=== PATIENT | female | born 1960 | race Caucasian/White ===

== ENCOUNTER 2016-05-13 16:37 | Inpatient (IN) | payer MEDICAID, MEDICARE, OTHER ==
[~2016-05-13] VITALS: Ht 165.1 cm; Wt 64.0 kg
[~2016-05-13 16:37] MED LIST: BUPR150T6 PO; BUPR300T PO; DIVA500T PO; NAPR-243 PO; QTP25T PO; TRM50T PO; [UNRECOGNIZED DRUG - REMARK]
[2016-05-13] MEDS ORDERED: LACTATED RINGERS 1,000 ML IV ONE (17:51)
[2016-05-13] MEDS ORDERED: FAMOTIDINE 20MG/2ML IV (PEPCID) IV STA (17:51)
[2016-05-13] MEDS ORDERED: HYOSCYAMINE 0.125 MG (LEVSIN) TAB PO ONE (18:00)
[2016-05-13] MEDS ORDERED: diphenhydrAMINE 50 MG/ML INJ (BENADRYL) IVP ONE (18:00)
[2016-05-13] MEDS ORDERED: ONDANSETRON 4 MG/2 ML (SDV) Z0FRAN IVP ONE (18:00)
[2016-05-13] MEDS ORDERED: METOCLOPRAMIDE INJ 10 MG/2 ML (REGLAN) IVP ONE (18:00)
[2016-05-13] MEDS ORDERED: PANTOPRAZOLE 40 MG/10 ML (PROTONIX) VIAL IV ONE (18:00)
--- NOTE | 2016-05-13 18:20 | ED GI ---
General Chief Complaint: Abdominal/GI Problems Stated Complaint: N/V/D Nursing Triage Note: TO ED PER EMS WITH ONSET OF VOMITING AND DIARRHEA ONSET THIS AM. 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 FLORSE, AND WAS DX WITH ULCERS AND TAKES PRILOSEC 40 MG TWICE A DAY, BUT NOT TAKEN ANY TODAY HAS HAD SUBJECTIVE FEVER AND SWEATS LAST VOID UNKNOWN WAS WALKING AT HOME AND PASSED OUT, UNKNOWN LENGTH OF TIME--WAS NOT WITNESSED. STATES SHE HIT HER NOSE, BUT DOES NOT C/O NOSE PAIN OR NOSE BLEED. NO OTHER INJURIES PCP: [facility], HAS ALSO SEEN DR. MORRIS Allergies and Home Medications Allergies Coded Allergies: Sulfa (Sulfonamide Antibiotics) (Verified Allergy, Unknown, 05/13/16) meperidine (Unverified Adverse Reaction, Unknown, DECREASES BP, 05/13/16) Home Medications Bupropion Hcl 150 Mg Tab.sr.24h, 1 TAB PO DAILY, (Reported) Divalproex Sodium 500 Mg Tablet.dr, 500 MG PO, (Reported) Review of Systems Constitutional: see HPI, diaphoresis, dizziness, fever EENTM: No Symptoms Reported Respiratory: No Symptoms Reported Cardiovascular: Denies Chest Pain, Denies Edema, Lightheadedness, Syncope Gastrointestinal: See HPI, Abdominal Pain, Diarrhea, Nausea, Poor Appetite, Poor Fluid Intake, Vomiting Genitourinary: See HPI (UNKNOWN WHEN SHE LAST URINATED) Musculoskeletal: no symptoms reported Skin: no symptoms reported Psychiatric/Neurological: See HPI, Anxiety Endocrine: No Symptoms Reported Hematologic/Lymphatic: No Symptoms Reported Past Ipuvnum-Vegaps-Lcwzaz Hx Patient Social History Alcohol Use: Denies Use Recreational Drug Use: No Smoking Status: Current Everyday Smoker (1 PPD) Recent Foreign Travel: No Contact w/Someone Who Travel: No Recent Infectious Disease Expo: No Recent Hopitalizations: No Surgeries HX Surgeries: Yes (CERVICAL AND LUMBAR FUSIONS; X 1 ; HYST/BSO; EGD) Surgeries: Appendectomy, Section, Gallbladder, Hysterectomy, Orthopedic Respiratory Hx Respiratory Disorders: No Cardiovascular Hx Cardiac Disorders: No Neurological Hx Neurological Disorders: No 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 System Hx 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 Disorders: No 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, 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 Genitourinary Hx Genitourinary Disorders: No Gastrointestinal Hx Gastrointestinal Disorders: Yes Gastrointestinal Disorders: Ulcer Musculoskeletal Hx Musculoskeletal Disorders: Yes (CHRONIC NECK AND BACK APIN ) Musculoskeletal Disorders: Chronic Back Pain Endocrine Hx Endocrine Disorders: No HEENT HX ENT Disorders: No Cancer Hx Cancer: No Psychosocial Hx Psychiatric Problems: Yes (PSYCH ISSUES) Behavioral Health Disorders: Bipolar Integumentary HX Skin/Integumentary Disorder: No Blood Transfusions Hx Blood Disorders: No Physical Exam Vital Signs VS - Last 72 Hours, by Label 05/13/16 16:59 Temp 97.4 Pulse 71 Resp 18 B/P (MAP) 97/70 Pulse Ox 100 O2 Delivery Room Air Capillary Refill : Less Than 3 Seconds General Appearance: other (VERY DRAMATIC, HYPERVENTILATING-NEARLY HYSTERICAL, THRASHING ALL OVER BED) HEENT: PERRL/EOMI Neck: normal inspection Respiratory: normal breath sounds, no respiratory distress, no accessory muscle use Cardiovascular: normal peripheral pulses, regular rate, rhythm, no murmur Gastrointestinal: abnormal bowel sounds (DECREASED), No distended, guarding, No rebound, tenderness (DIFFUSE) Extremities: normal inspection, normal capillary refill Back: no CVA tenderness Neurologic/Psychiatric: learning technologist II-XII nml as tested, no motor/sensory deficits, alert, oriented x 3 Skin: normal color, warm/dry, tattoos/piercings (TATTOOS) Progress/Results/Core Measures Results/Orders Lab Results Laboratory Tests Test 05/13/16 18:20 05/13/16 19:25 Range/Units White Blood Count 15.6 H 4.3-11.0 10^3/uL Red Blood Count 4.69 4.35-5.85 10^6/uL Hemoglobin 15.0 11.5-16.0 G/DL Hematocrit 44 35-52 % Mean Corpuscular Volume 93 80-99 FL Mean Corpuscular Hemoglobin 32 25-34 PG Mean Corpuscular Hemoglobin Concent 34 32-36 G/DL Red Cell Distribution Width 13.9 10.0-14.5 % Platelet Count 282 130-400 10^3/uL Mean Platelet Volume 10.4 7.4-10.4 FL Neutrophils (%) (Auto) 88 H 42-75 % Lymphocytes (%) (Auto) 7 L 12-44 % Monocytes (%) (Auto) 4 0-12 % Eosinophils (%) (Auto) 1 0-10 % Basophils (%) (Auto) 0 0-10 % Neutrophils # (Auto) 13.8 H 1.8-7.8 X 10^3 Lymphocytes # (Auto) 1.1 1.0-4.0 X 10^3 Monocytes # (Auto) 0.7 0.0-1.0 X 10^3 Eosinophils # (Auto) 0.1 0.0-0.3 10^3/uL Basophils # (Auto) 0.0 0.0-0.1 10^3/uL Neutrophils % (Manual) 85 % Lymphocytes % (Manual) 3 % Monocytes % (Manual) 2 % Eosinophils % (Manual) 0 % Basophils % (Manual) 0 % Band Neutrophils 10 % Blood Morphology Comment NORMAL Sodium Level 139 135-145 MMOL/L Potassium Level 4.1 3.6-5.0 MMOL/L Chloride Level 110 H 98-107 MMOL/L Carbon Dioxide Level 22 21-32 MMOL/L Anion Gap 7 5-14 MMOL/L Blood Urea Nitrogen 19 H 7-18 MG/DL Creatinine 0.77 0.60-1.30 MG/DL Estimat Glomerular Filtration Rate > 60 BUN/Creatinine Ratio 25 Glucose Level 106 H 70-105 MG/DL Calcium Level 7.8 L 8.5-10.1 MG/DL Magnesium Level 2.2 1.8-2.4 MG/DL Total Bilirubin 0.6 0.1-1.0 MG/DL Aspartate Amino Transf (AST/SGOT) 119 H 5-34 U/L Alanine Aminotransferase (ALT/SGPT) 83 H 0-55 U/L Alkaline Phosphatase 100 40-136 U/L Total Protein 6.0 L 6.4-8.2 G/DL Albumin 3.7 3.2-4.5 G/DL Amylase Level 254 H 25-125 U/L Lipase 410 H 8-78 U/L Serum Alcohol < 10 <10 MG/DL Urine Color YELLOW Urine Clarity CLEAR Urine pH 6 5-9 Urine Specific [place] 1.015 L 1.016-1.022 Urine Protein 2+ H NEGATIVE Urine Glucose (UA) NEGATIVE NEGATIVE Urine Ketones NEGATIVE NEGATIVE Urine Nitrite NEGATIVE NEGATIVE Urine Bilirubin NEGATIVE NEGATIVE Urine Urobilinogen NORMAL NORMAL MG/DL Urine Leukocyte Esterase 2+ H NEGATIVE Urine RBC (Auto) 2+ H NEGATIVE Urine RBC 2-5 H /HPF Urine WBC 5-10 H /HPF Urine Squamous Epithelial Cells 0-2 /HPF Urine Crystals NONE /LPF Urine Bacteria MODERATE H /HPF Urine Casts NONE /LPF Urine Mucus NEGATIVE /LPF Urine Culture Indicated YES Urine Opiates Screen NEGATIVE NEGATIVE Urine Oxycodone Screen NEGATIVE NEGATIVE Urine Methadone Screen NEGATIVE NEGATIVE Urine Propoxyphene Screen NEGATIVE NEGATIVE Urine Barbiturates Screen NEGATIVE NEGATIVE Ur Tricyclic Antidepressants Screen NEGATIVE NEGATIVE Urine Phencyclidine Screen NEGATIVE NEGATIVE Urine Amphetamines Screen NEGATIVE NEGATIVE Urine Methamphetamines Screen NEGATIVE NEGATIVE Urine Benzodiazepines Screen NEGATIVE NEGATIVE Urine Cocaine Screen NEGATIVE NEGATIVE Urine Cannabinoids Screen NEGATIVE NEGATIVE My Orders Orders - MINE TONY DO Saline Lock/Iv-Start (05/13/16 17:51) Monitor-Rhythm Ecg Trace Only (05/13/16 17:51) Amylase (05/13/16 17:51) Cbc With Automated Diff (05/13/16 17:51) Comprehensive Metabolic Panel (05/13/16 17:51) Lipase (05/13/16 17:51) Ua Culture If Indicated (05/13/16 17:51) Saline Lock/Iv-Start (05/13/16 17:51) Lactated Ringers (Lr 1000 Ml Iv Solution (05/13/16 17:51) Ondansetron Injection (Zofran Injectio (05/13/16 18:00) Famotidine Injection (Pepcid Injection) (05/13/16 17:51) Alcohol (05/13/16 17:55) Drug Screen Stat (Urine) (05/13/16 17:55) Magnesium (05/13/16 17:55) Hyoscyamine Sl Tablet (Levsin Sl Tablet) (05/13/16 18:00) Pantoprazole Injection (Protonix Injecti (05/13/16 18:00) Diphenhydramine Injection (Benadryl Inje (05/13/16 18:00) Metoclopramide Injection (Reglan Injecti (05/13/16 18:00) Manual Differential (05/13/16 18:20) Ct Abdomen/Pelvis W (05/13/16 19:13) Acute Abd Series (05/13/16 19:14) Calcium Chloride 10% Injection (Calcium (05/13/16 19:15) Hepatitis Panel Acute (05/13/16 19:14) Iohexol Injection (Omnipaque 350 Mg/Ml 1 (05/13/16 19:45) Ns (Ivpb) (Sodium Chloride 0.9% Ivpb Bag (05/13/16 19:45) Stool Culture (05/13/16 19:44) C Difficile Ag + Toxin A/B. (05/13/16 19:44) Fecal Wbc (05/13/16 19:44) Urine Culture (05/13/16 19:25) Medications Given in ED Current Medications Medications Dose Ordered Sig/Dimitry Route Start Time Stop Time Status Last Admin Dose Admin Calcium Chloride 1 gm ONCE ONCE INJ 05/13/16 19:15 05/13/16 19:21 DC 05/13/16 19:39 1 GM Diphenhydramine HCl 50 mg ONCE ONCE IVP 05/13/16 18:00 05/13/16 18:01 DC 05/13/16 18:08 50 MG Hyoscyamine Sulfate 0.25 mg ONCE ONCE PO 05/13/16 18:00 05/13/16 18:01 DC 05/13/16 18:10 0.25 MG Iohexol 100 ml ONCE ONCE IV 05/13/16 19:45 05/13/16 19:46 DC 05/13/16 20:34 100 ML Lactated Ringer's 1,000 ml @ 0 mls/hr Q0M ONCE IV 05/13/16 17:51 05/13/16 17:53 DC 05/13/16 18:00 1,000 MLS/HR Metoclopramide HCl 10 mg ONCE ONCE IVP 05/13/16 18:00 05/13/16 18:01 DC 05/13/16 18:09 10 MG Ondansetron HCl 4 mg ONCE ONCE IVP 05/13/16 18:00 05/13/16 18:01 DC 05/13/16 18:01 4 MG Pantoprazole 40 mg ONCE ONCE IV 05/13/16 18:00 05/13/16 18:01 DC 05/13/16 18:13 40 MG Sodium Chloride 100 ml ONCE ONCE IV 05/13/16 19:45 05/13/16 19:46 DC 05/13/16 20:34 80 ML Vital Signs/I&O Vital Sign - Last 12Hours 05/13/16 16:59 Temp 97.4 Pulse 71 Resp 18 B/P (MAP) 97/70 Pulse Ox 100 O2 Delivery Room Air Blood Pressure Mean: 79 Progress Note : Progress Note SYMPTOMS MUCH IMPROVED WITH MEDICATIONS--FEELS MUCH BETTER NO FURTHER VOMITING, BUT HAD SEVERAL EPISODES OF DIARRHEA DURING ER STAY--SENT TO LAB FOR TESTING PT RESTED QUIETLY FOR REMAINDER OF ER STAY AFTER MEDICATIONS WERE GIVEN Diagnostic Imaging Comments ACUTE ABDOMEN XRAYS--ENTERITIS -TYPE PATTERN CT ABDOMEN/PELVIS--ENTERITIS-TYPE PATTERN, DILATED BILIARY TREE--POST- CHOLECYSTECTOMY VS PATHOLOGIC PER RADIOLOGIST REPORTS AT 2132 Reviewed: Reviewed by Me Departure Communication Progress Notes 2016--SPOKE WITH DR. MCDOWELL, CT PENDING , BUT ACCEPTS PT FOR ADMIT. Impression Impression: Primary Impression: Pancreatitis Additional Impressions: Elevated liver enzymes Gastroenteritis DEHYDRATION WIH SYNCOPE Hypocalcemia History of peptic ulcer Disposition: ADMITTED INPATIENT Condition: Improved Decision to Admit Reason: Admit from ER (General) Decision to Admit/Date: May 13, 2016 Time/Decision to Admit Time: 21:30 Departure-Patient Inst. Referrals: [facility] (PCP[facility]Family) Primary Care Physician MINE TONY DO May 13, 2016 18:20
[2016-05-13 18:38] LABS: BASOPHILS % (AUTO) 0 % (0-10); EOSINOPHILS # (AUTO) 0.1 10^3/uL (0.0-0.3); EOSINOPHILS % (AUTO) 1 % (0-10); LYMPHOCYTES # (AUTO) 1.1 X 10^3 (1.0-4.0); LYMPHOCYTES % (AUTO) 7 % (12-44); MEAN CORPUSCULAR HEMOGLOBIN 32 PG (25-34); MEAN CORPUSCULAR HGB CONC 34 G/DL (32-36); MEAN CORPUSCULAR VOLUME 93 FL (80-99); MEAN PLATELET VOLUME 10.4 FL (7.4-10.4); MONOCYTES # (AUTO) 0.7 X 10^3 (0.0-1.0); MONOCYTES % (AUTO) 4 % (0-12); NEUTROPHILS # (AUTO) 13.8 X 10^3 (1.8-7.8); NEUTROPHILS % (AUTO) 88 % (42-75); PLATELET COUNT 282 10^3/uL (130-400); RED BLOOD COUNT 4.69 10^6/uL (4.35-5.85); RED CELL DISTRIBUTION WIDTH 13.9 % (10.0-14.5); WHITE BLOOD COUNT 15.6 10^3/uL (4.3-11.0)
[2016-05-13 18:57] LABS: BAND NEUTROPHILS 10 %; BASOPHILS % (MANUAL) 0 %; EOSINOPHILS % (MANUAL) 0 %; LYMPHOCYTES % (MANUAL) 3 %; NEUTROPHILS % (MANUAL) 85 %
[2016-05-13 19:02] LABS: ALANINE AMINOTRANSFERASE 83 U/L (0-55); ALBUMIN 3.7 G/DL (3.2-4.5); ALCOHOL < 10 MG/DL (<10); AMYLASE 254 U/L (25-125); ANION GAP 7 MMOL/L (5-14); ASPARTATE AMINO TRANSFERASE 119 U/L (5-34); BILIRUBIN,TOTAL 0.6 MG/DL (0.1-1.0); BLOOD UREA NITROGEN 19 MG/DL (7-18); BUN/CREATININE RATIO 25; CALCIUM 7.8 MG/DL (8.5-10.1); CARBON DIOXIDE 22 MMOL/L (21-32); CHLORIDE 110 MMOL/L (98-107); CREATININE SERUM 0.77 MG/DL (0.60-1.30); GFR ESTIMATED > 60; GLUCOSE 106 MG/DL (70-105); LIPASE 410 U/L (8-78); MAGNESIUM 2.2 MG/DL (1.8-2.4); POTASSIUM 4.1 MMOL/L (3.6-5.0); SODIUM 139 MMOL/L (135-145)
[2016-05-13] MEDS ORDERED: CALCIUM CHLORIDE 1 GM/10 ML (IMS) SYR INJ ONE (19:15)
[2016-05-13 19:31] LABS: BILIRUBIN,URINE NEGATIVE (NEGATIVE); KETONES,URINE NEGATIVE (NEGATIVE); LEUKOCYTE ESTERASE ,URINE 2+ (NEGATIVE); NITRITE,URINE NEGATIVE (NEGATIVE); PH,URINE 6 (5-9); PROTEIN,URINE 2+ (NEGATIVE); UROBILINOGEN,URINE NORMAL (NORMAL)
[2016-05-13 19:45] LABS: SQUAMOUS EPITHELIAL CELL,UR 0-2 /HPF
[2016-05-13] MEDS ORDERED: NS 100 ML (IVPB) BAG IV ONE (19:45)
[2016-05-13] MEDS ORDERED: IOHEXOL 350 MG/ML 100 ML (OMNIPAQUE 350) VIAL IV ONE (19:45)
[2016-05-13] MEDS ORDERED: ENOXAPARIN 80 MG/0.8 ML (LOVENOX) SYR SC ONE (21:15)
[2016-05-13] MEDS ORDERED: meTOprolol 5 MG/5 ML (LOPRESSOR) VIAL IV ONE (21:15)
--- NOTE | 2016-05-13 21:17 | Diagnostic Imaging Report ---
PROCEDURE: CT abdomen and pelvis with contrast. TECHNIQUE: Multiple contiguous axial images were obtained through the abdomen and pelvis after administration of intravenous contrast. INDICATION: Elevated liver and pancreas enzymes. COMPARISON: None available. FINDINGS: Lower chest: The lung bases are clear. No pericardial or pleural effusion. Peritoneum: No free intraperitoneal air or fluid. Liver and biliary system: The liver is normal. Status post cholecystectomy. There is mild diffuse intrahepatic and extrahepatic bile duct dilatation. Common bile duct demonstrates smooth distal tapering. No discrete intraluminal lesion by CT. Spleen and Pancreas: Spleen is normal. The pancreas enhances normally without mass lesion or peripancreatic inflammatory changes. Adrenals: Normal. tract: The kidneys enhance normally without suspicious mass or obstruction. Urinary bladder is distended without wall thickening. Hysterectomy. No suspicious adnexal lesion. GI tract: Stomach is decompressed. No bowel obstruction. The majority of the small bowel loops are fluid filled without wall thickening. The ascending colon is also fluid filled. Distal colon is decompressed. No pericolonic inflammatory changes. Appendectomy. Vasculature and Lymph nodes: Normal caliber aorta. No abdominal or pelvic lymphadenopathy. Musculoskeletal: No concerning osseous lesion. Prior discectomy and laminectomies at L4 and L5 with posterior instrumented fusion. IMPRESSION: 1. No evidence of acute pancreatitis. 2. Diffuse fluid-filled small bowel loops and proximal colon suggest enteritis. No bowel obstruction. 3. Status post cholecystectomy. There is mild diffuse intrahepatic and extrahepatic biliary duct dilatation. This can be physiologic in a postcholecystectomy state. However, given reported elevated liver enzymes, this could be pathologic. MRCP could be performed for further evaluation, as clinically indicated. Dictated by: Dictated on workstation # [id number]
--- NOTE | 2016-05-13 21:27 | Diagnostic Imaging Report ---
INDICATION: Nausea and vomiting. COMPARISON: CT abdomen and pelvis performed subsequently. FINDINGS: Visible lungs are clear. No pleural effusion or pneumothorax. Normal cardiomediastinal silhouette. Nonobstructive bowel gas pattern. Multiple small bowel and colonic air-fluid levels on upright imaging favor enteritis. No free intraperitoneal air. Postoperative changes in the lower lumbar spine. IMPRESSION: 1. Nonobstructive bowel gas pattern. 2. Findings suggestive of enteritis. Please see CT abdomen and pelvis report for details. 3. No acute cardiopulmonary process. Dictated by: Dictated on workstation # [id number]
[2016-05-13] MEDS ORDERED: ACETAMINOPHEN 500 MG TAB (TYLENOL) ONE (22:19)
[2016-05-13] MEDS ORDERED: ACETAMINOPHEN 500 MG TAB (TYLENOL) PO ONE (22:30)
[2016-05-13 22:35] VITALS: BP 112/57
[2016-05-13] MEDS ORDERED: D5 1/2 NS 1000 ML IV SOLUTION 1,000 ML IV ONE ×2 (22:42→22:48)
[2016-05-14] VITALS (7 sets, daily range): BP systolic 88–127; BP diastolic 46–66
[2016-05-14] MEDS ORDERED: D5 1/2 NS W/KCL 20 MEQ/L 1,000 ML IV ONE (00:32)
[2016-05-14] MEDS ORDERED: ACETAMINOPHEN 500 MG TAB (TYLENOL) PO PRN (01:00)
[2016-05-14] MEDS: D5 1/2 NS W/KCL 20 MEQ/L 1,000 ML IV SCH ×5 (01:11→23:54)
[2016-05-14 05:59] LABS: BASOPHILS % (AUTO) 0 % (0-10); EOSINOPHILS # (AUTO) 0.1 10^3/uL (0.0-0.3); EOSINOPHILS % (AUTO) 2 % (0-10); LYMPHOCYTES # (AUTO) 1.2 X 10^3 (1.0-4.0); LYMPHOCYTES % (AUTO) 21 % (12-44); MEAN CORPUSCULAR HEMOGLOBIN 32 PG (25-34); MEAN CORPUSCULAR HGB CONC 34 G/DL (32-36); MEAN CORPUSCULAR VOLUME 94 FL (80-99); MEAN PLATELET VOLUME 10.8 FL (7.4-10.4); MONOCYTES # (AUTO) 0.6 X 10^3 (0.0-1.0); MONOCYTES % (AUTO) 12 % (0-12); NEUTROPHILS # (AUTO) 3.5 X 10^3 (1.8-7.8); NEUTROPHILS % (AUTO) 65 % (42-75); PLATELET COUNT 225 10^3/uL (130-400); RED BLOOD COUNT 4.31 10^6/uL (4.35-5.85); RED CELL DISTRIBUTION WIDTH 13.9 % (10.0-14.5); WHITE BLOOD COUNT 5.4 10^3/uL (4.3-11.0)
[2016-05-14 06:21] LABS: ALANINE AMINOTRANSFERASE 915 U/L (0-55); ALBUMIN 3.2 G/DL (3.2-4.5); AMYLASE 103 U/L (25-125); ANION GAP 5 MMOL/L (5-14); ASPARTATE AMINO TRANSFERASE 1000 U/L (5-34); BILIRUBIN,TOTAL 0.7 MG/DL (0.1-1.0); BLOOD UREA NITROGEN 11 MG/DL (7-18); BUN/CREATININE RATIO 15; CALCIUM 8.1 MG/DL (8.5-10.1); CARBON DIOXIDE 23 MMOL/L (21-32); CHLORIDE 112 MMOL/L (98-107); CREATININE SERUM 0.71 MG/DL (0.60-1.30); GFR ESTIMATED > 60; GLUCOSE 88 MG/DL (70-105); LIPASE 82 U/L (8-78); POTASSIUM 4.2 MMOL/L (3.6-5.0); SODIUM 140 MMOL/L (135-145); TOTAL PROTEIN 5.3 G/DL (6.4-8.2)
[2016-05-14] MEDS: PANTOPRAZOLE 40 MG/10 ML (PROTONIX) VIAL IV SCH ×2 (08:04→20:23)
[2016-05-14] MEDS ORDERED: DIVA500T15 PO (09:39)
[2016-05-14] MEDS ORDERED: METH20TA34 PO (09:39)
[2016-05-14] MEDS ORDERED: BUPR150T7 PO (09:39)
[2016-05-14] MEDS ORDERED: BUPR-42 PO (09:45)
[2016-05-14] MEDS ORDERED: OMEP40CA36 PO (09:46)
--- NOTE | 2016-05-14 10:43 | History & Physical-Hospitalist ---
HPI History of Present Illness: HPI/Chief Complaint CC: Abdominal pain HPI: This is a 56yoWF pt of Dr. Menchaca and [facility] that presented to the ER with abrupt onset of vomiting and diarrhea and felt like she was going to pass out. She was assessed to have elevated liver enzymes with pancreatitis and CT scan showed dilated biliary system so MRCP has been ordered and Dr. Cifuentes has been consulted. microarray specialist: Pt can have surgery at 1700 today. Pt will be NPO. SW Review: CT scan showed dilated biliary system so MRCP has been ordered and Dr. Cifuentes has been consulted. Pt is a current smoker. Patient Interview: Pt states she was at home when she came to the ER. 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 Pt states she had diarrhea and vomited. Pt states she passed out twice and one of the times she passed out she hit her face on the toilet. Physical exam was stable. Pt denies pain currently. Pt states she had Choly in 1977. Pt was told about potentially having a biliary stone or narrowing of her biliary system and that is why she is getting MRCP test done. Pt will meet with Dr. Cifuentes. Pt states she is in the process of quitting smoking. Pt denies drinking ETOH or taking Tylenol. Scribed by Sancho Wilson under the direct supervision of Dr. Menezes. 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) Alcohol Use: Denies Use Recreational Drug Use: No Smoking Status: Current Everyday Smoker Type Used: Cigarettes Physical Abuse Screen: No Sexual Abuse: No Recent Foreign Travel: No Contact w/other who traveled: No Recent Hopitalizations: No Recent Infectious Disease Expo: No Immunizations Up To Date Date of Influenza Vaccine: Nov 16, 2015 Seasonal Allergies Seasonal Allergies: No Surgeries HX Surgeries: Yes (CERVICAL AND LUMBAR FUSIONS; X 1 ; HYST/BSO; EGD) Surgeries: Appendectomy, Section, Gallbladder (), Hysterectomy, Orthopedic Respiratory Hx Respiratory Disorders: No Cardiovascular Hx Cardiovascular Disorders: No Neurological Hx Neurological Disorders: No 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 System Hx 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 Disorders: No Sexually Transmitted Disease: No HIV/AIDS: No Female 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 Disorders: Denies Genitourinary Hx Genitourinary Disorders: No Gastrointestinal Hx Gastrointestinal Disorders: Yes Gastrointestinal Disorders: Ulcer, Gall Bladder Disease Musculoskeletal Hx Musculoskeletal Disorders: Yes (CHRONIC NECK AND BACK APIN ) Musculoskeletal Disorders: Chronic Back Pain Endocrine Hx Endocrine Disorders: No HEENT HX ENT Disorders: No Cancer Hx Cancer: No Psychosocial Hx Psychiatric Problems: Yes (PSYCH ISSUES) Behavioral Health Disorders: Bipolar, Depression Integumentary HX Skin/Integumentary Disorder: No Blood Transfusions Hx Blood Disorders: No Adverse Reaction to a Blood Tr: No Family Medical History Family Hx: FH: non-Hodgkin's lymphoma SON Hypertension 19 MOTHER Review of Systems Constitutional: see HPI, malaise, weakness EENTM: no symptoms reported Respiratory: no symptoms reported Cardiovascular: no symptoms reported Gastrointestinal: diarrhea, loss of appetite, nausea, vomiting Genitourinary: no symptoms reported Musculoskeletal: back pain Skin: no symptoms reported Psychiatric/Neurological: Anxiety, Depressed All Other Systems Reviewed Negative Unless Noted: Yes Physical Exam Physical Exam Vital Signs Vital Sign - Last 12Hours 05/13/16 16:59 Temp 97.4 Pulse 71 Resp 18 B/P (MAP) 97/70 Pulse Ox 100 O2 Delivery Room Air Capillary Refill : Less Than 3 Seconds General Appearance: WD/WN, Chronically ill, Mild Distress Eyes: Bilateral Eye Normal Inspection, Bilateral Eye PERRL HEENT: PERRL/EOMI, Normal ENT Inspection, Pharynx Normal Neck: Full Range of Motion, Normal Inspection, Non Tender, Supple, Carotid Bruit Respiratory: Chest Non Tender, Lungs Clear, Normal Breath Sounds, No Accessory Muscle Use, No Respiratory Distress Cardiovascular: Regular Rate, Rhythm, No Edema, No Gallop, No JVD, No Murmur, Normal Peripheral Pulses Gastrointestinal: No Organomegaly, No Pulsatile Mass, Soft, Abnormal Bowel Sounds, Distended, Tenderness Back: Normal Inspection, No CVA Tenderness, No Vertebral Tenderness Extremity: Normal Capillary Refill, Normal Inspection, Normal Range of Motion, Non Tender, No Calf Tenderness, No Pedal Edema Neurologic/Psychiatric: Alert, Oriented x3, No Motor/Sensory Deficits, Normal Mood/Affect Skin: Normal Color, Warm/Dry Lymphatic: No Adenopathy Results Results/Procedures Lab Laboratory Tests 05/13/16 18:20 05/14/16 05:20 Assessment/Plan Admission Diagnosis Assessment: Acute pancreatitis with elevated liver enzymes and biliary tree dilatation in process of obtaining MRCP then may need ERCP consulting Dr. Cifuentes general surgery maintaining on PPI Open cholecystectomy in 1970s Current smoker Dehydration Assessment and Plan Plan: Wet warm compress to left hand from IV infiltration MRCP Consult Dr Cifuentes since may need scope or transfer for ERCP IVF Pain meds Clinical Quality Measures DVT/VTE Risk/Contraindication: Risk Factor Score Per Nursin RFS Level Per Nursing on Admit: 4+=Very High ELI MENEZES DO May 14, 2016 10:43
--- NOTE | 2016-05-14 12:53 | Consultation ---
History of Present Illness History of Present Illness Patient Consulted On(tree/time) 05/14/16 12:47 Date of Admission History of Present Illness Surgery asked to consult re: pancreatitis. HPI: pt is a 56 yo female who works in [employer] She states yesterday about 4 am, while working she started feeling "bad". Went home a little early and at home then had 4-5 episodes of vomting and then diarrhea. Stated she felt dehydrated and weak, passed out twice and the second time she couldn't even get up, so she called 911 and came to hospital. Pt has only minimal abdominal pain, complains more of "bloating" and cramps. Pain is 3-4 out of 10, on a 1-10 scale. Pt denies any travel; however, she states [place] went [place] 2 [place] 9 [place] who had a "bad virus" and were having projectile vomiting and diarrhea. She denies hematochezia. She has never had anything like this before. States she just tried toast and it made her nauseous again, but the cranberry juice actually helped. Still feels weak. Allergies and Home Medications Allergies Coded Allergies: Sulfa (Sulfonamide Antibiotics) (Verified Allergy, Unknown, 05/13/16) meperidine (Unverified Adverse Reaction, Unknown, DECREASES BP, 05/13/16) Home Medications Bupropion HCl 150 Mg Tab.er.24h, 150 MG PO DAILY, (Reported) Bupropion HCl 150 Mg Tab.er.24h, 300 MG PO HS, (Reported) TAKES 2 (150MG) TABLETS Divalproex Sodium 500 Mg Tab.er.24h, 1,000 MG PO HS, (Reported) TAKES 2 (500MG) TABLETS Methylphenidate HCl 20 Mg Tablet, 20 MG PO 2200,0300, (Reported) Omeprazole 40 Mg Capsule.dr, 40 MG PO BID, (Reported) LAST FILLED #30 12-10-15 Past Dwholrc-Aaitme-Celfsu Hx Patient Social History Alcohol Use: Denies Use Recreational Drug Use: No Smoking Status: Current Everyday Smoker Type Used: Cigarettes Recent Foreign Travel: No Contact w/Someone Who Travel: No Recent Infectious Disease Expo: No Recent Hopitalizations: No Physical Abuse Screen: No Sexual Abuse: No Immunizations Up To Date PED Vaccines UTD: Yes Date of Influenza Vaccine: Nov 16, 2015 Seasonal Allergies Seasonal Allergies: No Surgeries HX Surgeries: Yes (CERVICAL AND LUMBAR FUSIONS; X 1 ; HYST/BSO; EGD) Surgeries: Appendectomy, Section, Gallbladder (), Hysterectomy, Orthopedic Respiratory Hx Respiratory Disorders: No Cardiovascular Hx Cardiac Disorders: No Neurological Hx Neurological Disorders: No 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 System Hx 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 Disorders: No Sexually Transmitted Disease: No HIV/AIDS: No Female 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 Disorders: 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, 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 Genitourinary Hx Genitourinary Disorders: No Gastrointestinal Hx Gastrointestinal Disorders: Yes Gastrointestinal Disorders: Ulcer, Gall Bladder Disease Musculoskeletal Hx Musculoskeletal Disorders: Yes (CHRONIC NECK AND BACK APIN ) Musculoskeletal Disorders: Chronic Back Pain Endocrine Hx Endocrine Disorders: No HEENT HX ENT Disorders: No Cancer Hx Cancer: No Psychosocial Hx Psychiatric Problems: Yes (PSYCH ISSUES) Behavioral Health Disorders: Bipolar, Depression Integumentary HX Skin/Integumentary Disorder: No Blood Transfusions Hx Blood Disorders: No Adverse Reaction to a Blood Tr: No Family Medical History Significant Family History: CAD Over 55 Years Old (father of [place]), Hypertension (mother) Family Medial History: FH: non-Hodgkin's lymphoma SON Hypertension 19 MOTHER Review of Systems-General Constitutional: chills, malaise, weakness EENTM: No blurred vision, No hearing loss, No throat swelling, No vision loss Respiratory: No cough, No dyspnea on exertion, No hemoptysis Cardiovascular: No chest pain, No palpitations, syncope Gastrointestinal: abdominal pain, diarrhea, No hematemesis, No melena, nausea, vomiting Genitourinary: dysuria, frequency, No hematuria : No Musculoskeletal: back pain, joint pain, muscle pain, muscle stiffness Skin: No change in color, No change in hair/nails Psychiatric/Neurological: Depressed, Emotional Problems (bipolar), Denies Seizure, Denies Tremors Other denies any swollen lymph nodes and no heat or cold intolerance Physical Exam-General Problems Physical Exam Vital Signs Vital Sign - Last 12Hours 05/13/16 16:59 Temp 97.4 Pulse 71 Resp 18 B/P (MAP) 97/70 Pulse Ox 100 O2 Delivery Room Air Capillary Refill : Less Than 3 Seconds General Appearance: WD/WN, mild distress Eyes: Bilateral Eye EOMI, Bilateral Eye PERRL HEENT: pharynx normal, No scleral icterus (R), No scleral icterus (L) Neck: non-tender, supple, normal inspection, No thyromegaly Respiratory: lungs clear, normal breath sounds, no respiratory distress, no accessory muscle use Cardiovascular: regular rate, rhythm, no edema, no murmur Gastrointestinal: normal bowel sounds, non tender, soft, no organomegaly, no pulsatile mass Rectal: deferred Back: no CVA tenderness, no vertebral tenderness Extremities: non-tender, normal inspection, no pedal edema, no calf tenderness , normal capillary refill Neurologic/Psychiatric: dot etcher II-XII nml as tested, no motor/sensory deficits, alert, normal mood/affect, oriented x 3 Skin: normal color, warm/dry Lymphatic: no adenopathy (neck axilla or groin) Data Review Labs Laboratory Tests 05/13/16 18:20: White Blood Count 15.6H, Red Blood Count 4.69, Hemoglobin 15.0, Hematocrit 44, Mean Corpuscular Volume 93, Mean Corpuscular Hemoglobin 32, Mean Corpuscular Hemoglobin Concent 34, Red Cell Distribution Width 13.9, Platelet Count 282, Mean Platelet Volume 10.4, Neutrophils (%) (Auto) 88H, Lymphocytes (%) (Auto) 7L , Monocytes (%) (Auto) 4, Eosinophils (%) (Auto) 1, Basophils (%) (Auto) 0, Neutrophils # (Auto) 13.8H, Lymphocytes # (Auto) 1.1, Monocytes # (Auto) 0.7, Eosinophils # (Auto) 0.1, Basophils # (Auto) 0.0, Neutrophils % (Manual) 85, Lymphocytes % (Manual) 3, Monocytes % (Manual) 2, Eosinophils % (Manual) 0, Basophils % (Manual) 0, Band Neutrophils 10, Blood Morphology Comment NORMAL, Sodium Level 139, Potassium Level 4.1, Chloride Level 110H, Carbon Dioxide Level 22, Anion Gap 7, Blood Urea Nitrogen 19H, Creatinine 0.77, Estimat Glomerular Filtration Rate > 60, BUN/Creatinine Ratio 25, Glucose Level 106H, Calcium Level 7.8L, Magnesium Level 2.2, Total Bilirubin 0.6, Aspartate Amino Transf (AST/SGOT) 119H, Alanine Aminotransferase (ALT/SGPT) 83H, Alkaline Phosphatase 100, Total Protein 6.0L, Albumin 3.7, Amylase Level 254H, Lipase 410H, Serum Alcohol < 10 05/13/16 19:25: Urine Color YELLOW, Urine Clarity CLEAR, Urine pH 6, Urine Specific Sterling 1.015L, Urine Protein 2+H, Urine Glucose (UA) NEGATIVE, Urine Ketones NEGATIVE, Urine Nitrite NEGATIVE, Urine Bilirubin NEGATIVE, Urine Urobilinogen NORMAL, Urine Leukocyte Esterase 2+H, Urine RBC (Auto) 2+H, Urine RBC 2-5H, Urine WBC 5- 10H, Urine Squamous Epithelial Cells 0-2, Urine Crystals NONE, Urine Bacteria MODERATEH, Urine Casts NONE, Urine Mucus NEGATIVE, Urine Culture Indicated YES, Urine Opiates Screen NEGATIVE, Urine Oxycodone Screen NEGATIVE, Urine Methadone Screen NEGATIVE, Urine Propoxyphene Screen NEGATIVE, Urine Barbiturates Screen NEGATIVE, Ur Tricyclic Antidepressants Screen NEGATIVE, Urine Phencyclidine Screen NEGATIVE, Urine Amphetamines Screen NEGATIVE, Urine Methamphetamines Screen NEGATIVE, Urine Benzodiazepines Screen NEGATIVE, Urine Cocaine Screen NEGATIVE, Urine Cannabinoids Screen NEGATIVE 05/14/16 05:20: White Blood Count 5.4, Red Blood Count 4.31L, Hemoglobin 13.7, Hematocrit 40, Mean Corpuscular Volume 94, Mean Corpuscular Hemoglobin 32, Mean Corpuscular Hemoglobin Concent 34, Red Cell Distribution Width 13.9, Platelet Count 225, Mean Platelet Volume 10.8H, Neutrophils (%) (Auto) 65, Lymphocytes (%) (Auto) 21 , Monocytes (%) (Auto) 12, Eosinophils (%) (Auto) 2, Basophils (%) (Auto) 0, Neutrophils # (Auto) 3.5, Lymphocytes # (Auto) 1.2, Monocytes # (Auto) 0.6, Eosinophils # (Auto) 0.1, Basophils # (Auto) 0.0, Sodium Level 140, Potassium Level 4.2, Chloride Level 112H, Carbon Dioxide Level 23, Anion Gap 5, Blood Urea Nitrogen 11, Creatinine 0.71, Estimat Glomerular Filtration Rate > 60, BUN/ Creatinine Ratio 15, Glucose Level 88, Calcium Level 8.1L, Total Bilirubin 0.7, Aspartate Amino Transf (AST/SGOT) 1000H, Alanine Aminotransferase (ALT/SGPT) 915H, Alkaline Phosphatase 234H, Total Protein 5.3L, Albumin 3.2, Amylase Level 103, Lipase 82H Microbiology 05/13/16 Urine Culture - Preliminary, Resulted Assessment/Plan Assessment/Plan Assessment/Plan Pancreatitis - labs resolving Elevated LFT's N/V/D- most likely a viral entertitis. CT shows some areas of thickened SB. Possible UTI\\ Hx of Bipolar disorder - controlled with meds Plan order Hepatitis panel, monitor LFT's, IV fluids. Continue current care. No surgical intervention at this time. Clinical Quality Measures DVT/VTE Risk/Contraindication: Risk Factor Score Per Nursin RFS Level Per Nursing on Admit: 4+=Very High KALEE MAY DO May 14, 2016 12:53
--- NOTE | 2016-05-14 18:48 | Diagnostic Imaging Report ---
PROCEDURE: MR imaging cholangiography-pancreatography. INDICATION: Episodes of nausea, vomiting diarrhea with abdominal pain. Possible Clostridium difficile. TECHNIQUE: Multiplanar imaging of the abdomen was performed on a 1.5 Evelyne magnet without contrast. 3D reconstructions were made for the MRCP CORRELATION STUDY: CT 05/13/2016. FINDINGS: The gallbladder is surgically absent. There is a prominent appearance about the extrahepatic and to a lesser degree, the central intrahepatic biliary tree. Some areas proximally, the common bile duct up to 11 mm, very slightly above upper limits of normal. There is no definitive filling defect to suggest stone. The main pancreatic duct is unremarkable. The pancreas is unremarkable. Relatively uniform signal intensity throughout the liver. The spleen is normal in size and appearance. No suggestion for adrenal gland mass. The kidneys are normal in appearance. Abdominal aorta is normal in contour. No significant upper abdominal ascites. IMPRESSION: 1. Postcholecystectomy changes. 2. The biliary tree both extrahepatic and intrahepatic is very mildly prominent with the size of the common bile duct just above the upper limits of normal for a postcholecystectomy physiologic dilatation. However, a filling defect is not present. If confirmation of the patency of the biliary tree is desired, HIDA scan would be recommended. Dictated by: Dictated on workstation # [id number]
[2016-05-15] VITALS: BP 115/63
[2016-05-15] MEDS: IBUPROFEN 800 MG (MOTRIN) TAB PO PRN ×2 (01:22→08:30)
[2016-05-15] MEDS: diphenhydrAMINE 50 MG/ML INJ (BENADRYL) IV PRN ×2 (01:22→20:54)
[2016-05-15 07:09] LABS: BASOPHILS % (AUTO) 0 % (0-10); EOSINOPHILS # (AUTO) 0.3 10^3/uL (0.0-0.3); EOSINOPHILS % (AUTO) 6 % (0-10); LYMPHOCYTES # (AUTO) 2.1 X 10^3 (1.0-4.0); LYMPHOCYTES % (AUTO) 38 % (12-44); MEAN CORPUSCULAR HEMOGLOBIN 31 PG (25-34); MEAN CORPUSCULAR HGB CONC 33 G/DL (32-36); MEAN CORPUSCULAR VOLUME 94 FL (80-99); MEAN PLATELET VOLUME 10.8 FL (7.4-10.4); MONOCYTES # (AUTO) 0.8 X 10^3 (0.0-1.0); MONOCYTES % (AUTO) 14 % (0-12); NEUTROPHILS # (AUTO) 2.2 X 10^3 (1.8-7.8); NEUTROPHILS % (AUTO) 41 % (42-75); PLATELET COUNT 207 10^3/uL (130-400); RED BLOOD COUNT 3.99 10^6/uL (4.35-5.85); RED CELL DISTRIBUTION WIDTH 13.8 % (10.0-14.5); WHITE BLOOD COUNT 5.4 10^3/uL (4.3-11.0)
[2016-05-15 07:19] LABS: ALANINE AMINOTRANSFERASE 532 U/L (0-55); ALBUMIN 3.1 G/DL (3.2-4.5); AMYLASE 58 U/L (25-125); ANION GAP 5 MMOL/L (5-14); ASPARTATE AMINO TRANSFERASE 240 U/L (5-34); BILIRUBIN,TOTAL 0.3 MG/DL (0.1-1.0); BLOOD UREA NITROGEN 5 MG/DL (7-18); BUN/CREATININE RATIO 8; CALCIUM 7.8 MG/DL (8.5-10.1); CARBON DIOXIDE 24 MMOL/L (21-32); CHLORIDE 112 MMOL/L (98-107); CREATININE SERUM 0.64 MG/DL (0.60-1.30); GFR ESTIMATED > 60; GLUCOSE 96 MG/DL (70-105); LIPASE 29 U/L (8-78); POTASSIUM 3.9 MMOL/L (3.6-5.0); SODIUM 141 MMOL/L (135-145); TOTAL PROTEIN 5.1 G/DL (6.4-8.2)
[2016-05-15 08:00] VITALS: BP 95/46
[2016-05-15] MEDS: METOCLOPRAMIDE INJ 10 MG/2 ML (REGLAN) IV PRN ×2 (08:29→17:34)
[2016-05-15] MEDS: PANTOPRAZOLE 40 MG/10 ML (PROTONIX) VIAL IV SCH (08:29)
[2016-05-15] MEDS: ONDANSETRON 4 MG/2 ML (SDV) Z0FRAN IV PRN ×2 (08:29→17:34)
[2016-05-15] MEDS: HYOSCYAMINE 0.125 MG (LEVSIN) TAB SL PRN ×2 (08:30→17:34)
[2016-05-15] MEDS: D5 1/2 NS W/KCL 20 MEQ/L 1,000 ML IV SCH ×2 (08:32→17:00)
--- NOTE | 2016-05-15 10:54 | Progress Note ---
Subjective Subjective/Events-last exam Pt seen and examined. States she feels "terrible" today; when questioned further she is mostly just run down and tired. Denies any abdominal pain. No vomiting last night, still with loose bowels. Review of Systems General: No Chills, No Night Sweats, Fatigue, Malaise HEENT: No Head Aches, No Dysphasia Pulmonary: No Dyspnea, No Cough Cardiovascular: No: Chest Pain, Palpitations Gastrointestinal: Diarrhea, Nausea, No: Abdominal Pain Genitourinary: Dysuria, Frequency Objective Exam Vital Signs Date Time Temp Pulse Resp B/P (MAP) Pulse Ox O2 Delivery O2 Flow Rate FiO2 05/15/16 08:00 97.3 54 16 95/46 96 Room Air 05/15/16 00:00 97.2 64 18 115/63 92 Room Air 05/14/16 16:00 98.2 62 20 127/62 96 Room Air 05/14/16 12:00 99.6 69 20 93/55 97 Room Air I & O 05/15/16 07:00 Intake Total 3210 ml Output Total 2650 ml Balance 560 ml Capillary Refill : Less Than 3 Seconds General Appearance: WD/WN, Chronically ill, Mild Distress HEENT: PERRL/EOMI, Normal ENT Inspection, Pharynx Normal Neck: Full Range of Motion, Normal Inspection, Non Tender, Supple, Carotid Bruit Respiratory: Chest Non Tender, Lungs Clear, Normal Breath Sounds, No Accessory Muscle Use, No Respiratory Distress Cardiovascular: Regular Rate, Rhythm, No Edema, No Gallop, No JVD, No Murmur, Normal Peripheral Pulses Gastrointestinal: normal bowel sounds, non tender, soft, no organomegaly, no pulsatile mass Extremity: Normal Capillary Refill, Normal Inspection, Normal Range of Motion, Non Tender, No Calf Tenderness, No Pedal Edema Neurologic/Psychiatric: Alert, Oriented x3, No Motor/Sensory Deficits, Normal Mood/Affect Skin: Normal Color, Warm/Dry Lymphatic: No Adenopathy Results Lab Laboratory Tests 05/15/16 06:06: White Blood Count 5.4, Red Blood Count 3.99L, Hemoglobin 12.5, Hematocrit 38, Mean Corpuscular Volume 94, Mean Corpuscular Hemoglobin 31, Mean Corpuscular Hemoglobin Concent 33, Red Cell Distribution Width 13.8, Platelet Count 207, Mean Platelet Volume 10.8H, Neutrophils (%) (Auto) 41L, Lymphocytes (%) (Auto) 38, Monocytes (%) (Auto) 14H, Eosinophils (%) (Auto) 6, Basophils (%) (Auto) 0, Neutrophils # (Auto) 2.2, Lymphocytes # (Auto) 2.1, Monocytes # (Auto) 0.8, Eosinophils # (Auto) 0.3, Basophils # (Auto) 0.0, Sodium Level 141, Potassium Level 3.9, Chloride Level 112H, Carbon Dioxide Level 24, Anion Gap 5, Blood Urea Nitrogen 5L, Creatinine 0.64, Estimat Glomerular Filtration Rate > 60, BUN/ Creatinine Ratio 8, Glucose Level 96, Calcium Level 7.8L, Total Bilirubin 0.3, Aspartate Amino Transf (AST/SGOT) 240H, Alanine Aminotransferase (ALT/SGPT) 532H , Alkaline Phosphatase 189H, Total Protein 5.1L, Albumin 3.1L, Amylase Level 58 , Lipase 29 Microbiology 05/13/16 Fecal Leukocyte Stain - Final, Resulted 05/13/16 C. difficile DNA Amplification - Final, Resulted 05/13/16 C. difficile GDH Antigen & Toxins - Final, Resulted 05/13/16 Stool Culture - Preliminary, Resulted 05/13/16 Urine Culture - Final, Complete Assessment/Plan Assessment/Plan Assessment/Plan Pancreatitis - labs resolving Elevated LFT's - dpwn from yesterday. N/V/D- most likely a viral entertitis. CT shows some areas of thickened SB. Possible UTI - will check for culture results. Hx of Bipolar disorder - controlled with meds Hepatitis panel was order and is negative, repeat LFT's on 05/16, IV fluids. No surgical intervention at this time. Will be sent home per tomorrow. Clinical Quality Measures DVT/VTE Risk/Contraindication: Risk Factor Score Per Nursin RFS Level Per Nursing on Admit: 4+=Very High KALEE MAY DO May 15, 2016 10:54
[2016-05-15 11:12] LABS: PROTHROMBIN TIME PATIENT 13.3 SEC (12.2-14.7)
--- NOTE | 2016-05-15 11:31 | Progress Note-Hospitalist ---
Progress Note HPI/CC on Admission CC: Abdominal pain HPI: This is a 56yoWF pt of Dr. Menchaca and [facility] that presented to the ER with abrupt onset of vomiting and diarrhea and felt like she was going to pass out. She was assessed to have elevated liver enzymes with pancreatitis and CT scan showed dilated biliary system so MRCP has been ordered and Dr. Cifuentes has been consulted. 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 Pt will be NPO. SW Review: CT scan showed dilated biliary system so MRCP has been ordered and Dr. Cifuentes has been consulted. Pt is a current smoker. Patient Interview: Pt states she was at home when she came to the ER. 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 Pt states she had diarrhea and vomited. Pt states she passed out twice and one of the times she passed out she hit her face on the toilet. Physical exam was stable. Pt denies pain currently. Pt states she had Choly in 1977. Pt was told about potentially having a biliary stone or narrowing of her biliary system and that is why she is getting MRCP test done. Pt will meet with Dr. Cifuentes. Pt states she is in the process of quitting smoking. Pt denies drinking ETOH or taking Tylenol. Scribed by Sancho Wilson under the direct supervision of Dr. Menezes. Progress Notes/Assess & Plan Date Seen 05/15/16 Admission Dx/Process Assessment: Acute pancreatitis with elevated liver enzymes and biliary tree dilatation in process of obtaining MRCP then may need ERCP consulting Dr. Cifuentes general surgery maintaining on PPI Open cholecystectomy in Current smoker Dehydration Diagonsis/Assessment & Plan Chart Review: Max fever 99.6, BP 115/63, WBC 5.4, AST/ALT 240/532, AP 189, Amylase and Lipase normal, Viral Hepatitis panel negative, MRCP done yesterday showed mild prominence and Dr. 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 Pt liver enzymes have improved. Pt ordered breakfast but became nauseated when looking at it. Pt was given Zofran. Pt will be DC tomorrow Patient Interview: Pt states she does not feel any better than yesterday. Pt was told about her labs being normal and her MRCP showed no obstruction. Pt agrees to be DC tomorrow. Physical exam was stable. Pt was told that Dr. Cifuentes reviewed the results. Pt was encouraged to ambulate more today. 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 Scribed by Sancho Wilson under the direct supervision of Dr. Menezes. Plan: Wet warm compress to left hand from IV infiltration MRCP Consult Dr Cifuentes since may need scope or transfer for ERCP IVF Pain meds BLAYNE MENEZES DO May 15, 2016 11:31
[2016-05-15 12:00] VITALS: BP 109/53
[2016-05-15] MEDS ORDERED: ONDA8TAB9 PO (13:21)
--- NOTE | 2016-05-15 14:21 | Progress Note-Hospitalist ---
Progress Note HPI/CC on Admission CC: Abdominal pain HPI: This is a 56yoWF pt of [address] eMnchaca and [facility] that presented to the ER with abrupt onset of vomiting and diarrhea and felt like she was going to pass out. She was assessed to have elevated liver enzymes with pancreatitis and CT scan showed dilated biliary system so MRCP has been ordered and Dr. Cifuentes has been consulted. 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 Pt will be NPO. SW Review: CT scan showed dilated biliary system so MRCP has been ordered and Dr. Cifuentes has been consulted. Pt is a current smoker. Patient Interview: Pt states she was at home when she came to the ER. 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 Pt states she had diarrhea and vomited. Pt states she passed out twice and one of the times she passed out she hit her face on the toilet. Physical exam was stable. Pt denies pain currently. Pt states she had Choly in 1977. Pt was told about potentially having a biliary stone or narrowing of her biliary system and that is why she is getting MRCP test done. Pt will meet with Dr. Cifuentes. Pt states she is in the process of quitting smoking. Pt denies drinking ETOH or taking Tylenol. Scribed by Sancho Wilson under the direct supervision of Dr. Menezes. Progress Notes/Assess & Plan Date Seen 05/15/16 Admission Dx/Process Assessment: Acute pancreatitis with elevated liver enzymes and biliary tree dilatation in process of obtaining MRCP then may need ERCP consulting Dr. Cifuentes general surgery maintaining on PPI Open cholecystectomy in Current smoker Dehydration Diagonsis/Assessment & Plan Chart Review: Max fever 99.6, BP 115/63, WBC 5.4, AST/ALT 240/532, AP 189, Amylase and Lipase normal, Viral Hepatitis panel negative, MRCP done yesterday showed mild prominence and Dr. 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 Pt liver enzymes have improved. Pt ordered breakfast but became nauseated when looking at it. Pt was given Zofran. Pt will be DC tomorrow Patient Interview: Pt states she does not feel any better than yesterday. Pt was told about her labs being normal and her MRCP showed no obstruction. Pt agrees to be DC tomorrow. Physical exam was stable. Pt was told that Dr. Cifuentes reviewed the results. Pt was encouraged to ambulate more today. Pt states she uses [facility]. Scribed by Sancho Wilson under the direct supervision of Dr. Menezes. AFVSS, pleasant, O x 3 RRR, CTAB no rales noted No edema non-tender abdomen Assessment: Acute pancreatitis with elevated liver enzymes and biliary tree dilatation with essentially nl MRCP and consulting Dr. Cifuentes general surgery maintaining on PPI h/o LFT elevation in the past Open cholecystectomy in 1970s Current smoker Dehydration Plan: Cont IVF DC tomorrow BLAYNE MENEZES DO May 15, 2016 14:21
[2016-05-15 16:50] VITALS: BP 129/66
[2016-05-15] MEDS: PANTOPRAZOLE 40 MG (PROTONIX) TAB PO SCH (20:53)
[2016-05-15] MEDS ORDERED: DIVALPROEX EXT RELEASE 500 MG (DEPAKOTE ER) TAB PO SCH (21:00)
[2016-05-15] MEDS ORDERED: buPROPion SR 150 MG (WELLBUTRIN SR) TAB PO SCH (21:00)
[2016-05-15] MEDS: METHYLPHENIDATE 5 MG (RITALIN) TAB PO SCH (21:23)
[2016-05-16] VITALS: BP 96/48
[2016-05-16] MEDS: D5 1/2 NS W/KCL 20 MEQ/L 1,000 ML IV SCH ×3 (01:50→13:05)
[2016-05-16] MEDS: METHYLPHENIDATE 5 MG (RITALIN) TAB PO SCH (01:50)
[2016-05-16 05:09] LABS: BASOPHILS % (AUTO) 0 % (0-10); EOSINOPHILS # (AUTO) 0.4 10^3/uL (0.0-0.3); EOSINOPHILS % (AUTO) 6 % (0-10); LYMPHOCYTES # (AUTO) 2.6 X 10^3 (1.0-4.0); LYMPHOCYTES % (AUTO) 40 % (12-44); MEAN CORPUSCULAR HEMOGLOBIN 31 PG (25-34); MEAN CORPUSCULAR HGB CONC 33 G/DL (32-36); MEAN CORPUSCULAR VOLUME 94 FL (80-99); MONOCYTES # (AUTO) 0.9 X 10^3 (0.0-1.0); MONOCYTES % (AUTO) 14 % (0-12); NEUTROPHILS # (AUTO) 2.6 X 10^3 (1.8-7.8); NEUTROPHILS % (AUTO) 40 % (42-75); PLATELET COUNT 219 10^3/uL (130-400); RED BLOOD COUNT 3.99 10^6/uL (4.35-5.85); RED CELL DISTRIBUTION WIDTH 13.7 % (10.0-14.5); WHITE BLOOD COUNT 6.6 10^3/uL (4.3-11.0)
[2016-05-16 05:20] LABS: ALANINE AMINOTRANSFERASE 341 U/L (0-55); ALBUMIN 2.9 G/DL (3.2-4.5); ANION GAP 7 MMOL/L (5-14); ASPARTATE AMINO TRANSFERASE 93 U/L (5-34); BILIRUBIN,TOTAL 0.2 MG/DL (0.1-1.0); BLOOD UREA NITROGEN 5 MG/DL (7-18); BUN/CREATININE RATIO 8; CALCIUM 7.6 MG/DL (8.5-10.1); CARBON DIOXIDE 22 MMOL/L (21-32); CHLORIDE 113 MMOL/L (98-107); CREATININE SERUM 0.65 MG/DL (0.60-1.30); GFR ESTIMATED > 60; GLUCOSE 86 MG/DL (70-105); POTASSIUM 4.2 MMOL/L (3.6-5.0); SODIUM 142 MMOL/L (135-145); TOTAL PROTEIN 4.7 G/DL (6.4-8.2)
[2016-05-16 08:00] VITALS: BP 104/62
[2016-05-16] MEDS ORDERED: buPROPion SR 150 MG (WELLBUTRIN SR) TAB PO SCH (09:00)
[2016-05-16] MEDS: PANTOPRAZOLE 40 MG (PROTONIX) TAB PO SCH (10:25)
[2016-05-16] MEDS: METOCLOPRAMIDE INJ 10 MG/2 ML (REGLAN) IV PRN (10:32)
--- NOTE | 2016-05-16 11:13 | Discharge Summary-Hospitalist ---
Diagnosis/Chief Complaint Date of Admission May 13, 2016 at 21:30 Date of Discharge Discharge Date: May 16, 2016 Admission Diagnosis Assessment: Acute pancreatitis with elevated liver enzymes and biliary tree dilatation in process of obtaining MRCP then may need ERCP consulting Dr. Cifuentes general surgery maintaining on PPI Open cholecystectomy in Current smoker Dehydration Discharge Diagnosis Acute pancreatitis Reason Hospital Visit/Course CC: Abdominal pain HPI: This is a 56yoWF pt of Dr. Menchaca and [facility] that presented to the ER with abrupt onset of vomiting and diarrhea and felt like she was going to pass out. She was assessed to have elevated liver enzymes with pancreatitis and CT scan showed dilated biliary system so MRCP has been ordered and Dr. Cifuentes has been consulted. 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 Pt will be NPO. SW Review: CT scan showed dilated biliary system so MRCP has been ordered and Dr. Cifuentes has been consulted. Pt is a current smoker. Patient Interview: Pt states she was at home when she came to the ER. 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 Pt states she had diarrhea and vomited. Pt states she passed out twice and one of the times she passed out she hit her face on the toilet. Physical exam was stable. Pt denies pain currently. Pt states she had Choly in 1977. Pt was told about potentially having a biliary stone or narrowing of her biliary system and that is why she is getting MRCP test done. Pt will meet with Dr. Cifuentes. Pt states she is in the process of quitting smoking. Pt denies drinking ETOH or taking Tylenol. Scribed by Sancho Wilson under the direct supervision of Dr. Ramos. Hospital course: The patient initially presented with midepigastric pain and the findings were found to be consistent with acute pancreatitis. Her lipase peaked at 410 and is presently 29. Her AST peaked at 1000 and is now 93, ALT peaked at 915 and is presently 341 which is still somewhat elevated, the alkaline phosphatase peaked at 234 and is now 143 which is modestly elevated. She reports that eating has caused her some discomfort. She otherwise feels much better. She was briefed on a small feeding low-fat diet plus oral hydration. The remainder of the medications and instructions are to be found in the discharge sequence. Discharge Summary Discharge Physical Examination Allergies: Coded Allergies: Sulfa (Sulfonamide Antibiotics) (Verified Allergy, Unknown, 05/13/16) meperidine (Unverified Adverse Reaction, Unknown, DECREASES BP, 05/13/16) Vitals & I&Os Vital Signs Date Time Temp Pulse Resp B/P (MAP) Pulse Ox O2 Delivery O2 Flow Rate FiO2 05/16/16 08:00 97.6 52 20 104/62 94 Room Air Hospital Course Labs (last 24 hrs) Laboratory Tests 05/15/16 11:18: 05/16/16 03:45: White Blood Count 6.6, Red Blood Count 3.99L, Hemoglobin 12.5, Hematocrit 38, Mean Corpuscular Volume 94, Mean Corpuscular Hemoglobin 31, Mean Corpuscular Hemoglobin Concent 33, Red Cell Distribution Width 13.7, Platelet Count 219, Mean Platelet Volume 11.0H, Neutrophils (%) (Auto) 40L, Lymphocytes (%) (Auto) 40, Monocytes (%) (Auto) 14H, Eosinophils (%) (Auto) 6, Basophils (%) (Auto) 0, Neutrophils # (Auto) 2.6, Lymphocytes # (Auto) 2.6, Monocytes # (Auto) 0.9, Eosinophils # (Auto) 0.4H, Basophils # (Auto) 0.0, Sodium Level 142, Potassium Level 4.2, Chloride Level 113H, Carbon Dioxide Level 22, Anion Gap 7, Blood Urea Nitrogen 5L, Creatinine 0.65, Estimat Glomerular Filtration Rate > 60, BUN/ Creatinine Ratio 8, Glucose Level 86, Calcium Level 7.6L, Total Bilirubin 0.2, Aspartate Amino Transf (AST/SGOT) 93H, Alanine Aminotransferase (ALT/SGPT) 341H , Alkaline Phosphatase 143H, Total Protein 4.7L, Albumin 2.9L Microbiology 05/13/16 Fecal Leukocyte Stain - Final, Resulted 05/13/16 C. difficile DNA Amplification - Final, Resulted 05/13/16 C. difficile GDH Antigen & Toxins - Final, Resulted 05/13/16 Stool Culture - Preliminary, Resulted 05/13/16 Urine Culture - Final, Complete Pending Labs Laboratory Tests 05/16/16 03:45: White Blood Count 6.6, Red Blood Count 3.99, Hemoglobin 12.5, Hematocrit 38, Mean Corpuscular Volume 94, Mean Corpuscular Hemoglobin 31, Mean Corpuscular Hemoglobin Concent 33, Red Cell Distribution Width 13.7, Platelet Count 219, Mean Platelet Volume 11.0, Neutrophils (%) (Auto) 40, Lymphocytes (%) (Auto) 40 , Monocytes (%) (Auto) 14, Eosinophils (%) (Auto) 6, Basophils (%) (Auto) 0, Neutrophils # (Auto) 2.6, Lymphocytes # (Auto) 2.6, Monocytes # (Auto) 0.9, Eosinophils # (Auto) 0.4, Basophils # (Auto) 0.0, Sodium Level 142, Potassium Level 4.2, Chloride Level 113, Carbon Dioxide Level 22, Anion Gap 7, Blood Urea Nitrogen 5, Creatinine 0.65, Estimat Glomerular Filtration Rate > 60, BUN/ Creatinine Ratio 8, Glucose Level 86, Calcium Level 7.6, Total Bilirubin 0.2, Aspartate Amino Transf (AST/SGOT) 93, Alanine Aminotransferase (ALT/SGPT) 341, Alkaline Phosphatase 143, Total Protein 4.7, Albumin 2.9 Discharge Home Medications: Active Scripts Active Zofran Odt (Ondansetron) 8 Mg Tab.rapdis 8 Mg PO Q6H Reported Omeprazole 40 Mg Capsule.dr 40 Mg PO BID LAST FILLED #30 10-25-16 Wellbutrin Xl (Bupropion HCl) 150 Mg Tab.er.24h 300 Mg PO HS TAKES 2 (150MG) TABLETS Methylphenidate HCl 20 Mg Tablet 20 Mg PO 2200,0300 Bupropion Xl (Bupropion HCl) 150 Mg Tab.er.24h 150 Mg PO DAILY Divalproex Sodium ER (Divalproex Sodium) 500 Mg Tab.er.24h 1,000 Mg PO HS TAKES 2 (500MG) TABLETS Instructions to patient/family Please see electonic discharge instructions given to patient. Clinical Quality Measures DVT/VTE Risk/Contraindication: Risk Factor Score Per Nursin RFS Level Per Nursing on Admit: 4+=Very High Copy Copies To 1: LUCIA MORRIS MD, RODNEY K MD May 16, 2016 11:13
--- NOTE | 2016-05-16 11:18 | Discharge Inst-Simple/Standard ---
Discharge Inst-Standard Patient Instructions/Follow Up Plan of Care/Instructions/FU: Take small feeding low-fat diet. I would expect each day to be a bit better. Call Dr. Vizcarra office on Wednesday for appointment next week. Activity as Tolerated: Yes Goal: Return to pain-free state and full activity Discharge Diet: Eat Small Frequent Meals, Low Fat/Low Cholesterol Return to The Hospital For: Declining condition MANJIT OLMSTEAD MD May 16, 2016 11:18
--- OUTSIDE RECORDS SUMMARY | 2016-06-07 05:06 | XMS REPORT ---
Author AMY Wong Organization [employer] Address Unknown Phone Unavailable Care Team Providers Care Commercial Property Administrator Name Role Phone AMY SY CP Unavailable Allergies No Known Allergies Problems Problem Type Condition Code Onset Dates Condition Status Problem ADD (attention deficit disorder) F90.0 Active Problem Bipolar 1 disorder F31.9 Active Medications Medication Code System Code Instructions Start Date End Date Status Dosage Methylphenidate [facility] [address]-45 20mg orally 2 times a day May 11, 2014 1 Tablet for ADHD Results No Known Results Summary Purpose [employer] Submission
--- OUTSIDE RECORDS SUMMARY | 2016-06-07 05:06 | XMS REPORT ---
Author AMY Wong Organization [employer] Address Unknown Phone Unavailable Care Team Providers Care Database Modeler Name Role Phone AMY SY CP Unavailable Allergies, Adverse Reactions, Alerts Substance Reaction Event Type Demerol hypotension Drug Allergy Problems Problem Type Condition Code Onset Dates Condition Status Problem ADD (attention deficit disorder) F90.0 Active Assessment Bipolar disorder, in partial remission, most recent episode mixed F31.77 Active Problem Bipolar 1 disorder F31.9 Active Assessment ADD (attention deficit disorder) F90.0 Active Medications Medication Code System Code Instructions Start Date End Date Status Dosage Depakote ER [facility] [address]-28 500 MG Orally 1 tab(s) orally once a day Mar 02, 2014 3 tablet by Oral route 1 time per day for mood Methylphenidate [facility] [address]-46 20mg orally 2 times a day May 11, 2014 Dec 31, 2015 1 Tablet for ADHD Melatonin [facility] [address]-60 3 MG Orally Once a day 1 tablet at bedtime as needed with food BuPROPion HCl (XL) [facility] [id number] 150 MG Orally Once a day 3 tablets Procedures Procedure Coding System Code Date Office Visit, Est Pt., Level 3 CPT-4 91734 Dec 03, 2015 Vital Signs Date/Time: Dec 03, 2015 Cardiac Monitoring Heart Rate 72 bpm Weight 145.7 lbs Height 65.5 in BMI 23.87 Index Blood Pressure Diastolic 65 mmHg Blood Pressure Systolic 108 mmHg Results No Known Results Summary Purpose [employer] Submission
--- OUTSIDE RECORDS SUMMARY | 2016-06-07 05:07 | XMS REPORT ---
Author Author AMY SY [facility] Address [address] [place] [address] Care Team Providers Care Ore Charger Name Role Phone AMY SY Unavailable PROBLEMS Type Condition ICD9-CM Code [id number] Code Onset Dates Condition Status SNOMED Code Problem Bipolar 1 disorder F31.9 Active 340812826 Problem ADD (attention deficit disorder) F90.0 Active [id number] ALLERGIES Unknown Allergies SOCIAL HISTORY No smoking Hx information available PLAN OF CARE VITAL SIGNS MEDICATIONS Medication Instructions Dosage Frequency Start Date End Date Duration Status BuPROPion HCl (XL) 150 MG Orally Once a day 3 tablets 24h 30 days Active RESULTS No Results PROCEDURES No Known procedures IMMUNIZATIONS No Known Immunizations
--- OUTSIDE RECORDS SUMMARY | 2016-06-07 05:07 | XMS REPORT | Continuity of Care Document ---
Author Author [facility] Address Unknown Phone Unavailable Allergies Active Description Code Type Severity Reaction Onset Reported/Identified Relationship to Patient Clinical Status Yes sensitivity to Demerol OA 07/24/2009 Yes sensitivity to Demerol OA N/A N/A 07/24/2009 Medications Problems Date Dx Coded Attending Type Code Diagnosis Diagnosed By 07/24/2009 LUCIA GOTTLIEB DO 845.10 SPRAIN/STRAIN FOOT 07/24/2009 LUCIA GOTTLIEB DO 845.10 SPRAIN/STRAIN FOOT 07/24/2009 DEBRA HUGHES APRN 845.10 SPRAIN/STRAIN FOOT 07/24/2009 845.10 SPRAIN/STRAIN FOOT 07/24/2009 DEBRA HUGHES APRN 845.10 SPRAIN/STRAIN FOOT 07/24/2009 845.10 SPRAIN/STRAIN FOOT 07/24/2009 845.10 SPRAIN/STRAIN FOOT 07/24/2009 845.10 SPRAIN/STRAIN FOOT 07/24/2009 845.10 SPRAIN/STRAIN FOOT 07/24/2009 DEBRA HUGHES APRN 845.10 SPRAIN/STRAIN FOOT 07/24/2009 DEBRA HUGHES APRN 845.10 SPRAIN/STRAIN FOOT 07/24/2009 DEBRA HUGHES APRN 845.10 SPRAIN/STRAIN FOOT 07/24/2009 DEBRA HUGHES APRN 845.10 SPRAIN/STRAIN FOOT 07/24/2009 845.10 SPRAIN/STRAIN FOOT 07/24/2009 DEBRA HUGHES APRN 845.10 SPRAIN/STRAIN FOOT 07/24/2009 ALLY VARELA APRN 845.10 SPRAIN/STRAIN FOOT 07/24/2009 ALLY VARELA APRN 845.10 SPRAIN/STRAIN FOOT 07/24/2009 AVERY MATERIAL ASSEMBLER, ALLY 845.10 SPRAIN/STRAIN FOOT 07/24/2009 AVERY MATERIAL ASSEMBLER, ALLY 845.10 SPRAIN/STRAIN FOOT 07/24/2009 MANJIT PAL, DAINEL E 845.10 SPRAIN/STRAIN FOOT 07/24/2009 MANJIT PAL, DANIEL E 845.10 SPRAIN/STRAIN FOOT 07/24/2009 MANJIT PAL, DANIEL E 845.10 SPRAIN/STRAIN FOOT 07/24/2009 AVERY MATERIAL ASSEMBLER, ALLY 845.10 SPRAIN/STRAIN FOOT 07/24/2009 AVERY MATERIAL ASSEMBLER, ALLY 845.10 SPRAIN/STRAIN FOOT 07/24/2009 AVERY MATERIAL ASSEMBLER, ALLY 845.10 SPRAIN/STRAIN FOOT 07/24/2009 AVERY MATERIAL ASSEMBLER, ALLY 845.10 SPRAIN/STRAIN FOOT 01/06/2011 LUCIA GOTTLIEB DO F 296.89 MO BIPOLAR II 01/06/2011 LUCIA GOTTLIEB DO V58.69 MEDICATION HIGH RISK 01/06/2011 LUCIA GOTTLIEB DO F 296.89 MO BIPOLAR II 01/06/2011 LUCIA GOTTLIEB DO V58.69 MEDICATION HIGH RISK 01/06/2011 DEBRA HUGHES APRN 296.89 MO BIPOLAR II 01/06/2011 DEBRA HUGHES APRN V58.69 MEDICATION HIGH RISK 01/06/2011 296.89 MO BIPOLAR II 01/06/2011 V58.69 MEDICATION HIGH RISK 01/06/2011 DEBRA HUGHES APRN 296.89 MO BIPOLAR II 01/06/2011 DEBRA HUGHES APRN V58.69 MEDICATION HIGH RISK 01/06/2011 296.89 MO BIPOLAR II 01/06/2011 V58.69 MEDICATION HIGH RISK 01/06/2011 296.89 MO BIPOLAR II 01/06/2011 V58.69 MEDICATION HIGH RISK 01/06/2011 296.89 MO BIPOLAR II 01/06/2011 V58.69 MEDICATION HIGH RISK 01/06/2011 296.89 MO BIPOLAR II 01/06/2011 V58.69 MEDICATION HIGH RISK 01/06/2011 DEBRA HUGHES APRN 296.89 MO BIPOLAR II 01/06/2011 DEBRA HUGHES APRN V58.69 MEDICATION HIGH RISK 01/06/2011 DEBRA HUGHES APRN 296.89 MO BIPOLAR II 01/06/2011 DEBRA HUGHES APRN V58.69 MEDICATION HIGH RISK 01/06/2011 DEBRA HUGHES APRN D 296.89 MO BIPOLAR II 01/06/2011 DEBRA HUGHES APRN D V58.69 MEDICATION HIGH RISK 01/06/2011 DEBRA HUGHES APRN D 296.89 MO BIPOLAR II 01/06/2011 DEBRA HUGHES APRN V58.69 MEDICATION HIGH RISK 01/06/2011 296.89 MO BIPOLAR II 01/06/2011 V58.69 MEDICATION HIGH RISK 01/06/2011 DEBRA HUGHES APRN D 296.89 MO BIPOLAR II 01/06/2011 DEBRA HUGHES APRN V58.69 MEDICATION HIGH RISK 01/06/2011 AVERY MATTHEW ALLY 296.89 MO BIPOLAR II 01/06/2011 AVERY MATTHEW ALLY V58.69 MEDICATION HIGH RISK 01/06/2011 AVERY MATTHEW ALLY 296.89 MO BIPOLAR II 01/06/2011 AVERY MATERIAL ASSEMBLER, ALLY V58.69 MEDICATION HIGH RISK 01/06/2011 AVERY MATERIAL ASSEMBLER, ALLY 296.89 MO BIPOLAR II 01/06/2011 AVERY MATERIAL ASSEMBLER, ALLY V58.69 MEDICATION HIGH RISK 01/06/2011 AVERY MATTHEW, ALLY 296.89 MO BIPOLAR II 01/06/2011 AVERY MATERIAL ASSEMBLER, ALLY V58.69 MEDICATION HIGH RISK 01/06/2011 MANJIT PAL, DANIEL E 296.89 MO BIPOLAR II 01/06/2011 MANJIT PAL, DANIEL E V58.69 MEDICATION HIGH RISK 01/06/2011 MANJIT PAL, DANIEL E 296.89 MO BIPOLAR II 01/06/2011 MANJIT PAL, DANIEL E V58.69 MEDICATION HIGH RISK 01/06/2011 MANJIT PAL, DANIEL E 296.89 MO BIPOLAR II 01/06/2011 MANJIT PAL, DANIEL E V58.69 MEDICATION HIGH RISK 01/06/2011 AVERY MATERIAL ASSEMBLER, ALLY 296.89 MO BIPOLAR II 01/06/2011 AVERY MATERIAL ASSEMBLER, ALLY V58.69 MEDICATION HIGH RISK 01/06/2011 AVERYPAUL MATTHEW, ALLY 296.89 MO BIPOLAR II 01/06/2011 AVERY MATERIAL ASSEMBLER, ALLY V58.69 MEDICATION HIGH RISK 01/06/2011 AVERY MATERIAL ASSEMBLER, ALLY 296.89 MO BIPOLAR II 01/06/2011 AVERY MATERIAL ASSEMBLER, ALLY V58.69 MEDICATION HIGH RISK 01/06/2011 AVERY MATERIAL ASSEMBLER, ALLY 296.89 MO BIPOLAR II 01/06/2011 AVERY MATERIAL ASSEMBLER, ALLY V58.69 MEDICATION HIGH RISK 02/04/2011 LUCIA GOTTLIEB DO F 296.62 MO BIPOLAR I MIXED MODERATE 02/04/2011 LUCIA GOTTLIEB DO F 296.62 MO BIPOLAR I MIXED MODERATE 02/04/2011 DEBRA HUGHES APRN 296.62 MO BIPOLAR I MIXED MODERATE 02/04/2011 296.62 MO BIPOLAR I MIXED MODERATE 02/04/2011 DEBRA HUGHES APRN 296.62 MO BIPOLAR I MIXED MODERATE 02/04/2011 296.62 MO BIPOLAR I MIXED MODERATE 02/04/2011 296.62 MO BIPOLAR I MIXED MODERATE 02/04/2011 296.62 MO BIPOLAR I MIXED MODERATE 02/04/2011 296.62 MO BIPOLAR I MIXED MODERATE 02/04/2011 DEBRA HUGHES APRN 296.62 MO BIPOLAR I MIXED MODERATE 02/04/2011 DEBRA HUGHES APRN 296.62 MO BIPOLAR I MIXED MODERATE 02/04/2011 DEBRA HUGHES APRN 296.62 MO BIPOLAR I MIXED MODERATE 02/04/2011 DEBRA HUGHES APRN 296.62 MO BIPOLAR I MIXED MODERATE 02/04/2011 296.62 MO BIPOLAR I MIXED MODERATE 02/04/2011 DEBRA HUGHES APRN 296.62 MO BIPOLAR I MIXED MODERATE 02/04/2011 AVERY MATERIAL ASSEMBLER, ALLY 296.62 MO BIPOLAR I MIXED MODERATE 02/04/2011 AVERY MATERIAL ASSEMBLER, ALLY 296.62 MO BIPOLAR I MIXED MODERATE 02/04/2011 AVERY MATERIAL ASSEMBLER, ALLY 296.62 MO BIPOLAR I MIXED MODERATE 02/04/2011 AVERY MATERIAL ASSEMBLER, ALLY 296.62 MO BIPOLAR I MIXED MODERATE 02/04/2011 MANJIT PAL, DANIEL E 296.62 MO BIPOLAR I MIXED MODERATE 02/04/2011 MANJIT PAL, DANIEL E 296.62 MO BIPOLAR I MIXED MODERATE 02/04/2011 QING SARAVIA RNISTA E 296.62 MO BIPOLAR I MIXED MODERATE 02/04/2011 ALLY VARELA APRN 296.62 MO BIPOLAR I MIXED MODERATE 02/04/2011 BARBIE VARELA APRNETTE 296.62 MO BIPOLAR I MIXED MODERATE 02/04/2011 AVERYBARBIE MILLER APRNETTE 296.62 MO BIPOLAR I MIXED MODERATE 02/04/2011 AVERYPAUL MATTHEW, ALLY 296.62 MO BIPOLAR I MIXED MODERATE 03/25/2011 LUCIA GOTTLIEB DO F 611.71 BREAST PAIN 03/25/2011 LUCIA GOTTLIEB DO F 783.1 WEIGHT GAIN ABNORMAL 03/25/2011 LUCIA GOTTLIEB DO V18.0 FAM HX DIABETES MELLITUS 03/25/2011 LUCIA GOTTLIEB DO F 611.71 BREAST PAIN 03/25/2011 LUCIA GOTTLIEB DO F 783.1 WEIGHT GAIN ABNORMAL 03/25/2011 LUCIA GOTTLIEB DO V18.0 FAM HX DIABETES MELLITUS 03/25/2011 DEBRA HUGHES APRN 611.71 BREAST PAIN 03/25/2011 DEBRA HUGHES APRN 783.1 WEIGHT GAIN ABNORMAL 03/25/2011 DEBRA HUGHES APRN V18.0 FAM HX DIABETES MELLITUS 03/25/2011 611.71 BREAST PAIN 03/25/2011 783.1 WEIGHT GAIN ABNORMAL 03/25/2011 V18.0 FAM HX DIABETES MELLITUS 03/25/2011 DEBRA HUGHES APRN 611.71 BREAST PAIN 03/25/2011 DEBRA HUGHES APRN 783.1 WEIGHT GAIN ABNORMAL 03/25/2011 DEBRA HUGHES APRN V18.0 FAM HX DIABETES MELLITUS 03/25/2011 611.71 BREAST PAIN 03/25/2011 783.1 WEIGHT GAIN ABNORMAL 03/25/2011 V18.0 FAM HX DIABETES MELLITUS 03/25/2011 611.71 BREAST PAIN 03/25/2011 783.1 WEIGHT GAIN ABNORMAL 03/25/2011 V18.0 FAM HX DIABETES MELLITUS 03/25/2011 611.71 BREAST PAIN 03/25/2011 783.1 WEIGHT GAIN ABNORMAL 03/25/2011 V18.0 FAM HX DIABETES MELLITUS 03/25/2011 611.71 BREAST PAIN 03/25/2011 783.1 WEIGHT GAIN ABNORMAL 03/25/2011 V18.0 FAM HX DIABETES MELLITUS 03/25/2011 TONYVAMSI DEBRA MATTHEW 611.71 BREAST PAIN 03/25/2011 TONYVAMSI DEBRA MATTHEW 783.1 WEIGHT GAIN ABNORMAL 03/25/2011 SAUL DEBRA MATTHEW V18.0 FAM HX DIABETES MELLITUS 03/25/2011 SAUL DEBRA MATTHEW 611.71 BREAST PAIN 03/25/2011 SAUL DEBRA MATTHEW 783.1 WEIGHT GAIN ABNORMAL 03/25/2011 SAUL DEBRA MATTHEW V18.0 FAM HX DIABETES MELLITUS 03/25/2011 SAUL DEBRA MATTHEW 611.71 BREAST PAIN 03/25/2011 TONYVAMSI DEBRA MATTHEW 783.1 WEIGHT GAIN ABNORMAL 03/25/2011 SAUL DEBRA MATTHEW V18.0 FAM HX DIABETES MELLITUS 03/25/2011 SAUL DEBRA MATTHEW 611.71 BREAST PAIN 03/25/2011 TONYVAMSI DEBRA MATTHEW 783.1 WEIGHT GAIN ABNORMAL 03/25/2011 SAUL DEBRA MATTHEW V18.0 FAM HX DIABETES MELLITUS 03/25/2011 611.71 BREAST PAIN 03/25/2011 783.1 WEIGHT GAIN ABNORMAL 03/25/2011 V18.0 FAM HX DIABETES MELLITUS 03/25/2011 SAUL DEBRA MATTHEW 611.71 BREAST PAIN 03/25/2011 TONYVAMSI DEBRA MATTHEW 783.1 WEIGHT GAIN ABNORMAL 03/25/2011 SAUL DEBRA MATTHEW V18.0 FAM HX DIABETES MELLITUS 03/25/2011 ALLY VARELA APRN 611.71 BREAST PAIN 03/25/2011 AVERY MATTHEW ALLY 783.1 WEIGHT GAIN ABNORMAL 03/25/2011 ALLY VARELA APRN V18.0 FAM HX DIABETES MELLITUS 03/25/2011 AVERY MATTHEW ALLY 611.71 BREAST PAIN 03/25/2011 AVERY MATTHEW ALLY 783.1 WEIGHT GAIN ABNORMAL 03/25/2011 ALLY VARELA APRN V18.0 FAM HX DIABETES MELLITUS 03/25/2011 AVERY MATERIAL ASSEMBLER, ALLY 611.71 BREAST PAIN 03/25/2011 AVERY MATERIAL ASSEMBLER, ALLY 783.1 WEIGHT GAIN ABNORMAL 03/25/2011 AVERY MATERIAL ASSEMBLER, LALY V18.0 FAM HX DIABETES MELLITUS 03/25/2011 AVERY MATERIAL ASSEMBLER, ALLY 611.71 BREAST PAIN 03/25/2011 AVERY MATERIAL ASSEMBLER, ALLY 783.1 WEIGHT GAIN ABNORMAL 03/25/2011 AVERY MATERIAL ASSEMBLER, ALLY V18.0 FAM HX DIABETES MELLITUS 03/25/2011 MANJIT PAL, DANIEL E 611.71 BREAST PAIN 03/25/2011 MANJIT PAL, DANIEL E 783.1 WEIGHT GAIN ABNORMAL 03/25/2011 MANJIT PAL, DANIEL E V18.0 FAM HX DIABETES MELLITUS 03/25/2011 QING SARAVIA RNISTA E 611.71 BREAST PAIN 03/25/2011 MANJIT PAL, DANIEL E 783.1 WEIGHT GAIN ABNORMAL 03/25/2011 MANJIT PAL, DANIEL E V18.0 FAM HX DIABETES MELLITUS 03/25/2011 MANJIT PAL, DANIEL E 611.71 BREAST PAIN 03/25/2011 MANJIT PAL, DANIEL E 783.1 WEIGHT GAIN ABNORMAL 03/25/2011 MANJIT PAL, DANIEL E V18.0 FAM HX DIABETES MELLITUS 03/25/2011 AVERY MATERIAL ASSEMBLER, ALLY 611.71 BREAST PAIN 03/25/2011 AVERY MATERIAL ASSEMBLER, ALLY 783.1 WEIGHT GAIN ABNORMAL 03/25/2011 AVERY MATERIAL ASSEMBLER, ALLY V18.0 FAM HX DIABETES MELLITUS 03/25/2011 AVERY MATERIAL ASSEMBLER, ALLY 611.71 BREAST PAIN 03/25/2011 AVERY MATERIAL ASSEMBLER, ALLY 783.1 WEIGHT GAIN ABNORMAL 03/25/2011 AVERY MATERIAL ASSEMBLER, ALLY V18.0 FAM HX DIABETES MELLITUS 03/25/2011 AVERY MATERIAL ASSEMBLER, ALLY 611.71 BREAST PAIN 03/25/2011 AVERY MATERIAL ASSEMBLER, ALLY 783.1 WEIGHT GAIN ABNORMAL 03/25/2011 AVERY MATERIAL ASSEMBLER, ALYL V18.0 FAM HX DIABETES MELLITUS 03/25/2011 AVERY MATERIAL ASSEMBLER, ALLY 611.71 BREAST PAIN 03/25/2011 AVERY MATERIAL ASSEMBLER, ALLY 783.1 WEIGHT GAIN ABNORMAL 03/25/2011 AVERY MATERIAL ASSEMBLER, ALLY V18.0 FAM HX DIABETES MELLITUS 06/23/2011 LUCIA GOTTLIEB DO 314.01 ADHD COMBINED 06/23/2011 LUCIA GOTTLIEB DO 314.01 ADHD COMBINED 06/23/2011 DEBRA HUGHES APRN 314.01 ADHD COMBINED 06/23/2011 314.01 ADHD COMBINED 06/23/2011 DEBRA HUGHES APRN 314.01 ADHD COMBINED 06/23/2011 314.01 ADHD COMBINED 06/23/2011 314.01 ADHD COMBINED 06/23/2011 314.01 ADHD COMBINED 06/23/2011 314.01 ADHD COMBINED 06/23/2011 DEBRA HUGHES APRN 314.01 ADHD COMBINED 06/23/2011 DEBRA HUGHES APRN 314.01 ADHD COMBINED 06/23/2011 DEBRA HUGHES APRN 314.01 ADHD COMBINED 06/23/2011 DEBRA HUGHES APRN 314.01 ADHD COMBINED 06/23/2011 314.01 ADHD COMBINED 06/23/2011 DEBRA HUGHES APRN 314.01 ADHD COMBINED 06/23/2011 AVERY MATERIAL ASSEMBLER, ALLY 314.01 ADHD COMBINED 06/23/2011 AVERY MATERIAL ASSEMBLER, ALLY 314.01 ADHD COMBINED 06/23/2011 AVERY MATERIAL ASSEMBLER, ALLY 314.01 ADHD COMBINED 06/23/2011 AVERY MATERIAL ASSEMBLER, ALLY 314.01 ADHD COMBINED 06/23/2011 MANJIT PAL, DANIEL E 314.01 ADHD COMBINED 06/23/2011 MANJIT PAL, DANIEL E 314.01 ADHD COMBINED 06/23/2011 MANJIT PAL, DANIEL E 314.01 ADHD COMBINED 06/23/2011 AVERY MATERIAL ASSEMBLER, ALLY 314.01 ADHD COMBINED 06/23/2011 AVERY MATERIAL ASSEMBLER, ALLY 314.01 ADHD COMBINED 06/23/2011 AVERY MATERIAL ASSEMBLER, ALLY 314.01 ADHD COMBINED 06/23/2011 AVERY MATERIAL ASSEMBLER, ALLY 314.01 ADHD COMBINED 08/20/2011 LUCIA GOTTLIEB DO 296.65 MO BIPOLAR I MIXED PART OR UNSPECIFIED REMISSION 08/20/2011 LUCIA GOTTLIEB DO 296.65 MO BIPOLAR I MIXED PART OR UNSPECIFIED REMISSION 08/20/2011 DEBRA HUGHES APRN 296.65 MO BIPOLAR I MIXED PART OR UNSPECIFIED REMISSION 08/20/2011 296.65 MO BIPOLAR I MIXED PART OR UNSPECIFIED REMISSION 08/20/2011 DEBRA HUGHES APRN 296.65 MO BIPOLAR I MIXED PART OR UNSPECIFIED REMISSION 08/20/2011 296.65 MO BIPOLAR I MIXED PART OR UNSPECIFIED REMISSION 08/20/2011 296.65 MO BIPOLAR I MIXED PART OR UNSPECIFIED REMISSION 08/20/2011 296.65 MO BIPOLAR I MIXED PART OR UNSPECIFIED REMISSION 08/20/2011 296.65 MO BIPOLAR I MIXED PART OR UNSPECIFIED REMISSION 08/20/2011 DEBRA HUGHES APRN 296.65 MO BIPOLAR I MIXED PART OR UNSPECIFIED REMISSION 08/20/2011 DEBRA HUGHES APRN 296.65 MO BIPOLAR I MIXED PART OR UNSPECIFIED REMISSION 08/20/2011 DEBRA HUGHES APRN 296.65 MO BIPOLAR I MIXED PART OR UNSPECIFIED REMISSION 08/20/2011 DEBRA HUGHES APRN 296.65 MO BIPOLAR I MIXED PART OR UNSPECIFIED REMISSION 08/20/2011 296.65 MO BIPOLAR I MIXED PART OR UNSPECIFIED REMISSION 08/20/2011 DEBRA HUGHES APRN 296.65 MO BIPOLAR I MIXED PART OR UNSPECIFIED REMISSION 08/20/2011 ALLY VARELA APRN 296.65 MO BIPOLAR I MIXED PART OR UNSPECIFIED REMISSION 08/20/2011 ALLY VARELA APRN 296.65 MO BIPOLAR I MIXED PART OR UNSPECIFIED REMISSION 08/20/2011 ALLY VARELA APRN 296.65 MO BIPOLAR I MIXED PART OR UNSPECIFIED REMISSION 08/20/2011 ALLY VARELA APRN 296.65 MO BIPOLAR I MIXED PART OR UNSPECIFIED REMISSION 08/20/2011 DANIEL SARAVIA RN 296.65 MO BIPOLAR I MIXED PART OR UNSPECIFIED REMISSION 08/20/2011 DANIEL SARAVIA RN E 296.65 MO BIPOLAR I MIXED PART OR UNSPECIFIED REMISSION 08/20/2011 DANIEL SARAVIA RN E 296.65 MO BIPOLAR I MIXED PART OR UNSPECIFIED REMISSION 08/20/2011 ALLY VARELA APRN 296.65 MO BIPOLAR I MIXED PART OR UNSPECIFIED REMISSION 08/20/2011 ALLY VARELA APRN 296.65 MO BIPOLAR I MIXED PART OR UNSPECIFIED REMISSION 08/20/2011 ALLY VARELA APRN 296.65 MO BIPOLAR I MIXED PART OR UNSPECIFIED REMISSION 08/20/2011 ALLY VARELA APRN 296.65 MO BIPOLAR I MIXED PART OR UNSPECIFIED REMISSION 04/21/2012 LUCIA GOTTLIEB DO 296.60 MO BIPOLAR I MIXED UNSPECIFIED 04/21/2012 DEBRA HUGHES APRN 296.60 MO BIPOLAR I MIXED UNSPECIFIED 04/21/2012 296.60 MO BIPOLAR I MIXED UNSPECIFIED 04/21/2012 DEBRA HUGHES APRN 296.60 MO BIPOLAR I MIXED UNSPECIFIED 04/21/2012 296.60 MO BIPOLAR I MIXED UNSPECIFIED 04/21/2012 296.60 MO BIPOLAR I MIXED UNSPECIFIED 04/21/2012 296.60 MO BIPOLAR I MIXED UNSPECIFIED 04/21/2012 296.60 MO BIPOLAR I MIXED UNSPECIFIED 04/21/2012 DEBRA HUGHES APRN 296.60 MO BIPOLAR I MIXED UNSPECIFIED 04/21/2012 DEBRA HUGHES APRN 296.60 MO BIPOLAR I MIXED UNSPECIFIED 04/21/2012 DEBRA HUGHES APRN 296.60 MO BIPOLAR I MIXED UNSPECIFIED 04/21/2012 DEBRA HUGHES APRN 296.60 MO BIPOLAR I MIXED UNSPECIFIED 04/21/2012 DEBRA HUGHES APRN 296.60 MO BIPOLAR I MIXED UNSPECIFIED 04/21/2012 ALLY VARELA APRN 296.60 MO BIPOLAR I MIXED UNSPECIFIED 04/21/2012 ALLY VARELA APRN 296.60 MO BIPOLAR I MIXED UNSPECIFIED 04/21/2012 ALLY VARELA APRN 296.60 MO BIPOLAR I MIXED UNSPECIFIED 04/21/2012 ALLY VARELA APRN 296.60 MO BIPOLAR I MIXED UNSPECIFIED 04/21/2012 MANJIT PAL, DANIEL E 296.60 MO BIPOLAR I MIXED UNSPECIFIED 04/21/2012 MANJIT PAL, DANIEL E 296.60 MO BIPOLAR I MIXED UNSPECIFIED 04/21/2012 MANJIT PAL, DANIEL E 296.60 MO BIPOLAR I MIXED UNSPECIFIED 04/21/2012 ALLY VARELA APRN 296.60 MO BIPOLAR I MIXED UNSPECIFIED 04/21/2012 ALLY VARELA APRN 296.60 MO BIPOLAR I MIXED UNSPECIFIED 04/21/2012 ALLY VARELA APRN 296.60 MO BIPOLAR I MIXED UNSPECIFIED 04/21/2012 ALLY VARELA APRN 296.60 MO BIPOLAR I MIXED UNSPECIFIED 03/02/2014 ALLY VARELA APRN 314.00 ADHD INATTENTIVE 03/02/2014 ALLY VARELA APRN 314.00 ADHD INATTENTIVE Procedures Code Description [place] [address] ROUTINE VENIPUNCTURE 04/22/2012 19761 URINE DRUG SCREEN (IN-HOUSE) 04/22/2012 53915 CBC 04/22/2012 56535 CMP 04/22/2012 7440487 GFR CALC (RESULT ONLY) 04/22/2012 64281 VALPROIC ACID / DEPAKOTE 04/22/2012 56568 TSH 04/22/2012 22097 ROUTINE VENIPUNCTURE 05/05/2012 07239 URINE DRUG SCREEN (IN-HOUSE) 05/05/2012 66965 VALPROIC ACID / DEPAKOTE 05/05/2012 48458 URINE METHYLPHENIDATE GC/MS 08/02/2012 S0280 HEALTH PROMOTION 11/13/2013 S0281 CARE COORDINATION 11/13/2013 S0280 HEALTH PROMOTION 12/13/2013 Results Encounters ACCT No. Visit Date/Time Discharge Status Pt. Type Provider Facility Loc./Unit Complaint [id number] 03/02/2014 09:51:00 03/02/2014 23: 59:59 CLS Outpatient ALLY VARELA APRN [id number] 03/02/2014 09:51:00 03/02/2014 23: 59:59 PACO Outpatient ALLY VARELA APRN [id number] 12/01/2013 15:52:00 12/01/2013 23: 59:59 CLS Outpatient ALLY VARELA APRN [id number] 12/01/2013 15:52:00 12/01/2013 23: 59:59 PACO Outpatient ALLY VARELA APRN [id number] 11/29/2013 13:30:00 11/29/2013 23: 59:59 CLS Outpatient DANIEL SARAVIA RN [id number] 11/08/2013 00:00:00 11/08/2013 23: 59:59 CLS Outpatient DANIEL SARAVIA RN [id number] 11/02/2013 00:00:00 11/02/2013 23: 59:59 CLS Outpatient DANIEL SARAVIA RN [id number] 10/31/2013 14:58:00 10/31/2013 23: 59:59 CLS Outpatient ALLY VARELA APRN [id number] 10/31/2013 14:58:00 10/31/2013 23: 59:59 CLS Outpatient ALLY VARELA APRN [id number] 08/01/2013 12:54:00 08/01/2013 23: 59:59 CLS Outpatient ALLY VARELA APRN [id number] 08/01/2013 12:54:00 08/01/2013 23: 59:59 CLS Outpatient ALLY VARELA APRN [id number] 04/28/2013 15:36:00 04/28/2013 23: 59:59 CLS Outpatient SAUL MATTHEW DEBRA D [id number] 04/28/2013 15:36:00 04/28/2013 23: 59:59 CLS Outpatient SAUL MATTHEW DEBRA D [id number] 01/10/2013 07:56:00 01/10/2013 23: 59:59 CLS Outpatient SAUL MATTHEW DEBRA D [id number] 01/10/2013 07:56:00 01/10/2013 23: 59:59 CLS Outpatient SAUL MATTHEW DEBRA D [id number] 10/13/2012 08:20:00 10/13/2012 23: 59:59 CLS Outpatient SAUL MATTHEW DEBRA D [id number] 05/05/2012 15:16:00 05/05/2012 23: 59:59 CLS Outpatient [id number] 04/22/2012 15:38:00 04/22/2012 23: 59:59 CLS Outpatient SAUL MATTHEW DEBRA D [id number] 04/21/2012 12:01:00 04/21/2012 23: 59:59 CLS Outpatient SAUL MATTHEW DEBRA D [id number] 04/21/2012 12:01:00 04/21/2012 23: 59:59 CLS Outpatient LUCIA GOTTLIEB DO [id number] 11/20/2011 08:23:00 11/20/2011 23: 59:59 [place] [id number] 11/20/2011 08:23:00 11/20/2011 23: 59:59 CLS Outpatient [id number] 10/13/2012 08:20:00 Document Registration [id number] 07/21/2012 09:06:00 Document Registration [id number] 07/21/2012 09:06:00 Document Registration [id number] 05/05/2012 15:16:00 Document Registration
--- OUTSIDE RECORDS SUMMARY | 2016-06-07 05:07 | XMS REPORT ---
Author AMY Wong Organization [employer] Address Unknown Phone Unavailable Care Team Providers Care Wire Web Worker Name Role Phone AMY SY CP Unavailable Allergies No Known Allergies Problems Problem Type Condition Code Onset Dates Condition Status Problem ADD (attention deficit disorder) F90.0 Active Problem Bipolar 1 disorder F31.9 Active Medications Medication Code System Code Instructions Start Date End Date Status Dosage Methylphenidate [facility] [address]-24 20mg orally 2 times a day May 11, 2014 1 Tablet for ADHD Results No Known Results Summary Purpose [employer] Submission
--- OUTSIDE RECORDS SUMMARY | 2016-06-07 05:07 | XMS REPORT ---
Author TRAM Peña [facility] [employer] Address Unknown Phone Unavailable Care Team Providers Care Enterprise Architect Name Role Phone TRAM PEGUERO CP Unavailable Allergies No Known Allergies Problems Problem Type Condition Code Onset Dates Condition Status Problem Bipolar I disorder, most recent episode (or current) mixed, unspecified 296.60 Active Problem Family history of diabetes mellitus V18.0 Active Problem Bipolar I disorder, most recent episode (or current) mixed, in partial or unspecified remission 296.65 Active Problem Attention deficit disorder of childhood with hyperactivity 314.01 Active Problem Attention deficit disorder of childhood without mention of hyperactivity 314.00 Active Problem Mastodynia 611.71 Active Problem Abnormal weight gain 783.1 Active Medications Medication Code System Code Instructions Start Date End Date Status Dosage Methylphenidate [facility] [address]-06 20mg orally 2 times a day for ADHD. May 11, 2014 1 Tablet Results No Known Results Summary Purpose [employer] Submission
--- OUTSIDE RECORDS SUMMARY | 2016-06-07 05:07 | XMS REPORT ---
Author Author ALLY VARELA Organization [employer] Address Unknown Phone Unavailable Care Team Providers Care Environmental Services Manager Name Role Phone ALLY VARELA Unavailable Allergies No Known Allergies Problems Problem [...] Start Date End Date Status Dosage Methylphenidate [facility] [address]-02 20mg orally 2 times a day for ADHD. Dr Christianson to sign for Damari May 11, 2014 1 Tablet Results No Known Results Summary Purpose [employer] Submission
--- OUTSIDE RECORDS SUMMARY | 2016-06-07 05:07 | XMS REPORT ---
Author TRAM Peña [facility] [employer] Address Unknown Phone Unavailable Care Team Providers Care Waste Duster Name Role Phone TRAM PEGUERO CP Unavailable [...] Start Date End Date Status Dosage Methylphenidate [facility] [address]-06 20mg orally 2 times a day for ADHD. May 11, 2014 1 Tablet Results No Known Results Summary Purpose [employer] Submission
--- OUTSIDE RECORDS SUMMARY | 2016-06-07 05:07 | XMS REPORT ---
Author Author ALLY VARELA Organization [employer] Address Unknown Phone Unavailable Care Team Providers Care Coach Mechanic Name Role Phone ALLY VARELA CP Unavailable Allergies, Adverse Reactions, Alerts Substance Reaction Event Type Demerol hypotension Drug Allergy Problems Problem Type Condition ICD-9 Code Onset Dates Condition Status Assessment Bipolar I disorder, most recent episode (or current) mixed, in partial or unspecified remission 296.65 Active Assessment Attention deficit disorder of childhood without mention of hyperactivity 314.00 Active Problem Bipolar I disorder, most recent [...] Start Date End Date Status Dosage Methylphenidate [facility] [address]-27 20mg orally 2 times a day for ADHD May 11, 2014 1 Tablet BuPROPion HCl [facility] [address]-22 150 mg Orally once daily Mar 09, 2014 3 Tablet by Oral route 1 time per day for depression Depakote ER [facility] [address]-72 500 MG Orally 1 tab(s) orally once a day Mar 02, 2014 3 tablet by Oral route 1 time per day for mood Procedures Procedure Coding System Code Date Office Visit, Est Pt., Level 3 CPT-4 18330 Oct 26, 2014 [facility] VISIT ESTABLISHED PATIENT CPT-4 G0467 Oct 26, 2014 Vital Signs Date/Time: Oct 26, 2014 Temperature 98.0 F Weight 129.1 lbs Height 65.5 in BMI 21.15 Index Blood Pressure Diastolic 90 mmHg Blood Pressure Systolic 120 mmHg Cardiac Monitoring Heart Rate 84 bpm Results No Known Results Summary Purpose [employer] Submission
--- OUTSIDE RECORDS SUMMARY | 2016-06-07 05:07 | XMS REPORT ---
Author AMY Wong Organization [employer] Address Unknown Phone Unavailable Care Team Providers Care [place] Miner Name Role Phone AMY SY CP Unavailable Allergies No Known Allergies Problems Problem Type Condition Code Onset Dates Condition Status Problem ADD (attention deficit disorder) F90.0 Active Problem Bipolar 1 disorder F31.9 Active Medications Medication Code System Code Instructions Start Date End Date Status Dosage Methylphenidate [facility] [address]-37 20mg orally 2 times a day for ADHD. May 11, 2014 1 Tablet Results No Known Results Summary Purpose [employer] Submission
--- OUTSIDE RECORDS SUMMARY | 2016-06-07 05:07 | XMS REPORT ---
Author AMY Wong Organization [employer] Address Unknown Phone Unavailable Care Team Providers Care Blood Tester Name Role Phone AMY SY CP Unavailable Allergies No Known Allergies Problems Problem Type Condition Code Onset Dates Condition Status Problem ADD (attention deficit disorder) F90.0 Active Problem Bipolar 1 disorder F31.9 Active Medications Medication Code System Code Instructions Start Date End Date Status Dosage Methylphenidate [facility] [address]-83 20mg orally 2 times a day for ADHD. May 11, 2014 1 Tablet Results No Known Results Summary Purpose [employer] Submission
--- OUTSIDE RECORDS SUMMARY | 2016-06-07 05:08 | XMS REPORT ---
Author Author ALLY VARELA Organization [employer] Address Unknown Phone Unavailable Care Team Providers Care Ornamental Ironworker Helper Name Role Phone ALLY VARELA Unavailable Allergies [...] Start Date End Date Status Dosage Methylphenidate [facility] [address]-53 20mg orally 2 times a day for ADHD. Kenisha to sign for Damari May 11, 2014 1 Tablet Results No Known Results Summary Purpose [employer] Submission
--- OUTSIDE RECORDS SUMMARY | 2016-06-07 05:08 | XMS REPORT ---
Author TRAM Peña Organization [employer] Address Unknown Phone Unavailable Care Team Providers Care Chronic Manager Name Role Phone TRAM PEGUERO CP Unavailable Allergies, Adverse Reactions, Alerts Substance Reaction Event Type Demerol hypotension Drug Allergy Problems Problem Type Condition Code Onset Dates Condition Status Assessment Bipolar disorder, in partial remission, most recent episode mixed F31.77 Active Assessment Attention-deficit hyperactivity disorder, unspecified type F90.9 Active Problem Bipolar I disorder, most recent [...] Instructions Start Date End Date Status Dosage BuPROPion HCl [facility] [address]-89 150 mg Orally once daily Mar 09, 2014 3 Tablet by Oral route 1 time per day for depression Methylphenidate [facility] [address]-58 20mg orally 2 times a day for ADHD. Dr Christianson to sign for Damari May 11, 2014 1 Tablet Depakote ER [facility] [address]-67 500 MG Orally 1 tab(s) orally once a day Mar 02, 2014 3 tablet by Oral route 1 time per day for mood Melatonin [facility] [address]-71 3 MG Orally Once a day 1 tablet at bedtime as needed with food Procedures Procedure Coding System Code Date Medication Management CPT-4 95099 Jan 25, 2015 Vital Signs Date/Time: Jan 25, 2015 Cardiac Monitoring Heart Rate 84 bpm Weight 129.6 lbs Height 65.5 in BMI 21.24 Index Blood Pressure Diastolic 70 mmHg Blood Pressure Systolic 120 mmHg Results No Known Results Summary Purpose [employer] Submission
--- OUTSIDE RECORDS SUMMARY | 2016-06-07 05:32 | XMS REPORT | Continuity of Care Document ---
Author Author [facility] Address Unknown Phone Unavailable Allergies Active Description [...] VARELA APRN 845.10 SPRAIN/STRAIN FOOT 07/24/2009 AVERY PARKING GARAGE MANAGER, ALLY 845.10 SPRAIN/STRAIN FOOT 07/24/2009 AVERY PARKING GARAGE MANAGER, ALLY 845.10 SPRAIN/STRAIN FOOT 07/24/2009 MANJIT PAL, DANIEL E 845.10 SPRAIN/STRAIN FOOT 07/24/2009 MANJIT PAL, DANIEL E 845.10 SPRAIN/STRAIN FOOT 07/24/2009 MANJIT PAL, DANIEL E 845.10 SPRAIN/STRAIN FOOT 07/24/2009 AVERY PARKING GARAGE MANAGER, ALLY 845.10 SPRAIN/STRAIN FOOT 07/24/2009 AVERY PARKING GARAGE MANAGER, ALLY 845.10 SPRAIN/STRAIN FOOT 07/24/2009 AVERY PARKING GARAGE MANAGER, ALLY 845.10 SPRAIN/STRAIN FOOT 07/24/2009 AVERY PARKING GARAGE MANAGER, ALLY 845.10 SPRAIN/STRAIN FOOT 01/06/2011 LUCIA GOTTLIEB [...] ALLY 296.89 MO BIPOLAR II 01/06/2011 AVERY PARKING GARAGE MANAGER, ALLY V58.69 MEDICATION HIGH RISK 01/06/2011 AVERY PARKING GARAGE MANAGER, ALLY 296.89 MO BIPOLAR II 01/06/2011 AVERY PARKING GARAGE MANAGER, ALLY V58.69 MEDICATION HIGH RISK 01/06/2011 AVERY MATTHEW, ALLY 296.89 MO BIPOLAR II 01/06/2011 AVERY PARKING GARAGE MANAGER, ALLY V58.69 MEDICATION HIGH RISK 01/06/2011 MANJIT PAL, DANIEL E 296.89 MO BIPOLAR II 01/06/2011 MANJIT PAL, DANIEL E V58.69 MEDICATION HIGH RISK 01/06/2011 MANJIT PAL, DANIEL E 296.89 MO BIPOLAR II 01/06/2011 MANJIT PAL, DANIEL E V58.69 MEDICATION HIGH RISK 01/06/2011 MANJIT PAL, DANIEL E 296.89 MO BIPOLAR II 01/06/2011 MANJIT PAL, DANIEL E V58.69 MEDICATION HIGH RISK 01/06/2011 AVERY PARKING GARAGE MANAGER, ALLY 296.89 MO BIPOLAR II 01/06/2011 AVERY PARKING GARAGE MANAGER, ALLY V58.69 MEDICATION HIGH RISK 01/06/2011 AVERYPAUL MATTHEW, ALLY 296.89 MO BIPOLAR II 01/06/2011 AVERY PARKING GARAGE MANAGER, ALLY V58.69 MEDICATION HIGH RISK 01/06/2011 AVERY PARKING GARAGE MANAGER, ALLY 296.89 MO BIPOLAR II 01/06/2011 AVERY PARKING GARAGE MANAGER, ALLY V58.69 MEDICATION HIGH RISK 01/06/2011 AVERY PARKING GARAGE MANAGER, ALLY 296.89 MO BIPOLAR II 01/06/2011 AVERY PARKING GARAGE MANAGER, ALLY V58.69 MEDICATION HIGH RISK 02/04/2011 LUCIA [...] MO BIPOLAR I MIXED MODERATE 02/04/2011 AVERY PARKING GARAGE MANAGER, ALLY 296.62 MO BIPOLAR I MIXED MODERATE 02/04/2011 AVERY PARKING GARAGE MANAGER, ALLY 296.62 MO BIPOLAR I MIXED MODERATE 02/04/2011 AVERY PARKING GARAGE MANAGER, ALLY 296.62 MO BIPOLAR I MIXED MODERATE 02/04/2011 AVERY PARKING GARAGE MANAGER, ALLY 296.62 MO BIPOLAR I MIXED MODERATE [...] SAUL DEBRA MATTHEW 611.71 BREAST PAIN 03/25/2011 TONYVAMIS DEBRA MATTHEW 783.1 WEIGHT GAIN ABNORMAL 03/25/2011 [...] V18.0 FAM HX DIABETES MELLITUS 03/25/2011 AVERY PARKING GARAGE MANAGER, ALLY 611.71 BREAST PAIN 03/25/2011 AVERY PARKING GARAGE MANAGER, ALLY 783.1 WEIGHT GAIN ABNORMAL 03/25/2011 AVERY PARKING GARAGE MANAGER, ALLY V18.0 FAM HX DIABETES MELLITUS 03/25/2011 AVERY PARKING GARAGE MANAGER, ALLY 611.71 BREAST PAIN 03/25/2011 AVERY PARKING GARAGE MANAGER, ALLY 783.1 WEIGHT GAIN ABNORMAL 03/25/2011 AVERY PARKING GARAGE MANAGER, ALLY V18.0 FAM HX DIABETES MELLITUS 03/25/2011 [...] V18.0 FAM HX DIABETES MELLITUS 03/25/2011 AVERY PARKING GARAGE MANAGER, ALLY 611.71 BREAST PAIN 03/25/2011 AVERY PARKING GARAGE MANAGER, ALLY 783.1 WEIGHT GAIN ABNORMAL 03/25/2011 AVERY PARKING GARAGE MANAGER, ALLY V18.0 FAM HX DIABETES MELLITUS 03/25/2011 AVERY PARKING GARAGE MANAGER, ALLY 611.71 BREAST PAIN 03/25/2011 AVERY PARKING GARAGE MANAGER, ALLY 783.1 WEIGHT GAIN ABNORMAL 03/25/2011 AVERY PARKING GARAGE MANAGER, ALLY V18.0 FAM HX DIABETES MELLITUS 03/25/2011 AVERY PARKING GARAGE MANAGER, ALLY 611.71 BREAST PAIN 03/25/2011 AVERY PARKING GARAGE MANAGER, ALLY 783.1 WEIGHT GAIN ABNORMAL 03/25/2011 AVERY PARKING GARAGE MANAGER, ALLY V18.0 FAM HX DIABETES MELLITUS 03/25/2011 AVERY PARKING GARAGE MANAGER, ALLY 611.71 BREAST PAIN 03/25/2011 AVERY PARKING GARAGE MANAGER, ALLY 783.1 WEIGHT GAIN ABNORMAL 03/25/2011 AVERY PARKING GARAGE MANAGER, ALLY V18.0 FAM HX DIABETES MELLITUS 06/23/2011 [...] HUGHES APRN 314.01 ADHD COMBINED 06/23/2011 AVERY PARKING GARAGE MANAGER, ALLY 314.01 ADHD COMBINED 06/23/2011 AVERY PARKING GARAGE MANAGER, ALLY 314.01 ADHD COMBINED 06/23/2011 AVERY PARKING GARAGE MANAGER, ALLY 314.01 ADHD COMBINED 06/23/2011 AVERY PARKING GARAGE MANAGER, ALLY 314.01 ADHD COMBINED 06/23/2011 MANJIT PAL, DANIEL E 314.01 ADHD COMBINED 06/23/2011 MANJIT PAL, DANIEL E 314.01 ADHD COMBINED 06/23/2011 MANJIT PAL, DANIEL E 314.01 ADHD COMBINED 06/23/2011 AVERY PARKING GARAGE MANAGER, ALLY 314.01 ADHD COMBINED 06/23/2011 AVERY PARKING GARAGE MANAGER, ALLY 314.01 ADHD COMBINED 06/23/2011 AVERY PARKING GARAGE MANAGER, ALLY 314.01 ADHD COMBINED 06/23/2011 AVERY PARKING GARAGE MANAGER, ALLY 314.01 ADHD COMBINED 08/20/2011 LUCIA GOTTLIEB [...] Procedures Code Description [place] [address] ROUTINE VENIPUNCTURE 04/22/2012 58186 URINE DRUG SCREEN (IN-HOUSE) 04/22/2012 31041 CBC 04/22/2012 88142 CMP 04/22/2012 [id number] GFR CALC (RESULT ONLY) 04/22/2012 69727 VALPROIC ACID / DEPAKOTE 04/22/2012 23234 TSH 04/22/2012 68882 ROUTINE VENIPUNCTURE 05/05/2012 27549 URINE DRUG SCREEN (IN-HOUSE) 05/05/2012 64198 VALPROIC ACID / DEPAKOTE 05/05/2012 27857 URINE METHYLPHENIDATE GC/MS 08/02/2012 S0280 HEALTH PROMOTION 11/13/2013 S0281 CARE COORDINATION 11/13/2013 S0280 HEALTH PROMOTION 12/13/2013 Results Encounters ACCT No. Visit Date/Time Discharge Status Pt. Type Provider Facility Loc./Unit Complaint [id number] 03/02/2014 09:51:00 03/02/2014 23: 59:59 CLS Outpatient ALYL VARELA APRN [id number] 03/02/2014 09:51:00 03/02/2014 23: 59:59 PACO Outpatient ALLY VARELA APRN [id number] 12/01/2013 15:52:00 12/01/2013 23: 59:59 CLS Outpatient ALLY VARELA APRN [id number] 12/01/2013 15:52:00 12/01/2013 23: 59:59 PACO Outpatient ALLY VARELA APRN [id number] 11/29/2013 13:30:00 11/29/2013 23: 59:59 CLS Outpatient DANIEL SARAVIA RN [id number] 11/08/2013 00:00:00 11/08/2013 23: 59:59 CLS Outpatient DANIEL SARAVIA RN [id number] 11/02/2013 00:00:00 11/02/2013 23: 59:59 CLS Outpatient DANIEL SARAVIA RN [id number] 10/31/2013 14:58:00 10/31/2013 23: 59:59 CLS Outpatient ALLY VARELA APRN [id number] 10/31/2013 14:58:00 10/31/2013 23: 59:59 CLS Outpatient ALLY VARELA APRN [id number] 08/01/2013 12:54:00 08/01/2013 23: 59:59 CLS Outpatient ALLY VARELA APRN [id number] 08/01/2013 12:54:00 08/01/2013 23: 59:59 CLS Outpatient ALLY VARELA APRN [id number] 04/28/2013 15:36:00 04/28/2013 23: 59:59 CLS Outpatient SAUL MATTHEW DEBRA D [id number] 04/28/2013 15:36:00 04/28/2013 23: 59:59 CLS Outpatient SAUL MATTHEW DEBRA D [id number] 01/10/2013 07:56:00 01/10/2013 23: 59:59 CLS Outpatient SAUL MATTHEW DEBRA D [id number] 01/10/2013 07:56:00 01/10/2013 23: 59:59 CLS Outpatient SAUL MATTHEW DEBRA D [id number] 10/13/2012 08:20:00 10/13/2012 23: 59:59 CLS Outpatient SAUL MATTHEW DEBRA D [id number] 05/05/2012 15:16:00 05/05/2012 23: 59:59 CLS Outpatient [id number] 04/22/2012 15:38:00 04/22/2012 23: 59:59 CLS Outpatient SAUL MATTHEW DEBRA D [id number] 04/21/2012 12:01:00 04/21/2012 23: 59:59 CLS Outpatient SAUL MATTHEW DEBRA D [id number] 04/21/2012 12:01:00 04/21/2012 23: 59:59 CLS Outpatient ULCIA GOTTLIEB DO [id number] 11/20/2011 08:23:00 11/20/2011 23: 59:59 [place] [id number] 11/20/2011 08:23:00 11/20/2011 23: 59:59 CLS Outpatient [id number] 10/13/2012 08:20:00 Document Registration [id number] 07/21/2012 09:06:00 Document Registration [id number] 07/21/2012 09:06:00 Document Registration [id number] 05/05/2012 15:16:00 Document Registration
== END 2016-05-16 15:45 | disposition home or self-care (01) | DRG 440 ==
LOC: DELPENDDIS → EDUNIT# 16:37 → ER 16:39 → 4TH 21:30
PROVIDERS: ADMIT Family Medicine; ATTEND Internal Medicine
DX: K85.90 Acute pancreatitis without necrosis or infection, unspecified (principal); K52.9 Noninfective gastroenteritis and colitis, unspecified; E86.0 Dehydration; E83.51 Hypocalcemia; F17.210 Nicotine dependence, cigarettes, uncomplicated
CPT/HCPCS: 36415; 74022; 74177; 74181; 80053; 80074; 80306; 80320; 81000; 82150; 82525; 82728; 83540; 83690; 83735; 85007; 85025; 85027; 85610; 87045; 87046; 87088; 87324; 87449; 87493; 89055; 96361; 96365; 96375

== ENCOUNTER 2016-08-29 16:02 | Emergency (ER) | payer OTHER ==
[~2016-08-29] VITALS: Ht 165.1 cm; Wt 68.0 kg
[~2016-08-29 16:02] MED LIST changes: +BUPR-42 PO; +BUPR150T7 PO; +DIVA500T15 PO; +METH20TA34 PO; +OMEP40CA36 PO; +ONDA8TAB9 PO
[2016-08-29] MEDS ORDERED: PERM60CR4 TP (16:47)
--- NOTE | 2016-08-29 16:47 | ED Integumentary General ---
General Chief Complaint: Skin/Wound Problems Stated Complaint: BUG BITES Nursing Triage Note: AMB TO ROOM REPORTS SHE THINKS SHE HAS BUGS UNDER HER SKIN AND WHEN SHE SCRATCHED THEM THEY CRAWL OUT. PLACES ON HER CHEST AND ARM NOTED History of Present Illness Time seen by provider: 16:30 Initial Comments Patient reports multiple areas of pruritus, when she scratches them "bugs come out of my skin." She has multiple pictures she requested to show on her phone of these bugs, they appear to be scabs she has picked off. 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 She has one dog in her home and he is treated for fleas, preventatively. She denies seeing bedbugs when cleaning her sheets. Timing/Duration: week, getting worse Location: torso, hands, extremities Possible Cause: insect bite Modifying Factors: improves with antihistamine Associated Symptoms: denies symptoms Allergies and Home Medications Allergies Coded Allergies: Sulfa (Sulfonamide Antibiotics) (Verified Allergy, Unknown, 05/13/16) meperidine (Unverified Adverse Reaction, Unknown, DECREASES BP, 05/13/16) Home Medications Bupropion HCl 150 Mg Tab.er.24h, 150 MG PO DAILY, (Reported) Bupropion HCl 150 Mg Tab.er.24h, 300 MG PO HS, (Reported) TAKES 2 (150MG) TABLETS Divalproex Sodium 500 Mg Tab.er.24h, 1,000 MG PO HS, (Reported) TAKES 2 (500MG) TABLETS Methylphenidate HCl 20 Mg Tablet, 20 MG PO 2200,0300, (Reported) Omeprazole 40 Mg Capsule.dr, 40 MG PO BID, (Reported) LAST FILLED #30 16 Ondansetron 8 Mg Tab.rapdis, 8 MG PO Q6H, #15 Prescribed by: BLAYNE MENEZES on 05/15/16 1321 Permethrin 60 Gm Cream..g., 60 GM TP ONCE, #1 Ref 0 Apply from neck to toes before bed, shower in the morning. Prescribed by: TAMMIE LANGLEY on 08/29/16 1647 Constitutional: no symptoms reported, see HPI Skin: see HPI, lesions, pruritus, rash All Other Systems Reviewed Negative Unless Noted: Yes Past Twayoog-Omiafy-Lxunyk Hx Patient Social History Alcohol Use: Denies Use Recreational Drug Use: No Smoking Status: Current Everyday Smoker Type Used: Cigarettes Recent Foreign Travel: No Contact w/Someone Who Travel: No Recent Infectious Disease Expo: No Recent Hopitalizations: No Immunizations Up To Date PED Vaccines UTD: Yes Date of Influenza Vaccine: Nov 16, 2015 Seasonal Allergies Seasonal Allergies: No Surgeries HX Surgeries: Yes (CERVICAL AND LUMBAR FUSIONS; X 1 ; HYST/BSO; EGD) Surgeries: Appendectomy, Section, Gallbladder, Hysterectomy, Orthopedic Respiratory Hx Respiratory Disorders: No Cardiovascular Hx Cardiac Disorders: No Neurological Hx Neurological Disorders: No 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 System Hx 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 Disorders: No Sexually Transmitted Disease: No HIV/AIDS: No Female 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 Disorders: Denies ASSISTANT CASE MANAGER History: Hysterectomy, Menopausal Genitourinary Hx Genitourinary Disorders: No Gastrointestinal Hx Gastrointestinal Disorders: Yes Gastrointestinal Disorders: Ulcer, Gall Bladder Disease Musculoskeletal Hx Musculoskeletal Disorders: Yes (CHRONIC NECK AND BACK APIN ) Musculoskeletal Disorders: Chronic Back Pain Endocrine Hx Endocrine Disorders: No HEENT HX ENT Disorders: No Cancer Hx Cancer: No Psychosocial Hx Psychiatric Problems: Yes (PSYCH ISSUES) Behavioral Health Disorders: Bipolar, Depression Integumentary HX Skin/Integumentary Disorder: No Blood Transfusions Hx Blood Disorders: No Adverse Reaction to a Blood Tr: No Reviewed Nursing Assessment Reviewed/Agree w Nursing PMH: Yes Family Medical History Significant Family History: CAD Over 55 Years Old, Hypertension Family Medial History: FH: non-Hodgkin's lymphoma SON Hypertension 19 MOTHER Physical Exam Vital Signs Vital Sign - Last 12Hours 08/29/16 16:21 Temp 97.4 Pulse 71 Resp 18 B/P (MAP) 135/81 Pulse Ox 98 O2 Delivery Room Air Capillary Refill : Less Than 3 Seconds General Appearance: WD/WN, no apparent distress HEENT: PERRL/EOMI, normal ENT inspection, TMs normal, pharynx normal Neck: non-tender, full range of motion, supple, normal inspection Cardiovascular: normal peripheral pulses, regular rate, rhythm, no murmur Respiratory: chest non-tender, lungs clear, normal breath sounds Skin: normal color, warm/dry Skin Problem Character: linear (rash noted in the web spaces of hands, on the arms chest abdomen and back.), rash Lymphatic: no adenopathy Progress/Results/Core Measures Results/Orders Vital Signs/I&O Vital Sign - Last 12Hours 08/29/16 08/29/16 16:21 16:51 Temp 97.4 97.4 Pulse 71 71 Resp 18 18 B/P (MAP) 135/81 Pulse Ox 98 98 O2 Delivery Room Air Blood Pressure Mean: 99 Departure Impression Impression: Primary Impression: Scabies Disposition: 01 HOME, SELF-CARE Condition: Stable Departure-Patient Inst. Decision time for Depature: 16:45 Referrals: [facility] (PCP/Family) Primary Care Physician Patient Instructions: Scabies (DC) Add. Discharge Instructions: Use treatment as prescribed tonight before bed. Wash all linens and vacuum house and furniture tomorrow. Repeat treatment in 3-4 days if needed. Follow-up with primary care provider if no improvement. Return to emergency department if symptoms worsen, fever greater than 100, skin infections or new problems. All discharge instructions reviewed with patient and/or family. Voiced understanding. Scripts Permethrin (Permethrin) 60 Gm Cream..g. 60 GM TP ONCE, #1 TUBE 0 Refills Apply from neck to toes before bed, shower in the morning. Prov: TAMMIE LANGLEY 08/29/16 TAMMIE LANGLEY Aug 29, 2016 16:47
[2016-08-29 16:51] VITALS: BP 135/81
== END 2016-08-29 16:52 | disposition home or self-care (01) ==
LOC: EDUNIT# 16:02 → ER 16:03
DX: B86 Scabies (principal); F31.9 Bipolar disorder, unspecified; F32.9 Major depressive disorder, single episode, unspecified; F17.210 Nicotine dependence, cigarettes, uncomplicated; Z90.710 Acquired absence of both cervix and uterus; Z90.49 Acquired absence of other specified parts of digestive tract
CPT/HCPCS: 99282

== ENCOUNTER 2017-05-22 23:12 | Emergency (ER) | payer OTHER ==
[~2017-05-22] VITALS: Ht 165.1 cm; Wt 65.8 kg
[~2017-05-22 23:12] MED LIST changes: +PERM60CR4 TP
--- OUTSIDE RECORDS SUMMARY | 2017-05-22 23:17 | XMS REPORT ---
Author Author CORIN MICHELLE [facility] Address [address] [place] [address] Care Team Providers Care Peace Officer Name Role Phone CORIN MICHELLE Unavailable PROBLEMS Type Condition ICD9-CM Code [id number] Code Onset Dates Condition Status SNOMED Code Problem Bipolar disorder, in partial remission, most recent episode mixed F31.77 Active 98445004 Problem ADD (attention deficit disorder) F90.0 Active 196007717 Problem Bipolar 1 disorder F31.9 Active 355492494 ALLERGIES Unknown Allergies SOCIAL HISTORY No smoking Hx information available PLAN OF CARE VITAL SIGNS MEDICATIONS Medication Instructions Dosage Frequency Start Date End Date Duration Status Methylphenidate HCl 20 mg Orally Twice a day 1 tablet on an empty stomach 12h 10 Feb, 2016 Active RESULTS No Results PROCEDURES No Known procedures IMMUNIZATIONS No Known Immunizations
--- OUTSIDE RECORDS SUMMARY | 2017-05-22 23:17 | XMS REPORT ---
Author Author AMY Horne [facility] Address [address] [place] [address] Care Team Providers Care Straight Truck Driver Name Role Phone AMY Horne Unavailable PROBLEMS Type Condition ICD9-CM Code [id number] Code Onset Dates Condition Status SNOMED Code Problem Delusions of parasitosis F22 Active 862393690 Problem Vaginal bleeding N93.9 Active 015119658 Problem Bipolar 1 disorder F31.9 Active 666801796 Problem Bipolar disorder, in partial remission, most recent episode mixed F31.77 Active 40396376 Problem ADD (attention deficit disorder) F90.0 Active 385382771 ALLERGIES No Information SOCIAL HISTORY Never Assessed PLAN OF CARE VITAL SIGNS MEDICATIONS Unknown Medications RESULTS No Results PROCEDURES No Known procedures IMMUNIZATIONS No Known Immunizations MEDICAL (GENERAL) HISTORY Type Description Date Medical History May-pancreatitis possibly Medical History history of H. pylori Medical History carotid bruit Surgical History T & A Surgical History C section x 2 Surgical History Partial hysterectomy Surgical History gall bladder removal Surgical History Right knee cartilage shaved Surgical History C 6 and C7 L4 and L5 fusion Surgical History EGD and colonoscopy 06/2015 Hospitalization History Surgery/child Hospitalization History Spinal meningitis (Bacterial) Hospitalization History Acute Nephritis Hospitalization History Brown Recluse bite Hospitalization History Pancreatitis
--- OUTSIDE RECORDS SUMMARY | 2017-05-22 23:18 | XMS REPORT ---
Author Author AMY Horne [facility] Address [address] [place] [address] Care Team Providers Care Human Resources Operations Director Name Role Phone AMY Horne Unavailable PROBLEMS Type Condition ICD9-CM Code [id number] Code Onset Dates Condition Status SNOMED Code Problem Vaginal bleeding N93.9 Active 496451939 Problem Bipolar disorder, in partial remission, most recent episode mixed F31.77 Active 41333171 Problem ADD (attention deficit disorder) F90.0 Active 874881584 Problem Bipolar 1 disorder F31.9 Active 849185791 ALLERGIES No Information SOCIAL HISTORY Never Assessed PLAN OF CARE VITAL SIGNS MEDICATIONS Medication Instructions Dosage Frequency Start Date End Date Duration Status Methylphenidate HCl 20 mg Orally Twice a day 1 tablet on an empty stomach 12h 16 Apr, 2016 28 days Active RESULTS No Results PROCEDURES No [...]
--- OUTSIDE RECORDS SUMMARY | 2017-05-22 23:18 | XMS REPORT ---
Author Author Coleen AMY Organization [facility] Address [address] [place] [address] Care Team Providers Care Gallery Intern Name Role Phone AMY Horne Unavailable PROBLEMS Type Condition ICD9-CM Code [id number] Code Onset Dates Condition Status SNOMED Code Problem Bipolar disorder, in partial remission, most recent episode mixed F31.77 Active 56174526 Problem ADD (attention deficit disorder) F90.0 Active 955406609 Problem Bipolar 1 disorder F31.9 Active 238221297 ALLERGIES Substance Reaction Event Type Date Status Demerol hypotension Drug Allergy Feb, Active SOCIAL HISTORY No smoking Hx information available PLAN OF CARE Activity Details Follow Up 3 Months Reason: VITAL SIGNS Height 65.5 in 2016-03-03 Weight 148.0 lbs 2016-03-03 Heart Rate 76 bpm 2016-03-03 Respiratory Rate 20 2016-03-03 BMI 24.25 kg/m2 2016-03-03 Blood pressure systolic 111 mmHg 2016-03-03 Blood pressure diastolic 71 mmHg 2016-03-03 MEDICATIONS Medication Instructions Dosage Frequency Start Date End Date Duration Status Depakote ER 500 MG TAKE THREE TABLETS BY MOUTH ONCE DAILY FOR MOOD Active Melatonin 3 MG Orally Once a day 1 tablet at bedtime as needed with food 24h Active BuPROPion HCl (XL) 150 MG Orally Once a day 3 tablets 24h Active RESULTS Name Result Date Reference Range URINE DRUG SCREEN (IN HOUSE) 2016-03-03 Lot # [id number] Exp date Control + COCAINE Negative AMPH Negative MTD Negative THC Negative OPIATE Negative BENZO Negative PCP Negative BAR Negative OXY Negative MAMP Negative TCA Negative BUP Negative MDMA Negative PROCEDURES Procedure Date Ordered Related Diagnosis Body Site MH Office Visit, Est Pt., Level 3 Mar 03, 2016 DRUG TEST PRSMV DIR OPT OBS Mar 03, 2016 IMMUNIZATIONS No Known Immunizations
--- OUTSIDE RECORDS SUMMARY | 2017-05-22 23:18 | XMS REPORT ---
Author Author RomAMY NARAYANAN [facility] Address [address] [place] [address] Care Team Providers Care Racing Car Driver Name Role Phone AMY Horne Unavailable PROBLEMS Type Condition ICD9-CM Code [id number] Code Onset Dates Condition Status SNOMED Code Problem Delusions of parasitosis F22 Active 191796926 Problem Vaginal bleeding N93.9 Active 305027997 Problem Bipolar 1 disorder F31.9 Active 222830229 Problem Bipolar disorder, in partial remission, most recent episode mixed F31.77 Active 17481270 Problem ADD (attention deficit disorder) F90.0 Active [id number] ALLERGIES No Information ENCOUNTERS Encounter Location Date Diagnosis [place] [id number] [place] [address] 06139- 3472 May, [facility] [id number] [place] [address] 53449- 2389 Mar, Bipolar disorder, in partial remission, most recent episode mixed F31.77 [facility] [id number] [place] [address] 19067- 1849 Feb, Bipolar disorder, in partial remission, most recent episode mixed F31.77 and ADD (attention deficit disorder) F90.0 [facility] [id number] [place] [address] 37834- 5595 Jan, ADD (attention deficit disorder) F90.0 [facility] [address] [address]- [address] Nov, Delusions of parasitosis F22 [facility] [id number] [place] [address] 83796- 2168 Oct, [facility] [address] [address]- [address] Oct, Bipolar disorder, in partial remission, most recent episode mixed F31.77 and ADD (attention deficit disorder) F90.0 [facility] [address], [place] [address] Oct, [facility] [id number] [address] 6006 Oct, ADD (attention deficit disorder) F90.0 [facility] [id number] [place] [address] 40301- 7986 Oct, [facility] [id number] [place] [address] 86420- 4016 Oct, [facility] [id number] [place] [address] 87385- 6206 Oct, Skin lesions L98.9 and Hematochezia K92.1 [facility] [id number] [place] [address] 75481- 6856 Oct, Bipolar disorder, in partial remission, most recent episode mixed F31.77 [facility] [id number] [place] [address] 12877- 9404 Oct, Bipolar disorder, in partial remission, most recent episode mixed F31.77 and ADD (attention deficit disorder) F90.0 [facility] [id number] [address] 4343 Sep, Bipolar disorder, in partial remission, most recent episode mixed F31.77 [facility] [id number] [address]- 0892 Sep, Bipolar disorder, in partial remission, most recent episode mixed F31.77 and ADD (attention deficit disorder) F90.0 [facility] [id number] [address] 7121 Aug, [facility] [id number] [address]- 2717 Aug, Bipolar disorder, in partial remission, most recent episode mixed F31.77 and ADD (attention deficit disorder) F90.0 [facility] [id number] [address]- 4586 Aug, ADD (attention deficit disorder) F90.0 [facility] [id number] [place] [address]- 9636 Aug, ADD (attention deficit disorder) F90.0 [facility] [id number] [address]- 9626 Jul, ADD (attention deficit disorder) F90.0 [facility] [id number] [address]- 8616 June, ADD (attention deficit disorder) F90.0 [facility] [id number] [address]- 6186 May, ADD (attention deficit disorder) F90.0 and Bipolar disorder , in partial remission, most recent episode mixed F31.77 [facility] [id number] [address]- 5105 May, Bipolar disorder, in partial remission, most recent episode mixed F31.77 [facility] [id number] [address]- 8776 Apr, Bipolar disorder, in partial remission, most recent episode mixed F31.77 [facility] [id number] [address]- 5356 Mar, Bipolar disorder, in partial remission, most recent episode mixed F31.77 [facility] [id number] [address]- 3726 Feb, ADD (attention deficit disorder) F90.0 [facility] [id number] [place] [address]- 0516 Feb, [facility] [id number] [address]- 8786 Feb, [facility] [id number] [place] [address]- 9586 Feb, Bipolar disorder, in partial remission, most recent episode mixed F31.77 ; ADD (attention deficit disorder) F90.0 and Other group home ( current) drug therapy Z79.899 [facility] [id number] [place] [address] 2546 Feb, [facility] [id number] [place] [address] 2546 Jan, [facility] [id number] [place] [address] 2546 Dec, [facility] [id number] [place] [address]- 1236 Nov, Bipolar disorder, in partial remission, most recent episode mixed F31.77 and ADD (attention deficit disorder) F90.0 [facility] [id number] [place] [address]- 7756 Nov, [facility] [id number] [place] [address] 2546 Oct, [facility] [id number] [place] [address] 2546 Sep, [facility] [id number] [place] [address] 2546 Sep, [facility] [id number] [place] [address] 2546 Aug, [facility] [address] [facility] [id number] [place] [address] 2546 Jul, Bipolar I disorder, most recent episode mixed, in remission F31.70 and ADD (attention deficit disorder) F90.0 [facility] [address] [facility] [id number] [place] [address] 2546 Jul, [facility] [id number] 4892 June, [facility] [address], [place] [address]- 6874 May, Bipolar 1 disorder F31.9 and ADD (attention deficit disorder ) F90.0 [facility] [address], [place] [address]- 5941 May, [facility] [address], [place] [address]- 9094 Apr, [facility] [address], [place] [address]- 9370 Mar, [facility] [id number] [place] [address] 570853- 2881 Mar, [facility] [id number], [place] [address]- 7590 Mar, [facility] [id number] [place] [address] 28796- 9765 Feb, [facility] [address], [place] [address]- 4235 Jan, [facility] [id number] [address]- 8178 Jan, Bipolar disorder, in partial remission, most recent episode mixed F31.77 and Attention-deficit hyperactivity disorder, unspecified type F90.9 [facility] [address], [place] [address]- 6361 Dec, [facility] [address], [place] [address]- 0991 Nov, [facility] [address], [place] [address]- 6929 Oct, Bipolar I disorder, most recent episode (or current) mixed, in partial or unspecified remission 296.65 and Attention deficit disorder of childhood without mention of hyperactivity 314.00 [facility] [address], [place] [address]- 2452 Jul, [facility] [address], [place] [address]- 4029 Jul, [facility] [address] 1762 Jul, [facility] [address] 9892 June, Bipolar I disorder, most recent episode (or current) mixed, in partial or unspecified remission 296.65 and Attention deficit disorder of childhood without mention of hyperactivity 314.00 [facility] [address], [place] [address]- 4741 June, [facility] [id number] [place] [address] 85349- 2300 May, [facility] [address], [place] [address]- 0094 May, [facility] [address], [place] [address]- 0649 Apr, [facility] [address], [place] [address]- 0482 Apr, [facility] [address], [place] [address]- 3061 Mar, [facility] [address], [place] [address]- 5767 Mar, [facility] [address], [place] [address]- 7987 Feb, [facility] [address], [place] [address]- 8452 Feb, [facility] [address], [place] [address]- 4496 Feb, [facility] [id number] [address]- 4568 Feb, [facility] [id number] [place] [address]- 2233 Feb, [facility] [address] [id number] [place] [address]- 2647 Feb, [facility] [place] [facility] [address] [id number] [place] [address]- 9363 Feb, [facility] [address] [id number] [place] [address]- 2503 Feb, [facility] [place] [facility] [address] [id number] [place] [address]- 1344 Feb, [facility] [address] [id number] [place] [address]- 3222 Feb, [facility] [place] [facility] [address] [id number] [place] [address]- 7995 Jan, [facility] [address] [id number] [place] [address]- 6600 Jan, [facility] [address] [id number] [place] [address]- 8008 Dec, [facility] [place] [facility] [address] [id number] [place] [address]- 5546 Dec, [facility] [address] [id number] [place] [address]- 5684 Dec, [facility] [place] [facility] [address] [id number] [place] [address]- 2809 Dec, [facility] [place] [facility] [address] [id number] [place] [address]- 9679 Dec, [facility] [place] [facility] [address] [id number] [place] 8794 Dec, [facility] [place] [facility] [address] [id number] [place] [address]- 4458 Nov, [facility] [place] [facility] [address] [id number] [place] [address]- 9432 Nov, [facility] [place] [facility] [address] [id number] [place] [address]- 8767 16 Nov, 2013 [facility] [place] [facility] [address] [id number] [place] [address]- 1039 16 Nov, 2013 [facility] [place] [facility] [address] [id number] [place] [address]- 5502 15 Nov, 2013 [facility] [place] [facility] [address] [id number] [place] [address]- 1937 15 Nov, 2013 [facility] [place] [facility] [address] [id number] [place] [address]- 0540 24 Sep, 2013 [facility] [place] [facility] [address] [id number] [place] [address]- 0866 24 Oct, 2013 [facility] [place] [facility] [address] [id number] [place] [address]- 7405 24 Oct, 2013 [facility] [place] [facility] [address] [id number] [place] [address]- 9544 24 Oct, 2013 [facility] [place] [facility] [address] [id number] [place] [address]- 5605 19 Oct, 2013 [facility] [place] [facility] [address] [id number] [place] [address]- 3920 19 Oct, 2013 [facility] [place] [facility] [address] [id number] [place] [address]- 9489 19 Oct, 2013 [facility] [place] [facility] [address] [id number], [place] [address]- 0841 19 Sep, 2013 [facility] [place] [facility] [address] [id number] [place] [address]- 4006 18 Sep, 2013 [facility] [place] [facility] [address] [id number] [place] [address]- 2542 18 Sep, 2013 [facility] [place] [facility] [address] [id number], [place] [address]- 6323 17 Sep, 2013 [facility] [place] [facility] [address] [id number], [place] [address]- 8493 Oct, [facility] [place] [facility] [address] [id number] [place] [address]- 8002 Oct, [facility] [place] [facility] [address] [id number] [place] [address]- 1211 Oct, [facility] [place] [facility] [address] [id number] [place] [address]- 5676 Sep, [facility] [place] [facility] [address] [id number] [place] [address]- 8099 Sep, [facility] [place] [facility] [address] [id number] [place] [address]- 8709 Sep, [facility] [place] [facility] [address] [id number] [place] [address]- 4364 Sep, [facility] [place] [facility] [address] [id number] [place] [address]- 3223 Sep, [facility] [place] [facility] [address] [id number] [place] [address]- 4911 Sep, [facility] [place] [facility] [address] [id number] [place] [address]- 6879 Aug, [facility] [place] [facility] [address] [id number] [place] [address]- 2727 Aug, [facility] [place] [facility] [address] [id number] [place] [address]- 2927 Jul, [facility] [place] [facility] [address] [id number] [place] [address]- 2636 Jul, [facility] [place] [facility] [address] [id number] [place] [address]- 2541 Jul, [facility] [place] [facility] [address] [id number] [place] [address]- 4444 Jul, [facility] [place] [facility] [address] [id number] [place] [address]- 9385 June, [facility] [place] [facility] [address] [id number] [place] [address]- 6054 June, [facility] [place] [facility] [address] [id number] [place] [address]- 4906 May, [facility] [place] [facility] [address] [id number] [place] [address]- 5335 May, [facility] [place] [facility] [address] [id number] [place] [address]- 3184 Apr, [facility] [place] [facility] [address] [id number] [place] [address]- 8959 Apr, [facility] [place] [facility] [address] [id number] [place] [address]- 5967 Apr, [facility] [place] [facility] [address] [id number] [place] [address]- 1362 Apr, [facility] [place] [facility] [address] [id number] [place] [address]- 1031 Mar, [facility] [place] [facility] [address] [id number] [place] [address]- 6396 Mar, [facility] [place] [facility] [address] [id number] [place] [address]- 8363 Feb, [facility] [place] [facility] [address] [id number] [place] [address]- 4584 Feb, [facility] [place] [facility] [address] [id number] [place] [address]- 7473 Jan, [facility] [place] [facility] [address] [id number] [place] [address]- 0466 Jan, [facility] [place] [facility] [address] [id number] [place] [address]- 0644 Dec, [facility] [place] [facility] [address] [id number] [place] [address]- 3236 Dec, [facility] [place] [facility] [address] [id number] [place] [address]- 7168 Dec, [facility] [address] [id number] [place] [address]- 9112 15 Dec, 2012 [facility] [place] [facility] [address] [id number] [place] [address]- 5156 Dec, [facility] [place] [facility] [address] [id number] [place] [address] 2548 Nov, [facility] [place] [facility] [address] [id number] [place] [address]- 9717 Nov, [facility] [place] [facility] [address] [id number] [place] [address]- 6877 Oct, [facility] [place] [facility] [address] [id number] [place] [address]- 6594 Sep, [facility] [place] [facility] [address] [id number] [place] [address]- 3671 Sep, [facility] [place] [facility] [address] [id number] [place] [address]- 1047 Sep, [facility] [place] [facility] [address] [id number] [place] [address]- 2068 Aug, [facility] [place] [facility] [address] [id number], [place] [address]- 4070 Jul, [facility] [place] [facility] [address] [id number], [place] [address]- 2976 June, [facility] [place] [facility] [address] [id number], [place] [address]- 2543 June, [facility] [place] [facility] [address] [id number] [place] [address]- 6598 May, [facility] [place] [facility] [address] [id number], [place] [address]- 1257 May, [facility] [place] [facility] [address] [id number] [place] [address]- 2540 Apr, [facility] [place] [facility] [address] [id number] [place] [address]- 3843 13 Apr, 2012 [facility] [address] [id number] [place] [address]- 3806 13 Apr, 2012 [facility] [place] [facility] [address] [id number] [place] [address]- 5136 08 Apr, 2012 [facility] [address] [id number] [place] [address]- 2616 08 Apr, 2012 [facility] [place] [facility] [address] [id number] [place] [address]- 9968 07 Apr, 2012 [facility] [address] [id number] [place] [address]- 6264 06 Apr, 2012 [facility] [place] [facility] [address] [id number] [place] [address]- 8606 28 Mar, 2012 [facility] [address] [id number] [place] [address]- 9369 05 Mar, 2012 [facility] [address] [id number] [place] [address]- 0273 Mar, [facility] [address] [id number] [place] [address]- 7510 Feb, [facility] [address] [facility] [id number] [place] [address]- 5844 Feb, [facility] [address] [id number] [place] [address]- 5999 Jan, [facility] [place] [facility] [address] [id number] [place] [address]- 8008 Jan, [facility] [place] [facility] [address] [id number] [place] [address]- 0246 Jan, [facility] [place] [facility] [address] [id number] [place] [address]- 2546 Dec, [facility] [place] [facility] [address] [facility] [id number] [place] [address]- 3204 Dec, [facility] [place] [facility] [address] [id number] [place] [address]- 6099 Nov, [facility] [place] [facility] [address] [id number] [place] [address]- 6678 Oct, [facility] [place] [facility] [address] [id number] [place] [address]- 3038 Aug, [facility] [place] [facility] [address] [id number] [place] [address]- 3033 Jul, [facility] [place] [facility] [address] [id number] [place] [address]- 2761 Jul, [facility] [place] [facility] [address] [id number] [place] [address]- 7717 Jul, [facility] [place] [facility] [address] [facility] [id number] [place] [address]- 4826 Jul, [facility] [place] [facility] [address] [id number], [place] [address]- 8088 Jul, [facility] [place] [facility] [address] [id number] [place] [address]- 6531 Jul, [facility] [place] [facility] [address] [facility] [id number], [place] [address]- 9414 June, [facility] [place] [facility] [address] [id number], [place] [address]- 9575 June, [facility] [place] [facility] [address] [id number], [place] [address]- 5081 June, [facility] [place] [facility] [address] [id number] [place] [address]- 3736 May, [facility] [place] [facility] [address] [id number], [place] [address]- 6391 May, [facility] [place] [facility] [address] [facility] [id number], [place] [address]- 7588 May, [facility] [place] [facility] [address] [id number], [place] [address]- 2546 Apr, [facility] [address] [facility] [id number] [place] [address]- 2546 Mar, [facility] [address] [facility] [id number], [place] [address]- 2546 Mar, [facility] [address] [facility] [id number], [place] [address] Jan, [facility] [address] [facility] [id number], [place] [address] Dec, IMMUNIZATIONS No Known Immunizations SOCIAL HISTORY Never Assessed REASON FOR VISIT methylphenidate 07/23/2016 PLAN OF CARE VITAL SIGNS MEDICATIONS Medication Instructions Dosage Frequency Start Date End Date Duration Status Methylphenidate HCl 20 mg Orally Twice a day 1 tablet 12h Jul, 28 days Active RESULTS No Results PROCEDURES No Known procedures INSTRUCTIONS MEDICATIONS ADMINISTERED No Known Medications MEDICAL (GENERAL) HISTORY Type Description Date Medical [...]
--- OUTSIDE RECORDS SUMMARY | 2017-05-22 23:18 | XMS REPORT ---
Author Author AMY Horne [facility] Address [address] [place] [address] Care Team Providers Care Orthopedic Rn Name Role Phone AMY Horne Unavailable PROBLEMS Type Condition ICD9-CM Code [id number] Code Onset Dates Condition Status SNOMED Code Problem Bipolar disorder, in partial remission, most recent episode mixed F31.77 Active 37043897 Problem ADD (attention deficit disorder) F90.0 Active 951483542 Problem Bipolar 1 disorder F31.9 Active [id number] ALLERGIES Unknown Allergies SOCIAL HISTORY No smoking Hx information available PLAN OF CARE VITAL SIGNS MEDICATIONS Unknown Medications RESULTS No Results PROCEDURES No Known procedures IMMUNIZATIONS No Known Immunizations
--- OUTSIDE RECORDS SUMMARY | 2017-05-22 23:18 | XMS REPORT ---
Author Author AMY Horne [facility] Address [address] [place] [address] Care Team Providers Care Insurance Account Specialist Name Role Phone AMY Horne Unavailable PROBLEMS Type Condition ICD9-CM Code [id number] Code Onset Dates Condition Status SNOMED Code Problem Vaginal bleeding N93.9 Active 678426877 Problem Bipolar disorder, in partial remission, most recent episode mixed F31.77 Active 10872251 Problem ADD (attention deficit disorder) F90.0 Active 455515834 Problem Bipolar 1 disorder F31.9 Active [id number] ALLERGIES No Information SOCIAL HISTORY Never Assessed PLAN OF CARE VITAL SIGNS MEDICATIONS Medication Instructions Dosage Frequency Start Date End Date Duration Status Methylphenidate HCl 20 mg Orally Twice a day 1 tablet on an empty stomach 12h 10 Feb, 2016 28 days Active RESULTS No Results [...]
--- OUTSIDE RECORDS SUMMARY | 2017-05-22 23:19 | XMS REPORT ---
Author Author AMY Horne [facility] Address [address] [place] [address] Care Team Providers Care [employer] Judge Name Role Phone AMY Horne Unavailable PROBLEMS Type Condition ICD9-CM Code NZS51-XC Code Onset Dates Condition Status SNOMED Code Problem Bipolar disorder, in partial remission, most recent episode mixed F31.77 Active 45086927 Problem Bipolar 1 disorder F31.9 Active 849173669 Problem ADD (attention deficit disorder) F90.0 Active [id number] ALLERGIES Unknown Allergies SOCIAL HISTORY No smoking Hx information available PLAN OF CARE VITAL SIGNS MEDICATIONS Medication Instructions Dosage Frequency Start Date End Date Duration Status Methylphenidate 20mg orally 2 times a day 1 Tablet for ADHD 12h Apr, Active RESULTS No Results PROCEDURES No Known procedures IMMUNIZATIONS No Known Immunizations
--- OUTSIDE RECORDS SUMMARY | 2017-05-22 23:19 | XMS REPORT ---
Author Author AMY Horne [facility] Address [address] [place] [address] Care Team Providers Care Seal Delivery Vehicle Officer Name Role Phone AMY Horne Unavailable PROBLEMS Type Condition ICD9-CM Code [id number] Code Onset Dates Condition Status SNOMED Code Problem Bipolar disorder, in partial remission, most recent episode mixed F31.77 Active 74412916 Problem ADD (attention deficit disorder) F90.0 Active 302302069 Problem Bipolar 1 disorder F31.9 Active 275051703 ALLERGIES Unknown Allergies SOCIAL HISTORY No smoking Hx information available PLAN OF CARE VITAL SIGNS MEDICATIONS Unknown Medications RESULTS No Results PROCEDURES No Known procedures IMMUNIZATIONS No Known Immunizations
--- OUTSIDE RECORDS SUMMARY | 2017-05-22 23:19 | XMS REPORT ---
Author Author JOSSUE MANZO [facility] Address [address] [place] [address] Care Team Providers Care Rn Care Manager Name Role Phone JOSSUE MANZO Unavailable PROBLEMS Type Condition ICD9-CM Code [id number] Code Onset Dates Condition Status SNOMED Code Problem Delusions of parasitosis F22 Active 455556362 Problem Vaginal bleeding N93.9 Active 837259949 Problem Bipolar 1 disorder F31.9 Active 895455331 Problem Bipolar disorder, in partial remission, most recent episode mixed F31.77 Active 46392957 Problem ADD (attention deficit disorder) F90.0 Active 264093554 ALLERGIES No Information ENCOUNTERS Encounter Location Date Diagnosis [place] [id number] [place] [address]57- 0041 May, [place] [id number] [place] [address]97- 8842 Apr, Bipolar disorder, in partial remission, most recent episode mixed F31.77 [place] [id number] [place] [address] 29648- 0061 Mar, Bipolar disorder, in partial remission, most recent episode mixed F31.77 [place] [id number] [place] [address] 53119- 7199 Feb, Bipolar disorder, in partial remission, most recent episode mixed F31.77 and ADD (attention deficit disorder) F90.0 [place] [id number] [place] [address] 75934- 2773 Jan, ADD (attention deficit disorder) F90.0 [place] [id number] [place] [address] 74259- 7456 Nov, Delusions of parasitosis F22 [place] [address] [place] [address] 2546 Oct, [facility] [id number], [place] [address] 2546 Oct, Bipolar disorder, in partial remission, most recent episode mixed F31.77 and ADD (attention deficit disorder) F90.0 [facility] [id number], [place] [address] 2546 Oct, [facility] [id number] [place] [address]8857 2546 Oct, ADD (attention deficit disorder) F90.0 [facility] [id number], [place] [address] 4806 Oct, [facility] [id number], [place] [address] 2546 Oct, [facility] [id number], [place] [address] 2546 Oct, Skin lesions L98.9 and Hematochezia K92.1 [facility] [id number], [place] [address] 2546 Oct, Bipolar disorder, in partial remission, most recent episode mixed F31.77 [facility] [id number], [place] [address] 2546 Oct, Bipolar disorder, in partial remission, most recent episode mixed F31.77 and ADD (attention deficit disorder) F90.0 [facility] [id number], [place] [address] 2546 Sep, Bipolar disorder, in partial remission, most recent episode mixed F31.77 [facility] [id number], [place] [address] 2546 Sep, Bipolar disorder, in partial remission, most recent episode mixed F31.77 and ADD (attention deficit disorder) F90.0 [facility] [id number], [place] [address]- 2067 Aug, [facility] [id number], [place] [address] 6066 Aug, Bipolar disorder, in partial remission, most recent episode mixed F31.77 and ADD (attention deficit disorder) F90.0 [facility] [id number], [place] [address]- 2086 Aug, ADD (attention deficit disorder) F90.0 [facility] [id number], [place] [address]- 8916 Aug, ADD (attention deficit disorder) F90.0 [facility] [id number], [place] [address]- 3676 Jul, ADD (attention deficit disorder) F90.0 [facility] [id number], [place] [address]- 9276 June, ADD (attention deficit disorder) F90.0 [facility] [id number], [place] [address]- 7622 May, ADD (attention deficit disorder) F90.0 and Bipolar disorder , in partial remission, most recent episode mixed F31.77 [facility] [id number], [place] [address]- 7326 May, Bipolar disorder, in partial remission, most recent episode mixed F31.77 [facility] [id number], [place] [address]- 7206 Apr, Bipolar disorder, in partial remission, most recent episode mixed F31.77 [facility] [id number], [place] [address]- 2406 Mar, Bipolar disorder, in partial remission, most recent episode mixed F31.77 [facility] [id number], [place] [address]- 4526 Feb, ADD (attention deficit disorder) F90.0 [facility] [id number], [place] [address]- 5036 Feb, [facility] [id number], [place] [address]- 6835 Feb, [facility] [id number] [place] [address] 83737- 0820 Feb, Bipolar disorder, in partial remission, most recent episode mixed F31.77 ; ADD (attention deficit disorder) F90.0 and Other alf ( current) drug therapy Z79.899 [facility] [id number] [place] [address] 77745- 0207 Feb, [facility] [id number], [place] [address]- 9017 Jan, [facility] [id number] [place] [address] 60559- 5567 Dec, [facility] [id number] [place] [address] 68581- 6678 Nov, Bipolar disorder, in partial remission, most recent episode mixed F31.77 and ADD (attention deficit disorder) F90.0 [facility] [id number], [place] [address]- 0879 Nov, [facility] [id number], [place] [address]- 7037 Oct, [facility] [id number], [place] [address]- 5776 Sep, [facility] [id number], [place] [address]- 8063 Sep, [facility] [id number] [address]- 9351 Aug, [facility] [id number], [place] [address]- 2306 Jul, Bipolar I disorder, most recent episode mixed, in remission F31.70 and ADD (attention deficit disorder) F90.0 [facility] [id number] [place] [address] 75344- 8902 14 Jul, 2015 [facility] [id number], [place] [address]- 2636 June, [facility] [id number], [place] [address]- 5136 May, Bipolar 1 disorder F31.9 and ADD (attention deficit disorder ) F90.0 [facility] [id number] [place] [address] 55933- 7806 May, [facility] [id number], [place] [address]- 6499 Apr, [facility] [id number] [place] [address]- 5116 Mar, [facility] [id number], [place] [address]- 7006 Mar, [facility] [id number], [place] [address]- 2742 Mar, [facility] [id number], [place] [address]- 4122 Feb, [facility] [id number], [place] [address]- 5192 Jan, [facility] [id number], [place] [address]- 2351 Jan, Bipolar disorder, in partial remission, most recent episode mixed F31.77 and Attention-deficit hyperactivity disorder, unspecified type F90.9 [facility] [id number], [place] [address]- 3402 Dec, [facility] [id number], [place] [address]- 2746 Nov, [facility] [id number], [place] [address]- 6404 11 Oct, 2014 Bipolar I disorder, most recent episode (or current) mixed, in partial or unspecified remission 296.65 and Attention deficit disorder of childhood without mention of hyperactivity 314.00 [facility] [id number], [place] [address]- 8706 Jul, [facility] [id number] 3333 Jul, [facility] [id number] 3586 Jul, [facility] [id number] 6454 June, Bipolar I disorder, most recent episode (or current) mixed, in partial or unspecified remission 296.65 and Attention deficit disorder of childhood without mention of hyperactivity 314.00 [facility] [id number] 0919 June, [facility] [id number], [place] [address]- 5502 May, [facility] [id number], [place] [address]- 2200 May, [facility] [id number], [place] [address]- 1719 Apr, [facility] [id number], [place] [address]- 0368 Apr, [facility] [id number] 8372 Mar, [facility] [id number] 4648 Mar, [facility] [id number] 6713 Feb, [facility] [id number] 3411 Feb, [facility] [id number] 5223 Feb, [facility] [address] [id number] [place] [address]- 7358 Feb, [facility] [place] [facility] [address] [id number] [place] [address]- 3910 Feb, [facility] [place] [facility] [address] [id number] [place] [address]- 3048 Feb, [facility] [place] [facility] [address] [id number] [place] [address]- 9945 Feb, [facility] [place] [facility] [address] [id number] [place] [address]- 9636 Feb, [facility] [place] [facility] [address] [id number] [place] [address]- 6269 Feb, [facility] [place] [facility] [address] [id number] [place] [address]- 3790 Feb, [facility] [place] [facility] [address] [id number] [place] [address]- 5176 Jan, [facility] [place] [facility] [address] [id number] [place] [address]- 2292 Jan, [facility] [place] [facility] [address] [id number] [place] [address]- 1687 Dec, [facility] [place] [facility] [address] [id number] [place] [address]- 4973 Dec, [facility] [place] [facility] [address] [id number] [place] [address]- 7408 Dec, [facility] [place] [facility] [address] [id number] [place] [address]- 5782 Dec, [facility] [place] [facility] [address] [id number] [place] [address]- 1327 Dec, [facility] [place] [facility] [address] [id number] [place] [address]- 0406 Dec, [facility] [place] [facility] [address] [id number] [place] [address]- 7610 17 Nov, 2013 [facility] [place] [facility] [address] [id number] [place] [address]- 9825 17 Nov, 2013 [facility] [place] [facility] [address] [id number] [place] [address]- 3732 16 Nov, 2013 [facility] [place] [facility] [address] [id number] [place] [address]- 2013 16 Nov, 2013 [facility] [place] [facility] [address] [id number] [place] [address]- 9923 15 Nov, 2013 [facility] [place] [facility] [address] [id number] [place] [address]- 5337 15 Nov, 2013 [facility] [place] [facility] [address] [id number] [place] [address]- 8380 24 Sep, 2013 [facility] [place] [facility] [address] [id number] [place] [address]- 2023 24 Sep, 2013 [facility] [place] [facility] [address] [id number] [place] [address]- 5028 24 Sep, 2013 [facility] [place] [facility] [address] [id number] [place] [address]- 1089 24 Oct, 2013 [facility] [place] [facility] [address] [id number] [place] [address]- 6081 19 Oct, 2013 [facility] [place] [facility] [address] [id number], [place] [address]- 0896 19 Oct, 2013 [facility] [place] [facility] [address] [id number], [place] [address]- 1872 19 Sep, 2013 [facility] [place] [facility] [address] [id number] [place] [address]- 2549 19 Sep, 2013 [facility] [place] [facility] [address] [id number] [place] [address]- 1097 18 Sep, 2013 [facility] [place] [facility] [address] [id number] [place] [address]- 2549 18 Sep, 2013 [facility] [place] [facility] [address] [id number] [place] [address]- 1693 17 Oct, 2013 [facility] [place] [facility] [address] [id number] [place] [address]- 1233 17 Oct, 2013 [facility] [place] [facility] [address] [id number] [place] [address]- 1881 16 Oct, 2013 [facility] [place] [facility] [address] [id number] [place] [address]- 7737 16 Oct, 2013 [facility] [place] [facility] [address] [id number] [place] [address]- 3675 Sep, [facility] [place] [facility] [address] [id number] [place] [address]- 5447 Sep, [facility] [place] [facility] [address] [id number] [place] [address]- 8974 Sep, [facility] [place] [facility] [address] [id number] [place] [address]- 9007 Sep, [facility] [place] [facility] [address] [id number] [place] [address]- 0390 Sep, [facility] [place] [facility] [address] [id number] [place] [address]- 8354 Sep, [facility] [place] [facility] [address] [id number] [place] [address]- 6579 Aug, [facility] [place] [facility] [address] [id number] [place] [address]- 3807 Aug, [facility] [place] [facility] [address] [id number] [place] [address]- 8968 Jul, [facility] [place] [facility] [address] [id number] [place] [address]- 9959 Jul, [facility] [place] [facility] [address] [id number] [place] [address]- 7245 Jul, [facility] [place] [facility] [address] [id number] [place] [address]- 3603 Jul, [facility] [address] [id number] [place] [address]- 1583 June, [facility] [place] [facility] [address] [id number] [place] [address]- 9218 June, [facility] [place] [facility] [address] [id number] [place] [address]- 8058 May, [facility] [place] [facility] [address] [id number] [place] [address]- 2111 May, [facility] [place] [facility] [address] [id number] [place] [address]- 7240 Apr, [facility] [place] [facility] [address] [id number] [place] [address]- 4242 Apr, [facility] [place] [facility] [address] [id number] [place] [address]- 9336 Apr, [facility] [place] [facility] [address] [id number] [place] [address]- 9962 Apr, [facility] [place] [facility] [address] [id number] [place] [address]- 8992 Mar, [facility] [place] [facility] [address] [id number] [place] [address]- 7192 Mar, [facility] [place] [facility] [address] [id number] [place] [address]- 1743 Feb, [facility] [place] [facility] [address] [id number] [place] [address]- 5981 Feb, [facility] [place] [facility] [address] [id number] [place] [address]- 0901 Jan, [facility] [place] [facility] [address] [id number] [place] [address]- 8250 Jan, [facility] [place] [facility] [address] [id number] [place] [address]- 9592 Dec, [facility] [place] [facility] [address] [id number] [place] [address]- 5911 26 Dec, 2012 [facility] [address] [id number] [place] [address]- 3580 15 Dec, 2012 [facility] [place] [facility] [address] [id number] [place] [address]- 3798 15 Dec, 2012 [facility] [address] [id number] [place] [address]- 6402 14 Dec, 2012 [facility] [place] [facility] [address] [id number] [place] [address]- 1266 Nov, [facility] [place] [facility] [address] [id number] [place] [address]- 0457 Nov, [facility] [place] [facility] [address] [id number] [place] [address]- 0962 Oct, [facility] [address] [id number] [place] [address]- 6601 Sep, [facility] [place] [facility] [address] [id number] [place] [address]- 9773 Sep, [facility] [place] [facility] [address] [id number] [place] [address]- 5543 Sep, [facility] [place] [facility] [address] [facility] [id number] [place] [address]- 6811 Aug, [facility] [place] [facility] [address] [id number] [place] [address]- 9638 Jul, [facility] [place] [facility] [address] [id number] [place] [address] 2544 June, [facility] [place] [facility] [address] [id number] [place] [address]- 9720 June, [facility] [place] [facility] [address] [id number] [place] [address] 2548 May, [facility] [place] [facility] [address] [id number] [place] [address]- 9049 May, [facility] [place] [facility] [address] [id number] [place] [address]- 9988 Apr, [facility] [address] [id number] [place] [address]- 2689 Apr, [facility] [place] [facility] [address] [id number] [place] [address]- 4213 13 Apr, 2012 [facility] [place] [facility] [address] [id number] [place] [address]- 8194 08 Apr, 2012 [facility] [place] [facility] [address] [id number] [place] [address]- 5730 08 Apr, 2012 [facility] [place] [facility] [address] [id number] [place] [address]- 2808 07 Apr, 2012 [facility] [address] [id number] [place] [address]- 2456 06 Apr, 2012 [facility] [address] [id number] [place] [address]- 6382 Mar, [facility] [address] [id number] [place] [address]- 5035 Mar, [facility] [address] [id number] [place] [address]- 2929 Mar, [facility] [place] [facility] [address] [id number] [place] [address]- 7359 Feb, [facility] [place] [facility] [address] [id number] [place] [address]- 9953 Feb, [facility] [place] [facility] [address] [id number] [place] [address]- 2757 Jan, [facility] [place] [facility] [address] [id number] [place] [address]- 9112 Jan, [facility] [place] [facility] [address] [id number] [place] [address]- 5721 Jan, [facility] [place] [facility] [address] [id number], [place] [address]- 9611 Dec, [facility] [place] [facility] [address] [id number] [place] [address]- 9653 Dec, [facility] [place] [facility] [address] [id number] [place] [address]- 9926 Nov, [facility] [place] [facility] [address] [id number] [place] [address]- 1294 Oct, [facility] [place] [facility] [address] [id number] [place] [address]- 4725 Aug, [facility] [place] [facility] [address] [id number] [place] [address]- 1987 Jul, [facility] [place] [facility] [address] [id number] [place] [address]- 6504 Jul, [facility] [place] [facility] [address] [id number] [place] [address]- 2032 Jul, [facility] [place] [facility] [address] [id number] [place] [address]- 7852 Jul, [facility] [place] [facility] [address] [id number] [place] [address]- 2357 Jul, [facility] [place] [facility] [address] [id number] [place] [address] Jul, [facility] [place] [facility] [address] [id number], [place] [address] June, [facility] [place] [facility] [address] [id number] [place] [address] June, [facility] [place] [facility] [address] [id number] [place] [address] June, [facility] [place] [facility] [address] [id number] [place] [address] May, [facility] [place] [facility] [address] [id number] [place] [address] May, [facility] [place] [facility] [address] [facility] [id number] [place] [address] May, [facility] [address] [facility] [id number], [place] [address] Apr, [facility] [address] [id number], [place] [address] Mar, [facility] [address] [id number], [place] [address] Mar, [facility] [id number], [place] [address] Jan, [facility] [id number], [place] [address] Dec, IMMUNIZATIONS No Known Immunizations SOCIAL HISTORY Never Assessed REASON FOR VISIT refill PLAN OF CARE VITAL SIGNS MEDICATIONS Medication Instructions Dosage Frequency Start Date End Date Duration Status Methylphenidate HCl 20 mg Orally Twice a day 1 tablet 12h Aug, 15 days Active RESULTS No Results PROCEDURES No [...]
--- OUTSIDE RECORDS SUMMARY | 2017-05-22 23:20 | XMS REPORT | Continuity of Care Document ---
Author Author [facility] Address Unknown Phone Unavailable Allergies Active Description Code Type Severity Reaction Onset Reported/Identified Relationship to Patient Clinical Status Yes sensitivity to Demerol OA 07/24/2009 Yes sensitivity to Demerol OA N/ A N/A 07/24/2009 Yes meperidine [id number] Drug Allergy Unknown DECREASES BP 05/13/2016 Yes Sulfa (Sulfonamide Antibiotics) [id number] Drug Allergy Unknown N/A 2016 Medications There is no data. Problems Date Dx Coded Attending Type Code Diagnosis Diagnosed By 07/24/2009 LUCIA GOTTLIEB DO 845.10 SPRAIN/STRAIN FOOT 07/24/2009 LUCIA GOTTLIEB DO 845.10 SPRAIN/STRAIN FOOT 07/24/2009 DEBRA HUGHES APRN 845.10 SPRAIN/STRAIN FOOT 07/24/2009 845.10 SPRAIN/ STRAIN FOOT 07/24/2009 DEBRA HUGHES APRN 845.10 SPRAIN/STRAIN FOOT 07/24/2009 845.10 SPRAIN/ STRAIN FOOT 07/24/2009 845.10 SPRAIN/ STRAIN FOOT 07/24/2009 845.10 SPRAIN/ STRAIN FOOT 07/24/2009 845.10 SPRAIN/ STRAIN FOOT 07/24/2009 DEBRA HUGHES APRN 845.10 SPRAIN/STRAIN FOOT 07/24/2009 DEBRA HUGHES APRN 845.10 SPRAIN/STRAIN FOOT 07/24/2009 DEBRA HUGHES APRN 845.10 SPRAIN/STRAIN FOOT 07/24/2009 DEBRA HUGHES APRN 845.10 SPRAIN/STRAIN FOOT 07/24/2009 845.10 SPRAIN/ STRAIN FOOT 07/24/2009 DEBRA HUGHES APRN 845.10 SPRAIN/STRAIN FOOT 07/24/2009 AVERY RESPONDER, ALLY 845.10 SPRAIN/STRAIN FOOT 07/24/2009 AVERY RESPONDER, ALLY 845.10 SPRAIN/STRAIN FOOT 07/24/2009 AVERY RESPONDER, ALLY 845.10 SPRAIN/STRAIN FOOT 07/24/2009 AVERY RESPONDER, ALLY 845.10 SPRAIN/STRAIN FOOT 07/24/2009 MANJIT PAL, DANIEL E 845.10 SPRAIN/STRAIN FOOT 07/24/2009 MANJIT PAL, DANIEL E 845.10 SPRAIN/STRAIN FOOT 07/24/2009 MANJIT RN, DANIEL E 845.10 SPRAIN/STRAIN FOOT 07/24/2009 AVERY RESPONDER, ALLY 845.10 SPRAIN/STRAIN FOOT 07/24/2009 AVERY RESPONDER, ALLY 845.10 SPRAIN/STRAIN FOOT 07/24/2009 AVERY RESPONDER, ALLY 845.10 SPRAIN/STRAIN FOOT 07/24/2009 AVERY RESPONDER, ALLY 845.10 SPRAIN/STRAIN FOOT 01/06/2011 LUCIA GOTTLIEB DO 296.89 MO BIPOLAR II 01/06/2011 LUCIA GOTTLIEB [...] APRN V58.69 MEDICATION HIGH RISK 01/06/2011 AVERY RESPONDER, ALLY 296.89 MO BIPOLAR II 01/06/2011 AVERY RESPONDER, ALLY V58.69 MEDICATION HIGH RISK 01/06/2011 AVERY RESPONDER, ALLY 296.89 MO BIPOLAR II 01/06/2011 AVERY RESPONDER, ALLY V58.69 MEDICATION HIGH RISK 01/06/2011 AVERY RESPONDER, ALLY 296.89 MO BIPOLAR II 01/06/2011 AVERY RESPONDER, ALLY V58.69 MEDICATION HIGH RISK 01/06/2011 AVERY RESPONDER, ALLY 296.89 MO BIPOLAR II 01/06/2011 AVERY RESPONDER, ALLY V58.69 MEDICATION HIGH RISK 01/06/2011 MANJIT PAL, DANIEL E 296.89 MO BIPOLAR II 01/06/2011 MANJIT PAL, DANIEL E V58.69 MEDICATION HIGH RISK 01/06/2011 MANJIT PAL, DANIEL E 296.89 MO BIPOLAR II 01/06/2011 MANJIT PAL, DANIEL E V58.69 MEDICATION HIGH RISK 01/06/2011 MANJIT PAL, DANIEL E 296.89 MO BIPOLAR II 01/06/2011 MANJIT PAL, DANIEL E V58.69 MEDICATION HIGH RISK 01/06/2011 AVERY RESPONDER, ALLY 296.89 MO BIPOLAR II 01/06/2011 AVERY RESPONDER, ALLY V58.69 MEDICATION HIGH RISK 01/06/2011 AVERY RESPONDER, ALLY 296.89 MO BIPOLAR II 01/06/2011 AVERY RESPONDER, ALLY V58.69 MEDICATION HIGH RISK 01/06/2011 AVERY RESPONDER, ALLY 296.89 MO BIPOLAR II 01/06/2011 AVERY RESPONDER, ALLY V58.69 MEDICATION HIGH RISK 01/06/2011 AVERY RESPONDER, ALLY 296.89 MO BIPOLAR II 01/06/2011 AVERY RESPONDER, ALLY V58.69 MEDICATION HIGH RISK 02/04/2011 LUCIA [...] MO BIPOLAR I MIXED MODERATE 02/04/2011 AVERY RESPONDER, ALLY 296.62 MO BIPOLAR I MIXED MODERATE 02/04/2011 AVERY RESPONDER, ALLY 296.62 MO BIPOLAR I MIXED MODERATE 02/04/2011 AVERY RESPONDER, ALLY 296.62 MO BIPOLAR I MIXED MODERATE 02/04/2011 AVERY RESPONDER, ALLY 296.62 MO BIPOLAR I MIXED MODERATE 02/04/2011 MANJIT PAL, DANIEL E 296.62 MO BIPOLAR I MIXED MODERATE 02/04/2011 MANJIT PAL, DANIEL E 296.62 MO BIPOLAR I MIXED MODERATE 02/04/2011 MANJIT PAL, DANIEL E 296.62 MO BIPOLAR I MIXED MODERATE 02/04/2011 AVERY RESPONDER, ALLY 296.62 MO BIPOLAR I MIXED MODERATE 02/04/2011 AVERY RESPONDER, ALLY 296.62 MO BIPOLAR I MIXED MODERATE 02/04/2011 AVERY RESPONDER, ALLY 296.62 MO BIPOLAR I MIXED MODERATE 02/04/2011 AVERY RESPONDER, ALLY 296.62 MO BIPOLAR I MIXED MODERATE 03/25/2011 LUKEHUGGINS LUCIA F 611.71 BREAST PAIN 03/25/2011 CHERY HENDERSON LUCIA F 783.1 WEIGHT GAIN ABNORMAL 03/25/2011 CHERY HENDESRON LUCIA Quiñonez V18.0 FAM HX DIABETES MELLITUS 03/25/2011 CHERY HENDERSON LUCIA F 611.71 BREAST PAIN 03/25/2011 CHERY HENDERSON LUCIA F 783.1 WEIGHT GAIN ABNORMAL 03/25/2011 LUKEHUGGINS LUCIA F V18.0 FAM HX DIABETES MELLITUS 03/25/2011 DEBRA [...] APRN V18.0 FAM HX DIABETES MELLITUS 03/25/2011 DEBRA HUGHES APRN 611.71 BREAST PAIN 03/25/2011 DEBRA HUGHES APRN 783.1 WEIGHT GAIN ABNORMAL 03/25/2011 DEBRA HUGHES APRN V18.0 FAM HX DIABETES MELLITUS 03/25/2011 DEBRA HUGHES APRN 611.71 BREAST PAIN 03/25/2011 DEBRA HUGHES APRN 783.1 WEIGHT GAIN ABNORMAL 03/25/2011 DEBRA HUGHES APRN V18.0 FAM HX DIABETES MELLITUS 03/25/2011 DEBRA [...] APRN V18.0 FAM HX DIABETES MELLITUS 03/25/2011 ALLY VARELA APRN 611.71 BREAST PAIN 03/25/2011 ALLY VARELA APRN 783.1 WEIGHT GAIN ABNORMAL 03/25/2011 ALLY VARELA APRN V18.0 FAM HX DIABETES MELLITUS 03/25/2011 ALLY VARELA APRN 611.71 BREAST PAIN 03/25/2011 AVERY RESPONDER, ALLY 783.1 WEIGHT GAIN ABNORMAL 03/25/2011 AVERY RESPONDER, ALLY V18.0 FAM HX DIABETES MELLITUS 03/25/2011 AVERY RESPONDER, ALLY 611.71 BREAST PAIN 03/25/2011 AVERY RESPONDER, ALLY 783.1 WEIGHT GAIN ABNORMAL 03/25/2011 AVERY RESPONDER, ALLY V18.0 FAM HX DIABETES MELLITUS 03/25/2011 AVERY RESPONDER, ALLY 611.71 BREAST PAIN 03/25/2011 AVERY RESPONDER, ALLY 783.1 WEIGHT GAIN ABNORMAL 03/25/2011AVERY RESPONDER, ALLY V18.0 FAM HX DIABETES MELLITUS 03/25/2011 [...] V18.0 FAM HX DIABETES MELLITUS 03/25/2011 AVERY RESPONDER, ALLY 611.71 BREAST PAIN 03/25/2011 AVERY RESPONDER, ALLY 783.1 WEIGHT GAIN ABNORMAL 03/25/2011 AVERY RESPONDER, ALLY V18.0 FAM HX DIABETES MELLITUS 03/25/2011 AVERY RESPONDER, ALLY 611.71 BREAST PAIN 03/25/2011 AVERY RESPONDER, ALLY 783.1 WEIGHT GAIN ABNORMAL 03/25/2011 AVEYR RESPONDER, ALLY V18.0 FAM HX DIABETES MELLITUS 03/25/2011 AVERY RESPONDER, ALLY 611.71 BREAST PAIN 03/25/2011 AVERY RESPONDER, ALLY 783.1 WEIGHT GAIN ABNORMAL 03/25/2011 AVERY RESPONDER, ALLY V18.0 FAM HX DIABETES MELLITUS 03/25/2011 AVERY RESPONDER, ALLY 611.71 BREAST PAIN 03/25/2011 ALLY VARELA APRN 783.1 WEIGHT GAIN ABNORMAL 03/25/2011 ALLY VARELA APRN V18.0 FAM HX DIABETES MELLITUS 06/17/2011 Ot 845.10 SPRAIN OF FOOT NOS 06/17/2011 Ot 959.7 LOWER LEG INJURY NOS 06/17/2011 Ot E000.8 OTHER EXTERNAL CAUSE STATUS 06/17/2011 Ot E001.0 ACTIVITIES INVOLVING WALKING, MARCHING A 06/17/2011 Ot E849.0 ACCIDENT IN HOME 06/17/2011 Ot E880.9 FALL ON STAIR/STEP NEC 06/23/2011 LUCIA GOTTLIEB DO 314.01 ADHD COMBINED [...] DEBRA HUGHES APRN 314.01 ADHD COMBINED 06/23/2011 ALLY VARELA APRN 314.01 ADHD COMBINED 06/23/2011 ALLY VARELA APRN 314.01 ADHD COMBINED 06/23/2011 ALLY VARELA APRN 314.01 ADHD COMBINED 06/23/2011 ALLY VARELA APRN 314.01 ADHD COMBINED 06/23/2011 MANJIT PAL, DANIEL Sloan 314.01 ADHD COMBINED 06/23/2011 MANJIT PAL, DANIEL Sloan 314.01 ADHD COMBINED 06/23/2011 MANJIT PAL, DANIEL Sloan 314.01 ADHD COMBINED 06/23/2011 ALLY VARELA APRN 314.01 ADHD COMBINED 06/23/2011 ALLY VARELA APRN 314.01 ADHD COMBINED 06/23/2011 ALLY VARELA APRN 314.01 ADHD COMBINED 06/23/2011 ALLY VRAELA APRN 314.01 ADHD COMBINED 08/20/2011 LUCIA GOTTLIEB DO F 296.65 MO BIPOLAR I MIXED PART OR UNSPECIFIED REMISSION 08/20/2011 LUCIA GOTTLIEB DO F 296.65 MO BIPOLAR I MIXED PART OR [...] I MIXED PART OR UNSPECIFIED REMISSION 08/20/2011 MANJIT PAL, DANIEL Sloan 296.65 MO BIPOLAR I MIXED PART OR UNSPECIFIED REMISSION 08/20/2011 MANJIT PAL, DANIEL E 296.65 MO BIPOLAR I MIXED PART OR UNSPECIFIED REMISSION 08/20/2011 MANJIT PAL, DANIEL E 296.65 MO BIPOLAR I MIXED PART OR UNSPECIFIED REMISSION 08/20/2011 AVERY MATTHEW ALLY 296.65 MO BIPOLAR I MIXED PART OR UNSPECIFIED REMISSION 08/20/2011 AVERY MATTHEW ALLY 296.65 MO BIPOLAR I MIXED PART OR UNSPECIFIED REMISSION 08/20/2011 AVERY MATTHEW ALLY 296.65 MO BIPOLAR I MIXED PART OR UNSPECIFIED REMISSION 08/20/2011 ALLY VARELA APRN 296.65 MO BIPOLAR I MIXED PART OR UNSPECIFIED REMISSION 04/21/2012 LUCIA GOTTLIBE DO 296.60 MO BIPOLAR I MIXED UNSPECIFIED [...] 296.60 MO BIPOLAR I MIXED UNSPECIFIED 04/21/2012 DANIEL SARAVIA RN E 296.60 MO BIPOLAR I MIXED UNSPECIFIED 04/21/2012 MANJIT RN, DANIEL E 296.60 MO BIPOLAR I MIXED UNSPECIFIED 04/21/2012 MANJIT RN, DANIEL E 296.60 MO BIPOLAR I MIXED UNSPECIFIED 04/21/2012 AVERY RESPONDER, ALLY 296.60 MO BIPOLAR I MIXED UNSPECIFIED 04/21/2012 AVERY RESPONDER, ALLY 296.60 MO BIPOLAR I MIXED UNSPECIFIED 04/21/2012 AVERY RESPONDER, ALLY 296.60 MO BIPOLAR I MIXED UNSPECIFIED 04/21/2012 AVERY RESPONDER, ALLY 296.60 MO BIPOLAR I MIXED UNSPECIFIED 03/02/2014 AVERY RESPONDER, ALLY 314.00 ADHD INATTENTIVE 03/02/2014 AVERY RESPONDER, ALLY 314.00 ADHD INATTENTIVE 05/14/2016 CLIF HENDERSON BLAYNE Ot E83.51 HYPOCALCEMIA 05/14/2016 CLIF HENDERSON, BLAYNE Ot E86.0 DEHYDRATION 05/14/2016 CLIF HENDERSON BLAYNE Ot F17.210 NICOTINE DEPENDENCE, CIGARETTES, UNCOMPL 05/14/2016 CLIF HENDERSON BLAYNE Ot K52.9 NONINFECTIVE GASTROENTERITIS AND COLITIS 05/14/2016 CLIF DO, BLAYNE Ot K85.90 ACUTE PANCREATITIS WITHOUT NECROSIS OR I 05/16/2016 CLIF HENDERSON BLAYNE Ot E83.51 HYPOCALCEMIA 05/16/2016 CLIF DO BLAYNE Ot E86.0 DEHYDRATION 05/16/2016 LCIF DO BLAYNE Ot F17.210 NICOTINE DEPENDENCE, CIGARETTES, UNCOMPL 05/16/2016 CLIF HENDERSON BLAYNE Ot K52.9 NONINFECTIVE GASTROENTERITIS AND COLITIS 05/16/2016 CLIF HENDERSON BLAYNE Ot K85.90 ACUTE PANCREATITIS WITHOUT NECROSIS OR I 08/31/2016 TAMMIE LANGLEY Ot B86 SCABIES 08/31/2016 TAMMIE LANGLEYP Ot F17.210 NICOTINE DEPENDENCE, CIGARETTES, UNCOMPL 08/31/2016 TAMMIE LANGLEYP Ot F31.9 BIPOLAR DISORDER, UNSPECIFIED 08/31/2016 TAMMIE LANGLEYP Ot F32.9 MAJOR DEPRESSIVE DISORDER, SINGLE EPISOD 08/31/2016 TAMMIE LANGLEYP Ot L29.9 PRURITUS, UNSPECIFIED 08/31/2016 TAMMIE LANGLEYP Ot Z90.49 ACQUIRED ABSENCE OF OTHER SPECIFIED PART 08/31/2016 TAMMIE LANGLEY YESSY Ot Z90.710 ACQUIRED ABSENCE OF BOTH CERVIX AND UTER Procedures Code Description [place] [address] ROUTINE VENIPUNCTURE 04/22/2012 43212 URINE DRUG SCREEN (IN-HOUSE ) 04/22/2012 29422 CBC 04/22/2012 98782 CMP 04/22/2012 [id number] GFR CALC (RESULT ONLY) 04/22/2012 87135 VALPROIC ACID / DEPAKOTE 04/22/2012 70521 TSH 04/22/2012 31731 ROUTINE VENIPUNCTURE 05/05/2012 16036 URINE DRUG SCREEN (IN-HOUSE ) 05/05/2012 99168 VALPROIC ACID / DEPAKOTE 05/05/2012 96537 URINE METHYLPHENIDATE GC/ MS 08/02/2012 S0280 HEALTH PROMOTION 11/13/2013 S0281 CARE COORDINATION 11/13/2013 S0280 HEALTH PROMOTION 12/13/2013 Results Test Result Range Complete blood count (CBC) with automated white blood cell (WBC) differential - 05/13/16 18:20 Blood leukocytes automated count (number/volume) 15.6 10*3/uL 4.3-11.0 Blood erythrocytes automated count (number/volume) 4.69 10*6/uL 4.35-5.85 Venous blood hemoglobin measurement (mass/volume) 15.0 g/dL 11.5-16.0 Blood hematocrit (volume fraction) 44 % 35-52 Automated erythrocyte mean corpuscular volume 93 [foz_us] 80-99 Automated erythrocyte mean corpuscular hemoglobin (mass per erythrocyte) 32 pg 25-34 Automated erythrocyte mean corpuscular hemoglobin concentration measurement ( mass/volume) 34 g/dL 32-36 Automated erythrocyte distribution width ratio 13.9 % 10.0-14.5 Automated blood platelet count (count/volume) 282 10*3/uL 130-400 Automated blood platelet mean volume measurement 10.4 [foz_us] 7.4-10.4 Automated blood neutrophils/100 leukocytes 88 % 42-75 Automated blood lymphocytes/100 leukocytes 7 % 12-44 Blood monocytes/100 leukocytes 4 % 0-12 Automated blood eosinophils/100 leukocytes 1 % 0-10 Automated blood basophils/100 leukocytes 0 % 0-10 Blood neutrophils automated count (number/volume) 13.8 10*3 1.8-7.8 Blood lymphocytes automated count (number/volume) 1.1 10*3 1.0-4.0 Blood monocytes automated count (number/volume) 0.7 10*3 0.0-1.0 Automated eosinophil count 0.1 10*3/uL 0.0-0.3 Automated blood basophil count (count/volume) 0.0 10*3/uL 0.0-0.1 Blood manual differential performed detection - 05/13/16 18:20 Blood monocytes/100 leukocytes 2 % NRG Manual blood segmented neutrophils/100 leukocytes 85 % NRG Blood band neutrophils/100 leukocytes 10 % NRG Manual blood lymphocytes/100 leukocytes 3 % NRG Manual eosinophils/100 leukocytes in nose 0 % NRG Manual blood basophils/100 leukocytes 0 % NRG Blood erythrocyte morphology finding identification NORMAL NR Comprehensive metabolic panel - 05/13/16 18:20 Serum or plasma sodium measurement (moles/volume) 139 mmol/L 135-145 Serum or plasma potassium measurement (moles/volume) 4.1 mmol/L 3.6-5.0 Serum or plasma chloride measurement (moles/volume) 110 mmol/L 98-107 Carbon dioxide 22 mmol/L 21-32 Serum or plasma anion gap determination (moles/volume) 7 mmol/L 5-14 Serum or plasma urea nitrogen measurement (mass/volume) 19 mg/dL 7-18 Serum or plasma creatinine measurement (mass/volume) 0.77 mg/dL 0.60-1.30 Serum or plasma urea nitrogen/creatinine mass ratio 25 NRG Serum or plasma creatinine measurement with calculation of estimated glomerular filtration rate > NRG Serum or plasma glucose measurement (mass/volume) 106 mg/dL 70-105 Serum or plasma calcium measurement (mass/volume) 7.8 mg/dL 8.5-10.1 Serum or plasma total bilirubin measurement (mass/volume) 0.6 mg/dL 0.1-1.0 Serum or plasma alkaline phosphatase measurement (enzymatic activity/volume) 100 U/L 40-136 Serum or plasma aspartate aminotransferase measurement (enzymatic activity/ volume) 119 U/L 5-34 Serum or plasma alanine aminotransferase measurement (enzymatic activity/volume ) 83 U/L 0-55 Serum or plasma protein measurement (mass/volume) 6.0 g/dL 6.4-8.2 Serum or plasma albumin measurement (mass/volume) 3.7 g/dL 3.2-4.5 Magnesium - 05/13/16 18:20 Magnesium 2.2 mg/dL 1.8-2.4 Serum or plasma amylase measurement (enzymatic activity/volume) - 05/13/16 18: 20 Serum or plasma amylase measurement (enzymatic activity/volume) 254 U/L 25-125 Lipase - 05/13/16 18:20 Lipase 410 U/L 8-78 Serum or plasma ethanol measurement (mass/volume) - 05/13/16 18:20 Serum or plasma ethanol measurement (mass/volume) < mg/dL <10 Acute hepatitis panel - 05/13/16 18:20 Confirmatory quantitative serum or plasma hepatitis B virus surface antigen measurement Non-Reactive Non-Reactive Hepatitis A virus IgM antibody assay Non-Reactive Non- Reactive Hepatitis B virus core IgM antibody assay Non-Reactive Non-Reactive Serum hepatitis C virus antibody detection Non-Reactive Non-Reactive Complete urinalysis with reflex to culture - 05/13/16 19:25 Urine color determination YELLOW NRG Urine clarity determination CLEAR NRG Urine pH measurement by test strip 6 5-9 Specific gravity of urine by test strip 1.015 1.016- 1.022 Urine protein assay by test strip, semi-quantitative 2+ NEGATIVE Urine glucose detection by automated test strip NEGATIVE NEGATIVE Erythrocytes detection in urine sediment by light microscopy 2+ NEGATIVE Urine ketones detection by automated test strip NEGATIVE NEGATIVE Urine nitrite detection by test strip NEGATIVE NEGATIVE Urine total bilirubin detection by test strip NEGATIVE NEGATIVE Urine urobilinogen measurement by automated test strip (mass/volume) NORMAL NORMAL Urine leukocyte esterase detection by dipstick 2+ NEGATIVE Automated urine sediment erythrocyte count by microscopy (number/high power field) [HPF] NRG Automated urine sediment leukocyte count by microscopy (number/high power field ) [HPF] NRG Bacteria detection in urine sediment by light microscopy MODERATE NRG Squamous epithelial cells detection in urine sediment by light microscopy 0-2 NRG Crystals detection in urine sediment by light microscopy NONE NRG Casts detection in urine sediment by light microscopy NONE NRG Mucus detection in urine sediment by light microscopy NEGATIVE NRG Complete urinalysis with reflex to culture YES NRG Urine drug screening test - 05/13/16 19:25 Urine phencyclidine detection by screening method NEGATIVE NEGATIVE Urine benzodiazepines detection by screening method NEGATIVE NEGATIVE Urine cocaine detection NEGATIVE NEGATIVE Urine amphetamines detection by screening method NEGATIVE NEGATIVE Urine methamphetamine detection by screening method NEGATIVE NEGATIVE Urine cannabinoids detection by screening method NEGATIVE NEGATIVE Urine opiates detection by screening method NEGATIVE NEGATIVE Urine barbiturates detection NEGATIVE NEGATIVE Screening urine tricyclic antidepressants detection NEGATIVE NEGATIVE Urine methadone detection by screening method NEGATIVE NEGATIVE Urine oxycodone detection NEGATIVE NEGATIVE Urine propoxyphene detection NEGATIVE NEGATIVE Bacterial urine culture - 05/13/16 19:25 Bacterial urine culture FOOTNOTE NRG Stool leukocytes detection by light microscopy - 05/13/16 19:43 FECAL WBC RESULTS FEW NRG FECAL NOTE FECAL LEUKOCYTES MAY BE INTERMITTENTLY PRESENT OR NRG FECAL NOTE UNEVENLY DISTRIBUTED IN STOOL SPECIMENS, AND WBC NRG FECAL NOTE MORPHOLOGY DEGRADES DURING TRANSPORT NRG FECAL NOTE NOTE: NRG Clostridium difficile detection - 05/13/16 19:43 C DIFF MOLECULAR RESULT Negative for toxigenic C diff by DNA amplification NRG [id number] - 05/13/16 19:43 RESULTS INDETERMINANT; MOLECULAR TEST TO FOLLOW NRG Stool bacteria identification by culture - 05/13/16 19:43 Complete blood count (CBC) with automated white blood cell (WBC) differential - 05/14/16 05:20 Blood leukocytes automated count (number/volume) 5.4 10*3/uL 4.3-11.0 Blood erythrocytes automated count (number/volume) 4.31 10*6/uL 4.35-5.85 Venous blood hemoglobin measurement (mass/volume) 13.7 g/dL 11.5-16.0 Blood hematocrit (volume fraction) 40 % 35-52 Automated erythrocyte mean corpuscular volume 94 [foz_us] 80-99 Automated erythrocyte mean corpuscular hemoglobin (mass per erythrocyte) 32 pg 25-34 Automated erythrocyte mean corpuscular hemoglobin concentration measurement ( mass/volume) 34 g/dL 32-36 Automated erythrocyte distribution width ratio 13.9 % 10.0-14.5 Automated blood platelet count (count/volume) 225 10*3/uL 130-400 Automated blood platelet mean volume measurement 10.8 [foz_us] 7.4-10.4 Automated blood neutrophils/100 leukocytes 65 % 42-75 Automated blood lymphocytes/100 leukocytes 21 % 12-44 Blood monocytes/100 leukocytes 12 % 0-12 Automated blood eosinophils/100 leukocytes 2 % 0-10 Automated blood basophils/100 leukocytes 0 % 0-10 Blood neutrophils automated count (number/volume) 3.5 10*3 1.8-7.8 Blood lymphocytes automated count (number/volume) 1.2 10*3 1.0-4.0 Blood monocytes automated count (number/volume) 0.6 10*3 0.0-1.0 Automated eosinophil count 0.1 10*3/uL 0.0-0.3 Automated blood basophil count (count/volume) 0.0 10*3/uL 0.0-0.1 Comprehensive metabolic panel - 05/14/16 05:20 Serum or plasma sodium measurement (moles/volume) 140 mmol/L 135-145 Serum or plasma potassium measurement (moles/volume) 4.2 mmol/L 3.6-5.0 Serum or plasma chloride measurement (moles/volume) 112 mmol/L 98-107 Carbon dioxide 23 mmol/L 21-32 Serum or plasma anion gap determination (moles/volume) 5 mmol/L 5-14 Serum or plasma urea nitrogen measurement (mass/volume) 11 mg/dL 7-18 Serum or plasma creatinine measurement (mass/volume) 0.71 mg/dL 0.60-1.30 Serum or plasma urea nitrogen/creatinine mass ratio 15 NRG Serum or plasma creatinine measurement with calculation of estimated glomerular filtration rate > NRG Serum or plasma glucose measurement (mass/volume) 88 mg/dL 70-105 Serum or plasma calcium measurement (mass/volume) 8.1 mg/dL 8.5-10.1 Serum or plasma total bilirubin measurement (mass/volume) 0.7 mg/dL 0.1-1.0 Serum or plasma alkaline phosphatase measurement (enzymatic activity/volume) 234 U/L 40-136 Serum or plasma aspartate aminotransferase measurement (enzymatic activity/ volume) 1000 U/L 5-34 Serum or plasma alanine aminotransferase measurement (enzymatic activity/volume ) 915 U/L 0-55 Serum or plasma protein measurement (mass/volume) 5.3 g/dL 6.4-8.2 Serum or plasma albumin measurement (mass/volume) 3.2 g/dL 3.2-4.5 Serum or plasma amylase measurement (enzymatic activity/volume) - 05/14/16 05: 20 Serum or plasma amylase measurement (enzymatic activity/volume) 103 U/L 25-125 Lipase - 05/14/16 05:20 Lipase 82 U/L 8-78 Complete blood count (CBC) with automated white blood cell (WBC) differential - 05/15/16 06:06 Blood leukocytes automated count (number/volume) 5.4 10*3/uL 4.3-11.0 Blood erythrocytes automated count (number/volume) 3.99 10*6/uL 4.35-5.85 Venous blood hemoglobin measurement (mass/volume) 12.5 g/dL 11.5-16.0 Blood hematocrit (volume fraction) 38 % 35-52 Automated erythrocyte mean corpuscular volume 94 [foz_us] 80-99 Automated erythrocyte mean corpuscular hemoglobin (mass per erythrocyte) 31 pg 25-34 Automated erythrocyte mean corpuscular hemoglobin concentration measurement ( mass/volume) 33 g/dL 32-36 Automated erythrocyte distribution width ratio 13.8 % 10.0-14.5 Automated blood platelet count (count/volume) 207 10*3/uL 130-400 Automated blood platelet mean volume measurement 10.8 [foz_us] 7.4-10.4 Automated blood neutrophils/100 leukocytes 41 % 42-75 Automated blood lymphocytes/100 leukocytes 38 % 12-44 Blood monocytes/100 leukocytes 14 % 0-12 Automated blood eosinophils/100 leukocytes 6 % 0-10 Automated blood basophils/100 leukocytes 0 % 0-10 Blood neutrophils automated count (number/volume) 2.2 10*3 1.8-7.8 Blood lymphocytes automated count (number/volume) 2.1 10*3 1.0-4.0 Blood monocytes automated count (number/volume) 0.8 10*3 0.0-1.0 Automated eosinophil count 0.3 10*3/uL 0.0-0.3 Automated blood basophil count (count/volume) 0.0 10*3/uL 0.0-0.1 Comprehensive metabolic panel - 05/15/16 06:06 Serum or plasma sodium measurement (moles/volume) 141 mmol/L 135-145 Serum or plasma potassium measurement (moles/volume) 3.9 mmol/L 3.6-5.0 Serum or plasma chloride measurement (moles/volume) 112 mmol/L 98-107 Carbon dioxide 24 mmol/L 21-32 Serum or plasma anion gap determination (moles/volume) 5 mmol/L 5-14 Serum or plasma urea nitrogen measurement (mass/volume) 5 mg/dL 7-18 Serum or plasma creatinine measurement (mass/volume) 0.64 mg/dL 0.60-1.30 Serum or plasma urea nitrogen/creatinine mass ratio 8 NRG Serum or plasma creatinine measurement with calculation of estimated glomerular filtration rate > NRG Serum or plasma glucose measurement (mass/volume) 96 mg/dL 70-105 Serum or plasma calcium measurement (mass/volume) 7.8 mg/dL 8.5-10.1 Serum or plasma total bilirubin measurement (mass/volume) 0.3 mg/dL 0.1-1.0 Serum or plasma alkaline phosphatase measurement (enzymatic activity/volume) 189 U/L 40-136 Serum or plasma aspartate aminotransferase measurement (enzymatic activity/ volume) 240 U/L 5-34 Serum or plasma alanine aminotransferase measurement (enzymatic activity/volume ) 532 U/L 0-55 Serum or plasma protein measurement (mass/volume) 5.1 g/dL 6.4-8.2 Serum or plasma albumin measurement (mass/volume) 3.1 g/dL 3.2-4.5 Serum or plasma amylase measurement (enzymatic activity/volume) - 05/15/16 06: 06 Serum or plasma amylase measurement (enzymatic activity/volume) 58 U /L 25-125 Lipase - 05/15/16 06:06 Lipase 29 U/L 8-78 PT panel in platelet poor plasma by coagulation assay - 05/15/16 06:06 Prothrombin time (PT) in platelet poor plasma by coagulation assay 13.3 s 12.2-14.7 INR in platelet poor plasma or blood by coagulation assay 1.0 0.8-1.4 Serum iron and total iron binding capacity panel - 05/15/16 06:06 Serum or plasma iron measurement (mass/volume) 42 % 35- 180 Total iron binding capacity and transferrin saturation measurement 15 % 15-50 Iron binding capacity [mass/volume] in serum or plasma 274 % 280-380 UIBC (unsaturated iron binding capacity) 232 % 55-450 Serum or plasma ferritin measurement (mass/volume) 67.0 % 15.0-150.0 Copper measurement - 05/15/16 11:18 Copper measurement 111 % 80-155 Complete blood count (CBC) with automated white blood cell (WBC) differential - 05/16/16 03:45 Blood leukocytes automated count (number/volume) 6.6 10*3/uL 4.3-11.0 Blood erythrocytes automated count (number/volume) 3.99 10*6/uL 4.35-5.85 Venous blood hemoglobin measurement (mass/volume) 12.5 g/dL 11.5-16.0 Blood hematocrit (volume fraction) 38 % 35-52 Automated erythrocyte mean corpuscular volume 94 [foz_us] 80-99 Automated erythrocyte mean corpuscular hemoglobin (mass per erythrocyte) 31 pg 25-34 Automated erythrocyte mean corpuscular hemoglobin concentration measurement ( mass/volume) 33 g/dL 32-36 Automated erythrocyte distribution width ratio 13.7 % 10.0-14.5 Automated blood platelet count (count/volume) 219 10*3/uL 130-400 Automated blood platelet mean volume measurement 11.0 [foz_us] 7.4-10.4 Automated blood neutrophils/100 leukocytes 40 % 42-75 Automated blood lymphocytes/100 leukocytes 40 % 12-44 Blood monocytes/100 leukocytes 14 % 0-12 Automated blood eosinophils/100 leukocytes 6 % 0-10 Automated blood basophils/100 leukocytes 0 % 0-10 Blood neutrophils automated count (number/volume) 2.6 10*3 1.8-7.8 Blood lymphocytes automated count (number/volume) 2.6 10*3 1.0-4.0 Blood monocytes automated count (number/volume) 0.9 10*3 0.0-1.0 Automated eosinophil count 0.4 10*3/uL 0.0-0.3 Automated blood basophil count (count/volume) 0.0 10*3/uL 0.0-0.1 Comprehensive metabolic panel - 05/16/16 03:45 Serum or plasma sodium measurement (moles/volume) 142 mmol/L 135-145 Serum or plasma potassium measurement (moles/volume) 4.2 mmol/L 3.6-5.0 Serum or plasma chloride measurement (moles/volume) 113 mmol/L 98-107 Carbon dioxide 22 mmol/L 21-32 Serum or plasma anion gap determination (moles/volume) 7 mmol/L 5-14 Serum or plasma urea nitrogen measurement (mass/volume) 5 mg/dL 7-18 Serum or plasma creatinine measurement (mass/volume) 0.65 mg/dL 0.60-1.30 Serum or plasma urea nitrogen/creatinine mass ratio 8 NRG Serum or plasma creatinine measurement with calculation of estimated glomerular filtration rate > NRG Serum or plasma glucose measurement (mass/volume) 86 mg/dL 70-105 Serum or plasma calcium measurement (mass/volume) 7.6 mg/dL 8.5-10.1 Serum or plasma total bilirubin measurement (mass/volume) 0.2 mg/dL 0.1-1.0 Serum or plasma alkaline phosphatase measurement (enzymatic activity/volume) 143 U/L 40-136 Serum or plasma aspartate aminotransferase measurement (enzymatic activity/ volume) 93 U/L 5-34 Serum or plasma alanine aminotransferase measurement (enzymatic activity/volume ) 341 U/L 0-55 Serum or plasma protein measurement (mass/volume) 4.7 g/dL 6.4-8.2 Serum or plasma albumin measurement (mass/volume) 2.9 g/dL 3.2-4.5 Urine Culture - 05/22/16 09:30 PRELIM CULTURE RESULTS 20,000-50,000 Streptococcus agalactiae ( Group B Strep). FINAL CULTURE RESULTS 20,000-50,000 Streptococcus agalactiae (Group B Strep).[id number] Further Work -up. MEDIA PLATED Setup at 15:04 on 05/22/2016 CULTURE SOURCE urine CBC With Differential/Platelet - 10/05/16 08:12 WBC 8.0 x10E3/uL 3.4-10.8 RBC 4.39 x10E6/uL 3.77-5.28 Hemoglobin 13.6 g/dL 11.1-15.9 Hematocrit 40.9 % 34.0-46.6 MCV 93 fL 79-97 MCH 31.0 pg 26.6-33.0 MCHC 33.3 g/dL 31.5-35.7 RDW 14.5 % 12.3-15.4 Platelets 314 x10E3/uL 150-379 Neutrophils 53 % Lymphs 37 % Monocytes 9 % Eos 1 % Basos 0 % Neutrophils (Absolute) 4.3 x10E3/uL 1.4-7.0 Lymphs (Absolute) 3.0 x10E3/uL 0.7-3.1 Monocytes(Absolute) 0.7 x10E3/uL 0.1-0.9 Eos (Absolute) 0.1 x10E3/uL 0.0-0.4 Baso (Absolute) 0.0 x10E3/uL 0.0-0.2 Immature Granulocytes 0 % Immature Grans (Abs) 0.0 x10E3/uL 0.0-0.1 Comp. Metabolic Panel (14) - 10/05/16 08:12 Glucose, Serum 77 mg/dL 65-99 BUN 10 mg/dL 6-24 Creatinine, Serum 0.61 mg/dL 0.57-1.00 eGFR If NonAfricn Am 100 mL/min/1.73 >59 eGFR If Africn Am 116 mL/min/1.73 >59 BUN/Creatinine Ratio 16 9-23 Sodium, Serum 144 mmol/L 134-144 Potassium, Serum 4.1 mmol/L 3.5-5.2 Chloride, Serum 102 mmol/L 96-106 Carbon Dioxide, Total 24 mmol/L 18-29 Calcium, Serum 9.4 mg/dL 8.7-10.2 Protein, Total, Serum 6.7 g/dL 6.0-8.5 Albumin, Serum 4.7 g/dL 3.5-5.5 Globulin, Total 2.0 g/dL 1.5-4.5 A/G Ratio 2.4 1.2-2.2 Bilirubin, Total 0.3 mg/dL 0.0-1.2 Alkaline Phosphatase, S 86 IU/L 39-117 AST (SGOT) 19 IU/L 0-40 ALT (SGPT) 17 IU/L 0-32 Lipid Panel - 10/05/16 08:12 Cholesterol, Total 203 mg/dL 100-199 Triglycerides 66 mg/dL 0-149 HDL Cholesterol 61 mg/dL >39 VLDL Cholesterol Wilber 13 mg/dL 5-40 LDL Cholesterol Calc 129 mg/dL 0-99 TSH - 10/05/16 08:12 TSH 1.020 uIU/mL 0.450-4.500 Valproic Acid (Depakote)(R),S - 10/05/16 08:12 Valproic Acid (Depakote),S 29 ug/mL 50-100 PATHOLOGY REPORT - 10/28/16 14:45 . NRG . NRG . NRG . NRG . NRG . NRG . NRG . Comment: NRG PDF Report - 10/28/16 14:45 PDF Report1 LCLS NRG Encounters ACCT No. Visit Date/Time Discharge Status Pt. Type Provider Facility Loc./Unit Complaint [id number] 03/02/2014 09:51:00 03/02/2014 23:59:59 CLS Outpatient ALLY VARELA APRN [id number] 03/02/2014 09:51:00 03/02/2014 23:59:59 CLS Outpatient ALLY VARELA APRN [id number] 12/01/2013 15:52:00 12/01/2013 23:59:59 CLS Outpatient ALLY VARELA APRN [id number] 12/01/2013 15:52:00 12/01/2013 23:59:59 CLS Outpatient ALLY VARELA APRN [id number] 11/29/2013 13:30:00 11/29/2013 23:59:59 CLS Outpatient DANIEL SARAVIA RN [id number] 11/08/2013 00:00:00 11/08/2013 23:59:59 CLS Outpatient DANIEL SARAVIA RN [id number] 11/02/2013 00:00:00 11/02/2013 23:59:59 CLS Outpatient DANIEL SARAVIA RN [id number] 10/31/2013 14:58:00 10/31/2013 23:59:59 CLS Outpatient ALLY VARELA APRN [id number] 10/31/2013 14:58:00 10/31/2013 23:59:59 CLS Outpatient ALLY VARELA APRN [id number] 08/01/2013 12:54:00 08/01/2013 23:59:59 CLS Outpatient ALLY VARELA APRN [id number] 08/01/2013 12:54:00 08/01/2013 23:59:59 CLS Outpatient ALLY VARELA APRN [id number] 04/28/2013 15:36:00 04/28/2013 23:59:59 CLS Outpatient DEBRA HUGHES APRN [id number] 04/28/2013 15:36:00 04/28/2013 23:59:59 CLS Outpatient DEBRA HUGHES APRN [id number] 01/10/2013 07:56:00 01/10/2013 23:59:59 CLS Outpatient DEBRA HUGHES APRN [id number] 01/10/2013 07:56:00 01/10/2013 23:59:59 CLS Outpatient DEBRA HUGHES APRN [id number] 10/13/2012 08:20:00 10/13/2012 23:59:59 CLS Outpatient DEBRA HUGHES APRN [id number] 05/05/2012 15:16:00 05/05/2012 23:59:59 CLS Outpatient [id number] 04/22/2012 15:38:00 04/22/2012 23:59:59 CLS Outpatient DEBRA HUGHES APRN [id number] 04/21/2012 12:01:00 04/21/2012 23:59:59 CLS Outpatient TONYVAMSI ANGULODEBRA Hernandez [id number] 04/21/2012 12:01:00 04/21/2012 23:59:59 CLS Outpatient LUCIA GOTTLIEB DO [id number] 11/20/2011 08:23:00 11/20/2011 23:59:59 [place] [id number] 11/20/2011 08:23:00 11/20/2011 23:59:59 CLS Outpatient [id number] 10/13/2012 08:20:00 Document Registration [id number] 07/21/2012 09:06:00 Document Registration [id number] 07/21/2012 09:06:00 Document Registration [id number] 05/05/2012 15:16:00 Document Registration [id number] 10/06/2016 09:09:00 Document Registration [id number] 08/29/2016 16:03:00 08/29/2016 16:52:00 DIS Outpatient TAMMIE LANGLEY [facility] ER BUG BITES [id number] 05/13/2016 21:30:00 05/16/2016 15:45:00 DIS Inpatient MENEZES ELIU HENDERSONI [facility] 4TH PANCREATITIS,ELEVATED LIVER ENZYMES,DEHYDRATION W/ [id number] 10/04/2015 14:22:00 10/04/2015 23:59:59 CLS Outpatient COLTHEDIE FUENTES DO A [facility] QUICK [id number] 05/22/2017 23:14:00 ACT Emergency CECILY MINE K [facility] ER BACK PAIN [id number] 06/17/2011 01:44:00 Document Registration [id number] 05/22/2016 13:57:00 05/22/2016 23:59:00 DIS Outpatient LUCIA MORRIS [id number] 04/24/2016 10:01:00 04/24/2016 10:01:00 CAN Outpatient ALEX CLARKE [id number] 02/17/2017 09:20:00 02/17/2017 23:59:59 CLS Outpatient [facility] [id number] 10/28/2016 13:40:00 Document Registration
[2017-05-22] MEDS ORDERED: METH27TA11 (23:27)
[2017-05-23] MEDS ORDERED: METH4TAB PO (00:13)
[2017-05-23] MEDS ORDERED: METH500T PO (00:13)
--- NOTE | 2017-05-23 00:14 | ED Back Pain ---
General Chief Complaint: Back Problems Stated Complaint: BACK PAIN Nursing Triage Note: WORSENING CHRONIC LOWER BACK PAIN, NO INJURY Nursing Sepsis Screen: No Definite Risk Allergies and Home Medications Allergies Coded Allergies: Sulfa (Sulfonamide Antibiotics) (Verified Allergy, Unknown, 05/13/16) meperidine (Unverified Adverse Reaction, Unknown, DECREASES BP, 05/13/16) Home Medications Bupropion HCl 150 Mg Tab.er.24h, 300 MG PO HS, (Reported) TAKES 2 (150MG) TABLETS Past Rpxxwmd-Cvvavq-Vnslmc Hx Patient Social History Alcohol Use: Denies Use Recreational Drug Use: No Smoking Status: Current Everyday Smoker Type Used: Cigarettes Former Smoker, Quit: May 11, 2016 2nd Hand Smoke Exposure: Yes Recent Foreign Travel: No Contact w/Someone Who Travel: No Recent Infectious Disease Expo: No Recent Hopitalizations: No Immunizations Up To Date PED Vaccines UTD: Yes Date of Influenza Vaccine: Nov 16, 2015 Seasonal Allergies Seasonal Allergies: No Past Medical History Surgeries: Yes (CERVICAL AND LUMBAR FUSIONS; X 1 ; HYST/BSO; EGD) Appendectomy, Section, Gallbladder, Hysterectomy, Orthopedic Respiratory: No Currently Using CPAP: No Currently Using BIPAP: No Cardiac: No Neurological: No : No 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 Disorders: No Female 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 Disorders: Denies 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, 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 Sexually Transmitted Disease: No HIV/AIDS: No Genitourinary: No Gastrointestinal: Yes Ulcer, Gall Bladder Disease Musculoskeletal: Yes (CHRONIC NECK AND BACK PAIN) Chronic Back Pain Endocrine: No HEENT: No Cancer: No Psychosocial: Yes Bipolar, Depression Integumentary: No Blood Disorders: No Adverse Reaction/Blood Tranf: No Family Medical History FH: non-Hodgkin's lymphoma SON Hypertension 19 MOTHER CAD Over 55 Years Old, Hypertension Physical Exam Vital Signs Vital Signs - First Documented 05/22/17 23:20 Temp 97.5 Pulse 78 Resp 16 B/P (MAP) 133/79 (97) Pulse Ox 98 O2 Delivery Room Air Capillary Refill : Less Than 3 Seconds Progress/Results/Core Measures Vital Signs/I&O 05/22/17 23:20 Temp 97.5 Pulse 78 Resp 16 B/P (MAP) 133/79 (97) Pulse Ox 98 O2 Delivery Room Air Blood Pressure Mean: 97 Departure Impression Primary Impression: Acute exacerbation of chronic low back pain Additional Impression: Pain of right sacroiliac joint Disposition: 01 HOME, SELF-CARE Condition: Stable Departure-Patient Inst. Referrals: [facility] (PCP/Family) Primary Care Physician Patient Instructions: Low Back Pain (DC), Sacroiliac Joint Pain (DC) Add. Discharge Instructions: ALTERNATE ICE AND HEAT TO SORE AREA AT 20 MINUTE INTERVALS NO TWISTING OR BENDING AT WAIST, NO LIFTING OVER 10 LBS X 1 WEEK FOLLOW UP WITH YOUR DR IN 2-3 DAYS FOR FURTHER CARE All discharge instructions reviewed with patient and/or family. Voiced understanding. Scripts Methocarbamol (Robaxin) 500 Mg Tablet 500 MG PO QID for Muscle Spasms, #20 TAB Prov: MINE TONY DO 05/23/17 Methylprednisolone (Medrol) 4 Mg Tab.ds.pk 4 MG PO UD, #1 PKG Prov: MINE TONY DO 05/23/17 Work/School Note: Work Release Form Date Seen in the Emergency Department: May 22, 2017 Return to Work: May 24, 2017 Other Restrictions Listed Below: NO LIFTING OVER 10 LBS, NO TWISTING OR BENDING AT WAIST X 1 WEEK MINE TONY DO May 23, 2017 00:14
[2017-05-23] MEDS ORDERED: KETOROLAC 60 MG/2 ML VIAL IM ONE (00:15)
[2017-05-23] MEDS ORDERED: diphenhydrAMINE 50 MG/ML INJ (BENADRYL) IM ONE (00:15)
[2017-05-23] MEDS ORDERED: ORPHENADRINE 60 MG/2 ML (NORFLEX) AMP IM ONE (00:15)
[2017-05-23 00:57] VITALS: BP 112/67
== END 2017-05-23 00:55 | disposition home or self-care (01) ==
LOC: EDUNIT# 23:12 → ER 23:14
DX: M54.5 Low back pain (principal); G89.29 Other chronic pain; M53.3 Sacrococcygeal disorders, not elsewhere classified; Z87.891 Personal history of nicotine dependence; Z90.49 Acquired absence of other specified parts of digestive tract; Z87.59 Personal history of other complications of pregnancy, childbirth and the puerperium; Z90.710 Acquired absence of both cervix and uterus; Z87.19 Personal history of other diseases of the digestive system; Z88.2 Allergy status to sulfonamides; Z88.6 Allergy status to analgesic agent
CPT/HCPCS: 96372; 99284

== ENCOUNTER → 2017-06-01 | Outpatient (REF) ==
[~2017-06-01] MED LIST changes: +METH27TA11; +METH4TAB PO; +METH500T PO
--- NOTE | 2017-06-01 10:37 | Diagnostic Imaging Report ---
INDICATION: Right-sided back pain, lifting injury, history of prior lumbar fusion. AP and lateral views of the lumbar spine are obtained. FINDINGS: Patient has had previous posterior fusion at L4-L5, with disc prosthesis. There is also laminectomy at L4. The alignment appears anatomic at the L4-L5 level. There is mild anterolisthesis of L3 on L4 by about 3-4 mm. There is disc space narrowing at L3-L4 and to lesser extent at L2-L3 with osteophyte formation. IMPRESSION: Postop changes at L4-L5 appear in good alignment. There is mild anterolisthesis of L3 on L4. There is disc space narrowing and osteophyte formation at L2-L3 and L3-L4 and to lesser extent at L1-L2. Dictated by: Dictated on workstation # [id number]
== END | disposition home or self-care (01) ==
LOC: OCC 10:09
PROVIDERS: ATTEND Family Medicine
CPT/HCPCS: 72100

== ENCOUNTER 2017-12-06 16:24 | Emergency (ER) | payer OTHER ==
[~2017-12-06] VITALS: Ht 165.1 cm; Wt 63.5 kg
--- OUTSIDE RECORDS SUMMARY | 2017-12-06 16:28 | XMS REPORT | Clinical Summary ---
Demographics Preferred Language Unknown Marital Status Single Baptism Affiliation Unknown Race Unknown Ethnic Group Unknown Author Author [facility] Organization 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
--- OUTSIDE RECORDS SUMMARY | 2017-12-06 16:29 | XMS REPORT ---
Author Author JOVANYJUANYLUIS A [facility] [address] Address [address] [place] [address] Care Team Providers Care Bucket Operator Name Role Phone JOSSUE MANZO Unavailable PROBLEMS Type Condition ICD9-CM Code [id number] Code Onset Dates Condition Status SNOMED Code Problem Delusions of parasitosis F22 Active 202421060 Problem Vaginal bleeding N93.9 Active 090858278 Problem Bipolar 1 disorder F31.9 Active 710995247 Problem Bipolar disorder, in partial remission, most recent episode mixed F31.77 Active 44652543 Problem ADD (attention deficit disorder) F90.0 Active [id number] ALLERGIES No Information ENCOUNTERS Encounter Location Date Diagnosis [place] [id number] [place] [address] 97508- 6131 Dec, [place] [id number] [place] [address] 96624- 8563 Oct, ADD (attention deficit disorder) F90.0 [place] [id number] [place] [address] 42249- 6123 Sep, ADD (attention deficit disorder) F90.0 [place] [id number] [place] [address] 02636- 1064 Sep, ADD (attention deficit disorder) F90.0 and Bipolar disorder , in partial remission, most recent episode mixed F31.77 [place] [id number] [place] [address] 02610- 1868 Aug, ADD (attention deficit disorder) F90.0 [place] [id number] [place] [address] 39624- 3444 June, ADD (attention deficit disorder) F90.0 and Bipolar disorder , in partial remission, most recent episode mixed F31.77 [facility] [address], [place] [address] 2546 May, Bipolar disorder, in partial remission, most recent episode mixed F31.77 [facility] [address], [place] [address] 2546 Apr, Bipolar disorder, in partial remission, most recent episode mixed F31.77 [facility] [id number] [place] [address] 58898 2546 Mar, Bipolar disorder, in partial remission, most recent episode mixed F31.77 [facility] [address], [place] [address] 2546 Feb, Bipolar disorder, in partial remission, most recent episode mixed F31.77 and ADD (attention deficit disorder) F90.0 [facility] [address], [place] [address] 2546 Jan, ADD (attention deficit disorder) F90.0 [facility] [address], [place] [address] 2546 Nov, Delusions of parasitosis F22 [facility] [id number] [place] [address] 96178 2546 Oct, [facility] [address], [place] [address]- 2546 29 Oct, 2016 Bipolar disorder, in partial remission, most recent episode mixed F31.77 and ADD (attention deficit disorder) F90.0 [facility] [address], [place] [address] 2546 Oct, [facility] [id number] [place] [address] 62810 2546 Oct, ADD (attention deficit disorder) F90.0 [facility] [address], [place] [address] 2546 Oct, [facility] [id number] [place] [address] 23289- 5575 Oct, [facility] [address], [place] [address]- 9572 13 Oct, 2016 Skin lesions L98.9 and Hematochezia K92.1 [facility] [address], [place] [address]- 1494 Oct, Bipolar disorder, in partial remission, most recent episode mixed F31.77 [facility] [id number] [place] [address] 49873- 4461 Oct, Bipolar disorder, in partial remission, most recent episode mixed F31.77 and ADD (attention deficit disorder) F90.0 [facility] [id number] [place] [address] 31920- 0709 Sep, Bipolar disorder, in partial remission, most recent episode mixed F31.77 [facility] [id number] [place] [address] 10960- 3968 Sep, Bipolar disorder, in partial remission, most recent episode mixed F31.77 and ADD (attention deficit disorder) F90.0 [facility] [address], [place] [address]- 6524 Aug, [facility] [address], [place] [address]- 6690 Aug, Bipolar disorder, in partial remission, most recent episode mixed F31.77 and ADD (attention deficit disorder) F90.0 [facility] [address], [place] [address]- 8710 Aug, ADD (attention deficit disorder) F90.0 [facility] [address], [place] [address]- 3582 Aug, ADD (attention deficit disorder) F90.0 [facility] [id number], [place] [address]- 7353 Jul, ADD (attention deficit disorder) F90.0 [facility] [address], [place] [address]- 6240 June, ADD (attention deficit disorder) F90.0 [facility] [address], [place] [address]- 0168 May, ADD (attention deficit disorder) F90.0 and Bipolar disorder , in partial remission, most recent episode mixed F31.77 [facility] [address], [place] [address]- 8176 May, Bipolar disorder, in partial remission, most recent episode mixed F31.77 [facility] [address], [place] [address]- 2660 Apr, Bipolar disorder, in partial remission, most recent episode mixed F31.77 [facility] [address], [place] [address]- 3749 Mar, Bipolar disorder, in partial remission, most recent episode mixed F31.77 [facility] [address], [place] [address]- 5866 Feb, ADD (attention deficit disorder) F90.0 [facility] [address], [place] [address]- 9753 Feb, [facility] [address], [place] [address]- 2569 Feb, [facility] [address], [place] [address]- 6772 Feb, Bipolar disorder, in partial remission, most recent episode mixed F31.77 ; ADD (attention deficit disorder) F90.0 and Other retirement ( current) drug therapy Z79.899 [facility] [address], [place] [address]- 4810 Feb, [facility] [address], [place] [address]- 0726 Jan, [facility] [address], [place] [address]- 0967 Dec, [facility] [address], [place] [address]- 6685 Nov, Bipolar disorder, in partial remission, most recent episode mixed F31.77 and ADD (attention deficit disorder) F90.0 [facility] [id number] [place] [address]- 1973 Nov, [facility] [id number] [place] [address]- 4508 Oct, [facility] [id number] [place] [address]- 3780 Sep, [facility] [id number] [place] [address], [place] [address]- 4086 Sep, [facility] [id number] [place] [address]- 0320 Aug, [facility] [id number] [place] [address] 46076- 4385 Jul, Bipolar I disorder, most recent episode mixed, in remission F31.70 and ADD (attention deficit disorder) F90.0 [facility] [address], [place] [address]- 5147 Jul, [facility] [address], [place] [address]- 0280 June, [facility] [address], [place] [address]- 8451 May, Bipolar 1 disorder F31.9 and ADD (attention deficit disorder ) F90.0 [facility] [id number] [place] [address]- 7271 May, [facility] [id number], [place] [address]- 8515 Apr, [facility] [id number], [place] [address]- 8413 Mar, [facility] [id number] [place] [address] 00597- 6836 Mar, [facility] [address], [place] [address]- 4436 Mar, [facility] [address], [place] [address]- 3156 Feb, [facility] [address], [place] [address]- 9786 Jan, [facility] [address], [place] [address]- 0730 Jan, Bipolar disorder, in partial remission, most recent episode mixed F31.77 and Attention-deficit hyperactivity disorder, unspecified type F90.9 [facility] [address], [place] [address]- 3888 Dec, [facility] [address], [place] [address]- 4085 Nov, [facility] [address], [place] [address]- 3575 Oct, Bipolar I disorder, most recent episode (or current) mixed, in partial or unspecified remission 296.65 and Attention deficit disorder of childhood without mention of hyperactivity 314.00 [facility] [address], [place] [address]- 5536 Jul, [facility] [id number], [place] [address]- 2777 Jul, [facility] [id number] [address]- 7668 Jul, [facility] [id number] 6621 June, Bipolar I disorder, most recent episode (or current) mixed, in partial or unspecified remission 296.65 and Attention deficit disorder of childhood without mention of hyperactivity 314.00 [facility] [id number] [address] [address]376 June, [facility] [place] [facility] [address] [id number] [place] [address]- 5340 May, [facility] [place] [facility] [address] [id number] [place] [address]- 9443 May, [facility] [place] [facility] [address] [id number] [place] [address]- 1757 Apr, [facility] [place] [facility] [address] [id number] [place] [address]- 7012 Apr, [facility] [place] [facility] [address] [id number] [place] [address]- 1570 Mar, [facility] [place] [facility] [address] [id number] [place] [address]- 8359 Mar, [facility] [place] [facility] [address] [id number] [place] [address]- 1766 Feb, [facility] [place] [facility] [address] [id number] [place] [address]- 2718 Feb, [facility] [place] [facility] [address] [id number] [place] [address]- 5843 Feb, [facility] [place] [facility] [address] [id number] [place] [address]- 7339 Feb, [facility] [place] [facility] [address] [id number] [place] [address]- 3296 Feb, [facility] [place] [facility] [address] [id number], [place] [address]- 3717 Feb, [facility] [place] [facility] [address] [id number] [place] [address]- 2105 Feb, [facility] [place] [facility] [address] [id number] [place] [address]- 4261 Feb, [facility] [place] [facility] [address] [id number] [place] [address]- 3532 Feb, [facility] [place] [facility] [address] [id number], [place] [address]- 3479 Feb, [facility] [place] [facility] [address] [id number] [place] [address]- 0321 Jan, [facility] [place] [facility] [address] [id number] [place] [address]- 3877 Jan, [facility] [place] [facility] [address] [id number] [place] [address]- 7023 Dec, [facility] [place] [facility] [address] [id number] [place] [address]- 6544 Dec, [facility] [place] [facility] [address] [id number] [place] [address]- 5832 Dec, [facility] [place] [facility] [address] [id number] [place] [address]- 9413 Dec, [facility] [place] [facility] [address] [facility] [id number] [place] [address]- 2479 Dec, [facility] [place] [facility] [address] [id number] [place] [address]- 9059 Dec, [facility] [place] [facility] [address] [id number] [place] [address]- 0199 Nov, [facility] [place] [facility] [address] [id number] [place] [address]- 3231 Nov, [facility] [place] [facility] [address] [id number], [place] [address]- 2377 16 Nov, 2013 [facility] [place] [facility] [address] [id number], [place] [address]- 7197 16 Nov, 2013 [facility] [place] [facility] [address] [id number], [place] [address]- 3172 15 Nov, 2013 [facility] [place] [facility] [address] [id number], [place] [address]- 0343 15 Nov, 2013 [facility] [place] [facility] [address] [facility] [id number] [place] [address]- 6202 24 Oct, 2013 [facility] [place] [facility] [address] [id number] [place] [address]- 4261 24 Sep, 2013 [facility] [place] [facility] [address] [id number] [place] [address]- 1859 24 Sep, 2013 [facility] [place] [facility] [address] [id number] [place] [address]- 2545 24 Oct, 2013 [facility] [place] [facility] [address] [id number] [place] [address]- 0757 19 Oct, 2013 [facility] [place] [facility] [address] [id number] [place] [address]- 2545 19 Oct, 2013 [facility] [place] [facility] [address] [id number] [place] [address]- 4787 19 Oct, 2013 [facility] [place] [facility] [address] [id number] [place] [address]- 4161 19 Oct, 2013 [facility] [place] [facility] [address] [id number] [place] [address]- 7744 18 Oct, 2013 [facility] [place] [facility] [address] [id number] [place] [address]- 3356 18 Oct, 2013 [facility] [place] [facility] [address] [id number] [place] [address]- 2501 17 Oct, 2013 [facility] [place] [facility] [address] [id number] [place] [address]- 9710 17 Oct, 2013 [facility] [place] [facility] [address] [id number] [place] [address]- 4051 16 Oct, 2013 [facility] [place] [facility] [address] [id number] [place] [address]- 2549 16 Oct, 2013 [facility] [place] [facility] [address] [id number] [place] [address]- 7354 20 Sep, 2013 [facility] [place] [facility] [address] [id number] [place] [address]- 6565 Sep, [facility] [place] [facility] [address] [id number] [place] [address]- 0349 Sep, [facility] [place] [facility] [address] [id number] [place] [address]- 2683 Sep, [facility] [place] [facility] [address] [id number] [place] [address]- 6930 Sep, [facility] [place] [facility] [address] [id number] [place] [address]- 0501 Sep, [facility] [place] [facility] [address] [id number] [place] [address]- 8402 Aug, [facility] [place] [facility] [address] [id number] [place] [address]- 8936 Aug, [facility] [place] [facility] [address] [id number] [place] [address]- 5840 Jul, [facility] [place] [facility] [address] [id number] [place] [address]- 9851 Jul, [facility] [place] [facility] [address] [id number] [place] [address]- 1377 Jul, [facility] [place] [facility] [address] [id number] [place] [address]- 5462 Jul, [facility] [place] [facility] [address] [id number] [place] [address]- 5381 June, [facility] [place] [facility] [address] [id number] [place] [address]- 0052 June, [facility] [place] [facility] [address] [id number] [place] [address]- 6228 May, [facility] [place] [facility] [address] [id number] [place] [address]- 7710 May, [facility] [place] [facility] [address] [id number] [place] [address]- 2106 Apr, [facility] [place] [facility] [address] [id number] [place] [address]- 5581 Apr, [facility] [place] [facility] [address] [id number] [place] [address]- 9493 14 Apr, 2013 [facility] [address] [id number] [place] [address]- 2362 14 Apr, 2013 [facility] [place] [facility] [address] [id number] [place] [address]- 6676 17 Mar, 2013 [facility] [place] [facility] [address] [id number] [place] [address]- 1446 Mar, [facility] [place] [facility] [address] [id number] [place] [address]- 7480 Feb, [facility] [place] [facility] [address] [id number] [place] [address]- 2512 Feb, [facility] [place] [facility] [address] [id number] [place] [address]- 8488 Jan, [facility] [place] [facility] [address] [id number] [place] 4278 Jan, [facility] [place] [facility] [address] [id number] [place] [address]- 8698 Dec, [facility] [place] [facility] [address] [id number] [place] [address]- 2566 26 Dec, 2012 [facility] [place] [facility] [address] [id number] [place] [address]- 2416 15 Dec, 2012 [facility] [place] [facility] [address] [id number] [place] [address]- 9701 15 Dec, 2012 [facility] [place] [facility] [address] [id number] [place] [address]- 6741 14 Dec, 2012 [facility] [place] [facility] [address] [id number] [place] [address]- 8070 17 Nov, 2012 [facility] [place] [facility] [address] [id number] [place] [address]- 7746 17 Nov, 2012 [facility] [place] [facility] [address] [id number] [place] [address]- 6783 Oct, [facility] [place] [facility] [address] [id number] [place] [address] 2548 Sep, [facility] [address] [id number] [place] [address] 2546 Sep, [facility] [address] [id number] [place] [address]- 2546 Sep, [facility] [address] [id number] [place] [address]- 2546 Aug, [facility] [address] [id number] [place] [address]- 2548 Jul, [facility] [address] [id number] [place] [address]- 2546 June, [facility] [address] [id number] [place] [address]- 5966 June, [facility] [address] [id number] [place] [address]- 1786 May, [facility] [address] [id number] [place] [address]- 2107 May, [facility] [address] [id number] [place] [address]- 3008 Apr, [facility] [address] [id number] [place] [address]- 2547 Apr, [facility] [address] [id number] [place] [address] Apr, [facility] [address] [id number] [place] [address] Apr, [facility] [place] [facility] [address] [id number] [place] [address] Apr, [facility] [address] [id number] [place] [address] Apr, [facility] [address] [id number], [place] [address] Apr, [facility] [address] [id number] [place] [address] Mar, [facility] [place] [facility] [address] [id number], [place] [address] Mar, [facility] [place] [facility] [address] [facility] [id number] [place] [address] Mar, [facility] [place] [facility] [address] [id number] [place] [address] Feb, [facility] [address] [facility] [id number] [place] [address] Feb, [facility] [place] [facility] [address] [facility] [id number] [place] [address] Jan, [facility] [address] [facility] [id number], [place] [address] Jan, [facility] [place] [facility] [address] [facility] [id number] [place] [address] Jan, [facility] [place] [facility] [address] [facility] [id number] [place] [address] Dec, [facility] [place] [facility] [address] [facility] [id number] [place] [address] Dec, [facility] [place] [facility] [address] [facility] [id number], [place] [address] Nov, [facility] [place] [facility] [address] [facility] [id number], [place] [address] Oct, [facility] [place] [facility] [address] [facility] [id number], [place] [address] Aug, [facility] [place] [facility] [address] [facility] [id number], [place] [address] Jul, [facility] [place] [facility] [address] [facility] [id number], [place] [address] Jul, [facility] [place] [facility] [address] [facility] [id number], [place] [address] 22 Jul, 2011 [facility] [address] [facility] [id number], [place] [address] 14 Jul, 2011 [facility] [address] [facility] [id number], [place] [address] Jul, [facility] [address] [facility] [id number], [place] [address] Jul, [facility] [address] [facility] [id number] [place] [address] June, [facility] [id number], [place] [address] June, [facility] [address] [id number], [place] [address] June, [facility] [id number], [place] [address] May, [facility] [facility] [id number], [place] [address] May, [facility] [address], [place] [address] May, [facility] [id number], [place] [address] Apr, [facility] [id number], [place] [address] 3058 Mar, [facility] [id number], [place] [address] 8[address] Mar, [facility] [id number] [address] Jan, [facility] [address] [facility] [id number] [address] Dec, IMMUNIZATIONS No Known Immunizations SOCIAL HISTORY Never Assessed REASON FOR VISIT magalie 11/02/2017 PLAN OF CARE VITAL SIGNS MEDICATIONS Medication Instructions Dosage Frequency Start Date End Date Duration Status Methylphenidate HCl ER 27 MG Orally Once a day 1 tablet in the morning 24h Oct, 28 days Active RESULTS No Results PROCEDURES [...]
--- OUTSIDE RECORDS SUMMARY | 2017-12-06 16:30 | XMS REPORT ---
Author Author JOVANYJUANYLUIS A [facility] [address] Address [address] [place] [address] Care Team Providers Care Wire Spinner Name Role Phone JOSSUE MANZO Unavailable PROBLEMS Type Condition ICD9-CM Code [id number] Code Onset Dates Condition Status SNOMED Code Problem Delusions of parasitosis F22 Active 997218384 Problem Vaginal bleeding N93.9 Active 789790336 Problem Bipolar 1 disorder F31.9 Active 282859159 Problem Bipolar disorder, in partial remission, most recent episode mixed F31.77 Active 09924312 Problem ADD (attention deficit disorder) F90.0 Active [id number] ALLERGIES No Information ENCOUNTERS Encounter Location Date Diagnosis [id number] [place] [address]- [address]243 Dec, [address] [facility] [id number] [place] [address] 680[address]- 1542 Oct, ADD (attention deficit disorder) F90.0 [address] [id number] [place] [address] 73[address]- 4227 Sep, ADD (attention deficit disorder) F90.0 [facility] [id number] [place] [address] 88307- 2205 Sep, ADD (attention deficit disorder) F90.0 and Bipolar disorder , in partial remission, most recent episode mixed F31.77 [address] [id number] [place] [address] 41395- 0068 Aug, ADD (attention deficit disorder) F90.0 [address] [facility] [id number] [place] [address] 32353- 0073 June, ADD (attention deficit disorder) F90.0 and Bipolar disorder , in partial remission, most recent episode mixed F31.77 [facility] [address]005[address], [place] [address] 2546 May, Bipolar disorder, in partial remission, most recent episode mixed F31.77 [facility] [address], [place] [address] 2546 Apr, Bipolar disorder, in partial remission, most recent episode mixed F31.77 [facility] [id number] [place] [address] 72080 2546 Mar, Bipolar disorder, in partial remission, most recent episode mixed F31.77 [facility] [address], [place] [address] 2546 Feb, Bipolar disorder, in partial remission, most recent episode mixed F31.77 and ADD (attention deficit disorder) F90.0 [facility] [address], [place] [address] 2546 Jan, ADD (attention deficit disorder) F90.0 [facility] [address], [place] [address] 2546 Nov, Delusions of parasitosis F22 [facility] [id number] [place] [address] 340[address] 2546 Oct, [facility] [address], [place] [address]- 2546 29 Oct, 2016 Bipolar disorder, in partial remission, most recent episode mixed F31.77 and ADD (attention deficit disorder) F90.0 [facility] [address], [place] [address] 2546 Oct, [facility] [id number] [place] [address] 2546 Oct, ADD (attention deficit disorder) F90.0 [facility] [address], [place] [address] 2546 Oct, [facility] [id number] [place] [address] 52919- 9657 Oct, [facility] [address], [place] [address]- 6477 13 Oct, 2016 Skin lesions L98.9 and Hematochezia K92.1 [facility] [address], [place] [address]- 1160 Oct, Bipolar disorder, in partial remission, most recent episode mixed F31.77 [facility] [address] [place] [address]- 5519 Oct, Bipolar disorder, in partial remission, most recent episode mixed F31.77 and ADD (attention deficit disorder) F90.0 [facility] [id number] [place] [address] 93967- 8709 Sep, Bipolar disorder, in partial remission, most recent episode mixed F31.77 [facility] [id number] [place] [address] 26867- 2094 Sep, Bipolar disorder, in partial remission, most recent episode mixed F31.77 and ADD (attention deficit disorder) F90.0 [facility] [address], [place] [address]- 7653 Aug, [facility] [address], [place] [address]- 1272 Aug, Bipolar disorder, in partial remission, most recent episode mixed F31.77 and ADD (attention deficit disorder) F90.0 [facility] [address], [place] [address]- 9578 Aug, ADD (attention deficit disorder) F90.0 [facility] [address], [place] [address]- 1639 Aug, ADD (attention deficit disorder) F90.0 [facility] [address] [id number], [place] [address]- 6911 Jul, ADD (attention deficit disorder) F90.0 [facility] [address], [place] [address]- 7347 June, ADD (attention deficit disorder) F90.0 [facility] [address], [place] [address]- 5588 May, ADD (attention deficit disorder) F90.0 and Bipolar disorder , in partial remission, most recent episode mixed F31.77 [facility] [address], [place] [address]- 6586 May, Bipolar disorder, in partial remission, most recent episode mixed F31.77 [facility] [address], [place] [address]- 3216 Apr, Bipolar disorder, in partial remission, most recent episode mixed F31.77 [facility] [address], [place] [address]- 4171 Mar, Bipolar disorder, in partial remission, most recent episode mixed F31.77 [facility] [address], [place] [address]- 2184 Feb, ADD (attention deficit disorder) F90.0 [facility] [address], [place] [address]- 0047 Feb, [facility] [address], [place] [address]- 5504 Feb, [facility] [address], [place] [address]- 7005 Feb, Bipolar disorder, in partial remission, most recent episode mixed F31.77 ; ADD (attention deficit disorder) F90.0 and Other long-term ( current) drug therapy Z79.899 [facility] [address], [place] [address]- 1405 Feb, [facility] [address], [place] [address]- 2106 Jan, [facility] [address], [place] [address]- 6662 Dec, [facility] [address], [place] [address]- 1070 Nov, Bipolar disorder, in partial remission, most recent episode mixed F31.77 and ADD (attention deficit disorder) F90.0 [facility] [address] [id number] [place] [address]- 7442 Nov, [facility] [id number] [place] [address]- 1990 Oct, [facility] [address] [id number] [place] [address]- 8943 Sep, [facility] [id number] [place] [address], [place] [address]- 0300 Sep, [facility] [address] [id number] [place] [address]- 8860 Aug, [facility] [id number] [place] [address] 31070- 4179 Jul, Bipolar I disorder, most recent episode mixed, in remission F31.70 and ADD (attention deficit disorder) F90.0 [facility] [address], [place] [address]- 7642 Jul, [facility] [address], [place] [address]- 9417 June, [facility] [address], [place] [address]- 0528 May, Bipolar 1 disorder F31.9 and ADD (attention deficit disorder ) F90.0 [facility] [address] [id number] [place] [address]- 1753 May, [facility] [id number], [place] [address]- 7972 Apr, [facility] [id number], [place] [address]- 3345 Mar, [facility] [id number] [place] [address] 25385- 7606 Mar, [facility] [address], [place] [address]- 3846 Mar, [facility] [address], [place] [address]- 8326 Feb, [facility] [address], [place] [address]- 7766 Jan, [facility] [address], [place] [address]- 3770 Jan, Bipolar disorder, in partial remission, most recent episode mixed F31.77 and Attention-deficit hyperactivity disorder, unspecified type F90.9 [facility] [address], [place] [address]- 2544 Dec, [facility] [address], [place] [address]- 4350 Nov, [facility] [address], [place] [address]- 6607 Oct, Bipolar I disorder, most recent episode (or current) mixed, in partial or unspecified remission 296.65 and Attention deficit disorder of childhood without mention of hyperactivity 314.00 [facility] [address], [place] [address]- 2730 Jul, [facility] [id number], [place] [address]- 8282 Jul, [facility] [id number] [address]- 1127 Jul, [facility] [id number] [address]30 June, Bipolar I disorder, most recent episode (or current) mixed, in partial or unspecified remission 296.65 and Attention deficit disorder of childhood without mention of hyperactivity 314.00 [facility] [id number] [address] 6572 June, [facility] [place] [facility] [address] [id number] [place] [address]- 3412 May, [facility] [place] [facility] [address] [id number] [place] [address]- 5591 May, [facility] [place] [facility] [address] [id number] [place] [address]- 6263 Apr, [facility] [place] [facility] [address] [id number] [place] [address]- 3793 Apr, [facility] [place] [facility] [address] [id number] [place] [address]- 7154 Mar, [facility] [place] [facility] [address] [id number] [place] [address]- 3193 Mar, [facility] [place] [facility] [address] [id number] [place] [address]- 4242 Feb, [facility] [place] [facility] [address] [id number] [place] [address]- 4608 Feb, [facility] [place] [facility] [address] [id number] [place] [address]- 6303 Feb, [facility] [place] [facility] [address] [id number] [place] [address]- 9663 Feb, [facility] [place] [facility] [address] [id number] [place] [address]- 1333 Feb, [facility] [place] [facility] [address] [id number], [place] [address]- 6484 Feb, [facility] [place] [facility] [address] [id number] [place] [address]- 8162 Feb, [facility] [place] [facility] [address] [id number] [place] [address]- 3711 Feb, [facility] [place] [facility] [address] [id number] [place] [address]- 8716 Feb, [facility] [place] [facility] [address] [id number], [place] [address]- 5268 Feb, [facility] [place] [facility] [address] [id number] [place] [address]- 8769 Jan, [facility] [place] [facility] [address] [id number] [place] [address]- 4167 Jan, [facility] [place] [facility] [address] [id number] [place] [address]- 6170 Dec, [facility] [place] [facility] [address] [id number] [place] [address]- 8041 Dec, [facility] [place] [facility] [address] [id number] [place] [address]- 7707 Dec, [facility] [place] [facility] [address] [id number] [place] [address]- 8689 Dec, [facility] [place] [facility] [address] [facility] [id number] [place] [address]- 5892 Dec, [facility] [place] [facility] [address] [id number] [place] [address]- 1399 Dec, [facility] [place] [facility] [address] [id number] [place] [address]- 4654 Nov, [facility] [place] [facility] [address] [id number] [place] [address]- 7657 Nov, [facility] [place] [facility] [address] [id number], [place] [address]- 0173 16 Nov, 2013 [facility] [place] [facility] [address] [id number], [place] [address]- 6921 16 Nov, 2013 [facility] [place] [facility] [address] [id number], [place] [address]- 0020 15 Nov, 2013 [facility] [place] [facility] [address] [id number], [place] [address]- 1676 15 Nov, 2013 [facility] [place] [facility] [address] [facility] [facility] [id number] [place] [address]- 8068 24 Oct, 2013 [facility] [place] [facility] [address] [id number] [place] [address]- 5204 24 Sep, 2013 [facility] [place] [facility] [address] [id number] [place] [address]- 6883 24 Sep, 2013 [facility] [place] [facility] [address] [id number] [place] [address]- 2547 24 Oct, 2013 [facility] [place] [facility] [address] [id number] [place] [address]- 6483 19 Oct, 2013 [facility] [place] [facility] [address] [id number] [place] [address]- 2549 19 Oct, 2013 [facility] [place] [facility] [address] [id number] [place] [address]- 1678 19 Oct, 2013 [facility] [place] [facility] [address] [id number] [place] [address]- 3484 19 Oct, 2013 [facility] [place] [facility] [address] [id number] [place] [address]- 1295 18 Oct, 2013 [facility] [place] [facility] [address] [id number] [place] [address]- 9992 18 Oct, 2013 [facility] [place] [facility] [address] [id number] [place] [address]- 2544 17 Oct, 2013 [facility] [place] [facility] [address] [id number] [place] [address]- 2541 17 Oct, 2013 [facility] [place] [facility] [address] [id number] [place] [address]- 0638 16 Oct, 2013 [facility] [place] [facility] [address] [id number] [place] [address]- 2540 16 Oct, 2013 [facility] [place] [facility] [address] [id number] [place] [address]- 5537 20 Sep, 2013 [facility] [place] [facility] [address] [id number] [place] [address]- 7409 Sep, [facility] [place] [facility] [address] [id number] [place] [address]- 4224 Sep, [facility] [place] [facility] [address] [id number] [place] [address]- 8521 Sep, [facility] [place] [facility] [address] [id number] [place] [address]- 8370 Sep, [facility] [place] [facility] [address] [id number] [place] [address]- 4175 Sep, [facility] [place] [facility] [address] [id number] [place] [address]- 3207 Aug, [facility] [place] [facility] [address] [id number] [place] [address]- 5600 Aug, [facility] [place] [facility] [address] [id number] [place] [address]- 5468 Jul, [facility] [place] [facility] [address] [id number] [place] [address]- 6774 Jul, [facility] [place] [facility] [address] [id number] [place] [address]- 3404 Jul, [facility] [place] [facility] [address] [id number] [place] [address]- 2612 Jul, [facility] [place] [facility] [address] [id number] [place] [address]- 8665 June, [facility] [place] [facility] [address] [id number] [place] [address]- 5393 June, [facility] [place] [facility] [address] [id number] [place] [address]- 8056 May, [facility] [place] [facility] [address] [id number] [place] [address]- 6467 May, [facility] [place] [facility] [address] [id number] [place] [address]- 6632 Apr, [facility] [place] [facility] [address] [id number] [place] [address]- 3050 Apr, [facility] [place] [facility] [address] [id number] [place] [address]- 4839 14 Apr, 2013 [facility] [address] [id number] [place] [address]- 7376 14 Apr, 2013 [facility] [place] [facility] [address] [id number] [place] [address]- 0836 17 Mar, 2013 [facility] [place] [facility] [address] [id number] [place] [address]- 4316 Mar, [facility] [place] [facility] [address] [id number] [place] [address]- 8755 Feb, [facility] [place] [facility] [address] [id number] [place] [address]- 0816 Feb, [facility] [place] [facility] [address] [id number] [place] [address]- 8592 Jan, [facility] [place] [facility] [address] [id number] [place] 9604 Jan, [facility] [place] [facility] [address] [id number] [place] [address]- 5769 Dec, [facility] [place] [facility] [address] [id number] [place] [address]- 6649 26 Dec, 2012 [facility] [place] [facility] [address] [id number] [place] [address]- 0453 15 Dec, 2012 [facility] [place] [facility] [address] [id number] [place] [address]- 9230 15 Dec, 2012 [facility] [place] [facility] [address] [id number] [place] [address]- 9863 14 Dec, 2012 [facility] [place] [facility] [address] [id number] [place] [address]- 4826 17 Nov, 2012 [facility] [place] [facility] [address] [id number] [place] [address]- 7766 17 Nov, 2012 [facility] [place] [facility] [address] [id number] [place] [address]- 9084 Oct, [facility] [place] [facility] [address] [id number] [place] [address] 2547 Sep, [facility] [address] [id number] [place] [address] 2546 Sep, [facility] [address] [id number] [place] [address]- 2546 Sep, [facility] [address] [id number] [place] [address]- 2546 Aug, [facility] [address] [id number] [place] [address]- 2543 Jul, [facility] [address] [id number] [place] [address]- 2546 June, [facility] [address] [id number] [place] [address]- 6876 June, [facility] [address] [id number] [place] [address]- 6090 May, [facility] [address] [id number] [place] [address]- 3599 May, [facility] [address] [id number] [place] [address]- 1250 Apr, [facility] [address] [id number] [place] [address]- 2541 Apr, [facility] [address] [id number] [place] [address]- 2548 Apr, [facility] [address] [id number] [place] [address]- 2549 Apr, [facility] [place] [facility] [address] [id number] [place] [address]- 2546 Apr, [facility] [address] [id number] [place] [address]- 2546 Apr, [facility] [address] [id number], [place] [address]- 6750 Apr, [facility] [address] [id number] [place] [address]- 7585 Mar, [facility] [place] [facility] [address] [id number], [place] [address]- 3925 Mar, [facility] [place] [facility] [address] [facility] [facility] [id number] [place] [address]- 5936 Mar, [facility] [place] [facility] [address] [id number] [place] [address]- 1805 Feb, [facility] [address] [facility] [facility] [id number] [place] [address]- 8489 Feb, [facility] [place] [facility] [address] [facility] [id number] [place] 6881 Jan, [facility] [address] [facility] [id number], [place] [address]- 1414 Jan, [facility] [place] [facility] [address] [facility] [id number] [place] [address]- 0183 Jan, [facility] [place] [facility] [address] [facility] [facility] [id number] [place] [address] Dec, [facility] [place] [facility] [address] [facility] [id number] [place] [address] Dec, [facility] [place] [facility] [address] [facility] [id number], [place] [address] Nov, [facility] [place] [facility] [address] [facility] [id number], [place] [address] Oct, [facility] [place] [facility] [address] [facility] [id number], [place] [address] Aug, [facility] [place] [facility] [address] [facility] [id number], [place] [address] Jul, [facility] [place] [facility] [address] [facility] [id number], [place] [address] Jul, [facility] [place] [facility] [address] [facility] [id number], [place] [address] 22 Jul, 2011 [facility] [address] [facility] [id number], [place] [address] 14 Jul, 2011 [facility] [address] [facility] [id number], [place] [address] Jul, [facility] [address] [facility] [id number], [place] [address] Jul, [facility] [address] [facility] [id number] [place] [address] June, [facility] [address] [id number], [place] [address] June, [facility] [address] [id number], [place] [address] June, [facility] [id number], [place] [address] May, [facility] [address] [id number], [place] [address] May, [facility] [id number], [place] [address] May, [facility] [address] [id number], [place] [address] Apr, [facility] [address] [id number], [place] [address] Mar, [facility] [address] [id number], [place] [address] Mar, [facility] [address] [id number] [id number] Jan, [facility] [address] [id number], [place] [address] Dec, IMMUNIZATIONS No Known Immunizations SOCIAL HISTORY Never Assessed REASON FOR VISIT magalie 10/05/2017 PLAN OF CARE VITAL SIGNS MEDICATIONS Medication Instructions Dosage Frequency Start Date End Date Duration Status Methylphenidate HCl ER 27 MG Orally Once a day 1 tablet in the morning 24h Sep, 28 days Active RESULTS No Results PROCEDURES [...]
--- OUTSIDE RECORDS SUMMARY | 2017-12-06 16:30 | XMS REPORT ---
Author Author JOSSUE MANZO [facility] [address] Address [address] [place] [address] Care Team Providers Care Operations Representative Name Role Phone JUANY MANZOLUIS A Unavailable PROBLEMS Type Condition ICD9-CM Code LCT20-TB Code Onset Dates Condition Status SNOMED Code Problem Delusions of parasitosis F22 Active 342895006 Problem Vaginal bleeding N93.9 Active 608788167 Problem Bipolar 1 disorder F31.9 Active 418813332 Problem Bipolar disorder, in partial remission, most recent episode mixed F31.77 Active 97679315 Problem ADD (attention deficit disorder) F90.0 Active 651806013 ALLERGIES Substance Reaction Event Type Date Status Demerol hypotension Drug Allergy Sep, Active ENCOUNTERS Encounter Location Date Diagnosis [place] [id number] [place] [address] 69424- 9259 Dec, [place] [address] [address]31- 9067 Oct, ADD (attention deficit disorder) F90.0 [place] [id number] [place] [address] 32261- 8966 Sep, ADD (attention deficit disorder) F90.0 [place] [id number] [place] [address] 54757- 1654 Sep, ADD (attention deficit disorder) F90.0 and Bipolar disorder , in partial remission, most recent episode mixed F31.77 [facility] [address] [address]- 4006 Aug, ADD (attention deficit disorder) F90.0 [facility] [id number] [place] [address] 05796- 2960 June, ADD (attention deficit disorder) F90.0 and Bipolar disorder , in partial remission, most recent episode mixed F31.77 [facility] [address], [place] [address] 2546 May, Bipolar disorder, in partial remission, most recent episode mixed F31.77 [facility] [id number], [place] [address] 2546 Apr, Bipolar disorder, in partial remission, most recent episode mixed F31.77 [facility] [address], [place] [address] 2546 Mar, Bipolar disorder, in partial remission, most recent episode mixed F31.77 [facility] [address], [place] [address] 2546 Feb, Bipolar disorder, in partial remission, most recent episode mixed F31.77 and ADD (attention deficit disorder) F90.0 [facility] [id number] [place] [address] 71730- 1266 Jan, ADD (attention deficit disorder) F90.0 [facility] [address], [place] [address] 2336 Nov, Delusions of parasitosis F22 [facility] [address] [place] [address]- 1686 Oct, [facility] [address], [place] [address]- 4936 Oct, Bipolar disorder, in partial remission, most recent episode mixed F31.77 and ADD (attention deficit disorder) F90.0 [facility] [address], [place] [address]- 2546 Oct, [facility] [id number] [address]- 2546 Oct, ADD (attention deficit disorder) F90.0 [facility] [address], [place] [address]- 2546 Oct, [facility] [address], [place] [address]- 5844 19 Oct, 2016 [facility] [id number] [place] [address] 86569- 6761 13 Oct, 2016 Skin lesions L98.9 and Hematochezia K92.1 [facility] [id number] [place] [address] 99664- 5926 12 Oct, 2016 Bipolar disorder, in partial remission, most recent episode mixed F31.77 [facility] [address], [place] [address]- 2552 Oct, Bipolar disorder, in partial remission, most recent episode mixed F31.77 and ADD (attention deficit disorder) F90.0 [place] [address], [place] [address]- 3034 Sep, Bipolar disorder, in partial remission, most recent episode mixed F31.77 [place] [id number] [place] [address] 77874- 0585 Sep, Bipolar disorder, in partial remission, most recent episode mixed F31.77 and ADD (attention deficit disorder) F90.0 [place] [address] [address]- 1119 Aug, [place] [address] [address]- 7794 Aug, Bipolar disorder, in partial remission, most recent episode mixed F31.77 and ADD (attention deficit disorder) F90.0 [facility] [address], [place] [address]- 4239 Aug, ADD (attention deficit disorder) F90.0 [place] [address], [place] [address]- 8457 Aug, ADD (attention deficit disorder) F90.0 [facility] [address], [place] [address]- 6965 Jul, ADD (attention deficit disorder) F90.0 [place] [address], [place] [address]- 3243 June, ADD (attention deficit disorder) F90.0 [facility] [id number] [place] [address] 62713- 0097 May, ADD (attention deficit disorder) F90.0 and Bipolar disorder , in partial remission, most recent episode mixed F31.77 [facility] [id number] [place] [address] 82578- 0959 May, Bipolar disorder, in partial remission, most recent episode mixed F31.77 [facility] [id number] [place] [address] 40825- 2855 Apr, Bipolar disorder, in partial remission, most recent episode mixed F31.77 [facility] [id number] [place] [address] 82804- 9452 Mar, Bipolar disorder, in partial remission, most recent episode mixed F31.77 [facility] [id number] [address]- 1068 Feb, ADD (attention deficit disorder) F90.0 [facility] [address], [place] [address]- 1486 Feb, [facility] [id number] [place] [address] 74759- 3078 Feb, [facility] [id number] [place] [address] 25814- 9037 Feb, Bipolar disorder, in partial remission, most recent episode mixed F31.77 ; ADD (attention deficit disorder) F90.0 and 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 [facility] [id number] [address]- 5406 Feb, [facility] [id number] [place] [address] 91921- 9173 Jan, [facility] [id number] [place] [address] 61183- 1623 Dec, [facility] [id number] [place] [address]- 2610 Nov, Bipolar disorder, in partial remission, most recent episode mixed F31.77 and ADD (attention deficit disorder) F90.0 [facility] [id number] [place] [address]- 1046 Nov, [facility] [id number] [place] [address] 50610- 2076 Oct, [facility] [id number] [place] [address]- 4532 Sep, [facility] [id number] [place] [address], [place] [address]- 1773 Sep, [facility] [address] [id number] [place] [address]- 0456 Aug, [facility] [id number] [place] [address] 16379- 2251 Jul, Bipolar I disorder, most recent episode mixed, in remission F31.70 and ADD (attention deficit disorder) F90.0 [facility] [address], [place] [address]- 1691 Jul, [facility] [address] [place] [address]- 5237 June, [facility] [id number] [address]- 4725 May, Bipolar 1 disorder F31.9 and ADD (attention deficit disorder ) F90.0 [facility] [address], [place] [address]- 7986 May, [facility] [id number] 8354 Apr, [facility] [id number], [place] [address]- 9586 Mar, [facility] [address] 8812 Mar, [facility] [address] 4736 Mar, [facility] [address] 2106 Feb, [facility] [address], [place] [address]- 0649 Jan, [facility] [address], [place] [address]- 1895 Jan, Bipolar disorder, in partial remission, most recent episode mixed F31.77 and Attention-deficit hyperactivity disorder, unspecified type F90.9 [facility] [address], [place] [address]- 3110 Dec, [facility] [address], [place] [address]- 1829 Nov, [facility] [address], [place] [address]- 1592 Oct, Bipolar I disorder, most recent episode (or current) mixed, in partial or unspecified remission 296.65 and Attention deficit disorder of childhood without mention of hyperactivity 314.00 [facility] [address], [place] [address]- 0051 Jul, [facility] [address], [place] [address]- 6407 Jul, [facility] [id number], [place] [address]- 0097 Jul, [facility] [address], [place] [address]- 7478 June, Bipolar I disorder, most recent episode (or current) mixed, in partial or unspecified remission 296.65 and Attention deficit disorder of childhood without mention of hyperactivity 314.00 [facility] [id number] [place] [address] 72922- 3543 June, [facility] [place] [facility] [address] [id number] [place] [address]- 0346 May, [facility] [place] [facility] [address] [id number] [place] [address]- 4560 May, [facility] [place] [facility] [address] [id number] [place] [address]- 2736 Apr, [facility] [place] [facility] [address] [id number] [place] [address]- 4311 Apr, [facility] [place] [facility] [address] [id number] [place] [address]- 5233 Mar, [facility] [place] [facility] [address] [id number] [place] [address]- 9509 Mar, [facility] [place] [facility] [address] [id number] [place] [address]- 2938 Feb, [facility] [place] [facility] [address] [id number] [place] [address]- 0598 Feb, [facility] [place] [facility] [address] [id number] [place] [address]- 3459 Feb, [facility] [place] [facility] [address] [id number] [place] [address]- 4378 Feb, [facility] [place] [facility] [address] [id number] [place] [address]- 8488 Feb, [facility] [place] [facility] [address] [id number] [place] [address]- 6880 Feb, [facility] [place] [facility] [address] [id number] [place] [address]- 7502 Feb, [facility] [place] [facility] [address] [id number] [place] [address]- 4614 Feb, [facility] [place] [facility] [address] [id number] [place] 9921 Feb, [facility] [place] [facility] [address] [id number] [place] [address]- 7526 Feb, [facility] [place] [facility] [address] [id number] [place] [address]- 1285 Jan, [facility] [place] [facility] [address] [id number] [place] [address]- 5076 Jan, [facility] [place] [facility] [address] [id number] [place] [address]- 0725 Dec, [facility] [place] [facility] [address] [id number] [place] [address]- 6399 Dec, [facility] [place] [facility] [address] [id number] [place] [address]- 1639 Dec, [facility] [place] [facility] [address] [id number] [place] [address]- 7654 Dec, [facility] [place] [facility] [address] [id number] [place] [address]- 5807 Dec, [facility] [place] [facility] [address] [id number] [place] [address]- 5350 Dec, [facility] [place] [facility] [address] [id number] [place] [address]- 8269 Nov, [facility] [place] [facility] [address] [id number] [place] [address]- 8699 Nov, [facility] [place] [facility] [address] [id number] [place] [address]- 7144 Nov, [facility] [place] [facility] [address] [id number] [place] [address]- 6435 16 Nov, 2013 [facility] [place] [facility] [address] [id number] [place] [address]- 4972 15 Nov, 2013 [facility] [place] [facility] [address] [id number] [place] [address]- 8819 15 Nov, 2013 [facility] [place] [facility] [address] [id number] [place] [address]- 7915 24 Sep, 2013 [facility] [place] [facility] [address] [id number] [place] [address]- 4262 24 Sep, 2013 [facility] [place] [facility] [address] [id number] [place] [address]- 9644 24 Sep, 2013 [facility] [place] [facility] [address] [id number] [place] [address]- 0556 24 Sep, 2013 [facility] [place] [facility] [address] [id number] [place] [address]- 1689 19 Sep, 2013 [facility] [place] [facility] [address] [id number] [place] [address]- 5252 19 Oct, 2013 [facility] [place] [facility] [address] [id number] [place] [address]- 6318 19 Oct, 2013 [facility] [place] [facility] [address] [id number] [place] [address]- 0768 19 Oct, 2013 [facility] [place] [facility] [address] [id number] [place] [address]- 4776 18 Oct, 2013 [facility] [place] [facility] [address] [id number] [place] [address]- 2210 18 Oct, 2013 [facility] [place] [facility] [address] [id number] [place] [address]- 3076 17 Oct, 2013 [facility] [place] [facility] [address] [id number], [place] [address]- 3420 17 Oct, 2013 [facility] [place] [facility] [address] [id number], [place] [address]- 7517 16 Oct, 2013 [facility] [place] [facility] [address] [id number] [place] [address]- 254 16 Oct, 2013 [facility] [place] [facility] [address] [id number] [place] [address]- 1986 20 Sep, 2013 [facility] [place] [facility] [address] [id number] [place] [address]- 5581 Sep, [facility] [place] [facility] [address] [id number] [place] [address]- 2438 Sep, [facility] [address] [id number] [place] [address]- 4855 Sep, [facility] [place] [facility] [address] [id number] [place] [address]- 0012 Sep, [facility] [place] [facility] [address] [id number] [place] [address]- 8242 Sep, [facility] [place] [facility] [address] [id number] [place] [address]- 6102 Aug, [facility] [place] [facility] [address] [id number] [place] [address]- 4748 Aug, [facility] [place] [facility] [address] [id number] [place] [address]- 3543 Jul, [facility] [place] [facility] [address] [id number] [place] [address]- 4338 Jul, [facility] [place] [facility] [address] [id number] [place] [address]- 6983 Jul, [facility] [place] [facility] [address] [id number] [place] [address]- 5400 Jul, [facility] [place] [facility] [address] [id number] [place] [address]- 7352 June, [facility] [place] [facility] [address] [id number] [place] [address]- 0098 June, [facility] [place] [facility] [address] [id number] [place] [address]- 3448 May, [facility] [place] [facility] [address] [id number] [place] [address]- 8906 May, [facility] [place] [facility] [address] [id number] [place] [address]- 8233 Apr, [facility] [place] [facility] [address] [id number] [place] [address]- 9382 Apr, [facility] [place] [facility] [address] [id number] [place] [address]- 4528 14 Apr, 2013 [facility] [place] [facility] [address] [id number] [place] [address]- 4704 14 Apr, 2013 [facility] [place] [facility] [address] [id number] [place] [address]- 1269 Mar, [facility] [place] [facility] [address] [id number] [place] [address]- 0215 Mar, [facility] [place] [facility] [address] [id number] [place] [address]- 0598 Feb, [facility] [place] [facility] [address] [id number] [place] [address]- 8785 Feb, [facility] [place] [facility] [address] [id number] [place] [address]- 6720 Jan, [facility] [place] [facility] [address] [id number], [place] [address]- 5870 Jan, [facility] [place] [facility] [address] [id number] [place] [address]- 7691 Dec, [facility] [place] [facility] [address] [id number], [place] [address]- 5686 26 Dec, 2012 [facility] [place] [facility] [address] [id number], [place] [address]- 7173 15 Dec, 2012 [facility] [place] [facility] [address] [id number], [place] [address]- 4692 15 Dec, 2012 [facility] [place] [facility] [address] [id number], [place] [address]- 0674 14 Dec, 2012 [facility] [place] [facility] [address] [id number], [place] [address]- 9943 17 Nov, 2012 [facility] [place] [facility] [address] [id number], [place] [address]- 2927 17 Nov, 2012 [facility] [place] [facility] [address] [id number], [place] [address]- 2925 Oct, [facility] [address] [id number] [place] [address]- 8170 Sep, [facility] [address] [id number] [place] [address]- 9240 Sep, [facility] [address] [id number] [place] [address]- 9616 Sep, [facility] [address] [id number] [place] [address]- 1213 Aug, [facility] [address] [id number] [place] [address]- 2555 Jul, [facility] [address] [id number] [place] [address]- 2091 June, [facility] [address] [facility] [id number] [place] [address]- 8937 June, [facility] [address] [id number] [place] [address]- 7470 May, [facility] [address] [id number] [place] [address]- 2280 May, [facility] [address] [facility] [id number] [place] [address]- 5445 Apr, [facility] [address] [id number] [place] [address]- 4905 Apr, [facility] [place] [facility] [address] [id number], [place] [address]- 7016 Apr, [facility] [place] [facility] [address] [id number] [place] [address]- 9607 Apr, [facility] [place] [facility] [address] [facility] [id number] [place] [address]- 9883 Apr, [facility] [address] [facility] [id number] [place] [address]- 6378 Apr, [facility] [place] [facility] [address] [id number] [place] [address]- 1785 Apr, [facility] [place] [facility] [address] [id number] [place] [address]- 6061 Mar, [facility] [place] [facility] [address] [id number] [place] [address]- 4985 Mar, [facility] [place] [facility] [address] [id number] [place] [address]- 7375 Mar, [facility] [place] [facility] [address] [id number] [place] [address]- 3209 Feb, [facility] [place] [facility] [address] [id number] [place] [address]- 2565 Feb, [facility] [place] [facility] [address] [facility] [id number] [place] [address]- 9492 Jan, [facility] [place] [facility] [address] [id number] [place] [address]- 7375 Jan, [facility] [place] [facility] [address] [id number] [place] [address]- 7029 Jan, [facility] [place] [facility] [address] [facility] [id number] [place] [address]- 6573 Dec, [facility] [place] [facility] [address] [id number] [place] [address]- 5871 Dec, [facility] [place] [facility] [address] [id number] [place] [address]- 6869 Nov, [facility] [place] [facility] [address] [id number] [place] [address]- 6784 Oct, [facility] [place] [facility] [address] [id number] [place] [address]- 9888 Aug, [facility] [place] [facility] [address] [id number] [place] [address] Jul, [facility] [place] [facility] [address] [id number], [place] [address] Jul, [facility] [address] [facility] [id number] [place] [address] Jul, [facility] [address] [facility] [id number][place] [address] Jul, 2011 [facility] [address] [facility] [id number], [place] [address] Jul, [facility] [address] [facility] [id number], [place] [address] Jul, [facility] [address] [facility] [id number] [place] [address] June, [facility] [address] [facility] [id number][place] [address] June, [facility] [address] [facility] [id number], [place] [address] June, [facility] [address] [facility] [id number], [place] [address] May, [facility] [address] [facility] [id number], [place] [address] May, [facility] [address] [facility] [id number], [place] [address] May, [facility] [address] [id number] [address] Apr, [facility] [address] [facility] [id number], [place] [address] Mar, [facility] [address] [facility] [id number] [address] Mar, [facility] [address] [facility] [id number][place] [address] [address] Jan, [facility] [address] [facility] [id number][place] [address] Dec, IMMUNIZATIONS No Known Immunizations SOCIAL HISTORY Never Assessed REASON FOR VISIT f/u Ivan, contract PLAN OF CARE Activity Details Follow Up 3 Months Reason: VITAL SIGNS Height 65.5 in 2017-09-22 Weight 151.2 lbs 2017-09-22 Heart Rate 72 bpm 2017-09-22 Respiratory Rate 20 2017-09-22 BMI 24.78 kg/m2 2017-09-22 Blood pressure systolic 128 mmHg 2017-09-22 Blood pressure diastolic 78 mmHg 2017-09-22 MEDICATIONS Medication Instructions Dosage Frequency Start Date End Date Duration Status Vitamin D 1000 UNIT Orally Once a day 1 tablet 24h Active Methylphenidate HCl ER 27 MG Orally Once a day 1 tablet in the morning 24h Aug, Active Melatonin 3 MG Orally Once a day 3 tablet at bedtime as needed with food 24h Not-Taking Fish Oil 1200 MG Orally Once a day 1 capsule 24h Active B Complex + C TR - Active Vitamin D-3 1000 UNIT Orally Once a day 1 capsule 24h Active Vitamin B 12 100 MCG Active BuPROPion HCl ER (XL) 300 MG Orally Once a day 1 tablet in the morning 24h 30 days Active Co Q-10 100 MG Orally Once a day 1 capsule with a meal 24h Active Calcium 600 MG Orally Twice a day 1 tablet with meals 12h Active RESULTS No Results PROCEDURES No Known [...]
--- OUTSIDE RECORDS SUMMARY | 2017-12-06 16:31 | XMS REPORT ---
Author Author JOVANYJUANYLUIS A [facility] [address] Address [address] [place] [address] Care Team Providers Care Graduate Recruiter Name Role Phone JOSSUE MANZO Unavailable PROBLEMS Type Condition ICD9-CM Code [id number] Code Onset Dates Condition Status SNOMED Code Problem Delusions of parasitosis F22 Active 202191518 Problem Vaginal bleeding N93.9 Active 700055329 Problem Bipolar 1 disorder F31.9 Active 852229419 Problem Bipolar disorder, in partial remission, most recent episode mixed F31.77 Active 89481821 Problem ADD (attention deficit disorder) F90.0 Active [id number] ALLERGIES No Information ENCOUNTERS Encounter Location Date Diagnosis [place] [id number] [place] [address] 16378- 7108 Dec, [place] [id number] [place] [address] 50117- 3451 Sep, ADD (attention deficit disorder) F90.0 [place] [id number] [place] [address] 56680- 6730 Sep, ADD (attention deficit disorder) F90.0 and Bipolar disorder , in partial remission, most recent episode mixed F31.77 [place] [id number] [place] [address] 28215- 6159 Aug, ADD (attention deficit disorder) F90.0 [place] [id number] [place] [address] 02261- 8836 June, ADD (attention deficit disorder) F90.0 and Bipolar disorder , in partial remission, most recent episode mixed F31.77 [place] [id number] [place] [address] 96334- 2913 May, Bipolar disorder, in partial remission, most recent episode mixed F31.77 [facility] [address] [address] 2547 Apr, Bipolar disorder, in partial remission, most recent episode mixed F31.77 [facility] [address] [address] 2546 Mar, Bipolar disorder, in partial remission, most recent episode mixed F31.77 [facility] [id number] [place] [address] 89860 2546 Feb, Bipolar disorder, in partial remission, most recent episode mixed F31.77 and ADD (attention deficit disorder) F90.0 [facility] [id number] [place] [address]35 2546 Jan, ADD (attention deficit disorder) F90.0 [facility] [id number] [address] 2546 Nov, Delusions of parasitosis F22 [facility] [id number] [address] 2546 Oct, [facility] [id number] [place] [address] 05000 2546 Oct, Bipolar disorder, in partial remission, most recent episode mixed F31.77 and ADD (attention deficit disorder) F90.0 [facility] [address] [address] 2546 Oct, [facility] [id number] [place] [address] 48669 2546 Oct, ADD (attention deficit disorder) F90.0 [facility] [address] [address] 2546 Oct, [facility] [address] [address]- 2546 Oct, [facility] [address] [place] [address] 23926- 2546 Oct, Skin lesions L98.9 and Hematochezia K92.1 [facility] [id number] [address] 4436 Oct, Bipolar disorder, in partial remission, most recent episode mixed F31.77 [facility] [id number] [place] [address]- 2546 Oct, Bipolar disorder, in partial remission, most recent episode mixed F31.77 and ADD (attention deficit disorder) F90.0 [facility] [id number] [place] [address]- 1698 Sep, Bipolar disorder, in partial remission, most recent episode mixed F31.77 [facility] [id number] [place] [address]- 4806 Sep, Bipolar disorder, in partial remission, most recent episode mixed F31.77 and ADD (attention deficit disorder) F90.0 [facility] [id number] [address]- 5640 Aug, [facility] [id number] [address]- 9256 Aug, Bipolar disorder, in partial remission, most recent episode mixed F31.77 and ADD (attention deficit disorder) F90.0 [facility] [id number] [address]- 8006 Aug, ADD (attention deficit disorder) F90.0 [facility] [id number] [address]- 8484 Aug, ADD (attention deficit disorder) F90.0 [facility] [id number] [place] [address]- 1862 Jul, ADD (attention deficit disorder) F90.0 [facility] [id number] [place] [address]- 6131 June, ADD (attention deficit disorder) F90.0 [facility] [id number] [address]- 8695 May, ADD (attention deficit disorder) F90.0 and Bipolar disorder , in partial remission, most recent episode mixed F31.77 [facility] [id number] [address]- 2816 14 May, 2016 Bipolar disorder, in partial remission, most recent episode mixed F31.77 [facility] [id number] [address]- 9958 Apr, Bipolar disorder, in partial remission, most recent episode mixed F31.77 [facility] [id number] [address]- 0908 Mar, Bipolar disorder, in partial remission, most recent episode mixed F31.77 [facility] [id number] [address]- 3441 Feb, ADD (attention deficit disorder) F90.0 [facility] [address] [address]- 7935 Feb, [facility] [id number] [address]- 9073 Feb, [facility] [address] [place] [address] 52569- 6057 Feb, Bipolar disorder, in partial remission, most recent episode mixed F31.77 ; ADD (attention deficit disorder) F90.0 and Other half-way ( current) drug therapy Z79.899 [facility] [id number] [address]- 5865 Feb, [facility] [id number] [address]- 2186 Jan, [facility] [id number] [address]- 5256 Dec, [facility] [id number] [address]- 8539 Nov, Bipolar disorder, in partial remission, most recent episode mixed F31.77 and ADD (attention deficit disorder) F90.0 [facility] [address] [place] [address]- 3036 Nov, [facility] [address] [address]- 8836 Oct, [facility] [address] [place] [address]- 3266 Sep, [facility] [id number] [place] [address] 26424- 3302 Sep, [facility] [id number] [place] [address], [place] [address]- 6824 Aug, [facility] [id number] [place] [address] 10634- 6223 Jul, Bipolar I disorder, most recent episode mixed, in remission F31.70 and ADD (attention deficit disorder) F90.0 [facility] [address] [address]- 4001 Jul, [facility] [id number] [address]- 8220 June, [facility] [id number] [place] [address] 49426- 8041 May, Bipolar 1 disorder F31.9 and ADD (attention deficit disorder ) F90.0 [facility] [address] [address]- 6004 May, [facility] [address], [place] [address]- 2542 Apr, [facility] [id number] [place] [address]- 1756 Mar, [facility] [id number] [address]- 2546 Mar, [facility] [address] [address]- 7217 Mar, [facility] [id number] 0512 Feb, [facility] [address] 8786 Jan, [facility] [address] [address]- 7040 Jan, Bipolar disorder, in partial remission, most recent episode mixed F31.77 and Attention-deficit hyperactivity disorder, unspecified type F90.9 [facility] [address] 5568 Dec, [facility] [address] 7110 Nov, [facility] [address] [address]- 2402 Oct, Bipolar I disorder, most recent episode (or current) mixed, in partial or unspecified remission 296.65 and Attention deficit disorder of childhood without mention of hyperactivity 314.00 [facility] [address] [address]- 5336 Jul, [facility] [address] 2274 Jul, [facility] [address], [place] [address]- 5003 Jul, [facility] [address] 0189 June, Bipolar I disorder, most recent episode (or current) mixed, in partial or unspecified remission 296.65 and Attention deficit disorder of childhood without mention of hyperactivity 314.00 [facility] [address], [place] [address]- 4471 June, [facility] [id number] 6230 May, [facility] [address] [place] [address]- 6208 May, [facility] [address] [id number] [place] [address]- 0444 Apr, [facility] [place] [facility] [address] [id number] [place] [address]- 6188 Apr, [facility] [place] [facility] [address] [id number] [place] [address]- 3511 Mar, [facility] [place] [facility] [address] [id number] [place] [address]- 5660 Mar, [facility] [place] [facility] [address] [id number] [place] [address]- 5489 Feb, [facility] [place] [facility] [address] [id number] [place] [address]- 2545 Feb, [facility] [place] [facility] [address] [id number] [place] [address]- 4550 Feb, [facility] [address] [id number] [place] [address]- 4062 Feb, [facility] [place] [facility] [address] [id number] [place] [address]- 8709 Feb, [facility] [address] [id number] [place] [address]- 7187 Feb, [facility] [place] [facility] [address] [id number] [place] [address]- 1324 Feb, [facility] [place] [facility] [address] [id number] [place] [address]- 2197 Feb, [facility] [place] [facility] [address] [id number] [place] [address]- 0989 Feb, [facility] [place] [facility] [address] [id number] [place] [address]- 3986 Feb, [facility] [place] [facility] [address] [id number] [place] [address]- 9017 Jan, [facility] [place] [facility] [address] [id number] [place] [address]- 1972 Jan, [facility] [place] [facility] [address] [id number] [place] [address]- 2120 Dec, [facility] [place] [facility] [address] [id number] [place] [address]- 2412 Dec, [facility] [place] [facility] [address] [id number] [place] [address]- 9805 Dec, [facility] [place] [facility] [address] [id number] [place] [address]- 8326 Dec, [facility] [place] [facility] [address] [id number] [place] [address]- 5866 Dec, [facility] [place] [facility] [address] [id number] [place] [address]- 7342 Dec, [facility] [place] [facility] [address] [id number] [place] [address]- 5131 Nov, [facility] [place] [facility] [address] [id number] [place] [address]- 9757 17 Nov, 2013 [facility] [place] [facility] [address] [id number] [place] [address]- 3737 16 Nov, 2013 [facility] [place] [facility] [address] [id number] [place] [address]- 5475 16 Nov, 2013 [facility] [place] [facility] [address] [id number], [place] [address]- 5614 15 Nov, 2013 [facility] [place] [facility] [address] [id number] [place] [address]- 6290 15 Nov, 2013 [facility] [place] [facility] [address] [id number] [place] [address]- 6340 24 Oct, 2013 [facility] [place] [facility] [address] [id number] [place] 8049 24 Oct, 2013 [facility] [place] [facility] [address] [id number] [place] [address]- 3124 24 Sep, 2013 [facility] [place] [facility] [address] [id number] [place] [address]- 6670 24 Sep, 2013 [facility] [place] [facility] [address] [id number] [place] [address]- 6341 19 Sep, 2013 [facility] [place] [facility] [address] [id number] [place] [address]- 7214 19 Sep, 2013 [facility] [place] [facility] [address] [id number] [place] [address]- 6026 19 Sep, 2013 [facility] [place] [facility] [address] [id number] [place] [address]- 6303 19 Sep, 2013 [facility] [place] [facility] [address] [id number] [place] [address]- 8880 18 Oct, 2013 [facility] [place] [facility] [address] [id number] [place] [address]- 2475 18 Oct, 2013 [facility] [place] [facility] [address] [id number] [place] [address]- 5367 17 Oct, 2013 [facility] [place] [facility] [address] [id number] [place] [address]- 5296 17 Oct, 2013 [facility] [place] [facility] [address] [id number] [place] [address]- 4476 16 Oct, 2013 [facility] [place] [facility] [address] [id number] [place] [address]- 2194 16 Oct, 2013 [facility] [place] [facility] [address] [id number], [place] [address]- 4435 20 Sep, 2013 [facility] [place] [facility] [address] [id number] [place] [address]- 0867 Sep, [facility] [place] [facility] [address] [id number] [place] [address]- 6210 19 Sep, 2013 [facility] [place] [facility] [address] [id number] [place] [address]- 7989 Sep, 2013 [facility] [place] [facility] [address] [id number] [place] [address]- 6013 Sep, [facility] [place] [facility] [address] [id number] [place] [address]- 4298 Sep, [facility] [place] [facility] [address] [id number] [place] [address]- 3872 Aug, [facility] [place] [facility] [address] [id number] [place] [address]- 8442 Aug, [facility] [place] [facility] [address] [id number] [place] [address]- 5376 Jul, [facility] [place] [facility] [address] [id number] [place] [address]- 9490 Jul, [facility] [place] [facility] [address] [id number] [place] [address]- 8858 Jul, [facility] [place] [facility] [address] [id number] [place] [address]- 2843 Jul, [facility] [place] [facility] [address] [id number] [place] [address]- 7949 June, [facility] [place] [facility] [address] [id number] [place] [address]- 7651 June, [facility] [place] [facility] [address] [id number] [place] [address]- 3343 May, [facility] [place] [facility] [address] [id number] [place] [address]- 4993 May, [facility] [place] [facility] [address] [id number] [place] [address]- 9090 Apr, [facility] [place] [facility] [address] [id number] [place] [address]- 7177 21 Apr, 2013 [facility] [place] [facility] [address] [id number] [place] [address]- 1156 14 Apr, 2013 [facility] [place] [facility] [address] [id number] [place] [address]- 7480 Apr, [facility] [place] [facility] [address] [id number] [place] 1954 Mar, [facility] [place] [facility] [address] [id number] [place] [address]- 3966 Mar, [facility] [place] [facility] [address] [facility] [id number] [place] [address]- 1240 Feb, [facility] [place] [facility] [address] [id number] [place] [address]- 0190 Feb, [facility] [place] [facility] [address] [id number] [place] [address]- 9381 Jan, [facility] [place] [facility] [address] [id number] [place] [address]- 3898 Jan, [facility] [place] [facility] [address] [id number] [place] [address]- 4318 Dec, [facility] [place] [facility] [address] [id number] [place] [address]- 1166 Dec, [facility] [place] [facility] [address] [id number], [place] [address]- 8305 Dec, [facility] [place] [facility] [address] [id number] [place] [address]- 7850 Dec, [facility] [place] [facility] [address] [id number], [place] [address]- 5490 14 Dec, 2012 [facility] [place] [facility] [address] [id number], [place] [address]- 1009 Nov, [facility] [place] [facility] [address] [id number] [place] [address]- 3742 Nov, [facility] [place] [facility] [address] [id number], [place] [address]- 4243 Oct, [facility] [place] [facility] [address] [id number] [place] [address]- 4379 Sep, [facility] [place] [facility] [address] [id number] [place] [address] 2549 Sep, [facility] [address] [id number] [place] [address]- 0894 Sep, [facility] [address] [id number] [place] [address] 2546 Aug, [facility] [address] [id number] [place] [address]- 0072 Jul, [facility] [address] [id number] [place] [address]- 2546 June, [facility] [address] [id number] [place] [address]- 7251 June, [facility] [address] [id number] [place] [address]- 1931 May, [facility] [address] [id number] [place] [address]- 6802 May, [facility] [address] [id number] [place] [address]- 1660 Apr, [facility] [address] [id number] [place] [address]- 5348 Apr, [facility] [address] [id number] [place] [address]- 2697 Apr, [facility] [address] [id number] [place] [address] 2548 Apr, [facility] [address] [id number] [place] [address]- 2549 Apr, [facility] [address] [id number] [place] [address]- 2543 Apr, [facility] [address] [id number] [place] [address]- 2546 Apr, [facility] [address] [id number] [place] [address]- 6837 Mar, [facility] [address] [id number] [place] [address]- 5589 Mar, [facility] [place] [facility] [address] [id number] [place] [address]- 3526 Mar, [facility] [place] [facility] [address] [facility] [id number] [place] [address]- 5847 Feb, [facility] [place] [facility] [address] [id number] [place] [address]- 7006 Feb, [facility] [place] [facility] [address] [id number] [place] [address]- 7872 Jan, [facility] [place] [facility] [address] [id number] [place] [address]- 4159 Jan, [facility] [place] [facility] [address] [facility] [id number] [place] [address]- 8323 Jan, [facility] [place] [facility] [address] [facility] [id number], [place] [address]- 0225 Dec, [facility] [place] [facility] [address] [facility] [id number] [place] [address]- 3791 Dec, [facility] [place] [facility] [address] [facility] [id number], [place] [address]- 2592 Nov, [facility] [place] [facility] [address] [facility] [id number], [place] [address]- 0618 Oct, [facility] [place] [facility] [address] [id number], [place] [address]- 4517 Aug, [facility] [place] [facility] [address] [facility] [id number] [place] [address] Jul, [facility] [place] [facility] [address] [id number], [place] [address] Jul, [facility] [place] [facility] [address] [facility] [id number] [place] [address] Jul, [facility] [place] [facility] [id number] [address] Jul, 2011 [facility] [id number], [place] [address] Jul, [facility] [id number], [place] [address] Jul, [facility] [id number], [place] [address] June, [facility] [id number], [place] [address] June, [facility] [id number] [place] [address] June, [facility] [id number] [place] [address] May, [facility] [id number] [place] [address] May, [facility] [address], [place] [address] May, [facility] [address] [address] Apr, [facility] [address], [place] [address] Mar, [facility] [address], [place] [address] Mar, [facility] [address], [place] [address] Jan, [facility] [address] [address] Dec, IMMUNIZATIONS No Known Immunizations SOCIAL HISTORY Never Assessed REASON FOR VISIT methylphenidate 09/07/2017 PLAN OF CARE VITAL SIGNS MEDICATIONS Medication Instructions Dosage Frequency Start Date End Date Duration Status Methylphenidate HCl ER 27 MG Orally Once a day 1 tablet in the morning 24h Aug, 28 days Active RESULTS No Results PROCEDURES No Known procedures INSTRUCTIONS MEDICATIONS ADMINISTERED No Known Medications MEDICAL (GENERAL) HISTORY Type Description Date Medical History pancreatitis possibly Medical History history of H. pylori [...]
--- OUTSIDE RECORDS SUMMARY | 2017-12-06 16:31 | XMS REPORT ---
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 Name Role Phone JUANY MANZOLUIS A Unavailable PROBLEMS Type Condition ICD9-CM Code QOS40-TL Code Onset Dates Condition Status SNOMED Code Problem Delusions of parasitosis F22 Active 729762994 Problem Vaginal bleeding N93.9 Active 253778246 Problem Bipolar 1 disorder F31.9 Active 194566746 Problem Bipolar disorder, in partial remission, most recent episode mixed F31.77 Active 99357205 Problem ADD (attention deficit disorder) F90.0 Active 523692164 ALLERGIES No Information ENCOUNTERS Encounter Location Date Diagnosis [place] [id number] [place] [address] 58603- 6271 Dec, [place] [id number] [place] [address] 11409- 0131 Sep, ADD (attention deficit disorder) F90.0 and Bipolar disorder , in partial remission, most recent episode mixed F31.77 [place] [id number] [place] [address] 93619- 7878 Aug, ADD (attention deficit disorder) F90.0 [place] [id number] [place] [address] 71946- 1053 June, ADD (attention deficit disorder) F90.0 and Bipolar disorder , in partial remission, most recent episode mixed F31.77 [place] [address] 84782- 7485 May, Bipolar disorder, in partial remission, most recent episode mixed F31.77 [place] [id number] [place] [address] 78776- 1469 Apr, Bipolar disorder, in partial remission, most recent episode mixed F31.77 [facility] [address] [address] 9[address] 16 Mar, 2017 Bipolar disorder, in partial remission, most recent episode mixed F31.77 [facility] [id number] [place] [address] 36108- 2546 Feb, Bipolar disorder, in partial remission, most recent episode mixed F31.77 and ADD (attention deficit disorder) F90.0 [facility] [id number] [place] [address] 45532- 5440 Jan, ADD (attention deficit disorder) F90.0 [facility] [id number] [place] [address] 87961- 0806 Nov, Delusions of parasitosis F22 [facility] [id number] [place] [address] 37771- 3187 Oct, [facility] [id number] [place] [address] 05614- 1784 29 Oct, 2016 Bipolar disorder, in partial remission, most recent episode mixed F31.77 and ADD (attention deficit disorder) F90.0 [facility] [id number] [place] [address] 65481- 8564 Oct, [facility] [id number] [place] [address] 07745- 6192 Oct, ADD (attention deficit disorder) F90.0 [facility] [id number] [place] [address] 02847- 2548 Oct, [facility] [id number] [place] [address] 38656- 9996 19 Oct, 2016 [facility] [id number] [place] [address] 83583- 8111 13 Oct, 2016 Skin lesions L98.9 and Hematochezia K92.1 [facility] [id number] [place] [address] 68101- 0696 Oct, Bipolar disorder, in partial remission, most recent episode mixed F31.77 [facility] [id number] [place] [address]- 3216 Oct, Bipolar disorder, in partial remission, most recent episode mixed F31.77 and ADD (attention deficit disorder) F90.0 [facility] [id number] [place] [address]- 4266 Sep, Bipolar disorder, in partial remission, most recent episode mixed F31.77 [facility] [address] [facility] [id number] [place] [address]- 6863 Sep, Bipolar disorder, in partial remission, most recent episode mixed F31.77 and ADD (attention deficit disorder) F90.0 [facility] [id number] [place] [address]- 8556 Aug, [facility] [id number] [address]- 8270 Aug, Bipolar disorder, in partial remission, most recent episode mixed F31.77 and ADD (attention deficit disorder) F90.0 [facility] [id number] [place] [address]- 9720 Aug, ADD (attention deficit disorder) F90.0 [facility] [id number] [address]- 8739 Aug, ADD (attention deficit disorder) F90.0 [facility] [id number] [address]- 4760 Jul, ADD (attention deficit disorder) F90.0 [facility] [address] [facility] [id number] [place] [address]- 5097 June, ADD (attention deficit disorder) F90.0 [facility] [id number] [address]- 7280 May, ADD (attention deficit disorder) F90.0 and Bipolar disorder , in partial remission, most recent episode mixed F31.77 [facility] [address] [address]- 0215 14 May, 2016 Bipolar disorder, in partial remission, most recent episode mixed F31.77 [facility] [address], [place] [address] 2546 Apr, Bipolar disorder, in partial remission, most recent episode mixed F31.77 [facility] [address] [address]- 2266 Mar, Bipolar disorder, in partial remission, most recent episode mixed F31.77 [facility] [id number] [address]- 3436 Feb, ADD (attention deficit disorder) F90.0 [facility] [address] [address]- 5126 Feb, [facility] [id number] [address]- 1306 Feb, [facility] [address] [address]- 6418 Feb, Bipolar disorder, in partial remission, most recent episode mixed F31.77 ; ADD (attention deficit disorder) F90.0 and Other fpc ( current) drug therapy Z79.899 [facility] [address], [place] [address]- 4546 Feb, [facility] [address] [address]- 2546 Jan, [facility] [id number] [address]- 1046 Dec, [facility] [address] [address]- 6426 Nov, Bipolar disorder, in partial remission, most recent episode mixed F31.77 and ADD (attention deficit disorder) F90.0 [facility] [address] [address]- 4226 Nov, [facility] [address] [place] [address]- 6985 Oct, [facility] [id number] [place] [address], [place] [address]- 3486 Sep, [facility] [address] [place] [address]- 7858 Sep, [facility] [id number] [place] [address] 76071- 3003 Aug, [facility] [id number] [place] [address] 40344- 5507 Jul, Bipolar I disorder, most recent episode mixed, in remission F31.70 and ADD (attention deficit disorder) F90.0 [facility] [address] [place] [address]- 3077 Jul, [facility] [id number] [place] [address] 01645- 2599 June, [facility] [id number] [place] [address] 74098- 4402 May, Bipolar 1 disorder F31.9 and ADD (attention deficit disorder ) F90.0 [facility] [address] [place] [address]- 6276 May, [facility] [address] [address]- 7618 Apr, [facility] [address], [place] [address]- 7549 Mar, [facility] [address] 3586 Mar, [facility] [address] 5526 Mar, [facility] [address], [place] [address]- 7750 Feb, [facility] [address] [address]- 3838 Jan, [facility] [id number] [place] [address] 13581- 8752 Jan, Bipolar disorder, in partial remission, most recent episode mixed F31.77 and Attention-deficit hyperactivity disorder, unspecified type F90.9 [facility] [id number] [place] [address] 11220- 3599 Dec, [facility] [address] [address]- 6135 Nov, [facility] [id number] [place] [address] 73140- 4956 Oct, Bipolar I disorder, most recent episode (or current) mixed, in partial or unspecified remission 296.65 and Attention deficit disorder of childhood without mention of hyperactivity 314.00 [facility] [id number], [place] [address]- 2067 Jul, [facility] [address], [place] [address]- 6613 Jul, [facility] [id number] [place] [address] 19820- 9465 Jul, [facility] [address], [place] [address]- 9417 June, Bipolar I disorder, most recent episode (or current) mixed, in partial or unspecified remission 296.65 and Attention deficit disorder of childhood without mention of hyperactivity 314.00 [facility] [address], [place] [address]- 5904 June, [facility] [id number] [address]- 3228 May, [facility] [address], [place] [address]- 6139 May, [facility] [address], [place] [address]- 5627 Apr, [facility] [address] [id number] [place] [address]- 2575 Apr, [facility] [place] [facility] [address] [id number] [place] [address]- 3498 Mar, [facility] [place] [facility] [address] [id number] [place] [address]- 4656 Mar, [facility] [place] [facility] [address] [id number] [place] [address]- 0476 Feb, [facility] [place] [facility] [address] [id number] [place] [address]- 6085 Feb, [facility] [place] [facility] [address] [id number] [place] [address]- 8742 Feb, [facility] [place] [facility] [address] [id number] [place] [address]- 9651 Feb, [facility] [place] [facility] [address] [id number] [place] [address]- 9054 Feb, [facility] [place] [facility] [address] [id number] [place] [address]- 1275 Feb, [facility] [place] [facility] [address] [id number] [place] [address]- 7588 Feb, [facility] [place] [facility] [address] [id number] [address]- 4746 Feb, [facility] [place] [facility] [address] [id number] [address]- 9129 Feb, [facility] [place] [facility] [address] [id number] [place] [address]- 6893 Feb, [facility] [place] [facility] [address] [id number] [place] [address]- 1536 Jan, [facility] [place] [facility] [address] [id number] [place] [address]- 7445 Jan, [facility] [place] [facility] [address] [id number] [place] [address]- 1074 Dec, [facility] [place] [facility] [address] [id number] [place] [address]- 2124 Dec, [facility] [place] [facility] [address] [id number] [place] [address]- 3012 Dec, [facility] [place] [facility] [address] [id number] [place] [address]- 3565 Dec, [facility] [place] [facility] [address] [id number] [place] [address]- 2361 Dec, [facility] [place] [facility] [address] [id number] [place] [address]- 5343 Dec, [facility] [place] [facility] [address] [id number] [place] [address]- 0295 Nov, [facility] [place] [facility] [address] [id number] [place] [address]- 8177 17 Nov, 2013 [facility] [place] [facility] [address] [id number] [place] [address]- 1388 16 Nov, 2013 [facility] [place] [facility] [address] [id number] [place] [address]- 3531 16 Nov, 2013 [facility] [place] [facility] [address] [id number] [place] [address]- 4095 15 Nov, 2013 [facility] [place] [facility] [address] [id number] [place] [address]- 6445 15 Nov, 2013 [facility] [place] [facility] [address] [id number] [place] [address]- 1238 24 Oct, 2013 [facility] [place] [facility] [address] [id number] [place] [address]- 3062 24 Oct, 2013 [facility] [place] [facility] [address] [id number] [place] [address]- 8144 24 Oct, 2013 [facility] [place] [facility] [address] [id number] [place] [address]- 5229 24 Oct, 2013 [facility] [place] [facility] [address] [id number] [place] [address]- 5047 19 Oct, 2013 [facility] [place] [facility] [address] [id number] [place] [address]- 1153 19 Oct, 2013 [facility] [place] [facility] [address] [id number] [place] [address]- 9010 19 Oct, 2013 [facility] [place] [facility] [address] [id number] [place] [address]- 5365 19 Oct, 2013 [facility] [place] [facility] [address] [id number] [place] [address]- 3973 18 Oct, 2013 [facility] [place] [facility] [address] [id number] [place] [address]- 0690 18 Oct, 2013 [facility] [place] [facility] [address] [id number] [place] [address]- 1444 17 Oct, 2013 [facility] [place] [facility] [address] [id number] [place] [address]- 8395 17 Oct, 2013 [facility] [place] [facility] [address] [id number] [place] [address]- 9960 16 Oct, 2013 [facility] [place] [facility] [address] [id number] [place] [address]- 6282 16 Oct, 2013 [facility] [place] [facility] [address] [id number], [place] [address]- 9805 20 Sep, 2013 [facility] [place] [facility] [address] [id number] [address]- 7825 Sep, [facility] [place] [facility] [address] [id number] [place] [address]- 8221 Sep, [facility] [place] [facility] [address] [id number] [place] [address]- 4404 Sep, [facility] [place] [facility] [address] [id number] [place] [address]- 8604 Sep, [facility] [place] [facility] [address] [id number] [place] [address]- 4042 Sep, [facility] [place] [facility] [address] [id number] [place] [address]- 9808 Aug, [facility] [place] [facility] [address] [id number] [place] [address]- 5883 Aug, [facility] [place] [facility] [address] [id number] [place] [address]- 4143 Jul, [facility] [place] [facility] [address] [id number] [place] [address]- 9443 Jul, [facility] [place] [facility] [address] [id number] [place] [address]- 0327 Jul, [facility] [place] [facility] [address] [id number] [place] [address]- 1087 Jul, [facility] [place] [facility] [address] [id number] [place] [address]- 8881 June, [facility] [place] [facility] [address] [id number] [place] [address]- 2989 June, [facility] [place] [facility] [address] [id number] [place] [address]- 2144 May, [facility] [place] [facility] [address] [id number] [place] [address]- 8574 May, [facility] [place] [facility] [address] [id number] [place] [address]- 5151 Apr, [facility] [place] [facility] [address] [id number] [place] [address]- 0448 Apr, [facility] [place] [facility] [address] [id number] [place] [address]- 5605 Apr, [facility] [place] [facility] [address] [id number] [place] [address]- 0376 Apr, [facility] [place] [facility] [address] [id number] [place] [address]- 1567 Mar, [facility] [place] [facility] [address] [id number] [place] [address]- 6680 Mar, [facility] [place] [facility] [address] [id number] [place] 1684 Feb, [facility] [place] [facility] [address] [id number] [place] 7198 Feb, [facility] [place] [facility] [address] [id number] [place] [address]- 5680 Jan, [facility] [address] [id number] [place] [address]- 3117 Jan, [facility] [place] [facility] [address] [id number] [place] [address]- 8320 Dec, [facility] [address] [id number] [place] [address]- 9943 Dec, [facility] [address] [id number] [place] [address]- 6691 Dec, [facility] [place] [facility] [address] [id number] [place] [address]- 8066 Dec, [facility] [place] [facility] [address] [id number] [place] [address]- 5125 Dec, [facility] [place] [facility] [address] [id number] [place] [address]- 5159 Nov, [facility] [place] [facility] [address] [id number], [place] [address]- 8176 Nov, [facility] [place] [facility] [address] [id number] [place] [address]- 7343 Oct, [facility] [place] [facility] [address] [id number] [place] [address]- 1613 Sep, [facility] [place] [facility] [address] [id number] [place] [address]- 4593 Sep, [facility] [place] [facility] [address] [id number] [place] [address]- 1381 Sep, [facility] [address] [id number] [place] [address]- 1501 Aug, [facility] [place] [facility] [address] [id number] [place] [address]- 7102 Jul, [facility] [place] [facility] [address] [id number] [place] [address]- 8216 June, [facility] [place] [facility] [address] [id number] [place] [address]- 7362 June, [facility] [place] [facility] [address] [id number] [place] [address]- 9799 May, [facility] [place] [facility] [address] [id number] [place] [address]- 3549 May, [facility] [place] [facility] [address] [id number] [place] [address]- 5722 Apr, [facility] [place] [facility] [address] [id number] [place] [address]- 6608 Apr, [facility] [place] [facility] [address] [id number] [place] [address]- 8582 Apr, [facility] [place] [facility] [address] [id number] [place] [address]- 8604 Apr, [facility] [place] [facility] [address] [id number] [place] [address]- 2636 Apr, [facility] [place] [facility] [address] [id number] [place] [address]- 9112 Apr, [facility] [place] [facility] [address] [id number] [place] [address]- 3518 Apr, [facility] [place] [facility] [address] [id number] [place] [address]- 0829 Mar, [facility] [place] [facility] [address] [id number] [place] [address]- 6826 Mar, [facility] [place] [facility] [address] [id number] [place] [address]- 2546 Mar, [facility] [place] [facility] [address] [id number] [place] [address]- 1297 Feb, [facility] [place] [facility] [address] [id number] [place] [address]- 2546 Feb, [facility] [place] [facility] [address] [id number] [place] [address]- 1750 Jan, [facility] [place] [facility] [address] [id number] [place] [address]- 2190 Jan, [facility] [place] [facility] [address] [id number] [place] [address]- 2926 Jan, [facility] [place] [facility] [address] [id number] [place] [address]- 5139 Dec, [facility] [place] [facility] [address] [id number] [place] [address]- 5312 Dec, [facility] [place] [facility] [address] [id number] [place] [address]- 7427 Nov, [facility] [place] [facility] [address] [id number] [place] [address]- 6327 Oct, [facility] [place] [facility] [address] [id number] [place] [address]- 1473 Aug, [facility] [place] [facility] [address] [id number] [place] [address]- 3635 Jul, [facility] [place] [facility] [address] [id number] [place] [address]- 1074 Jul, [facility] [place] [facility] [address] [id number] [place] [address]- 1690 Jul, [facility] [place] [facility] [address] [id number] [place] [address]- 1986 Jul, [facility] [place] [facility] [address] [id number] [place] [address]- 5908 Jul, [facility] [id number] [address]- 9801 Jul, [facility] [address] [address]- 2526 June, [facility] [address] [address]- 4743 June, [facility] [id number] [place] [address] 08859- 8989 June, [facility] [id number] [place] [address] 34685- 3142 May, [facility] [id number] [place] [address] 80924- 4980 May, [facility] [id number], [place] [address]- 1925 May, [facility] [id number] [place] [address] 32233- 9900 Apr, [facility] [address], [place] [address]- 3288 Mar, [facility] [id number] [place] [address] Mar, [facility] [id number] [place] [address] Jan, [facility] [id number] [address] Dec, IMMUNIZATIONS No Known Immunizations SOCIAL HISTORY Never Assessed REASON FOR VISIT f/u, contract PLAN OF CARE Activity Details Follow Up 3 Months Reason: VITAL SIGNS Height 65.5 in 2017-06-23 Weight 151 lbs 2017-06-23 Heart Rate 74 bpm 2017-06-23 Respiratory Rate 20 2017-06-23 BMI 24.74 kg/m2 2017-06-23 Blood pressure systolic 128 mmHg 2017-06-23 Blood pressure diastolic 70 mmHg 2017-06-23 MEDICATIONS Medication Instructions Dosage Frequency Start Date End Date Duration Status Calcium 600 MG Orally Twice a day 1 tablet with meals 12h Active Co Q-10 100 MG Orally Once a day 1 capsule with a meal 24h Active Vitamin D 1000 UNIT Orally Once a day 1 tablet 24h Active Depakote ER 500 mg Orally once a day 2 tablet 24h 29 Oct, 2016 30 days Not-Taking Melatonin 3 MG Orally Once a day 3 tablet at bedtime as needed with food 24h Active B Complex + C TR - Active Methylphenidate HCl ER 27 MG Orally Once a day 1 tablet in the morning 24h May, Jul, 28 days Active BuPROPion HCl ER (XL) 300 MG Orally Once a day 1 tablet in the morning 24h 30 days Active Vitamin D-3 1000 UNIT Orally Once a day 1 capsule 24h Active Vitamin B 12 100 MCG Active Fish Oil 1200 MG Orally Once a day 1 capsule 24h Active RESULTS No Results PROCEDURES No Known [...]
--- OUTSIDE RECORDS SUMMARY | 2017-12-06 16:32 | XMS REPORT ---
Author Author JOVANY JOSSUE [facility] [address] Address [address] [place] [address] Care Team Providers Care Assistant Finance Director Name Role Phone JUANY MANZOLUIS A Unavailable PROBLEMS Type Condition ICD9-CM Code YEW32-DO Code Onset Dates Condition Status SNOMED Code Problem Delusions of parasitosis F22 Active 471346594 Problem Vaginal bleeding N93.9 Active 564013766 Problem Bipolar 1 disorder F31.9 Active 811094679 Problem Bipolar disorder, in partial remission, most recent episode mixed F31.77 Active 57416210 Problem ADD (attention deficit disorder) F90.0 Active [id number] ALLERGIES No Information ENCOUNTERS Encounter Location Date Diagnosis [place] [id number] [place] [address] Sep, [place] [address] [address] June, ADD (attention deficit disorder) F90.0 and Bipolar disorder , in partial remission, most recent episode mixed F31.77 [place] [id number] [place] [address] 91838- 3780 May, Bipolar disorder, in partial remission, most recent episode mixed F31.77 [place] [id number] [place] [address] 28742- 3440 Apr, Bipolar disorder, in partial remission, most recent episode mixed F31.77 [place] [address] [address] Mar, Bipolar disorder, in partial remission, most recent episode mixed F31.77 [place] [id number] [place] [address] 91781- 9662 Feb, Bipolar disorder, in partial remission, most recent episode mixed F31.77 and ADD (attention deficit disorder) F90.0 [facility] [address] [address] 2546 Jan, ADD (attention deficit disorder) F90.0 [facility] [id number] [address] 2546 Nov, Delusions of parasitosis F22 [facility] [id number] [place] [address] 70695 2546 Oct, [facility] [id number] [place] [address] 19704 2546 Oct, Bipolar disorder, in partial remission, most recent episode mixed F31.77 and ADD (attention deficit disorder) F90.0 [facility] [id number] [place] [address] 22181 2546 Oct, [facility] [id number] [place] [address] 2546 Oct, ADD (attention deficit disorder) F90.0 [facility] [address] [address] 2546 Oct, [facility] [id number] [place] [address] 24204 2546 Oct, [facility] [address], [place] [address] 2546 Oct, Skin lesions L98.9 and Hematochezia K92.1 [facility] [address], [place] [address] 2546 Oct, Bipolar disorder, in partial remission, most recent episode mixed F31.77 [facility] [id number] [place] [address] 2546 Oct, Bipolar disorder, in partial remission, most recent episode mixed F31.77 and ADD (attention deficit disorder) F90.0 [facility] [id number] [place] [address]37- 3513 Sep, Bipolar disorder, in partial remission, most recent episode mixed F31.77 [facility] [id number] [address] 39[address] Sep, Bipolar disorder, in partial remission, most recent episode mixed F31.77 and ADD (attention deficit disorder) F90.0 [facility] [address], [place] [address]- 4636 Aug, [facility] [id number] [address]- 7096 Aug, Bipolar disorder, in partial remission, most recent episode mixed F31.77 and ADD (attention deficit disorder) F90.0 [facility] [address], [place] [address]- 6216 Aug, ADD (attention deficit disorder) F90.0 [facility] [address], [place] [address]- 1256 Aug, ADD (attention deficit disorder) F90.0 [facility] [id number] [address]- 2276 Jul, ADD (attention deficit disorder) F90.0 [facility] [id number] [address]- 7166 June, ADD (attention deficit disorder) F90.0 [facility] [address], [place] [address]- 8926 May, ADD (attention deficit disorder) F90.0 and Bipolar disorder , in partial remission, most recent episode mixed F31.77 [facility] [id number] [address] 2546 May, Bipolar disorder, in partial remission, most recent episode mixed F31.77 [facility] [id number] [address]- 6146 Apr, Bipolar disorder, in partial remission, most recent episode mixed F31.77 [facility] [id number] [address]- 5036 Mar, Bipolar disorder, in partial remission, most recent episode mixed F31.77 [facility] [id number] [address] 2546 Feb, ADD (attention deficit disorder) F90.0 [facility] [id number] [address] 2546 Feb, [facility] [id number] [address]- 4416 Feb, [facility] [id number] [address]- 5616 Feb, Bipolar disorder, in partial remission, most recent episode mixed F31.77 ; ADD (attention deficit disorder) F90.0 and 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 [facility] [address] [address] 2546 Feb, [facility] [address] [id number] [address]- 5106 Jan, [facility] [id number] [address]- 9366 Dec, [facility] [id number] [address]- 3256 Nov, Bipolar disorder, in partial remission, most recent episode mixed F31.77 and ADD (attention deficit disorder) F90.0 [facility] [id number] [address] 2546 Nov, [facility] [id number] [address] 2546 Oct, [facility] [id number] [address] 2546 Sep, [facility] [id number] [address] 2546 Sep, [facility] [address], [place] [address]- 0529 Aug, [facility] [address] [address] 2546 Jul, Bipolar I disorder, most recent episode mixed, in remission F31.70 and ADD (attention deficit disorder) F90.0 [facility] [address] [address]- 1016 Jul, [facility] [address] [address]- 4305 June, [facility] [address] [address]- 6024 May, Bipolar 1 disorder F31.9 and ADD (attention deficit disorder ) F90.0 [facility] [address] [address]- 8756 May, [facility] [address] [address]- 7909 Apr, [facility] [address] [address]- 0486 Mar, [facility] [address] [address]- 0346 Mar, [facility] [address] [address]- 7516 Mar, [facility] [id number] [address]- 1552 Feb, [facility] [id number] [address]- 0796 Jan, [facility] [address] [address]- 0185 Jan, Bipolar disorder, in partial remission, most recent episode mixed F31.77 and Attention-deficit hyperactivity disorder, unspecified type F90.9 [facility] [address], [place] [address]- 8404 Dec, [facility] [address], [place] [address]- 6965 Nov, [facility] [address], [place] [address] 2547 Oct, Bipolar I disorder, most recent episode (or current) mixed, in partial or unspecified remission 296.65 and Attention deficit disorder of childhood without mention of hyperactivity 314.00 [facility] [address], [place] [address]- 8297 Jul, [facility] [address], [place] [address]- 0836 Jul, [facility] [address] 5944 Jul, [facility] [address] 2213 June, Bipolar I disorder, most recent episode (or current) mixed, in partial or unspecified remission 296.65 and Attention deficit disorder of childhood without mention of hyperactivity 314.00 [facility] [address] [address]- 2844 June, [facility] [address] 7563 May, [facility] [address] 3042 May, [facility] [address] 4073 Apr, [facility] [address] 1068 Apr, [facility] [address], [place] [address]- 4628 Mar, [facility] [address], [place] [address]- 1716 Mar, [facility] [place] [facility] [address] [id number] [place] [address]- 8555 Feb, [facility] [place] [facility] [address] [id number] [place] [address]- 4177 Feb, [facility] [place] [facility] [address] [id number] [place] [address]- 1386 Feb, [facility] [place] [facility] [address] [id number] [place] [address]- 9707 Feb, [facility] [place] [facility] [address] [id number] [place] [address]- 9873 Feb, [facility] [place] [facility] [address] [id number] [place] [address]- 7493 Feb, [facility] [place] [facility] [address] [id number] [place] [address]- 6985 Feb, [facility] [place] [facility] [address] [id number] [place] [address]- 0687 Feb, [facility] [place] [facility] [address] [id number] [place] [address]- 8161 Feb, [facility] [place] [facility] [address] [id number] [place] [address]- 2154 Feb, [facility] [place] [facility] [address] [id number] [address]- 1154 Jan, [facility] [place] [facility] [address] [id number] [address]- 0172 Jan, [facility] [place] [facility] [address] [id number] [place] [address]- 9135 Dec, [facility] [place] [facility] [address] [id number] [place] [address]- 1243 Dec, [facility] [place] [facility] [address] [id number] [place] [address]- 0311 Dec, [facility] [place] [facility] [address] [id number] [place] [address]- 6124 17 Dec, 2013 [facility] [place] [facility] [address] [id number] [place] [address]- 1872 Dec, [facility] [place] [facility] [address] [id number] [place] [address]- 6349 12 Dec, 2013 [facility] [place] [facility] [address] [id number] [place] [address]- 0605 17 Nov, 2013 [facility] [place] [facility] [address] [id number] [place] [address]- 0425 17 Nov, 2013 [facility] [place] [facility] [address] [id number] [place] [address]- 3178 16 Nov, 2013 [facility] [place] [facility] [address] [id number] [place] [address]- 3744 16 Nov, 2013 [facility] [place] [facility] [address] [id number] [place] [address]- 3376 15 Nov, 2013 [facility] [place] [facility] [address] [id number] [place] [address]- 4247 15 Nov, 2013 [facility] [place] [facility] [address] [id number] [place] [address]- 5767 24 Oct, 2013 [facility] [place] [facility] [address] [id number] [place] [address]- 5561 24 Sep, 2013 [facility] [place] [facility] [address] [id number] [place] [address]- 2548 24 Sep, 2013 [facility] [place] [facility] [address] [id number] [place] [address]- 2544 24 Sep, 2013 [facility] [place] [facility] [address] [id number] [place] [address]- 2548 19 Oct, 2013 [facility] [place] [facility] [address] [id number] [place] [address]- 2545 19 Oct, 2013 [facility] [place] [facility] [address] [id number] [place] [address]- 2865 19 Oct, 2013 [facility] [place] [facility] [address] [id number] [place] [address]- 3195 19 Oct, 2013 [facility] [place] [facility] [address] [id number] [place] [address]- 6705 18 Oct, 2013 [facility] [place] [facility] [address] [id number] [place] [address]- 7922 18 Oct, 2013 [facility] [place] [facility] [address] [id number] [place] [address]- 6303 17 Oct, 2013 [facility] [place] [facility] [address] [id number] [place] [address]- 0731 17 Oct, 2013 [facility] [place] [facility] [address] [id number] [place] [address]- 7819 16 Oct, 2013 [facility] [place] [facility] [address] [id number] [place] [address]- 8301 16 Oct, 2013 [facility] [place] [facility] [address] [id number] [place] [address]- 7045 Sep, [facility] [place] [facility] [address] [id number] [place] [address]- 0034 Sep, [facility] [place] [facility] [address] [id number] [place] [address]- 5468 Sep, [facility] [place] [facility] [address] [id number] [place] [address]- 3821 Sep, [facility] [place] [facility] [address] [id number], [place] [address]- 7735 Sep, [facility] [place] [facility] [address] [id number] [place] [address]- 7726 Sep, [facility] [place] [facility] [address] [id number] [place] [address]- 1453 Aug, [facility] [place] [facility] [address] [id number] [place] [address]- 0810 Aug, [facility] [place] [facility] [address] [id number] [place] [address]- 7071 Jul, [facility] [place] [facility] [address] [id number] [place] [address]- 6294 Jul, [facility] [place] [facility] [address] [id number] [place] [address]- 5463 Jul, [facility] [place] [facility] [address] [id number] [place] [address]- 0799 Jul, [facility] [place] [facility] [address] [id number] [place] [address]- 9703 June, [facility] [place] [facility] [address] [id number] [place] [address]- 4125 June, [facility] [place] [facility] [address] [id number] [place] [address]- 2597 May, [facility] [place] [facility] [address] [id number] [place] [address]- 8141 May, [facility] [place] [facility] [address] [id number] [place] [address]- 9436 Apr, [facility] [place] [facility] [address] [id number] [place] [address]- 2778 Apr, [facility] [place] [facility] [address] [id number] [place] [address]- 1292 Apr, [facility] [place] [facility] [address] [id number] [place] [address]- 6819 Apr, [facility] [place] [facility] [address] [id number] [place] [address]- 3803 Mar, [facility] [place] [facility] [address] [id number] [place] [address] Mar, [facility] [place] [facility] [address] [id number] [place] [address]- 4045 Feb, [facility] [place] [facility] [address] [id number] [place] [address]- 8712 Feb, [facility] [place] [facility] [address] [id number] [place] [address]- 3677 Jan, [facility] [place] [facility] [address] [id number] [place]872 Jan, [facility] [place] [facility] [address] [id number] [place] [address]- 2852 Dec, [facility] [place] [facility] [address] [id number] [place] [address]- 9732 Dec, [facility] [place] [facility] [address] [id number] [place] [address]- 6439 Dec, [facility] [place] [facility] [address] [id number] [place] [address]- 0057 15 Dec, 2012 [facility] [place] [facility] [address] [id number] [place] [address]- 7492 Dec, [facility] [place] [facility] [address] [id number] [place] [address]- 5353 Nov, [facility] [place] [facility] [address] [id number] [place] [address]- 4381 Nov, [facility] [place] [facility] [address] [id number] [place] [address]- 3860 Oct, [facility] [place] [facility] [address] [id number] [place] [address]- 8906 Sep, [facility] [place] [facility] [address] [id number] [place] [address]- 7916 Sep, [facility] [place] [facility] [address] [id number] [place] [address]- 2419 Sep, [facility] [place] [facility] [address] [id number] [place] [address]- 9898 Aug, [facility] [place] [facility] [address] [id number] [place] [address]- 6575 Jul, [facility] [place] [facility] [address] [id number] [place] [address]- 9826 June, [facility] [address] [id number] [place] [address]- 2014 June, [facility] [place] [facility] [address] [id number] [place] [address]- 7528 May, [facility] [place] [facility] [address] [id number] [place] [address]- 6926 May, [facility] [place] [facility] [address] [id number] [place] [address]- 3618 Apr, [facility] [place] [facility] [address] [id number] [place] [address]- 1975 Apr, [facility] [place] [facility] [address] [id number] [place] [address]- 6328 Apr, [facility] [place] [facility] [address] [id number] [place] [address]- 2942 Apr, [facility] [place] [facility] [address] [id number] [place] [address]- 0600 Apr, [facility] [place] [facility] [address] [id number] [place] [address]- 2037 Apr, [facility] [place] [facility] [address] [id number] [place] [address]- 3112 Apr, [facility] [place] [facility] [address] [id number] [place] [address]- 7844 Mar, [facility] [place] [facility] [address] [id number] [place] [address]- 2543 Mar, [facility] [place] [facility] [address] [id number] [place] [address]- 2546 Mar, [facility] [place] [facility] [address] [id number] [place] [address]- 6816 Feb, [facility] [place] [facility] [address] [id number] [place] [address]- 2546 Feb, [facility] [place] [facility] [address] [id number] [place] [address]- 2809 Jan, [facility] [place] [facility] [address] [id number] [place] [address]- 8203 Jan, [facility] [place] [facility] [address] [id number] [place] [address]- 5196 Jan, [facility] [place] [facility] [address] [id number] [place] [address]- 2631 Dec, [facility] [place] [facility] [address] [id number] [place] [address]- 6130 Dec, [facility] [place] [facility] [address] [id number] [place] [address]- 0344 Nov, [facility] [place] [facility] [address] [id number] [place] [address]- 3576 Oct, [facility] [place] [facility] [address] [id number] [place] [address]- 2028 Aug, [facility] [place] [facility] [address] [id number] [place] [address] Jul, [facility] [place] [facility] [address] [id number] [place] [address] Jul, [facility] [place] [facility] [address] [facility] [id number] [place] [address] Jul, [facility] [place] [facility] [address] [id number] [place] [address] Jul, [facility] [place] [facility] [address] [id number] [place] [address] Jul, [facility] [place] [facility] [address] [id number] [place] [address] Jul, [facility] [place] [facility] [address] [id number] [place] [address] June, [facility] [place] [facility] [address] [id number] [place] [address] June, [facility] [id number] [address] June, [facility] [id number] [place] [address] May, [facility] [address] [id number] [address] May, [facility] [id number] [place] [address] May, [facility] [id number] [place] [address] Apr, [facility] [id number] [place] [address] Mar, [facility] [id number] [place] [address] Mar, [facility] [id number] [place] [address] Jan, [facility] [id number], [place] [address] Dec, IMMUNIZATIONS No Known Immunizations SOCIAL HISTORY Never Assessed REASON FOR VISIT [facility] 05/05/2017 PLAN OF CARE VITAL SIGNS MEDICATIONS Medication Instructions Dosage Frequency Start Date End Date Duration Status Methylphenidate HCl ER 27 MG Orally Once a day 1 tablet in the morning 24h Apr, 28 days Active RESULTS No Results PROCEDURES [...]
--- OUTSIDE RECORDS SUMMARY | 2017-12-06 16:32 | XMS REPORT ---
Author Author JOVANY JOSSUE [facility] [address] Address [address] [place] [address] Care Team Providers Care Lining Inserter Name Role Phone JUANY MANZOLUIS A Unavailable PROBLEMS Type Condition ICD9-CM Code [id number] Code Onset Dates Condition Status SNOMED Code Problem Delusions of parasitosis F22 Active 076516624 Problem Vaginal bleeding N93.9 Active 838475223 Problem Bipolar 1 disorder F31.9 Active 082543993 Problem Bipolar disorder, in partial remission, most recent episode mixed F31.77 Active 69705605 Problem ADD (attention deficit disorder) F90.0 Active [id number] ALLERGIES No Information ENCOUNTERS Encounter Location Date Diagnosis [place] [id number] [place] [address] 48839- 2821 Sep, [place] [id number] [place] [address] 57814- 7550 Aug, ADD (attention deficit disorder) F90.0 [place] [id number] [place] [address] 25260- 6199 June, ADD (attention deficit disorder) F90.0 and Bipolar disorder , in partial remission, most recent episode mixed F31.77 [place] [id number] [place] [address] 77348- 0927 May, Bipolar disorder, in partial remission, most recent episode mixed F31.77 [facility] [id number] [place] [address] 80894- 6158 Apr, Bipolar disorder, in partial remission, most recent episode mixed F31.77 [facility] [id number] [place] [address] 23657- 1003 Mar, Bipolar disorder, in partial remission, most recent episode mixed F31.77 [facility] [address], [place] [address] 2546 Feb, Bipolar disorder, in partial remission, most recent episode mixed F31.77 and ADD (attention deficit disorder) F90.0 [facility] [address], [place] [address] 2546 Jan, ADD (attention deficit disorder) F90.0 [facility] [id number] [place] [address] 89808 2546 Nov, Delusions of parasitosis F22 [facility] [id number] [place] [address] 29898 2546 Oct, [facility] [id number] [place] [address] 85487 2546 Oct, Bipolar disorder, in partial remission, most recent episode mixed F31.77 and ADD (attention deficit disorder) F90.0 [facility] [id number] [place] [address] 31871 2546 Oct, [facility] [id number] [place] [address] 75664 2546 Oct, ADD (attention deficit disorder) F90.0 [facility] [address], [place] [address] 2546 Oct, [facility] [address] [address] 2546 Oct, [facility] [id number] [place] [address] 08054 2546 Oct, Skin lesions L98.9 and Hematochezia K92.1 [facility] [id number] [place] [address] 78386 2546 Oct, Bipolar disorder, in partial remission, most recent episode mixed F31.77 [facility] [address], [place] [address] 2546 Oct, Bipolar disorder, in partial remission, most recent episode mixed F31.77 and ADD (attention deficit disorder) F90.0 [facility] [address] [facility] [id number] [place] [address]- 2116 Sep, Bipolar disorder, in partial remission, most recent episode mixed F31.77 [facility] [address] [facility] [id number] [place] [address]- 6726 Sep, Bipolar disorder, in partial remission, most recent episode mixed F31.77 and ADD (attention deficit disorder) F90.0 [facility] [address] [facility] [id number] [place] [address]- 9036 Aug, [facility] [id number] [place] [address], [place] [address]- 0556 Aug, Bipolar disorder, in partial remission, most recent episode mixed F31.77 and ADD (attention deficit disorder) F90.0 [facility] [id number] [place] [address]- 2586 Aug, ADD (attention deficit disorder) F90.0 [facility] [address] [facility] [id number] [place] [address]- 0114 Aug, ADD (attention deficit disorder) F90.0 [facility] [id number] [place] [address]- 9566 Jul, ADD (attention deficit disorder) F90.0 [facility] [id number] [place] [address]- 8616 June, ADD (attention deficit disorder) F90.0 [facility] [address] [facility] [id number] [place] [address]- 3628 May, ADD (attention deficit disorder) F90.0 and Bipolar disorder , in partial remission, most recent episode mixed F31.77 [facility] [address] [facility] [id number] [address] [place] [id number] 4806 May, Bipolar disorder, in partial remission, most recent episode mixed F31.77 [facility] [id number] [address]- 3218 Apr, Bipolar disorder, in partial remission, most recent episode mixed F31.77 [facility] [id number] [place] [address]- 5166 Mar, Bipolar disorder, in partial remission, most recent episode mixed F31.77 [facility] [id number] [address]- 9406 Feb, ADD (attention deficit disorder) F90.0 [facility] [id number], [place] [address]- 0086 Feb, [facility] [address], [place] [address]- 6344 Feb, [facility] [id number] [address]- 7418 Feb, Bipolar disorder, in partial remission, most recent episode mixed F31.77 ; ADD (attention deficit disorder) F90.0 and 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 [facility] [id number] [address]- 8256 Feb, [facility] [id number] [address]- 3934 Jan, [facility] [id number], [place] [address]- 3146 Dec, [facility] [id number], [place] [address]- 7887 Nov, Bipolar disorder, in partial remission, most recent episode mixed F31.77 and ADD (attention deficit disorder) F90.0 [facility] [id number] [place] [address]- 0156 Nov, [facility] [id number] [address] 2546 Oct, [facility] [id number], [place] [address]- 7078 Sep, [facility] [id number] [place] [address]- 0037 Sep, [facility] [id number] [place] [address]- 1566 Aug, [facility] [address] 1452 Jul, Bipolar I disorder, most recent episode mixed, in remission F31.70 and ADD (attention deficit disorder) F90.0 [facility] [id number] [place] [address]- 8875 Jul, [facility] [id number] [place] [address], [place] [address]- 8245 June, [facility] [id number] [place] [address]- 4758 May, Bipolar 1 disorder F31.9 and ADD (attention deficit disorder ) F90.0 [facility] [id number] [place] [address]- 3519 May, [facility] [id number] [place] [address]- 5589 Apr, [facility] [id number] [place] [address]- 7836 Mar, [facility] [address] [place] [address]- 4256 Mar, [facility] [id number] 7236 Mar, [facility] [id number] [place] [address]- 1166 Feb, [facility] [id number] [place] [address]- 2536 Jan, [facility] [id number] 6868 Jan, Bipolar disorder, in partial remission, most recent episode mixed F31.77 and Attention-deficit hyperactivity disorder, unspecified type F90.9 [facility] [id number] [place] [address] 078151- 3660 Dec, [facility] [address], [place] [address]- 8981 Nov, [facility] [id number] [place] [address] 620271- 3851 Oct, Bipolar I disorder, most recent episode (or current) mixed, in partial or unspecified remission 296.65 and Attention deficit disorder of childhood without mention of hyperactivity 314.00 [facility] [id number] [place] [address] 664471- 3258 Jul, [facility] [id number] [place] [address] 73056- 1467 Jul, [facility] [id number] [place] [address] 51923- 9477 Jul, [facility] [id number] [place] [address] 44260- 6878 June, Bipolar I disorder, most recent episode (or current) mixed, in partial or unspecified remission 296.65 and Attention deficit disorder of childhood without mention of hyperactivity 314.00 [facility] [address], [place] [address]- 0113 June, [facility] [address]- 6753 May, [facility] [address], [place] [address]- 3507 May, [facility] [id number] [place] [address] 072581- 1345 Apr, [facility] [address] [address]- 3615 Apr, [facility] [address] [id number] [place] [address]- 7875 Mar, [facility] [address] [id number] [place] [address]- 3061 Mar, [facility] [place] [facility] [address] [id number] [place] [address]- 6637 Feb, [facility] [place] [facility] [address] [id number] [place] [address]- 3268 Feb, [facility] [place] [facility] [address] [id number] [place] [address]- 8835 Feb, [facility] [place] [facility] [address] [id number] [place] [address]- 3730 Feb, [facility] [place] [facility] [address] [id number] [place] [address]- 7860 Feb, [facility] [address] [id number] [place] [address]- 1319 Feb, [facility] [address] [id number] [place] [address]- 1581 Feb, [facility] [place] [facility] [address] [id number] [place] [address]- 5370 Feb, [facility] [address] [id number] [place] [address]- 9086 Feb, [facility] [place] [facility] [address] [id number] [place] [address]- 7591 Feb, [facility] [place] [facility] [address] [id number] [place] [address]- 9185 Jan, [facility] [place] [facility] [address] [id number] [place] [address]- 3018 Jan, [facility] [place] [facility] [address] [id number] [place] [address]- 8944 Dec, [facility] [place] [facility] [address] [id number] [place] [address]- 3670 Dec, [facility] [place] [facility] [address] [id number] [place] [address]- 1438 Dec, [facility] [place] [facility] [address] [id number] [place] [address]- 5224 Dec, [facility] [place] [facility] [address] [id number] [place] [address]- 9670 Dec, [facility] [place] [facility] [address] [id number] [place] [address]- 0117 Dec, [facility] [place] [facility] [address] [id number] [place] [address]- 6321 Nov, [facility] [place] [facility] [address] [id number] [place] [address]- 1189 17 Nov, 2013 [facility] [place] [facility] [address] [id number] [place] [address]- 1919 16 Nov, 2013 [facility] [place] [facility] [address] [id number] [place] [address]- 1276 16 Nov, 2013 [facility] [place] [facility] [address] [id number] [place] [address]- 9247 15 Nov, 2013 [facility] [place] [facility] [address] [id number] [place] [address]- 5198 15 Nov, 2013 [facility] [place] [facility] [address] [id number] [place] [address]- 6252 24 Oct, 2013 [facility] [place] [facility] [address] [id number] [place] [address]- 3628 24 Sep, 2013 [facility] [place] [facility] [address] [id number] [place] [address]- 6065 24 Oct, 2013 [facility] [place] [facility] [address] [id number] [place] [address]- 8770 24 Oct, 2013 [facility] [place] [facility] [address] [id number] [place] [address]- 3031 19 Oct, 2013 [facility] [place] [facility] [address] [id number] [place] [address]- 3544 19 Oct, 2013 [facility] [place] [facility] [address] [id number] [place] [address]- 2073 19 Oct, 2013 [facility] [place] [facility] [address] [id number] [place] [address]- 1573 19 Oct, 2013 [facility] [place] [facility] [address] [id number] [place] [address]- 8716 18 Oct, 2013 [facility] [place] [facility] [address] [id number] [place] [address]- 6756 18 Oct, 2013 [facility] [place] [facility] [address] [id number] [place] [address]- 7498 17 Oct, 2013 [facility] [place] [facility] [address] [id number] [place] [address]- 5683 17 Oct, 2013 [facility] [place] [facility] [address] [id number] [place] [address]- 2854 16 Oct, 2013 [facility] [place] [facility] [address] [id number] [place] [address]- 1355 16 Oct, 2013 [facility] [place] [facility] [address] [id number] [place] [address]- 2122 Sep, [facility] [place] [facility] [address] [id number] [place] [address]- 7461 Sep, [facility] [place] [facility] [address] [id number] [place] [address]- 6375 Sep, [facility] [place] [facility] [address] [id number] [place] [address]- 7783 Sep, [facility] [place] [facility] [address] [id number] [place] [address]- 4622 Sep, [facility] [place] [facility] [address] [id number] [place] [address]- 8760 Sep, [facility] [place] [facility] [address] [id number] [place] [address]- 8335 Aug, [facility] [place] [facility] [address] [id number] [place] [address]- 9795 Aug, [facility] [address] [id number] [place] [address]- 1577 Jul, [facility] [place] [facility] [address] [id number] [place] [address]- 4186 Jul, [facility] [place] [facility] [address] [id number] [place] [address]- 2774 Jul, [facility] [place] [facility] [address] [id number] [place] [address]- 8777 Jul, [facility] [place] [facility] [address] [id number] [place] [address]- 2811 June, [facility] [place] [facility] [address] [id number] [place] [address]- 4753 June, [facility] [place] [facility] [address] [id number] [place] [address]- 2546 May, [facility] [address] [id number] [place] [address]- 8870 May, [facility] [place] [facility] [address] [id number] [place] [address]- 9008 Apr, [facility] [place] [facility] [address] [id number] [place] [address]- 9548 Apr, [facility] [place] [facility] [address] [id number] [place] [address]- 8866 Apr, [facility] [place] [facility] [address] [id number] [place] [address]- 9048 Apr, [facility] [place] [facility] [address] [id number] [place] [address]- 9646 Mar, [facility] [place] [facility] [address] [id number] [place] [address]- 2466 Mar, [facility] [place] [facility] [address] [id number] [place] [address]- 1985 Feb, [facility] [place] [facility] [address] [id number] [place] [address]- 2448 Feb, [facility] [place] [facility] [address] [id number] [place] [address]- 5764 Jan, [facility] [place] [facility] [address] [id number] [place] [address]- 7519 Jan, [facility] [place] [facility] [address] [id number] [place] [address]- 7806 Dec, [facility] [place] [facility] [address] [id number] [place] [address]- 4171 Dec, [facility] [place] [facility] [address] [id number] [place] [address]- 4231 Dec, [facility] [place] [facility] [address] [id number] [place] [address]- 9654 Dec, [facility] [place] [facility] [address] [id number] [place] [address]- 5511 Dec, [facility] [place] [facility] [address] [id number] [place] [address]- 5322 Nov, [facility] [place] [facility] [address] [id number] [place] [address]- 7188 Nov, [facility] [place] [facility] [address] [id number] [address]- 4843 Oct, [facility] [place] [facility] [address] [id number], [place] [address]- 0400 Sep, [facility] [place] [facility] [address] [id number] [place] [address]- 7360 Sep, [facility] [place] [facility] [address] [id number], [place] [address]- 7781 Sep, [facility] [place] [facility] [address] [id number] [place] [address]- 6833 Aug, [facility] [place] [facility] [address] [id number] [place] [address]- 8920 Jul, [facility] [address] [id number] [place] [address]- 3677 June, [facility] [address] [id number] [place] [address]- 1772 June, [facility] [address] [id number] [place] [address]- 6074 May, [facility] [address] [id number] [place] [address]- 9720 May, [facility] [address] [id number] [place] [address]- 5421 Apr, [facility] [address] [id number] [place] [address]- 7515 Apr, [facility] [address] [id number] [place] [address]- 2966 Apr, [facility] [address] [id number] [place] [address]- 4261 Apr, [facility] [address] [id number] [place] [address]- 8220 Apr, [facility] [address] [id number] [place] [address]- 9392 Apr, [facility] [address] [id number] [place] [address]- 8159 Apr, [facility] [place] [facility] [address] [id number] [place] [address]- 7092 Mar, [facility] [place] [facility] [address] [id number] [place] [address]- 3268 Mar, [facility] [place] [facility] [address] [id number] [place] [address]- 2546 Mar, [facility] [place] [facility] [address] [id number] [place] [address]- 5070 Feb, [facility] [place] [facility] [address] [id number] [place] [address]- 0121 Feb, [facility] [place] [facility] [address] [id number] [place] [address]- 2984 Jan, [facility] [place] [facility] [address] [id number] [place] [address]- 2953 Jan, [facility] [place] [facility] [address] [id number] [place] [address]- 7132 Jan, [facility] [place] [facility] [address] [id number] [place] [address]- 4370 Dec, [facility] [place] [facility] [address] [id number] [place] [address]- 8365 Dec, [facility] [place] [facility] [address] [id number] [place] [address]- 1388 Nov, [facility] [place] [facility] [address] [id number] [place] [address]- 9921 Oct, [facility] [place] [facility] [address] [id number] [place] [address]- 7628 Aug, [facility] [place] [facility] [address] [id number] [place] [address]- 2060 Jul, [facility] [place] [facility] [address] [id number] [place] [address]- 2832 Jul, [facility] [place] [facility] [address] [id number], [place] [address]- 3692 Jul, [facility] [place] [facility] [address] [id number] [place] [address]- 0746 Jul, [facility] [place] [facility] [address] [id number] [place] [address]- 5114 Jul, [facility] [place] [facility] [address] [id number] [place] [address]- 6643 Jul, [facility] [place] [facility] [address] [id number], [place] [address]- 5676 June, [facility] [id number] [address] June, [facility] [id number] [address] June, [facility] [id number] [address] May, [facility] [id number] [place] [address] May, [facility] [id number] [place] [address] May, [facility] [id number] [place] [address] Apr, [facility] [id number] [place] [address] Mar, [facility] [id number], [place] [address] Mar, [facility] [id number] [address] Jan, [facility] [id number], [place] [address] Dec, IMMUNIZATIONS No Known Immunizations SOCIAL HISTORY Never Assessed REASON FOR VISIT methylphenidate 06/02/2017 PLAN OF CARE VITAL SIGNS MEDICATIONS Medication Instructions Dosage Frequency Start Date End Date Duration Status Methylphenidate HCl ER 27 MG Orally Once a day 1 tablet in the morning 24h May, 28 days Active RESULTS No Results PROCEDURES [...]
--- OUTSIDE RECORDS SUMMARY | 2017-12-06 16:32 | XMS REPORT ---
Author Author EDUARD WOLFGANG Organization [facility] Address [address] [place] [address] Care Team Providers Care Ehs Specialist Name Role Phone SHYANNEJAVIER AGUSTINA Unavailable PROBLEMS Type Condition ICD9-CM Code UEJ43-HG Code Onset Dates Condition Status SNOMED Code Problem Delusions of parasitosis F22 Active 502812725 Problem Vaginal bleeding N93.9 Active 582059990 Problem Bipolar 1 disorder F31.9 Active 767734466 Problem Bipolar disorder, in partial remission, most recent episode mixed F31.77 Active 94908084 Problem ADD (attention deficit disorder) F90.0 Active [id number] ALLERGIES No Information ENCOUNTERS Encounter Location Date Diagnosis [place] [id number] [place] [address]86- 7793 Sep, [place] [id number] [place] [address] 40433- 9675 June, ADD (attention deficit disorder) F90.0 and Bipolar disorder , in partial remission, most recent episode mixed F31.77 [place] [id number] [place] [address] 69092- 2965 May, Bipolar disorder, in partial remission, most recent episode mixed F31.77 [place] [id number] [place] [address] 26271- 4716 Apr, Bipolar disorder, in partial remission, most recent episode mixed F31.77 [place] [id number] [place] [address] 96656- 5606 Mar, Bipolar disorder, in partial remission, most recent episode mixed F31.77 [place] [id number] [place] [address] 94717- 5673 Feb, Bipolar disorder, in partial remission, most recent episode mixed F31.77 and ADD (attention deficit disorder) F90.0 [facility] [address] [address] 2546 Jan, ADD (attention deficit disorder) F90.0 [facility] [id number] [address] 2546 Nov, Delusions of parasitosis F22 [facility] [id number] [place] [address]651 2546 Oct, [facility] [id number] [place] [address] 36316 2546 Oct, Bipolar disorder, in partial remission, most recent episode mixed F31.77 and ADD (attention deficit disorder) F90.0 [facility] [id number] [place] [address] 73676 2546 Oct, [facility] [id number] [place] [address] 07603 2546 Oct, ADD (attention deficit disorder) F90.0 [facility] [address] [address] 2546 Oct, [facility] [id number] [place] [address] 91047 2546 Oct, [facility] [address] [address] 2546 Oct, Skin lesions L98.9 and Hematochezia K92.1 [facility] [address] [address] 2546 Oct, Bipolar disorder, in partial remission, most recent episode mixed F31.77 [facility] [id number] [place] [address] 34402 2546 Oct, Bipolar disorder, in partial remission, most recent episode mixed F31.77 and ADD (attention deficit disorder) F90.0 [facility] [id number] [place] [address] 04873- 7714 Sep, Bipolar disorder, in partial remission, most recent episode mixed F31.77 [facility] [id number] [address]- 3326 Sep, Bipolar disorder, in partial remission, most recent episode mixed F31.77 and ADD (attention deficit disorder) F90.0 [facility] [address] [address]- 2066 Aug, [facility] [id number] [address]- 4506 Aug, Bipolar disorder, in partial remission, most recent episode mixed F31.77 and ADD (attention deficit disorder) F90.0 [facility] [address] [address]- 8456 Aug, ADD (attention deficit disorder) F90.0 [facility] [address] [address]- 4726 Aug, ADD (attention deficit disorder) F90.0 [facility] [id number] [address] 1982 Jul, ADD (attention deficit disorder) F90.0 [facility] [id number] [address]- 0216 June, ADD (attention deficit disorder) F90.0 [facility] [address] [address]- 5266 May, ADD (attention deficit disorder) F90.0 and Bipolar disorder , in partial remission, most recent episode mixed F31.77 [facility] [id number] [address] 2546 May, Bipolar disorder, in partial remission, most recent episode mixed F31.77 [facility] [id number] [address]- 3836 Apr, Bipolar disorder, in partial remission, most recent episode mixed F31.77 [facility] [id number] [address]- 6446 Mar, Bipolar disorder, in partial remission, most recent episode mixed F31.77 [facility] [id number] [address] 2546 Feb, ADD (attention deficit disorder) F90.0 [facility] [id number] [address] 2546 Feb, [facility] [id number] [address]- 7766 Feb, [facility] [id number] [address]- 0506 Feb, Bipolar disorder, in partial remission, most recent episode mixed F31.77 ; ADD (attention deficit disorder) F90.0 and Other fdc ( current) drug therapy Z79.899 [facility] [address] [address] 2546 Feb, [facility] [id number] [address]- 8046 Jan, [facility] [id number] [address]- 8816 Dec, [facility] [id number] [address]- 6916 Nov, Bipolar disorder, in partial remission, most recent episode mixed F31.77 and ADD (attention deficit disorder) F90.0 [facility] [id number] [address] 2546 Nov, [facility] [id number] [address] 2546 Oct, [facility] [id number] [address] 2546 Sep, [facility] [id number] [address] 2546 Sep, [facility] [address] [address]- 0085 Aug, [facility] [address] [address] 2546 Jul, Bipolar I disorder, most recent episode mixed, in remission F31.70 and ADD (attention deficit disorder) F90.0 [facility] [address] [address]- 3406 Jul, [facility] [address] [address]- 7548 June, [facility] [address] [address]- 0841 May, Bipolar 1 disorder F31.9 and ADD (attention deficit disorder ) F90.0 [facility] [address] [address]- 1056 May, [facility] [address] [address]- 3705 Apr, [facility] [address] [address]- 1926 Mar, [facility] [address] [address]- 5276 Mar, [facility] [address] [address]- 9316 Mar, [facility] [id number] [address]- 4737 Feb, [facility] [id number] [address]- 8626 Jan, [facility] [address] [address]- 7485 Jan, Bipolar disorder, in partial remission, most recent episode mixed F31.77 and Attention-deficit hyperactivity disorder, unspecified type F90.9 [facility] [address] [address]- 4010 Dec, [facility] [address] [address]- 2710 Nov, [facility] [address] [address] 2542 Oct, Bipolar I disorder, most recent episode (or current) mixed, in partial or unspecified remission 296.65 and Attention deficit disorder of childhood without mention of hyperactivity 314.00 [facility] [address] [address]- 6796 Jul, [facility] [address] [address]- 7937 Jul, [facility] [address] 3626 Jul, [facility] [address] 0017 June, Bipolar I disorder, most recent episode (or current) mixed, in partial or unspecified remission 296.65 and Attention deficit disorder of childhood without mention of hyperactivity 314.00 [facility] [address] [address]- 5922 June, [facility] [address] 1226 May, [facility] [address] 4315 May, [facility] [address] 2988 Apr, [facility] [address] 1386 Apr, [facility] [address] [address]- 4331 Mar, [facility] [address] [address]- 9347 Mar, [facility] [place] [facility] [address] [id number] [place] [address]- 6254 Feb, [facility] [place] [facility] [address] [id number] [place] [address]- 5912 Feb, [facility] [place] [facility] [address] [id number] [place] [address]- 2465 Feb, [facility] [place] [facility] [address] [id number] [place] [address]- 5301 Feb, [facility] [place] [facility] [address] [id number] [place] [address]- 8863 Feb, [facility] [place] [facility] [address] [id number] [place] [address]- 4345 Feb, [facility] [place] [facility] [address] [id number] [place] [address]- 5567 Feb, [facility] [place] [facility] [address] [id number] [place] [address]- 2597 Feb, [facility] [place] [facility] [address] [id number] [place] [address]- 7640 Feb, [facility] [place] [facility] [address] [id number] [place] [address]- 5171 Feb, [facility] [place] [facility] [address] [id number] [address]- 3215 Jan, [facility] [place] [facility] [address] [id number] [address]- 0286 Jan, [facility] [place] [facility] [address] [id number] [place] [address]- 1287 Dec, [facility] [place] [facility] [address] [id number] [place] [address]- 7606 Dec, [facility] [place] [facility] [address] [id number] [place] [address]- 9886 Dec, [facility] [place] [facility] [address] [id number] [place] [address]- 6592 17 Dec, 2013 [facility] [place] [facility] [address] [id number] [place] [address]- 1030 Dec, [facility] [place] [facility] [address] [id number] [place] [address]- 5338 12 Dec, 2013 [facility] [place] [facility] [address] [id number] [place] [address]- 2855 17 Nov, 2013 [facility] [place] [facility] [address] [id number] [place] [address]- 4275 17 Nov, 2013 [facility] [place] [facility] [address] [id number] [place] [address]- 6203 16 Nov, 2013 [facility] [place] [facility] [address] [id number] [place] [address]- 7801 16 Nov, 2013 [facility] [place] [facility] [address] [id number] [place] [address]- 9781 15 Nov, 2013 [facility] [place] [facility] [address] [id number] [place] [address]- 8707 15 Nov, 2013 [facility] [place] [facility] [address] [id number] [place] [address]- 3018 24 Oct, 2013 [facility] [place] [facility] [address] [id number] [place] [address]- 2938 24 Sep, 2013 [facility] [place] [facility] [address] [id number] [place] [address]- 2545 24 Sep, 2013 [facility] [place] [facility] [address] [id number] [place] [address]- 2548 24 Sep, 2013 [facility] [place] [facility] [address] [id number] [place] [address]- 2545 19 Oct, 2013 [facility] [place] [facility] [address] [id number] [place] [address]- 2544 19 Oct, 2013 [facility] [place] [facility] [address] [id number] [place] [address]- 6559 19 Oct, 2013 [facility] [place] [facility] [address] [id number] [place] [address]- 7396 19 Oct, 2013 [facility] [place] [facility] [address] [id number] [place] [address]- 9385 18 Oct, 2013 [facility] [place] [facility] [address] [id number] [place] [address]- 9443 18 Oct, 2013 [facility] [place] [facility] [address] [id number] [place] [address]- 0157 17 Oct, 2013 [facility] [place] [facility] [address] [id number] [place] [address]- 2547 17 Oct, 2013 [facility] [place] [facility] [address] [id number] [place] [address]- 1375 16 Oct, 2013 [facility] [place] [facility] [address] [id number] [place] [address]- 8015 16 Oct, 2013 [facility] [place] [facility] [address] [id number] [place] [address]- 3080 Sep, [facility] [place] [facility] [address] [id number] [place] [address]- 9916 Sep, [facility] [place] [facility] [address] [id number] [place] [address]- 5338 Sep, [facility] [place] [facility] [address] [id number] [place] [address]- 3939 Sep, [facility] [place] [facility] [address] [id number] [address]- 0788 Sep, [facility] [place] [facility] [address] [id number] [place] [address]- 8412 Sep, [facility] [place] [facility] [address] [id number] [place] [address]- 8650 Aug, [facility] [place] [facility] [address] [id number] [place] [address]- 3713 Aug, [facility] [place] [facility] [address] [id number] [place] [address]- 6372 Jul, [facility] [place] [facility] [address] [id number] [place] [address]- 6462 Jul, [facility] [place] [facility] [address] [id number] [place] [address]- 4506 Jul, [facility] [place] [facility] [address] [id number] [place] [address]- 1880 Jul, [facility] [place] [facility] [address] [id number] [place] [address]- 0568 June, [facility] [place] [facility] [address] [id number] [place] [address]- 8669 June, [facility] [place] [facility] [address] [id number] [place] [address]- 1535 May, [facility] [place] [facility] [address] [id number] [place] [address]- 4354 May, [facility] [place] [facility] [address] [id number] [place] [address]- 0218 Apr, [facility] [place] [facility] [address] [id number] [place] [address]- 0758 Apr, [facility] [place] [facility] [address] [id number] [place] [address]- 5305 Apr, [facility] [place] [facility] [address] [id number] [place] [address]- 2149 Apr, [facility] [place] [facility] [address] [id number] [place] [address]- 6340 Mar, [facility] [place] [facility] [address] [id number] [place] 7610 Mar, [facility] [place] [facility] [address] [id number] [place] [address]- 2368 Feb, [facility] [place] [facility] [address] [id number] [place] [address]- 5055 Feb, [facility] [place] [facility] [address] [id number] [place] [address]- 1612 Jan, [facility] [place] [facility] [address] [id number] [place] 4528 Jan, [facility] [place] [facility] [address] [id number] [place] [address]- 5958 Dec, [facility] [place] [facility] [address] [id number] [place] [address]- 1737 Dec, [facility] [place] [facility] [address] [id number] [place] [address]- 1764 Dec, [facility] [place] [facility] [address] [id number] [place] [address]- 6538 15 Dec, 2012 [facility] [place] [facility] [address] [id number] [place] [address]- 7238 Dec, [facility] [place] [facility] [address] [id number] [place] [address]- 7329 Nov, [facility] [place] [facility] [address] [id number] [place] [address]- 9412 Nov, [facility] [place] [facility] [address] [id number] [place] [address]- 6815 Oct, [facility] [place] [facility] [address] [id number] [place] [address]- 2567 Sep, [facility] [place] [facility] [address] [id number] [place] [address]- 8040 Sep, [facility] [place] [facility] [address] [id number] [place] [address]- 6598 Sep, [facility] [place] [facility] [address] [id number] [place] [address]- 0847 Aug, [facility] [place] [facility] [address] [id number] [place] [address]- 2955 Jul, [facility] [place] [facility] [address] [id number] [place] [address]- 6678 June, [facility] [address] [id number] [place] [address]- 2553 June, [facility] [place] [facility] [address] [id number] [place] [address]- 2855 May, [facility] [place] [facility] [address] [id number] [place] [address]- 4725 May, [facility] [place] [facility] [address] [id number] [place] [address]- 4717 Apr, [facility] [place] [facility] [address] [id number] [place] [address]- 3123 Apr, [facility] [place] [facility] [address] [id number] [place] [address]- 2444 Apr, [facility] [place] [facility] [address] [id number] [place] [address]- 5439 Apr, [facility] [place] [facility] [address] [id number] [place] [address]- 6581 Apr, [facility] [place] [facility] [address] [id number] [place] [address]- 1725 Apr, [facility] [place] [facility] [address] [id number] [place] [address]- 8823 Apr, [facility] [place] [facility] [address] [id number] [place] [address]- 8815 Mar, [facility] [place] [facility] [address] [id number] [place] [address]- 2541 Mar, [facility] [place] [facility] [address] [id number] [place] [address]- 2546 Mar, [facility] [place] [facility] [address] [id number] [place] [address]- 6396 Feb, [facility] [place] [facility] [address] [id number] [place] [address]- 2546 Feb, [facility] [place] [facility] [address] [id number] [place] [address]- 7350 Jan, [facility] [place] [facility] [address] [id number] [place] [address]- 2881 Jan, [facility] [place] [facility] [address] [id number] [place] [address]- 9996 Jan, [facility] [place] [facility] [address] [id number] [place] [address]- 5057 Dec, [facility] [place] [facility] [address] [id number] [place] [address]- 5205 Dec, [facility] [place] [facility] [address] [id number] [place] [address]- 4919 Nov, [facility] [place] [facility] [address] [id number] [place] [address]- 5976 Oct, [facility] [place] [facility] [address] [id number] [place] [address]- 4455 Aug, [facility] [place] [facility] [address] [id number] [place] [address]- 5346 Jul, [facility] [place] [facility] [address] [id number] [place] [address]- 5202 Jul, [facility] [place] [facility] [address] [facility] [id number] [place] [address]- 2721 Jul, [facility] [place] [facility] [address] [id number] [place] [address]- 9330 Jul, [facility] [place] [facility] [address] [id number] [place] [address]- 2504 Jul, [facility] [place] [facility] [address] [id number] [place] [address]- 5461 Jul, [facility] [place] [facility] [address] [id number] [place] [address] June, [facility] [place] [facility] [address] [id number] [place] [address] June, [facility] [id number] [address] June, [facility] [address] [address] May, [facility] [id number] [address] May, [facility] [address] [address] May, [facility] [address] [address] Apr, [facility] [address] [address] Mar, [facility] [address] [address] Mar, [facility] [address] [address] Jan, [facility] [id number] [address] Dec, IMMUNIZATIONS No Known Immunizations SOCIAL HISTORY Never Assessed REASON FOR VISIT [facility] 01/21/2017 PLAN OF CARE VITAL SIGNS MEDICATIONS Medication Instructions Dosage Frequency Start Date End Date Duration Status Methylphenidate HCl ER 27 MG Orally Once a day 1 tablet in the morning 24h Jan, 28 days Active RESULTS No Results PROCEDURES [...]
--- OUTSIDE RECORDS SUMMARY | 2017-12-06 16:33 | XMS REPORT ---
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 Name Role Phone JUANY MANZOLUIS A Unavailable PROBLEMS Type Condition ICD9-CM Code [id number] Code Onset Dates Condition Status SNOMED Code Problem Delusions of parasitosis F22 Active 871890571 Problem Vaginal bleeding N93.9 Active 316645926 Problem Bipolar 1 disorder F31.9 Active 267220575 Problem Bipolar disorder, in partial remission, most recent episode mixed F31.77 Active 06791563 Problem ADD (attention deficit disorder) F90.0 Active [id number] ALLERGIES No Information ENCOUNTERS Encounter Location Date Diagnosis [place] [address] [address] June, [place] [address] [address] May, Bipolar disorder, in partial remission, most recent episode mixed F31.77 [place] [address] [place] [id number] [place] [address] 33982- 7377 Apr, Bipolar disorder, in partial remission, most recent episode mixed F31.77 [place] [address] [place] [id number] [place] [address] 8[address]67- 7550 Mar, Bipolar disorder, in partial remission, most recent episode mixed F31.77 [place] [address] [address]- [address] Feb, Bipolar disorder, in partial remission, most recent episode mixed F31.77 and ADD (attention deficit disorder) F90.0 [place] [address] [place] [id number] [place] [address] 65943- 7287 Jan, ADD (attention deficit disorder) F90.0 [place] [address] [address] Nov, Delusions of parasitosis F22 [facility] [address] [place] [address] [id number] [place] [address] 65734 2546 Oct, [facility] [id number] [place] [address] 28595 2546 Oct, Bipolar disorder, in partial remission, most recent episode mixed F31.77 and ADD (attention deficit disorder) F90.0 [facility] [id number] [place] [address] 95813 2546 Oct, [facility] [address] [place] [address] [id number] [place] [address] 75366- 1866 Oct, ADD (attention deficit disorder) F90.0 [facility] [address] [place] [address] [id number] [place] [address] 10796- 4046 Oct, [facility] [address] [place] [address] [id number] [place] [address] 23205- 8986 Oct, [facility] [address] [place] [address] [id number] [place] [address] 24154- 8056 13 Oct, 2016 Skin lesions L98.9 and Hematochezia K92.1 [facility] [address] [address] 2546 Oct, Bipolar disorder, in partial remission, most recent episode mixed F31.77 [facility] [address] [place] [address] 15513- 9196 Oct, Bipolar disorder, in partial remission, most recent episode mixed F31.77 and ADD (attention deficit disorder) F90.0 [facility] [address] [place] [id number] [place] [address] 68729- 9846 Sep, Bipolar disorder, in partial remission, most recent episode mixed F31.77 [facility] [address] [address]- 1566 Sep, Bipolar disorder, in partial remission, most recent episode mixed F31.77 and ADD (attention deficit disorder) F90.0 [facility] [address] [address]- 9326 Aug, [facility] [address] [place] [id number] [address] Aug, Bipolar disorder, in partial remission, most recent episode mixed F31.77 and ADD (attention deficit disorder) F90.0 [facility] [address] [address]- 2746 Aug, ADD (attention deficit disorder) F90.0 [facility] [address] [address]- 3726 Aug, ADD (attention deficit disorder) F90.0 [facility] [address] [address]- 7186 Jul, ADD (attention deficit disorder) F90.0 [facility] [address] [address]- 0781 June, ADD (attention deficit disorder) F90.0 [facility] [address] [address]- 6571 May, ADD (attention deficit disorder) F90.0 and Bipolar disorder , in partial remission, most recent episode mixed F31.77 [facility] [address] [address]- 4356 May, Bipolar disorder, in partial remission, most recent episode mixed F31.77 [facility] [address] [place] [id number] [address]- 0106 Apr, Bipolar disorder, in partial remission, most recent episode mixed F31.77 [facility] [address] [place] [id number] [address] 6046 Mar, Bipolar disorder, in partial remission, most recent episode mixed F31.77 [facility] [address] [place] [id number] [address]- 4755 Feb, ADD (attention deficit disorder) F90.0 [facility] [address] [place] [id number] [address]- 7186 Feb, [facility] [address] [place] [id number] [place] [address] 28250- 0506 Feb, [facility] [address] [place] [id number] [place] [address] 00224- 1124 Feb, Bipolar disorder, in partial remission, most recent episode mixed F31.77 ; ADD (attention deficit disorder) F90.0 and 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 [facility] [address] [place] [id number] [place] [address] 78969- 4888 Feb, [facility] [address] [place] [id number] [place] [address] 41579- 5336 Jan, [facility] [address] [place] [id number] [place] [address] 94223- 8302 Dec, [facility] [address] [place] [id number] [place] [address] 89697- 6107 Nov, Bipolar disorder, in partial remission, most recent episode mixed F31.77 and ADD (attention deficit disorder) F90.0 [facility] [address] [place] [id number] [address]- 5006 Nov, [facility] [address] [place] [id number] [address] 2546 Oct, [facility] [address] [place] [id number] [address] 2546 Sep, [facility] [address] [place] [id number] [place] [address], [place] [address]- 8716 Sep, [facility] [address] [place] [id number] [place] [place] [address]- 2546 Aug, [facility] [address] [place] [id number] [place] [address] 76231- 2444 Jul, Bipolar I disorder, most recent episode mixed, in remission F31.70 and ADD (attention deficit disorder) F90.0 [facility] [address] [place] [id number] [address]- 8255 14 Jul, 2015 [facility] [address] [address] [id number] [address]- 7106 June, [facility] [address] [place] [id number] [place] [address], [place] [address]- 8754 May, Bipolar 1 disorder F31.9 and ADD (attention deficit disorder ) F90.0 [facility] [address] [place] [id number] [place] [address], [place] [address]- 5676 May, [facility] [address] [place] [id number] [place] [address], [place] [address]- 5263 Apr, [facility] [address] [place] [id number] [place] [address] 09327- 5467 Mar, [facility] [address] [id number] [address]- 9505 Mar, [facility] [address] [place] [id number] [place] [address], [place] [address]- 4749 Mar, [facility] [address] [address]- 8854 Feb, [facility] [address] [place] [id number] [address]- 4294 Jan, [facility] [address] [address]- 6472 Jan, Bipolar disorder, in partial remission, most recent episode mixed F31.77 and Attention-deficit hyperactivity disorder, unspecified type F90.9 [facility] [address] [place] [place] [address]- 6930 Dec, [facility] [address] [place] [place] [address]- 3654 Nov, [facility] [address] 7099 Oct, Bipolar I disorder, most recent episode (or current) mixed, in partial or unspecified remission 296.65 and Attention deficit disorder of childhood without mention of hyperactivity 314.00 [facility] [address] 6030 Jul, [facility] [address] [place] [id number] [place] [address] 045548- 6585 Jul, [facility] [address] 9559 Jul, [facility] [address] [place] [id number] [place] [address] 043154- 0221 June, Bipolar I disorder, most recent episode (or current) mixed, in partial or unspecified remission 296.65 and Attention deficit disorder of childhood without mention of hyperactivity 314.00 [facility] [address] [place] [address] 22354488- 4175 June, [facility] [address] [address]- 3070 May, [facility] [id number] [place] [address] 17516- 3819 May, [facility] [address] [address]- 8979 Apr, [facility] [address] 5013 Apr, [facility] [address] 9864 Mar, [facility] [address] [address]- 9786 Mar, [facility] [address] 2128 Feb, [facility] [address] [place] [id number] [place] [address] 73166- 7301 Feb, [facility] [place] [facility] [address] [id number] [place] [address]- 1872 Feb, [facility] [place] [facility] [address] [id number] [place] [address]- 9411 Feb, [facility] [place] [facility] [address] [id number] [place] [address]- 0149 Feb, [facility] [place] [facility] [address] [id number] [place] [address]- 4160 Feb, [facility] [place] [facility] [address] [id number] [place] [address]- 0923 Feb, [facility] [place] [facility] [address] [id number] [place] [address]- 3848 Feb, [facility] [place] [facility] [address] [id number] [place] [address]- 8933 Feb, [facility] [place] [facility] [address] [id number] [place] [address]- 4354 Feb, [facility] [place] [facility] [address] [id number] [place] [address]- 0337 Jan, [facility] [place] [facility] [address] [id number] [place] [address]- 3199 Jan, [facility] [place] [facility] [address] [id number] [place] [address]- 7695 Dec, [facility] [place] [facility] [address] [id number] [place] [address]- 2774 Dec, [facility] [place] [facility] [address] [id number] [place] [address]- 9831 Dec, [facility] [place] [facility] [address] [id number] [place] [address]- 4924 Dec, [facility] [place] [facility] [address] [id number] [place] [address]- 0419 Dec, [facility] [place] [facility] [address] [id number] [place] [address]- 1089 12 Dec, 2013 [facility] [place] [facility] [address] [id number] [place] [address]- 7320 17 Nov, 2013 [facility] [place] [facility] [address] [id number] [place] [address]- 1986 17 Nov, 2013 [facility] [place] [facility] [address] [id number] [place] [address]- 0779 16 Nov, 2013 [facility] [place] [facility] [address] [id number] [place] [address]- 3503 16 Nov, 2013 [facility] [place] [facility] [address] [id number] [place] [address]- 8822 15 Nov, 2013 [facility] [place] [facility] [address] [id number] [place] [address]- 6825 15 Nov, 2013 [facility] [place] [facility] [address] [id number] [place] [address]- 0932 24 Sep, 2013 [facility] [place] [facility] [address] [id number] [place] [address]- 7830 24 Sep, 2013 [facility] [place] [facility] [address] [id number] [place] [address]- 2544 24 Sep, 2013 [facility] [place] [facility] [address] [id number] [place] [address]- 7326 24 Sep, 2013 [facility] [place] [facility] [address] [id number] [place] [address]- 1017 19 Sep, 2013 [facility] [place] [facility] [address] [id number] [place] [address]- 2540 19 Sep, 2013 [facility] [place] [facility] [address] [id number] [place] [address]- 2545 19 Sep, 2013 [facility] [place] [facility] [address] [id number] [place] [address]- 2545 19 Sep, 2013 [facility] [place] [facility] [address] [id number] [place] [address]- 5625 18 Oct, 2013 [facility] [place] [facility] [address] [id number] [place] [address]- 7328 18 Oct, 2013 [facility] [place] [facility] [address] [id number] [place] [address]- 7344 17 Oct, 2013 [facility] [place] [facility] [address] [id number] [place] [address]- 9279 17 Oct, 2013 [facility] [place] [facility] [address] [id number] [place] [address]- 1178 16 Oct, 2013 [facility] [place] [facility] [address] [id number] [place] [address]- 7875 16 Oct, 2013 [facility] [place] [facility] [address] [id number] [place] [address]- 8837 Sep, [facility] [place] [facility] [address] [id number] [place] [address]- 2881 Sep, [facility] [place] [facility] [address] [id number] [place] [address]- 6014 Sep, [facility] [place] [facility] [address] [id number] [place] [address]- 7727 Sep, [facility] [place] [facility] [address] [id number] [place] [address]- 1597 Sep, [facility] [place] [facility] [address] [id number] [place] [address]- 7657 Sep, [facility] [place] [facility] [address] [id number] [address]- 9823 Aug, [facility] [place] [facility] [address] [id number] [place] [address]- 2242 Aug, [facility] [place] [facility] [address] [id number] [place] [address]- 8836 Jul, [facility] [place] [facility] [address] [id number] [place] [address]- 6116 Jul, [facility] [place] [facility] [address] [id number] [place] [address]- 7375 Jul, [facility] [address] [id number] [place] [address]- 1951 Jul, [facility] [place] [facility] [address] [id number] [place] [address]- 1035 June, [facility] [place] [facility] [address] [id number] [place] [address]- 9470 June, [facility] [place] [facility] [address] [id number] [place] [address]- 3882 May, [facility] [place] [facility] [address] [id number] [place] [address]- 9862 May, [facility] [place] [facility] [address] [id number] [place] [address]- 1737 Apr, [facility] [place] [facility] [address] [id number] [place] [address]- 9534 Apr, [facility] [place] [facility] [address] [id number] [place] [address]- 7331 Apr, [facility] [place] [facility] [address] [id number] [place] [address]- 2718 Apr, [facility] [place] [facility] [address] [id number] [place] [address]- 7915 Mar, [facility] [place] [facility] [address] [id number] [place] [address]- 4922 Mar, [facility] [place] [facility] [address] [id number] [place] [address]- 3996 Feb, [facility] [place] [facility] [address] [id number] [place] [address]- 2407 Feb, [facility] [place] [facility] [address] [id number] [place] [address]- 6701 Jan, [facility] [place] [facility] [address] [id number] [place] [address]- 1207 Jan, [facility] [place] [facility] [address] [id number] [place] [address]- 8654 Dec, [facility] [address] [id number] [place] [address]- 4100 Dec, [facility] [address] [id number] [place] [address] 2542 Dec, [facility] [place] [facility] [address] [id number] [place] [address]- 1342 Dec, [facility] [address] [id number] [place] [address]- 3957 Dec, [facility] [place] [facility] [address] [id number] [place] [address]- 0356 Nov, [facility] [address] [id number] [place] [address]- 2177 Nov, [facility] [address] [id number] [place] [address]- 7493 Oct, [facility] [address] [id number] [place] [address]- 5372 Sep, [facility] [place] [facility] [address] [id number] [place] [address]- 2278 Sep, [facility] [place] [facility] [address] [id number] [place] [address]- 2546 Sep, [facility] [place] [facility] [address] [id number] [address]- 2546 Aug, [facility] [place] [facility] [address] [id number] [place] [address]- 2548 Jul, [facility] [place] [facility] [address] [id number] [place] [address]- 2546 June, [facility] [place] [facility] [address] [id number] [place] [address]- 2546 June, [facility] [place] [facility] [address] [id number] [address]- 5749 May, [facility] [address] [id number] [place] [address]- 3940 May, [facility] [address] [id number] [place] [address]- 3795 Apr, [facility] [address] [id number] [place] [address]- 5451 Apr, [facility] [address] [id number] [place] [address]- 5863 13 Apr, 2012 [facility] [address] [id number] [place] [address]- 8691 08 Apr, 2012 [facility] [address] [id number] [place] [address]- 5924 08 Apr, 2012 [facility] [address] [id number] [place] [address]- 8616 Apr, [facility] [address] [id number] [place] [address]- 0795 Apr, [facility] [address] [id number] [place] [address]- 6606 Mar, [facility] [address] [id number] [place] [address]- 7241 Mar, [facility] [address] [id number] [address]- 3471 Mar, [facility] [place] [facility] [address] [id number] [address]- 1757 Feb, [facility] [place] [facility] [address] [id number] [place] [address]- 6568 Feb, [facility] [place] [facility] [address] [id number] [place] [address]- 4632 Jan, [facility] [place] [facility] [address] [id number] [place] [address]- 3960 Jan, [facility] [place] [facility] [address] [id number] [place] [address]- 0448 Jan, [facility] [place] [facility] [address] [id number] [place] [address]- 8465 Dec, [facility] [place] [facility] [address] [id number] [place] [address] Dec, [facility] [place] [facility] [address] [id number] [place] [address] Nov, [facility] [place] [facility] [address] [id number] [place] [address] Oct, [facility] [place] [facility] [address] [id number] [place] [address] Aug, [facility] [place] [facility] [address] [id number] [place] [address] Jul, [facility] [place] [facility] [address] [id number] [place] [address] Jul, [facility] [place] [facility] [address] [id number] [place] [address] Jul, [facility] [place] [facility] [address] [id number] [place] [address] Jul, [facility] [place] [facility] [address] [id number] [place] [address] Jul, [facility] [place] [facility] [address] [id number] [place] [address] Jul, [facility] [place] [facility] [address] [id number] [place] [address] June, [facility] [place] [facility] [address] [id number] [place] [address] June, [facility] [place] [facility] [address] [id number] [place] [address] June, [facility] [place] [facility] [address] [id number] [place] [address] May, [facility] [address] [facility] [id number] [address] May, [facility] [id number] [address] May, [facility] [id number] [address] Apr, [facility] [id number] [address] Mar, [facility] [id number] [address] Mar, [facility] [id number] [address] Jan, [facility] [id number] [address] Dec, IMMUNIZATIONS No Known Immunizations SOCIAL HISTORY Never Assessed REASON FOR VISIT methylphenidate 11/04/2016 PLAN OF CARE VITAL SIGNS MEDICATIONS Medication [...]
--- OUTSIDE RECORDS SUMMARY | 2017-12-06 16:33 | XMS REPORT ---
Author Author JOSSUE MANZO [facility] Address [address] [place] [address] Care Team Providers Care Tectonophysicist Name Role Phone JUANY MANZOLUIS A Unavailable PROBLEMS Type Condition ICD9-CM Code [id number] Code Onset Dates Condition Status SNOMED Code Problem Delusions of parasitosis F22 Active 394037234 Problem Vaginal bleeding N93.9 Active 557167934 Problem Bipolar 1 disorder F31.9 Active 560965307 Problem Bipolar disorder, in partial remission, most recent episode mixed F31.77 Active 44901011 Problem ADD (attention deficit disorder) F90.0 Active [id number] ALLERGIES No Information ENCOUNTERS Encounter Location Date Diagnosis [place] [address] [address] June, [place] [address] [address]- [address] May, Bipolar disorder, in partial remission, most recent episode mixed F31.77 [place] [address] [place] [id number] [place] [address] 60766- 2983 Apr, Bipolar disorder, in partial remission, most recent episode mixed F31.77 [place] [address] [place] [id number] [place] [address] 89762- 1173 Mar, Bipolar disorder, in partial remission, most recent episode mixed F31.77 [place] [address] [address]- 4829 Feb, Bipolar disorder, in partial remission, most recent episode mixed F31.77 and ADD (attention deficit disorder) F90.0 [place] [address] [place] [id number] [place] [address] 98968- 5677 Jan, ADD (attention deficit disorder) F90.0 [place] [id number], [place] [address] 95[address] Nov, Delusions of parasitosis F22 [facility] [id number] [place] [address] 21144 2546 Oct, [facility] [id number] [place] [address] 58716 2546 Oct, Bipolar disorder, in partial remission, most recent episode mixed F31.77 and ADD (attention deficit disorder) F90.0 [facility] [id number] [place] [address] 47173 2546 Oct, [facility] [id number] [place] [address] 30022- 8306 Oct, ADD (attention deficit disorder) F90.0 [facility] [address] [place] [id number] [place] [address] 08731- 4486 Oct, [facility] [id number] [place] [address] 23910- 3666 Oct, [facility] [id number] [place] [address] 30985- 3796 13 Oct, 2016 Skin lesions L98.9 and Hematochezia K92.1 [facility] [address] [place] [address] 2546 Oct, Bipolar disorder, in partial remission, most recent episode mixed F31.77 [facility] [id number] [place] [address] 92227- 9056 Oct, Bipolar disorder, in partial remission, most recent episode mixed F31.77 and ADD (attention deficit disorder) F90.0 [facility] [id number] [place] [address] 01201- 4506 Sep, Bipolar disorder, in partial remission, most recent episode mixed F31.77 [facility] [address], [place] [address] 9456 Sep, Bipolar disorder, in partial remission, most recent episode mixed F31.77 and ADD (attention deficit disorder) F90.0 [facility] [address], [place] [address]- 2286 Aug, [facility] [address] [place] [id number] [id number] [address]36 Aug, Bipolar disorder, in partial remission, most recent episode mixed F31.77 and ADD (attention deficit disorder) F90.0 [facility] [address], [place] [address]- 1316 Aug, ADD (attention deficit disorder) F90.0 [facility] [address], [place] [address]- 0296 Aug, ADD (attention deficit disorder) F90.0 [facility] [id number], [place] [address]- 5586 Jul, ADD (attention deficit disorder) F90.0 [facility] [address], [place] [address]- 5439 June, ADD (attention deficit disorder) F90.0 [facility] [address], [place] [address]- 8804 May, ADD (attention deficit disorder) F90.0 and Bipolar disorder , in partial remission, most recent episode mixed F31.77 [facility] [address], [place] [address]- 3016 May, Bipolar disorder, in partial remission, most recent episode mixed F31.77 [facility] [address] [id number], [place] [address]- 2976 Apr, Bipolar disorder, in partial remission, most recent episode mixed F31.77 [facility] [address] [place] [id number] [address] 8556 Mar, Bipolar disorder, in partial remission, most recent episode mixed F31.77 [facility] [address] [id number], [place] [address]- 6976 Feb, ADD (attention deficit disorder) F90.0 [facility] [address] [place] [id number], [place] [address]- 5996 Feb, [facility] [address] [place] [id number] [place] [address] 94874- 1966 Feb, [facility] [address] [place] [id number] [place] [address] 98309- 8029 Feb, Bipolar disorder, in partial remission, most recent episode mixed F31.77 ; ADD (attention deficit disorder) F90.0 and 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 [facility] [address] [place] [id number] [place] [address] 47871- 3068 Feb, [facility] [address] [place] [id number] [place] [address] 39696- 6116 Jan, [facility] [address] [place] [id number] [place] [address] 25304- 0438 Dec, [facility] [address] [place] [id number] [place] [address] 91563- 4581 Nov, Bipolar disorder, in partial remission, most recent episode mixed F31.77 and ADD (attention deficit disorder) F90.0 [facility] [address] [id number], [place] [address]- 9546 Nov, [facility] [id number], [place] [address] 2546 Oct, [facility] [address] [id number], [place] [address] 2546 Sep, [facility] [address] [place] [address] [id number] [place] [address], [place] [address]- 5676 Sep, [facility] [address] [place] [id number] [address]- 2546 Aug, [facility] [address] [place] [address] [id number] [place] [address] 98327- 9603 Jul, Bipolar I disorder, most recent episode mixed, in remission F31.70 and ADD (attention deficit disorder) F90.0 [facility] [id number] [address]- 1458 14 Jul, 2015 [facility] [id number], [place] [address]- 4647 June, [facility] [address] [place] [id number] [place] [address], [place] [address]- 3954 May, Bipolar 1 disorder F31.9 and ADD (attention deficit disorder ) F90.0 [facility] [address] [place] [id number] [place] [address], [place] [address]- 3273 May, [facility] [address] [place] [id number] [place] [address], [place] [address]- 2572 Apr, [facility] [address] [place] [id number] [place] [address] 43855- 7573 Mar, [facility] [id number], [place] [address]- 7086 Mar, [facility] [address] [place] [id number] [place] [address], [place] [address]- 0773 Mar, [facility] [address], [place] [address]- 3966 Feb, [facility] [address] [id number] [address]- 3691 Jan, [facility] [address], [place] [address]- 7651 Jan, Bipolar disorder, in partial remission, most recent episode mixed F31.77 and Attention-deficit hyperactivity disorder, unspecified type F90.9 [facility] [address] [place] [address]- 8196 Dec, [facility] [address] [place] [address]- 0363 Nov, [facility] [address] 2518 Oct, Bipolar I disorder, most recent episode (or current) mixed, in partial or unspecified remission 296.65 and Attention deficit disorder of childhood without mention of hyperactivity 314.00 [facility] [address] 8030 Jul, [facility] [address] [place] [id number] [place] [address] 716904- 9256 Jul, [facility] [address]- 9643 Jul, [facility] [address] [place] [id number] [place] [address] 964951- 7914 June, Bipolar I disorder, most recent episode (or current) mixed, in partial or unspecified remission 296.65 and Attention deficit disorder of childhood without mention of hyperactivity 314.00 [facility] [id number] [place] [address] [id number]- 3896 June, [facility] [address], [place] [address]- 6540 May, [facility] [id number] [place] [address] 97798- 2759 May, [facility] [address], [place] [address]- 2331 Apr, [facility] [address]- 1277 Apr, [facility] [address] 2086 Mar, [facility] [address]- 9486 Mar, [facility] [address] 1530 Feb, [facility] [address] [place] [id number] [place] [address] 48281- 6459 Feb, [facility] [place] [facility] [address] [id number] [place] [address]- 1553 Feb, [facility] [place] [facility] [address] [id number] [place] [address]- 8101 Feb, [facility] [place] [facility] [address] [id number] [place] [address]- 7404 Feb, [facility] [place] [facility] [address] [id number] [place] [address]- 3323 Feb, [facility] [place] [facility] [address] [id number] [place] [address]- 9807 Feb, [facility] [place] [facility] [address] [id number] [place] [address]- 6466 Feb, [facility] [place] [facility] [address] [id number] [place] [address]- 4803 Feb, [facility] [place] [facility] [address] [id number] [place] [address]- 7845 Feb, [facility] [place] [facility] [address] [id number] [place] [address]- 5435 Jan, [facility] [place] [facility] [address] [id number] [place] [address]- 1895 Jan, [facility] [place] [facility] [address] [id number] [place] [address]- 3324 Dec, [facility] [place] [facility] [address] [id number] [place] [address]- 9002 Dec, [facility] [place] [facility] [address] [id number] [place] [address]- 7988 Dec, [facility] [place] [facility] [address] [id number] [place] [address]- 5289 Dec, [facility] [place] [facility] [address] [id number] [place] [address]- 5880 Dec, [facility] [place] [facility] [address] [id number] [place] [address]- 2398 12 Dec, 2013 [facility] [place] [facility] [address] [id number] [place] [address]- 2405 17 Nov, 2013 [facility] [place] [facility] [address] [id number] [place] [address]- 6726 17 Nov, 2013 [facility] [place] [facility] [address] [id number] [place] [address]- 5596 16 Nov, 2013 [facility] [place] [facility] [address] [id number] [place] [address]- 2061 16 Nov, 2013 [facility] [place] [facility] [address] [id number] [place] [address]- 5977 15 Nov, 2013 [facility] [place] [facility] [address] [id number] [place] [address]- 6822 15 Nov, 2013 [facility] [place] [facility] [address] [id number] [place] [address]- 0765 24 Sep, 2013 [facility] [place] [facility] [address] [id number] [place] [address]- 9058 24 Sep, 2013 [facility] [place] [facility] [address] [id number] [place] [address]- 2540 24 Sep, 2013 [facility] [place] [facility] [address] [id number] [place] [address]- 1755 24 Sep, 2013 [facility] [place] [facility] [address] [id number] [place] [address]- 8261 19 Sep, 2013 [facility] [place] [facility] [address] [id number] [place] [address]- 254 19 Sep, 2013 [facility] [place] [facility] [address] [id number] [place] [address]- 2542 19 Sep, 2013 [facility] [place] [facility] [address] [id number] [place] [address]- 2549 19 Sep, 2013 [facility] [place] [facility] [address] [id number] [place] [address]- 9030 18 Oct, 2013 [facility] [place] [facility] [address] [id number] [place] [address]- 7389 18 Oct, 2013 [facility] [place] [facility] [address] [id number] [place] [address]- 3324 17 Oct, 2013 [facility] [place] [facility] [address] [id number] [place] [address]- 2790 17 Oct, 2013 [facility] [place] [facility] [address] [id number] [place] [address]- 2980 16 Oct, 2013 [facility] [place] [facility] [address] [id number] [place] [address]- 5100 16 Oct, 2013 [facility] [place] [facility] [address] [id number] [place] [address]- 5275 Sep, [facility] [place] [facility] [address] [id number] [place] [address]- 9052 Sep, [facility] [place] [facility] [address] [id number] [place] [address]- 6505 Sep, [facility] [place] [facility] [address] [id number] [place] [address]- 5416 Sep, [facility] [place] [facility] [address] [id number] [place] [address]- 5320 Sep, [facility] [place] [facility] [address] [id number] [place] [address]- 5530 Sep, [facility] [place] [facility] [address] [id number], [place] [address]- 2034 Aug, [facility] [place] [facility] [address] [id number] [place] [address]- 6956 Aug, [facility] [place] [facility] [address] [id number] [place] [address]- 9688 Jul, [facility] [place] [facility] [address] [id number] [place] [address]- 9394 Jul, [facility] [place] [facility] [address] [id number] [place] [address]- 8414 Jul, [facility] [address] [id number] [place] [address]- 7509 Jul, [facility] [place] [facility] [address] [id number] [place] [address]- 0748 June, [facility] [place] [facility] [address] [id number] [place] [address]- 1831 June, [facility] [place] [facility] [address] [id number] [place] [address]- 5712 May, [facility] [place] [facility] [address] [id number] [place] [address]- 8482 May, [facility] [place] [facility] [address] [id number] [place] [address]- 4533 Apr, [facility] [place] [facility] [address] [id number] [place] [address]- 2061 Apr, [facility] [place] [facility] [address] [id number] [place] [address]- 7952 Apr, [facility] [place] [facility] [address] [id number] [place] [address]- 2235 Apr, [facility] [place] [facility] [address] [id number] [place] [address]- 1655 Mar, [facility] [place] [facility] [address] [id number] [place] [address]- 5640 Mar, [facility] [place] [facility] [address] [id number] [place] [address]- 6878 Feb, [facility] [place] [facility] [address] [id number] [place] [address]- 2831 Feb, [facility] [place] [facility] [address] [id number] [place] [address]- 7776 Jan, [facility] [place] [facility] [address] [id number] [place] [address]- 9653 Jan, [facility] [place] [facility] [address] [id number] [place] [address]- 7594 Dec, [facility] [address] [id number] [place] [address]- 6567 Dec, [facility] [address] [id number] [place] [address] 2545 Dec, [facility] [place] [facility] [address] [id number] [place] [address]- 5937 Dec, [facility] [address] [id number] [place] [address]- 4390 Dec, [facility] [place] [facility] [address] [id number] [place] [address]- 3316 Nov, [facility] [address] [id number] [place] [address]- 9889 Nov, [facility] [address] [id number] [place] [address]- 9847 Oct, [facility] [address] [id number] [place] [address]- 8659 Sep, [facility] [place] [facility] [address] [id number] [place] [address]- 8432 Sep, [facility] [place] [facility] [address] [id number] [place] [address]- 2546 Sep, [facility] [place] [facility] [address] [id number], [place] [address]- 2546 Aug, [facility] [place] [facility] [address] [id number] [place] [address]- 2543 Jul, [facility] [place] [facility] [address] [id number] [place] [address]- 2546 June, [facility] [place] [facility] [address] [id number] [place] [address]- 2546 June, [facility] [place] [facility] [address] [id number], [place] [address]- 5161 May, [facility] [address] [id number] [place] [address]- 6595 May, [facility] [address] [id number] [place] [address]- 4633 Apr, [facility] [address] [id number] [place] [address]- 7070 Apr, [facility] [address] [id number] [place] [address]- 5321 13 Apr, 2012 [facility] [address] [id number] [place] [address]- 9383 08 Apr, 2012 [facility] [address] [id number] [place] [address]- 4623 08 Apr, 2012 [facility] [address] [id number] [place] [address]- 9169 Apr, [facility] [address] [id number] [place] [address]- 0378 Apr, [facility] [address] [id number] [place] [address]- 8529 Mar, [facility] [address] [id number] [place] [address]- 0865 Mar, [facility] [address] [id number], [place] [address]- 7203 Mar, [facility] [place] [facility] [address] [id number], [place] [address]- 2891 Feb, [facility] [place] [facility] [address] [id number] [place] [address]- 7299 Feb, [facility] [place] [facility] [address] [id number] [place] [address]- 3904 Jan, [facility] [place] [facility] [address] [id number] [place] [address]- 0692 Jan, [facility] [place] [facility] [address] [id number] [place] [address]- 5487 Jan, [facility] [place] [facility] [address] [id number] [place] [address]- 0918 Dec, [facility] [place] [facility] [address] [id number] [place] [address]- 2546 Dec, [facility] [place] [facility] [address] [id number] [place] [address]- 8433 Nov, [facility] [place] [facility] [address] [id number] [place] [address]- 3741 Oct, [facility] [place] [facility] [address] [id number] [place] [address]- 8890 Aug, [facility] [place] [facility] [address] [id number] [place] [address]- 2229 Jul, [facility] [place] [facility] [address] [id number] [place] [address]- 4843 Jul, [facility] [place] [facility] [address] [id number] [place] [address] Jul, [facility] [place] [facility] [address] [id number] [place] [address] Jul, [facility] [place] [facility] [address] [id number] [place] [address] Jul, [facility] [place] [facility] [address] [id number] [place] [address] Jul, [facility] [place] [facility] [address] [id number] [place] [address] June, [facility] [place] [facility] [address] [id number] [place] [address] June, [facility] [place] [facility] [address] [id number] [place] [address] June, [facility] [place] [facility] [address] [id number] [place] [address] May, [facility] [address] [facility] [id number] [address] May, [facility] [id number] [address] May, [facility] [id number] [address] Apr, [facility] [address] [id number] [address] Mar, [facility] [id number], [place] [address] Mar, [facility] [id number], [place] [address] Jan, [facility] [id number], [place] [address] Dec, IMMUNIZATIONS No Known Immunizations SOCIAL HISTORY Never Assessed REASON FOR VISIT BH intake. Barbi PAL PLAN OF CARE Activity Details Follow Up 2 Weeks Reason: VITAL SIGNS Height 65.5 in 2016-10-02 Weight 146.1 lbs 2016-10-02 Heart Rate 78 bpm 2016-10-02 Respiratory Rate 20 2016-10-02 BMI 23.94 kg/m2 2016-10-02 Blood pressure systolic 128 mmHg 2016-10-02 Blood pressure diastolic 72 mmHg 2016-10-02 MEDICATIONS Medication Instructions Dosage Frequency Start Date End Date Duration Status BuPROPion HCl ER (XL) 300 MG Orally Once a day 1 tablet in the morning 24h 30 days Active Depakote ER 500 MG Orally at bedtime 2 tablets 30 days Active Vitamin D 1000 UNIT Orally Once a day 1 tablet 24h Active Vitamin D-3 1000 UNIT Orally Once a day 1 capsule 24h Active Fish Oil 1200 MG Orally Once a day 1 capsule 24h Active Melatonin 3 MG Orally Once a day 1 tablet at bedtime as needed with food 24h Active Calcium 600 MG Orally Twice a day 1 tablet with meals 12h Active Co Q-10 100 MG Orally Once a day 1 capsule with a meal 24h Active Methylphenidate HCl ER 27 MG Orally Once a day 1 tablet in the morning 24h Sep, Oct, 28 days Active B Complex + C TR - Active Methylphenidate HCl 20 MG Orally Twice a day 1 tablet 12h 25 Aug, 2016 Sep, 30 days Active Vitamin B 12 100 MCG Active RESULTS No Results PROCEDURES Procedure Date Ordered Result Body Site ELECTROCARDIOGRAM, TRACING Oct 02, 2016 INSTRUCTIONS MEDICATIONS ADMINISTERED No Known Medications MEDICAL [...]
--- OUTSIDE RECORDS SUMMARY | 2017-12-06 16:34 | XMS REPORT ---
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 Name Role Phone JUANY MANZOLUIS A Unavailable PROBLEMS Type Condition ICD9-CM Code [id number] Code Onset Dates Condition Status SNOMED Code Problem Delusions of parasitosis F22 Active 729404824 Problem Vaginal bleeding N93.9 Active 969635623 Problem Bipolar 1 disorder F31.9 Active 688508570 Problem Bipolar disorder, in partial remission, most recent episode mixed F31.77 Active 46295091 Problem ADD (attention deficit disorder) F90.0 Active [id number] ALLERGIES No Information ENCOUNTERS Encounter Location Date Diagnosis [place] [address] [address] June, [place] [address] [address] May, Bipolar disorder, in partial remission, most recent episode mixed F31.77 [place] [address] [place] [id number] [place] [address]49- 4979 Apr, Bipolar disorder, in partial remission, most recent episode mixed F31.77 [place] [address] [place] [id number] [place] [address] 76442- 6455 Mar, Bipolar disorder, in partial remission, most recent episode mixed F31.77 [place] [address] [address]- [address] Feb, Bipolar disorder, in partial remission, most recent episode mixed F31.77 and ADD (attention deficit disorder) F90.0 [place] [address] [place] [id number] [place] [address]64- 4921 Jan, ADD (attention deficit disorder) F90.0 [place] [address], [place] [address] Nov, Delusions of parasitosis F22 [facility] [address] [place] [id number] [place] [address] 38207 2546 Oct, [facility] [id number] [place] [address] 94090 2546 Oct, Bipolar disorder, in partial remission, most recent episode mixed F31.77 and ADD (attention deficit disorder) F90.0 [facility] [id number] [place] [address] 30703 2546 Oct, [facility] [address] [place] [address] [id number] [place] [address] 62951- 5026 Oct, ADD (attention deficit disorder) F90.0 [facility] [address] [place] [id number] [place] [address] 08878- 0946 Oct, [facility] [address] [place] [id number] [place] [address] 87700- 1216 Oct, [facility] [address] [place] [id number] [place] [address] 21775- 2126 13 Oct, 2016 Skin lesions L98.9 and Hematochezia K92.1 [facility] [address] [address] Oct, Bipolar disorder, in partial remission, most recent episode mixed F31.77 [facility] [id number] [place] [address] 49598- 0676 Oct, Bipolar disorder, in partial remission, most recent episode mixed F31.77 and ADD (attention deficit disorder) F90.0 [facility] [address] [place] [id number] [place] [address] 25529- 1676 Sep, Bipolar disorder, in partial remission, most recent episode mixed F31.77 [facility] [address] [address]- 3[address] Sep, Bipolar disorder, in partial remission, most recent episode mixed F31.77 and ADD (attention deficit disorder) F90.0 [facility] [address] [address]- 4[address] Aug, [facility] [address] [place] [id number] [address] [address] Aug, Bipolar disorder, in partial remission, most recent episode mixed F31.77 and ADD (attention deficit disorder) F90.0 [facility] [address] [address]- 9996 Aug, ADD (attention deficit disorder) F90.0 [facility] [address] [address]- 3726 Aug, ADD (attention deficit disorder) F90.0 [facility] [address] [address]- 8766 Jul, ADD (attention deficit disorder) F90.0 [facility] [address] [address]- 2751 June, ADD (attention deficit disorder) F90.0 [facility] [address], [place] [address]- 2601 May, ADD (attention deficit disorder) F90.0 and Bipolar disorder , in partial remission, most recent episode mixed F31.77 [facility] [address], [place] [address]- 4826 May, Bipolar disorder, in partial remission, most recent episode mixed F31.77 [facility] [address] [place] [id number] [address]- 2656 Apr, Bipolar disorder, in partial remission, most recent episode mixed F31.77 [facility] [address] [place] [id number] [address] [address] Mar, Bipolar disorder, in partial remission, most recent episode mixed F31.77 [facility] [address] [id number] [address]- 3832 Feb, ADD (attention deficit disorder) F90.0 [facility] [address] [place] [address] [id number] [address]- 8806 Feb, [facility] [address] [place] [id number] [place] [address] 94219- 8776 Feb, [facility] [address] [place] [id number] [place] [address] 28525- 8846 Feb, Bipolar disorder, in partial remission, most recent episode mixed F31.77 ; ADD (attention deficit disorder) F90.0 and 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 [facility] [address] [place] [id number] [place] [address] 70922- 2586 Feb, [facility] [address] [place] [id number] [place] [address] 31453- 1496 Jan, [facility] [address] [place] [id number] [place] [address] 26758- 5388 Dec, [facility] [address] [place] [id number] [place] [address] 09658- 9348 Nov, Bipolar disorder, in partial remission, most recent episode mixed F31.77 and ADD (attention deficit disorder) F90.0 [facility] [address] [place] [id number] [address]- 3[address] Nov, [facility] [address] [place] [id number] [address] 2546 Oct, [facility] [address] [place] [id number] [address] 2546 Sep, [facility] [address] [place] [id number] [place] [address], [place] [address]- 2746 Sep, [facility] [address] [place] [address] [id number] [place] [address]- 2546 Aug, [facility] [address] [place] [id number] [place] [address] 51934- 9637 Jul, Bipolar I disorder, most recent episode mixed, in remission F31.70 and ADD (attention deficit disorder) F90.0 [facility] [address] [place] [id number] [address]- 4066 14 Jul, 2015 [facility] [id number] [address] June, [facility] [address] [place] [id number] [place] [address], [place] [address]- 4360 May, Bipolar 1 disorder F31.9 and ADD (attention deficit disorder ) F90.0 [facility] [address] [place] [id number] [place] [address], [place] [address]- 3184 May, [facility] [address] [place] [id number] [place] [address], [place] [address]- 6122 Apr, [facility] [address] [place] [id number] [place] [address] 03707- 9978 Mar, [facility] [address] [id number] [address]- 9331 Mar, [facility] [address] [place] [id number] [place] [address], [place] [address]- 9310 Mar, [facility] [address], [place] [address]- 5854 Feb, [facility] [address] [place] [id number] [address]- 0184 Jan, [facility] [address], [place] [address]- 9581 Jan, Bipolar disorder, in partial remission, most recent episode mixed F31.77 and Attention-deficit hyperactivity disorder, unspecified type F90.9 [facility] [address] [place] [address]- 6446 Dec, [facility] [address] [place] [address]- 4152 Nov, [facility] [address] 3351 Oct, Bipolar I disorder, most recent episode (or current) mixed, in partial or unspecified remission 296.65 and Attention deficit disorder of childhood without mention of hyperactivity 314.00 [facility] [address] 6977 Jul, [facility] [address] [place] [id number] [place] [address] 337464- 8552 Jul, [facility] [address] 1335 Jul, [facility] [address] [place] [id number] [place] [address] 584327- 0166 June, Bipolar I disorder, most recent episode (or current) mixed, in partial or unspecified remission 296.65 and Attention deficit disorder of childhood without mention of hyperactivity 314.00 [facility] [address] [place] [address] 23934332- 8915 June, [facility] [address], [place] [address]- 0553 May, [facility] [id number] [place] [address] 28806- 5984 May, [facility] [address], [place] [address]- 7881 Apr, [facility] [address] [address] 3106 Apr, [facility] [address] 0868 Mar, [facility] [address] 5226 Mar, [facility] [address] 5362 Feb, [facility] [address] [place] [id number] [place] [address] 11927- 6554 Feb, [facility] [place] [facility] [address] [id number] [place] [address]- 7415 Feb, [facility] [place] [facility] [address] [id number] [place] [address]- 7512 Feb, [facility] [place] [facility] [address] [id number] [place] [address]- 1128 Feb, [facility] [place] [facility] [address] [id number] [place] [address]- 1235 Feb, [facility] [place] [facility] [address] [id number] [place] [address]- 7641 Feb, [facility] [place] [facility] [address] [id number] [place] [address]- 7749 Feb, [facility] [place] [facility] [address] [id number] [place] [address]- 1405 Feb, [facility] [place] [facility] [address] [id number] [place] [address]- 1972 Feb, [facility] [place] [facility] [address] [id number] [place] [address]- 3970 Jan, [facility] [place] [facility] [address] [id number] [place] [address]- 1268 Jan, [facility] [place] [facility] [address] [id number] [place] [address]- 0537 Dec, [facility] [place] [facility] [address] [id number] [place] [address]- 1831 Dec, [facility] [place] [facility] [address] [id number] [place] [address]- 1986 Dec, [facility] [place] [facility] [address] [id number] [place] [address]- 2390 Dec, [facility] [place] [facility] [address] [id number] [place] [address]- 9892 Dec, [facility] [place] [facility] [address] [id number] [place] [address]- 5583 12 Dec, 2013 [facility] [place] [facility] [address] [id number] [place] [address]- 7134 17 Nov, 2013 [facility] [place] [facility] [address] [id number] [place] [address]- 1116 17 Nov, 2013 [facility] [place] [facility] [address] [id number] [place] [address]- 1156 16 Nov, 2013 [facility] [place] [facility] [address] [id number] [place] [address]- 8940 16 Nov, 2013 [facility] [place] [facility] [address] [id number] [place] [address]- 9410 15 Nov, 2013 [facility] [place] [facility] [address] [id number] [place] [address]- 8527 15 Nov, 2013 [facility] [place] [facility] [address] [id number] [place] [address]- 4264 24 Sep, 2013 [facility] [place] [facility] [address] [id number] [place] [address]- 2683 24 Sep, 2013 [facility] [place] [facility] [address] [id number] [place] [address]- 2542 24 Sep, 2013 [facility] [place] [facility] [address] [id number] [place] [address]- 7513 24 Sep, 2013 [facility] [place] [facility] [address] [id number] [place] [address]- 1881 19 Sep, 2013 [facility] [place] [facility] [address] [id number] [place] [address]- 2549 19 Sep, 2013 [facility] [place] [facility] [address] [id number] [place] [address]- 2544 19 Sep, 2013 [facility] [place] [facility] [address] [id number] [place] [address]- 2545 19 Sep, 2013 [facility] [place] [facility] [address] [id number] [place] [address]- 4731 18 Oct, 2013 [facility] [place] [facility] [address] [id number] [place] [address]- 7169 18 Oct, 2013 [facility] [place] [facility] [address] [id number] [place] [address]- 0964 17 Oct, 2013 [facility] [place] [facility] [address] [id number] [place] [address]- 6769 17 Oct, 2013 [facility] [place] [facility] [address] [id number] [place] [address]- 5995 16 Oct, 2013 [facility] [place] [facility] [address] [id number] [place] [address]- 4838 16 Oct, 2013 [facility] [place] [facility] [address] [id number] [place] [address]- 2857 Sep, [facility] [place] [facility] [address] [id number] [place] [address]- 0403 Sep, [facility] [place] [facility] [address] [id number] [place] [address]- 5892 Sep, [facility] [place] [facility] [address] [id number] [place] [address]- 6772 Sep, [facility] [place] [facility] [address] [id number] [place] [address]- 6719 Sep, [facility] [place] [facility] [address] [id number] [place] [address]- 7603 Sep, [facility] [place] [facility] [address] [id number] [address]- 7174 Aug, [facility] [place] [facility] [address] [id number] [place] [address]- 8391 Aug, [facility] [place] [facility] [address] [id number] [place] [address]- 0944 Jul, [facility] [place] [facility] [address] [id number] [place] [address]- 0239 Jul, [facility] [place] [facility] [address] [id number] [place] [address]- 4656 Jul, [facility] [address] [id number] [place] [address]- 2511 Jul, [facility] [place] [facility] [address] [id number] [place] [address]- 8450 June, [facility] [place] [facility] [address] [id number] [place] [address]- 8536 June, [facility] [place] [facility] [address] [id number] [place] [address]- 7943 May, [facility] [place] [facility] [address] [id number] [place] [address]- 1314 May, [facility] [place] [facility] [address] [id number] [place] [address]- 2975 Apr, [facility] [place] [facility] [address] [id number] [place] [address]- 3043 Apr, [facility] [place] [facility] [address] [id number] [place] [address]- 4006 Apr, [facility] [place] [facility] [address] [id number] [place] [address]- 9320 Apr, [facility] [place] [facility] [address] [id number] [place] [address]- 9855 Mar, [facility] [place] [facility] [address] [id number] [place] [address]- 6769 Mar, [facility] [place] [facility] [address] [id number] [place] [address]- 4848 Feb, [facility] [place] [facility] [address] [id number] [place] [address]- 2818 Feb, [facility] [place] [facility] [address] [id number] [place] [address]- 5670 Jan, [facility] [place] [facility] [address] [id number] [place] [address]- 4420 Jan, [facility] [place] [facility] [address] [id number] [place] [address]- 0912 Dec, [facility] [address] [id number] [place] [address]- 3905 Dec, [facility] [address] [id number] [place] [address] 2541 Dec, [facility] [place] [facility] [address] [id number] [place] [address]- 7697 Dec, [facility] [address] [id number] [place] [address]- 5908 Dec, [facility] [place] [facility] [address] [id number] [place] [address]- 2776 Nov, [facility] [address] [id number] [place] [address]- 4396 Nov, [facility] [address] [id number] [place] [address]- 0137 Oct, [facility] [address] [id number] [place] [address]- 5724 Sep, [facility] [place] [facility] [address] [id number] [place] [address]- 4084 Sep, [facility] [place] [facility] [address] [id number] [place] [address]- 2546 Sep, [facility] [place] [facility] [address] [id number], [place] [address]- 2546 Aug, [facility] [place] [facility] [address] [id number] [place] [address]- 2544 Jul, [facility] [place] [facility] [address] [id number] [place] [address]- 2546 June, [facility] [place] [facility] [address] [id number] [place] [address]- 2546 June, [facility] [place] [facility] [address] [id number], [place] [address]- 7577 May, [facility] [address] [id number] [place] [address]- 6552 May, [facility] [address] [id number] [place] [address]- 5548 Apr, [facility] [address] [id number] [place] [address]- 1156 Apr, [facility] [address] [id number] [place] [address]- 6484 13 Apr, 2012 [facility] [address] [id number] [place] [address]- 1573 08 Apr, 2012 [facility] [address] [id number] [place] [address]- 3344 08 Apr, 2012 [facility] [address] [id number] [place] [address]- 3147 Apr, [facility] [address] [id number] [place] [address]- 5355 Apr, [facility] [address] [id number] [place] [address]- 3205 Mar, [facility] [address] [id number] [place] [address]- 2189 Mar, [facility] [address] [id number], [place] [address]- 0539 Mar, [facility] [place] [facility] [address] [id number], [place] [address]- 6169 Feb, [facility] [place] [facility] [address] [id number] [place] [address]- 1411 Feb, [facility] [place] [facility] [address] [id number] [place] [address]- 8762 Jan, [facility] [place] [facility] [address] [id number] [place] [address]- 1772 Jan, [facility] [place] [facility] [address] [id number] [place] [address]- 6751 Jan, [facility] [place] [facility] [address] [id number] [place] [address]- 3502 Dec, [facility] [place] [facility] [address] [id number] [place] [address]- 2546 Dec, [facility] [place] [facility] [address] [id number] [place] [address]- 8163 Nov, [facility] [place] [facility] [address] [id number] [place] [address]- 5573 Oct, [facility] [place] [facility] [address] [id number] [place] [address]- 8671 Aug, [facility] [place] [facility] [address] [id number] [place] [address]- 4152 Jul, [facility] [place] [facility] [address] [id number] [place] [address]- 4679 Jul, [facility] [place] [facility] [address] [id number] [place] [address]- 3239 Jul, [facility] [place] [facility] [address] [id number] [place] [address]- 3307 Jul, [facility] [place] [facility] [address] [id number] [place] [address]- 9349 Jul, [facility] [place] [facility] [address] [id number] [place] [address] Jul, [facility] [place] [facility] [address] [id number] [place] [address] June, [facility] [place] [facility] [address] [id number] [place] [address] June, [facility] [place] [facility] [address] [id number] [place] [address] June, [facility] [place] [facility] [address] [id number] [place] [address] May, [facility] [address] [facility] [id number] [address] May, [facility] [address] [id number] [address] May, [facility] [address] [id number] [address] Apr, [facility] [id number] [address] Mar, [facility] [id number] [address] Mar, [facility] [id number], [place] [address] Jan, [facility] [address] [id number] [address] Dec, IMMUNIZATIONS No Known Immunizations SOCIAL HISTORY Never Assessed REASON FOR VISIT Patient Concerns PLAN OF CARE VITAL SIGNS MEDICATIONS Unknown [...]
--- OUTSIDE RECORDS SUMMARY | 2017-12-06 16:34 | XMS REPORT ---
Author Author EDUARD WOLFGANG Organization [facility] Address [address] [place] [address] Care Team Providers Care Sweater Operator Name Role Phone SHYANNEYVONNE AGUSTINYLA Unavailable PROBLEMS Type Condition ICD9-CM Code PVJ77-EX Code Onset Dates Condition Status SNOMED Code Problem Delusions of parasitosis F22 Active 518542419 Problem Vaginal bleeding N93.9 Active 543864830 Problem Bipolar 1 disorder F31.9 Active 808681113 Problem Bipolar disorder, in partial remission, most recent episode mixed F31.77 Active 73749226 Problem ADD (attention deficit disorder) F90.0 Active 548032303 ALLERGIES Substance Reaction Event Type Date Status Demerol hypotension Drug Allergy Aug, Active ENCOUNTERS Encounter Location Date Diagnosis [place] [id number] [address] [id number] [place] [address]- 71[address] June, [place] [address] [address] Apr, Bipolar disorder, in partial remission, most recent episode mixed F31.77 [place] [id number] [place] [address] 80953- 5305 Mar, Bipolar disorder, in partial remission, most recent episode mixed F31.77 [facility] [id number] [place] [address] 76073- 7650 Feb, Bipolar disorder, in partial remission, most recent episode mixed F31.77 and ADD (attention deficit disorder) F90.0 [facility] [id number] [place] [address] 33687- 5936 Jan, ADD (attention deficit disorder) F90.0 [place] [id number] [place] [address]- 1962 Nov, Delusions of parasitosis F22 [facility] [address], [place] [address] 2546 Oct, [facility] [address], [place] [address] 2546 Oct, Bipolar disorder, in partial remission, most recent episode mixed F31.77 and ADD (attention deficit disorder) F90.0 [facility] [address] [address] 2546 Oct, [facility] [address] [address] 2546 Oct, ADD (attention deficit disorder) F90.0 [facility] [address] [address]- 65[address] Oct, [facility] [address] [address] 2546 Oct, [facility] [address] [address] 2546 13 Oct, 2016 Skin lesions L98.9 and Hematochezia K92.1 [facility] [address], [place] [address] 2546 Oct, Bipolar disorder, in partial remission, most recent episode mixed F31.77 [facility] [address], [place] [address] 2546 Oct, Bipolar disorder, in partial remission, most recent episode mixed F31.77 and ADD (attention deficit disorder) F90.0 [facility] [id number] [address]- 2546 Sep, Bipolar disorder, in partial remission, most recent episode mixed F31.77 [facility] [id number] [address] 2546 Sep, Bipolar disorder, in partial remission, most recent episode mixed F31.77 and ADD (attention deficit disorder) F90.0 [facility] [address], [place] [address]- 7406 Aug, [facility] [id number] [address]- 5946 Aug, Bipolar disorder, in partial remission, most recent episode mixed F31.77 and ADD (attention deficit disorder) F90.0 [facility] [id number] [place] [address] 9816 Aug, ADD (attention deficit disorder) F90.0 [facility] [id number] [place] [address]- 9226 Aug, ADD (attention deficit disorder) F90.0 [facility] [id number] [place] [address]- 5266 Jul, ADD (attention deficit disorder) F90.0 [facility] [address] [address]- 6766 June, ADD (attention deficit disorder) F90.0 [facility] [id number] [address]- 5715 May, ADD (attention deficit disorder) F90.0 and Bipolar disorder , in partial remission, most recent episode mixed F31.77 [facility] [id number] [address]- 1896 May, Bipolar disorder, in partial remission, most recent episode mixed F31.77 [facility] [id number] [address]- 4786 Apr, Bipolar disorder, in partial remission, most recent episode mixed F31.77 [facility] [id number] [address]- 9166 Mar, Bipolar disorder, in partial remission, most recent episode mixed F31.77 [facility] [id number] [place] [address]- 3456 Feb, ADD (attention deficit disorder) F90.0 [facility] [id number] [place] [address]- 1146 Feb, [facility] [id number] [address]- 4726 Feb, [facility] [id number] [place] [address]- 5436 Feb, Bipolar disorder, in partial remission, most recent episode mixed F31.77 ; ADD (attention deficit disorder) F90.0 and Other long term care pharmacist ( current) drug therapy Z79.899 [facility] [id number] [place] [address]- 0085 Feb, [facility] [id number] [place] [address]- 0086 Jan, [facility] [id number] [place] [address]- 9424 Dec, [facility] [address] [address]- 7570 Nov, Bipolar disorder, in partial remission, most recent episode mixed F31.77 and ADD (attention deficit disorder) F90.0 [facility] [id number] [place] [address]- 7266 Nov, [facility] [id number] [address]- 8606 Oct, [facility] [id number] [address]- 3956 Sep, [facility] [id number] [place] [address] 2546 Sep, [facility] [id number] [place] [address]- 3976 Aug, [facility] [id number] [place] [address]- 2546 Jul, Bipolar I disorder, most recent episode mixed, in remission F31.70 and ADD (attention deficit disorder) F90.0 [facility] [id number] [address]- 5620 14 Jul, 2015 [facility] [address], [place] [address]- 0421 June, [facility] [address] [place] [address]- 6537 May, Bipolar 1 disorder F31.9 and ADD (attention deficit disorder ) F90.0 [facility] [address] [address]- 8158 May, [facility] [id number] [place] [address] 75027- 4536 Apr, [facility] [address], [place] [address]- 7083 Mar, [facility] [id number] [place] [address] 01992- 8957 Mar, [facility] [address], [place] [address]- 1223 Mar, [facility] [address], [place] [address]- 3484 Feb, [facility] [address], [place] [address]- 6138 Jan, [facility] [address], [place] [address]- 0482 Jan, Bipolar disorder, in partial remission, most recent episode mixed F31.77 and Attention-deficit hyperactivity disorder, unspecified type F90.9 [facility] [address] [address]- 6535 Dec, [facility] [address], [place] [address]- 9469 Nov, [facility] [address], [place] [address]- 5608 Oct, Bipolar I disorder, most recent episode (or current) mixed, in partial or unspecified remission 296.65 and Attention deficit disorder of childhood without mention of hyperactivity 314.00 [facility] [address] [facility] [id number] [address]- 7196 Jul, [facility] [address] [facility] [id number] 2916 Jul, [facility] [id number] [place] [address] 712737- 6638 Jul, [facility] [id number] 4711 June, Bipolar I disorder, most recent episode (or current) mixed, in partial or unspecified remission 296.65 and Attention deficit disorder of childhood without mention of hyperactivity 314.00 [facility] [address] 4218 June, [facility] [id number] [address]- 3395 May, [facility] [id number], [place] [address]- 5873 May, [facility] [address], [place] [address]- 9405 Apr, [facility] [address] 1569 Apr, [facility] [address] 0636 Mar, [facility] [id number], [place] [address]- 2546 Mar, [facility] [address] 6716 Feb, [facility] [id number] 0468 Feb, [facility] [id number] [place] [address] [place] [address]- 0000 Feb, [facility] [place] [facility] [address] [id number] [place] [address]- 2056 Feb, [facility] [place] [facility] [address] [id number] [place] [address]- 3916 Feb, [facility] [place] [facility] [address] [id number] [place] [address]- 3683 Feb, [facility] [place] [facility] [address] [id number] [place] [address]- 9947 Feb, [facility] [place] [facility] [address] [id number] [place] [address]- 9861 Feb, [facility] [place] [facility] [address] [id number] [place] [address]- 6626 Feb, [facility] [place] [facility] [address] [id number] [place] [address]- 8388 Feb, [facility] [place] [facility] [address] [id number] [place] [address]- 4670 Jan, [facility] [place] [facility] [address] [id number] [place] [address]- 9874 Jan, [facility] [place] [facility] [address] [id number] [place] [address]- 6971 Dec, [facility] [place] [facility] [address] [id number] [place] [address]- 5845 Dec, [facility] [place] [facility] [address] [id number], [place] [address]- 2368 Dec, [facility] [place] [facility] [address] [id number] [place] [address]- 6149 Dec, [facility] [place] [facility] [address] [id number] [place] [address]- 9588 Dec, [facility] [place] [facility] [address] [id number] [place] [address]- 2262 Dec, [facility] [place] [facility] [address] [id number] [place] [address]- 3318 17 Nov, 2013 [facility] [place] [facility] [address] [id number] [place] [address]- 4940 17 Nov, 2013 [facility] [place] [facility] [address] [id number] [place] [address]- 6871 16 Nov, 2013 [facility] [place] [facility] [address] [id number] [place] [address]- 4433 16 Nov, 2013 [facility] [place] [facility] [address] [id number] [place] [address]- 6698 15 Nov, 2013 [facility] [place] [facility] [address] [id number] [place] [address]- 9172 15 Nov, 2013 [facility] [place] [facility] [address] [id number] [place] [address]- 9567 24 Sep, 2013 [facility] [place] [facility] [address] [id number] [place] [address]- 3136 24 Sep, 2013 [facility] [place] [facility] [address] [id number] [place] [address]- 2547 24 Sep, 2013 [facility] [place] [facility] [address] [id number] [place] [address]- 2544 24 Sep, 2013 [facility] [place] [facility] [address] [id number] [place] [address]- 2545 19 Sep, 2013 [facility] [place] [facility] [address] [id number] [place] [address]- 2542 19 Sep, 2013 [facility] [place] [facility] [address] [id number] [place] [address] 2543 19 Sep, 2013 [facility] [place] [facility] [address] [id number] [place] [address] 2541 19 Sep, 2013 [facility] [place] [facility] [address] [id number] [place] [address]- 2549 18 Sep, 2013 [facility] [place] [facility] [address] [id number] [place] [address]- 0741 18 Oct, 2013 [facility] [place] [facility] [address] [id number] [place] [address]- 4877 17 Oct, 2013 [facility] [place] [facility] [address] [id number] [place] [address]- 3223 17 Oct, 2013 [facility] [place] [facility] [address] [id number] [place] [address]- 3688 16 Oct, 2013 [facility] [place] [facility] [address] [id number] [place] [address]- 2250 16 Oct, 2013 [facility] [place] [facility] [address] [id number] [place] [address]- 5804 Sep, [facility] [place] [facility] [address] [id number] [place] [address]- 8524 Sep, [facility] [place] [facility] [address] [id number] [place] [address]- 0817 Sep, [facility] [place] [facility] [address] [id number] [place] [address]- 4768 Sep, [facility] [place] [facility] [address] [id number] [place] [address]- 5571 Sep, [facility] [place] [facility] [address] [id number] [place] [address]- 0444 Sep, [facility] [place] [facility] [address] [id number], [place] [address]- 6285 Aug, [facility] [place] [facility] [address] [id number], [place] [address]- 6128 Aug, [facility] [place] [facility] [address] [id number] [place] [address]- 0707 Jul, [facility] [place] [facility] [address] [id number] [place] [address]- 7265 Jul, [facility] [place] [facility] [address] [id number] [place] [address]- 9072 Jul, [facility] [place] [facility] [address] [id number] [place] [address]- 8672 Jul, [facility] [address] [id number] [place] [address]- 2628 June, [facility] [place] [facility] [address] [id number] [place] [address]- 8363 June, [facility] [place] [facility] [address] [id number] [place] [address]- 8552 May, [facility] [place] [facility] [address] [id number] [place] [address]- 3170 May, [facility] [place] [facility] [address] [id number] [place] [address]- 2109 Apr, [facility] [place] [facility] [address] [id number] [place] [address]- 2315 Apr, [facility] [place] [facility] [address] [id number] [place] [address]- 6656 Apr, [facility] [place] [facility] [address] [id number] [place] [address]- 4998 Apr, [facility] [place] [facility] [address] [id number] [place] [address]- 3735 Mar, [facility] [address] [id number] [place] [address]- 2056 Mar, [facility] [place] [facility] [address] [id number] [place] [address]- 9354 Feb, [facility] [place] [facility] [address] [id number] [place] [address]- 6540 Feb, [facility] [place] [facility] [address] [id number] [place] [address]- 0450 Jan, [facility] [place] [facility] [address] [id number] [place] [address]- 4396 Jan, [facility] [place] [facility] [address] [id number] [place] [address]- 9506 Dec, [facility] [address] [id number] [place] [address]- 2035 Dec, [facility] [place] [facility] [address] [id number] [place] [address]- 5783 Dec, [facility] [place] [facility] [address] [id number] [place] [address]- 0070 Dec, [facility] [place] [facility] [address] [id number] [place] [address]- 2073 Dec, [facility] [place] [facility] [address] [id number] [place] [address]- 7813 Nov, [facility] [place] [facility] [address] [id number] [place] [address]- 9146 Nov, [facility] [place] [facility] [address] [id number] [place] [address]- 3868 Oct, [facility] [place] [facility] [address] [id number], [place] [address]- 1945 Sep, [facility] [place] [facility] [address] [id number] [place] [address]- 4930 Sep, [facility] [place] [facility] [address] [id number], [place] [address]- 1848 Sep, [facility] [place] [facility] [address] [id number], [place] [address]- 7646 Aug, [facility] [place] [facility] [address] [id number], [place] [address]- 1198 Jul, [facility] [place] [facility] [address] [id number] [place] [address]- 6112 June, [facility] [place] [facility] [address] [id number], [place] [address]- 4946 June, [facility] [place] [facility] [address] [id number], [place] [address]- 6547 May, [facility] [place] [facility] [address] [id number], [place] [address]- 2782 04 May, 2012 [facility] [address] [id number] [place] [address]- 6701 21 Apr, 2012 [facility] [address] [id number] [place] [address]- 2517 13 Apr, 2012 [facility] [address] [id number] [place] [address]- 1460 13 Apr, 2012 [facility] [address] [id number] [place] [address]- 9327 08 Apr, 2012 [facility] [address] [id number] [place] [address]- 5555 08 Apr, 2012 [facility] [address] [id number] [place] [address]- 7513 07 Apr, 2012 [facility] [address] [facility] [id number] [place] [address]- 9344 Apr, [facility] [address] [id number] [place] [address]- 0836 28 Mar, 2012 [facility] [address] [id number] [place] [address]- 4863 05 Mar, 2012 [facility] [address] [facility] [id number] [place] [address]- 8337 Mar, [facility] [address] [facility] [id number] [place] [address]- 8550 Feb, [facility] [address] [id number] [place] [address]- 2548 Feb, [facility] [place] [facility] [address] [id number] [place] [address]- 7984 Jan, [facility] [place] [facility] [address] [id number] [place] [address]- 5256 Jan, [facility] [address] [facility] [id number], [place] [address]- 9079 Jan, [facility] [place] [facility] [address] [id number] [place] [address]- 0086 Dec, [facility] [place] [facility] [address] [id number] [place] [address]- 2353 Dec, [facility] [place] [facility] [address] [id number] [place] [address]- 8552 Nov, [facility] [place] [facility] [address] [id number] [place] [address]- 7841 Oct, [facility] [place] [facility] [address] [id number] [place] [address]- 0944 Aug, [facility] [place] [facility] [address] [id number] [place] [address]- 3414 Jul, [facility] [place] [facility] [address] [id number] [place] [address]- 4627 Jul, [facility] [place] [facility] [address] [id number] [place] [address]- 8578 Jul, [facility] [place] [facility] [address] [id number] [place] [address]- 3872 Jul, [facility] [place] [facility] [address] [id number] [place] [address]- 8661 Jul, [facility] [place] [facility] [address] [id number] [place] [address]- 3974 Jul, [facility] [place] [facility] [address] [id number] [place] [address]- 6496 June, [facility] [place] [facility] [address] [id number] [place] [address]- 6590 June, [facility] [place] [facility] [address] [id number] [place] [address]- 2299 June, [facility] [place] [facility] [address] [id number] [place] [address] May, [facility] [place] [facility] [address] [id number] [place] [address] May, [facility] [address] [facility] [id number], [place] [address] May, [facility] [address] [facility] [id number], [place] [address] Apr, [facility] [address] [facility] [id number], [place] [address] Mar, [facility] [address] [facility] [id number], [place] [address] Mar, [facility] [address] [facility] [id number][place] [address] Jan, [facility] [address] [facility] [id number], [place] [address] Dec, IMMUNIZATIONS No Known Immunizations SOCIAL HISTORY Never Assessed REASON FOR VISIT tameka - Genny PRAJAPATI PLAN OF CARE Activity Details Follow Up [address] Armenta Reason: VITAL SIGNS Height 65.5 in 2016-09-08 Weight 149.4 lbs 2016-09-08 Heart Rate 80 bpm 2016-09-08 Respiratory Rate 20 2016-09-08 BMI 24.48 kg/m2 2016-09-08 Blood pressure systolic 103 mmHg 2016-09-08 Blood pressure diastolic 70 mmHg 2016-09-08 MEDICATIONS Medication Instructions Dosage Frequency Start Date End Date Duration Status Prilosec OTC 20 MG Orally 2 times a day 1 tablet 12h Active Melatonin 3 MG Orally Once a day 1 tablet at bedtime as needed with food 24h Active Vitamin D-3 1000 UNIT Orally Once a day 1 capsule 24h Active BuPROPion HCl ER (XL) 150 MG Orally Once a day 3 tablets 24h 30 days Active Calcium 600 MG Orally Twice a day 1 tablet with meals 12h Active Depakote ER 500 MG Orally at bedtime 3 tablets 30 days Active B Complex + C TR - Active Vitamin D 1000 UNIT Orally Once a day 1 tablet 24h Active Vitamin B 12 100 MCG Active Methylphenidate HCl 20 MG Orally Twice a day 1 tablet 12h Aug, Sep, 30 days Active Fish Oil 1200 MG Orally Once a day 1 capsule 24h Active Co Q-10 100 MG Orally Once a day 1 capsule with a meal 24h Active RESULTS Name Result Date Reference Range URINE DRUG SCREEN (IN HOUSE) 2016-09-08 Lot # [id number] Exp date Control + COCAINE Negative AMPH Negative MTD Negative THC Negative OPIATE Negative BENZO Negative PCP Negative BAR Negative OXY Negative MAMP Negative TCA Not tested BUP Negative MDMA Negative PROCEDURES Procedure Date Ordered Result Body Site DRUG TEST PRSMV DIR OPT OBS September 08, 2016 INSTRUCTIONS MEDICATIONS ADMINISTERED No Known Medications [...]
--- OUTSIDE RECORDS SUMMARY | 2017-12-06 16:35 | XMS REPORT ---
Author Author JOSSUE MANZO [facility] Address [address] [place] [address] Care Team Providers Care Vessel Engineer Name Role Phone JUANY MANZOLUIS A Unavailable PROBLEMS Type Condition ICD9-CM Code [id number] Code Onset Dates Condition Status SNOMED Code Problem Delusions of parasitosis F22 Active 365795779 Problem Vaginal bleeding N93.9 Active 980040729 Problem Bipolar 1 disorder F31.9 Active 580744445 Problem Bipolar disorder, in partial remission, most recent episode mixed F31.77 Active 17980397 Problem ADD (attention deficit disorder) F90.0 Active [id number] ALLERGIES No Information ENCOUNTERS Encounter Location Date Diagnosis [place] [address] [address] June, [place] [address] [address] May, Bipolar disorder, in partial remission, most recent episode mixed F31.77 [place] [address] [place] [id number] [place] [address] 559[address]- 0912 Apr, Bipolar disorder, in partial remission, most recent episode mixed F31.77 [place] [address] [place] [id number] [place] [address] 05245- 1256 Mar, Bipolar disorder, in partial remission, most recent episode mixed F31.77 [place] [address] [address]- [address] Feb, Bipolar disorder, in partial remission, most recent episode mixed F31.77 and ADD (attention deficit disorder) F90.0 [place] [address] [place] [id number] [place] [address] 87709- 1843 Jan, ADD (attention deficit disorder) F90.0 [place] [address], [place] [address] 1106 Nov, Delusions of parasitosis F22 [facility] [address] [id number] [place] [address] 17041 2546 Oct, [facility] [id number] [place] [address] 55966 2546 Oct, Bipolar disorder, in partial remission, most recent episode mixed F31.77 and ADD (attention deficit disorder) F90.0 [facility] [id number] [place] [address] 00748 2546 Oct, [facility] [address] [place] [id number] [place] [address] 11411- 8356 Oct, ADD (attention deficit disorder) F90.0 [facility] [address] [id number] [place] [address] 85990- 6946 Oct, [facility] [address] [id number] [place] [address] 82463- 1126 Oct, [facility] [id number] [place] [address] 33773- 3156 13 Oct, 2016 Skin lesions L98.9 and Hematochezia K92.1 [facility] [address], [place] [address]- 2546 Oct, Bipolar disorder, in partial remission, most recent episode mixed F31.77 [facility] [id number] [place] [address] 29312- 9286 Oct, Bipolar disorder, in partial remission, most recent episode mixed F31.77 and ADD (attention deficit disorder) F90.0 [facility] [address] [place] [place] [id number] [place] [address] 88154- 3466 Sep, Bipolar disorder, in partial remission, most recent episode mixed F31.77 [facility] [address], [place] [address]- 4466 Sep, Bipolar disorder, in partial remission, most recent episode mixed F31.77 and ADD (attention deficit disorder) F90.0 [facility] [address], [place] [address]- 2706 Aug, [facility] [address] [place] [id number] [id number] [address]46 Aug, Bipolar disorder, in partial remission, most recent episode mixed F31.77 and ADD (attention deficit disorder) F90.0 [facility] [address], [place] [address]- 0486 Aug, ADD (attention deficit disorder) F90.0 [facility] [address], [place] [address]- 2976 Aug, ADD (attention deficit disorder) F90.0 [facility] [address], [place] [address]- 8286 Jul, ADD (attention deficit disorder) F90.0 [facility] [address], [place] [address]- 5734 June, ADD (attention deficit disorder) F90.0 [facility] [address], [place] [address]- 2749 May, ADD (attention deficit disorder) F90.0 and Bipolar disorder , in partial remission, most recent episode mixed F31.77 [facility] [address], [place] [address]- 6076 May, Bipolar disorder, in partial remission, most recent episode mixed F31.77 [facility] [id number], [place] [address]- 9716 Apr, Bipolar disorder, in partial remission, most recent episode mixed F31.77 [facility] [address] [address] [id number] 2786 Mar, Bipolar disorder, in partial remission, most recent episode mixed F31.77 [facility] [id number], [place] [address]- 2548 Feb, ADD (attention deficit disorder) F90.0 [facility] [id number], [place] [address]- 5546 Feb, [facility] [address] [place] [id number] [place] [address] 78278- 3606 Feb, [facility] [address] [place] [address] [id number] [place] [address] 97936- 7403 Feb, Bipolar disorder, in partial remission, most recent episode mixed F31.77 ; ADD (attention deficit disorder) F90.0 and Other manager long term care ( current) drug therapy Z79.899 [facility] [address] [place] [id number] [place] [address] 41640- 5597 Feb, [facility] [address] [place] [id number] [place] [address] 43607- 7936 Jan, [facility] [address] [place] [place] [id number] [place] [address] 10806- 9835 Dec, [facility] [address] [place] [id number] [place] [address] 68822- 7498 Nov, Bipolar disorder, in partial remission, most recent episode mixed F31.77 and ADD (attention deficit disorder) F90.0 [facility] [address] [place] [address] [id number], [place] [address]- 5216 Nov, [facility] [address] [place] [address] [id number], [place] [address] 2546 Oct, [facility] [address] [place] [id number], [place] [address] 2546 Sep, [facility] [address] [place] [id number] [place] [address], [place] [address]- 4756 Sep, [facility] [address] [place] [id number] [place] [address]- 2546 Aug, [facility] [address] [place] [id number] [place] [address] 91563- 9849 Jul, Bipolar I disorder, most recent episode mixed, in remission F31.70 and ADD (attention deficit disorder) F90.0 [facility] [id number], [place] [address]- 2637 14 Jul, 2015 [facility] [id number], [place] [address]- 6091 June, [facility] [address] [place] [id number] [place] [address], [place] [address]- 2566 May, Bipolar 1 disorder F31.9 and ADD (attention deficit disorder ) F90.0 [facility] [address] [place] [id number] [place] [address], [place] [address]- 7677 May, [facility] [address] [place] [id number] [place] [address], [place] [address]- 7272 Apr, [facility] [address] [place] [id number] [place] [address] 98940- 6335 Mar, [facility] [address] [id number], [place] [address]- 8867 Mar, [facility] [address] [place] [id number] [place] [address], [place] [address]- 7434 Mar, [facility] [address], [place] [address]- 6091 Feb, [facility] [address] [place] [id number], [place] [address]- 9070 Jan, [facility] [address], [place] [address]- 6976 Jan, Bipolar disorder, in partial remission, most recent episode mixed F31.77 and Attention-deficit hyperactivity disorder, unspecified type F90.9 [facility] [address] [place] [address]- 9937 Dec, [facility] [address] [place] [address]- 3582 Nov, [facility] [address] 8921 Oct, Bipolar I disorder, most recent episode (or current) mixed, in partial or unspecified remission 296.65 and Attention deficit disorder of childhood without mention of hyperactivity 314.00 [facility] [address] 0571 Jul, [facility] [address] [place] [id number] [place] [address] 277159- 5530 Jul, [facility] [address]- 6755 Jul, [facility] [address] [place] [id number] [place] [address] 635671- 5562 June, Bipolar I disorder, most recent episode (or current) mixed, in partial or unspecified remission 296.65 and Attention deficit disorder of childhood without mention of hyperactivity 314.00 [facility] [address] [place] [address] 27485999- 0975 June, [facility] [address], [place] [address]- 0485 May, [facility] [id number] [place] [address] 97288- 7874 May, [facility] [address], [place] [address]- 8508 Apr, [facility] [address] [address] 3063 Apr, [facility] [address]- 1896 Mar, [facility] [address] 3156 Mar, [facility] [address]- 6226 Feb, [facility] [address] [place] [id number] [place] [address] 12301- 5160 Feb, [facility] [place] [facility] [address] [id number] [place] [address]- 5593 Feb, [facility] [place] [facility] [address] [id number] [place] [address]- 0381 Feb, [facility] [place] [facility] [address] [id number] [place] [address]- 4339 Feb, [facility] [place] [facility] [address] [id number] [place] [address]- 7995 Feb, [facility] [place] [facility] [address] [id number] [place] [address]- 9903 Feb, [facility] [place] [facility] [address] [id number] [place] [address]- 4270 Feb, [facility] [place] [facility] [address] [id number] [place] [address]- 0272 Feb, [facility] [place] [facility] [address] [id number] [place] [address]- 0068 Feb, [facility] [place] [facility] [address] [id number] [place] [address]- 9204 Jan, [facility] [place] [facility] [address] [id number] [place] [address]- 9827 Jan, [facility] [place] [facility] [address] [id number] [place] [address]- 7063 Dec, [facility] [place] [facility] [address] [id number] [place] [address]- 0403 Dec, [facility] [place] [facility] [address] [id number] [place] [address]- 1523 Dec, [facility] [place] [facility] [address] [id number] [place] [address]- 9448 Dec, [facility] [place] [facility] [address] [id number] [place] [address]- 1876 Dec, [facility] [place] [facility] [address] [id number] [place] [address]- 3408 12 Dec, 2013 [facility] [place] [facility] [address] [id number] [place] [address]- 4482 17 Nov, 2013 [facility] [place] [facility] [address] [id number] [place] [address]- 6656 17 Nov, 2013 [facility] [place] [facility] [address] [id number] [place] [address]- 2611 16 Nov, 2013 [facility] [place] [facility] [address] [id number] [place] [address]- 0081 16 Nov, 2013 [facility] [place] [facility] [address] [id number] [place] [address]- 6804 15 Nov, 2013 [facility] [place] [facility] [address] [id number] [place] [address]- 3127 15 Nov, 2013 [facility] [place] [facility] [address] [id number] [place] [address]- 0952 24 Sep, 2013 [facility] [place] [facility] [address] [id number] [place] [address]- 4887 24 Sep, 2013 [facility] [place] [facility] [address] [id number] [place] [address]- 2545 24 Sep, 2013 [facility] [place] [facility] [address] [id number] [place] [address]- 0540 24 Sep, 2013 [facility] [place] [facility] [address] [id number] [place] [address]- 3501 19 Sep, 2013 [facility] [place] [facility] [address] [id number] [place] [address]- 2548 19 Sep, 2013 [facility] [place] [facility] [address] [id number] [place] [address]- 2548 19 Sep, 2013 [facility] [place] [facility] [address] [id number] [place] [address]- 2545 19 Sep, 2013 [facility] [place] [facility] [address] [id number] [place] [address]- 0678 18 Oct, 2013 [facility] [place] [facility] [address] [id number] [place] [address]- 2671 18 Oct, 2013 [facility] [place] [facility] [address] [id number] [place] [address]- 2974 17 Oct, 2013 [facility] [place] [facility] [address] [id number] [place] [address]- 2249 17 Oct, 2013 [facility] [place] [facility] [address] [id number] [place] [address]- 9508 16 Oct, 2013 [facility] [place] [facility] [address] [id number] [place] [address]- 1164 16 Oct, 2013 [facility] [place] [facility] [address] [id number] [place] [address]- 3860 Sep, [facility] [place] [facility] [address] [id number] [place] [address]- 7657 Sep, [facility] [place] [facility] [address] [id number] [place] [address]- 8426 Sep, [facility] [place] [facility] [address] [id number] [place] [address]- 1437 Sep, [facility] [place] [facility] [address] [id number] [place] [address]- 5395 Sep, [facility] [place] [facility] [address] [id number] [place] [address]- 4235 Sep, [facility] [place] [facility] [address] [id number] [address]- 9447 Aug, [facility] [place] [facility] [address] [id number] [place] [address]- 4402 Aug, [facility] [place] [facility] [address] [id number] [place] [address]- 6346 Jul, [facility] [place] [facility] [address] [id number] [place] [address]- 8235 Jul, [facility] [place] [facility] [address] [id number] [place] [address]- 1394 Jul, [facility] [address] [id number] [place] [address]- 2246 Jul, [facility] [place] [facility] [address] [id number] [place] [address]- 8703 June, [facility] [place] [facility] [address] [id number] [place] [address]- 9987 June, [facility] [place] [facility] [address] [id number] [place] [address]- 8457 May, [facility] [place] [facility] [address] [id number] [place] [address]- 9647 May, [facility] [place] [facility] [address] [id number] [place] [address]- 1579 Apr, [facility] [place] [facility] [address] [id number] [place] [address]- 4331 Apr, [facility] [place] [facility] [address] [id number] [place] [address]- 1973 Apr, [facility] [place] [facility] [address] [id number] [place] [address]- 8239 Apr, [facility] [place] [facility] [address] [id number] [place] [address]- 1107 Mar, [facility] [place] [facility] [address] [id number] [place] [address]- 1253 Mar, [facility] [place] [facility] [address] [id number] [place] [address]- 0204 Feb, [facility] [place] [facility] [address] [id number] [place] [address]- 2953 Feb, [facility] [place] [facility] [address] [id number] [place] [address]- 3520 Jan, [facility] [place] [facility] [address] [id number] [place] [address]- 9226 Jan, [facility] [place] [facility] [address] [id number] [place] [address]- 3621 Dec, [facility] [address] [id number] [place] [address]- 6402 Dec, [facility] [address] [id number] [place] [address] 2547 Dec, [facility] [place] [facility] [address] [id number] [place] [address]- 1793 Dec, [facility] [address] [id number] [place] [address]- 2662 Dec, [facility] [place] [facility] [address] [id number] [place] [address]- 0996 Nov, [facility] [address] [id number] [place] [address]- 9059 Nov, [facility] [address] [id number] [place] [address]- 5911 Oct, [facility] [address] [id number] [place] [address]- 5653 Sep, [facility] [place] [facility] [address] [id number] [place] [address]- 1374 Sep, [facility] [place] [facility] [address] [id number] [place] [address]- 2546 Sep, [facility] [place] [facility] [address] [id number], [place] [address]- 2546 Aug, [facility] [place] [facility] [address] [id number] [place] [address]- 2548 Jul, [facility] [place] [facility] [address] [id number] [place] [address]- 2546 June, [facility] [place] [facility] [address] [id number] [place] [address]- 2546 June, [facility] [place] [facility] [address] [id number], [place] [address]- 8215 May, [facility] [address] [id number] [place] [address]- 4611 May, [facility] [address] [id number] [place] [address]- 0420 Apr, [facility] [address] [id number] [place] [address]- 7702 Apr, [facility] [address] [id number] [place] [address]- 9184 13 Apr, 2012 [facility] [address] [id number] [place] [address]- 3679 08 Apr, 2012 [facility] [address] [id number] [place] [address]- 0150 08 Apr, 2012 [facility] [address] [id number] [place] [address]- 3282 Apr, [facility] [address] [id number] [place] [address]- 9420 Apr, [facility] [address] [id number] [place] [address]- 3467 Mar, [facility] [address] [id number] [place] [address]- 0408 Mar, [facility] [address] [id number], [place] [address]- 5991 Mar, [facility] [place] [facility] [address] [id number], [place] [address]- 0834 Feb, [facility] [place] [facility] [address] [id number] [place] [address]- 6557 Feb, [facility] [place] [facility] [address] [id number] [place] [address]- 3716 Jan, [facility] [place] [facility] [address] [id number] [place] [address]- 7498 Jan, [facility] [place] [facility] [address] [id number] [place] [address]- 7895 Jan, [facility] [place] [facility] [address] [id number] [place] [address]- 2079 Dec, [facility] [place] [facility] [address] [id number] [place] [address]- 2546 Dec, [facility] [place] [facility] [address] [id number] [place] [address]- 5290 Nov, [facility] [place] [facility] [address] [id number] [place] [address]- 5429 Oct, [facility] [place] [facility] [address] [id number] [place] [address]- 0565 Aug, [facility] [place] [facility] [address] [id number] [place] [address]- 0851 Jul, [facility] [place] [facility] [address] [id number] [place] [address]- 3251 Jul, [facility] [place] [facility] [address] [id number] [place] [address]- 5091 Jul, [facility] [place] [facility] [address] [id number] [place] [address]- 7714 Jul, [facility] [place] [facility] [address] [id number] [place] [address]- 3002 Jul, [facility] [place] [facility] [address] [id number] [place] [address]- 4145 Jul, [facility] [place] [facility] [address] [id number] [place] [address]- 5750 June, [facility] [place] [facility] [address] [id number] [place] [address]- 7952 June, [facility] [place] [facility] [address] [id number] [place] [address]- 3706 June, [facility] [place] [facility] [address] [id number] [place] [address]- 0708 May, [facility] [id number] [address]- 5108 May, [facility] [id number], [place] [address] May, [facility] [id number] [address] Apr, [facility] [id number], [place] [address] Mar, [facility] [id number], [place] [address] Mar, [facility] [id number], [place] [address] Jan, [facility] [id number], [place] [address] Dec, IMMUNIZATIONS No Known Immunizations SOCIAL HISTORY Never Assessed REASON FOR VISIT f/cecilia Singh MA PLAN OF CARE Activity Details Follow Up 2 Months Reason: VITAL SIGNS Height 65.5 in 2016-11-13 Weight 145.2 lbs 2016-11-13 Heart Rate 76 bpm 2016-11-13 Respiratory Rate 18 2016-11-13 BMI 23.79 kg/m2 2016-11-13 Blood pressure systolic 116 mmHg 2016-11-13 Blood pressure diastolic 74 mmHg 2016-11-13 MEDICATIONS Medication Instructions Dosage Frequency Start Date End Date Duration Status B Complex + C TR - Active Melatonin 3 MG Orally Once a day 1 tablet at bedtime as needed with food 24h Active Methylphenidate HCl ER 27 MG Orally Once a day 1 tablet in the morning 24h Oct, Nov, 28 days Active Calcium 600 MG Orally Twice a day 1 tablet with meals 12h Active BuPROPion HCl ER (XL) 300 MG Orally Once a day 1 tablet in the morning 24h 30 days Active Depakote ER 500 mg Orally once a day 2 tablet 24h Oct, 30 days Active Fish Oil 1200 MG Orally Once a day 1 capsule 24h Active Vitamin D 1000 UNIT Orally Once a day 1 tablet 24h Active Vitamin D-3 1000 UNIT Orally Once a day 1 capsule 24h Active Co Q-10 100 MG Orally Once a day 1 capsule with a meal 24h Active Vitamin B 12 100 MCG Active RESULTS No Results PROCEDURES No Known [...]
--- OUTSIDE RECORDS SUMMARY | 2017-12-06 16:36 | XMS REPORT ---
Author Author JOSSUE MANZO [facility] Address [address] [place] [address] Care Team Providers Care Park Guard Name Role Phone JUANY MANZOLUIS A Unavailable PROBLEMS Type Condition ICD9-CM Code [id number] Code Onset Dates Condition Status SNOMED Code Problem Delusions of parasitosis F22 Active 789714982 Problem Vaginal bleeding N93.9 Active 206768855 Problem Bipolar 1 disorder F31.9 Active 808839103 Problem Bipolar disorder, in partial remission, most recent episode mixed F31.77 Active 42849329 Problem ADD (attention deficit disorder) F90.0 Active [id number] ALLERGIES No Information ENCOUNTERS Encounter Location Date Diagnosis [place] [address] [address] June, [place] [address] [address] May, Bipolar disorder, in partial remission, most recent episode mixed F31.77 [place] [address] [place] [id number] [place] [address] 21414- 6010 Apr, Bipolar disorder, in partial remission, most recent episode mixed F31.77 [place] [address] [place] [id number] [place] [address] 35775- 4265 Mar, Bipolar disorder, in partial remission, most recent episode mixed F31.77 [place] [address] [address]- [address] Feb, Bipolar disorder, in partial remission, most recent episode mixed F31.77 and ADD (attention deficit disorder) F90.0 [place] [address] [place] [id number] [place] [address] 89178- 3224 Jan, ADD (attention deficit disorder) F90.0 [place] [address] [address] 8006 Nov, Delusions of parasitosis F22 [facility] [address] [place] [id number] [place] [address] 34477 2546 Oct, [facility] [id number] [place] [address] 71061 2546 Oct, Bipolar disorder, in partial remission, most recent episode mixed F31.77 and ADD (attention deficit disorder) F90.0 [facility] [id number] [place] [address] 11833 2546 Oct, [facility] [address] [place] [id number] [place] [address] 67208- 4026 Oct, ADD (attention deficit disorder) F90.0 [facility] [address] [place] [id number] [place] [address] 30386- 8296 Oct, [facility] [address] [place] [id number] [place] [address] 72397- 3806 Oct, [facility] [address] [place] [id number] [place] [address] 81170- 4976 13 Oct, 2016 Skin lesions L98.9 and Hematochezia K92.1 [facility] [address], [place] [address] 2546 Oct, Bipolar disorder, in partial remission, most recent episode mixed F31.77 [facility] [id number] [place] [address] 95143- 6386 Oct, Bipolar disorder, in partial remission, most recent episode mixed F31.77 and ADD (attention deficit disorder) F90.0 [facility] [address] [place] [id number] [place] [address] 42960- 4056 Sep, Bipolar disorder, in partial remission, most recent episode mixed F31.77 [facility] [address], [place] [address]- 6076 Sep, Bipolar disorder, in partial remission, most recent episode mixed F31.77 and ADD (attention deficit disorder) F90.0 [facility] [address], [place] [address]- 5776 Aug, [facility] [address] [place] [id number] [address] [address] Aug, Bipolar disorder, in partial remission, most recent episode mixed F31.77 and ADD (attention deficit disorder) F90.0 [facility] [address], [place] [address]- 3536 Aug, ADD (attention deficit disorder) F90.0 [facility] [address], [place] [address]- 0576 Aug, ADD (attention deficit disorder) F90.0 [facility] [address], [place] [address]- 0076 Jul, ADD (attention deficit disorder) F90.0 [facility] [address], [place] [address]- 1651 June, ADD (attention deficit disorder) F90.0 [facility] [address], [place] [address]- 4376 May, ADD (attention deficit disorder) F90.0 and Bipolar disorder , in partial remission, most recent episode mixed F31.77 [facility] [address], [place] [address]- 2006 May, Bipolar disorder, in partial remission, most recent episode mixed F31.77 [facility] [address] [place] [id number] [address]- 6396 Apr, Bipolar disorder, in partial remission, most recent episode mixed F31.77 [facility] [address] [place] [address] [id number] [address]36 Mar, Bipolar disorder, in partial remission, most recent episode mixed F31.77 [facility] [address] [place] [id number], [place] [address]- 7806 Feb, ADD (attention deficit disorder) F90.0 [facility] [address] [place] [address] [id number], [place] [address]- 9796 Feb, [facility] [address] [place] [id number] [place] [address] 16804- 2596 Feb, [facility] [address] [place] [id number] [place] [address] 36011- 0301 Feb, Bipolar disorder, in partial remission, most recent episode mixed F31.77 ; ADD (attention deficit disorder) F90.0 and 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 [facility] [address] [place] [id number] [place] [address] 00666- 8040 Feb, [facility] [address] [place] [id number] [place] [address] 46786- 6146 Jan, [facility] [address] [place] [id number] [place] [address] 00355- 6188 Dec, [facility] [address] [place] [id number] [place] [address] 35230- 9979 Nov, Bipolar disorder, in partial remission, most recent episode mixed F31.77 and ADD (attention deficit disorder) F90.0 [facility] [address] [place] [id number], [place] [address]- 2946 Nov, [facility] [address] [place] [id number], [place] [address] 2546 Oct, [facility] [address] [place] [id number], [place] [address] 2546 Sep, [facility] [address] [place] [id number] [place] [address], [place] [address]- 4806 Sep, [facility] [address] [place] [id number] [place] [address]- 2546 Aug, [facility] [address] [place] [id number] [place] [address] 33356- 2586 Jul, Bipolar I disorder, most recent episode mixed, in remission F31.70 and ADD (attention deficit disorder) F90.0 [facility] [address] [id number] [address]- 8374 14 Jul, 2015 [facility] [id number] [address]- 6111 June, [facility] [address] [place] [id number] [place] [address], [place] [address]- 9792 May, Bipolar 1 disorder F31.9 and ADD (attention deficit disorder ) F90.0 [facility] [address] [place] [id number] [place] [address], [place] [address]- 8404 May, [facility] [address] [place] [id number] [place] [address], [place] [address]- 3416 Apr, [facility] [address] [place] [id number] [place] [address] 99912- 5986 Mar, [facility] [id number] [address]- 8671 Mar, [facility] [address] [place] [id number] [place] [address], [place] [address]- 7010 Mar, [facility] [address], [place] [address]- 8350 Feb, [facility] [address] [place] [id number], [place] [address]- 4314 Jan, [facility] [address], [place] [address]- 8177 Jan, Bipolar disorder, in partial remission, most recent episode mixed F31.77 and Attention-deficit hyperactivity disorder, unspecified type F90.9 [facility] [address] [place] [place] [address]- 6104 Dec, [facility] [address] [place] [address]- 2182 Nov, [facility] [address] 2042 Oct, Bipolar I disorder, most recent episode (or current) mixed, in partial or unspecified remission 296.65 and Attention deficit disorder of childhood without mention of hyperactivity 314.00 [facility] [address]- 5014 Jul, [facility] [address] [place] [id number] [place] [address] 573656- 8352 Jul, [facility] [address] 7317 Jul, [facility] [address] [place] [id number] [place] [address] 722870- 8493 June, Bipolar I disorder, most recent episode (or current) mixed, in partial or unspecified remission 296.65 and Attention deficit disorder of childhood without mention of hyperactivity 314.00 [facility] [id number] [place] [address] [id number]- 4785 June, [facility] [address], [place] [address]- 7263 May, [facility] [id number] [place] [address] 77868- 9459 May, [facility] [address], [place] [address]- 8924 Apr, [facility] [address] 5369 Apr, [facility] [address]- 1263 Mar, [facility] [address] 1416 Mar, [facility] [address] 2490 Feb, [facility] [address] [place] [id number] [place] [address] 07499- 3636 Feb, [facility] [place] [facility] [address] [id number] [place] [address]- 6108 Feb, [facility] [place] [facility] [address] [id number] [place] [address]- 0684 Feb, [facility] [place] [facility] [address] [id number] [place] [address]- 0339 Feb, [facility] [place] [facility] [address] [id number] [place] [address]- 1871 Feb, [facility] [place] [facility] [address] [id number] [place] [address]- 4433 Feb, [facility] [place] [facility] [address] [id number] [place] [address]- 9915 Feb, [facility] [place] [facility] [address] [id number] [place] [address]- 8875 Feb, [facility] [place] [facility] [address] [id number] [place] [address]- 2266 Feb, [facility] [place] [facility] [address] [id number] [place] [address]- 9652 Jan, [facility] [place] [facility] [address] [id number] [place] [address]- 7990 Jan, [facility] [place] [facility] [address] [id number] [place] [address]- 1308 Dec, [facility] [place] [facility] [address] [id number] [place] [address]- 7513 Dec, [facility] [place] [facility] [address] [id number] [place] [address]- 5880 Dec, [facility] [place] [facility] [address] [id number] [place] [address]- 7025 Dec, [facility] [place] [facility] [address] [id number] [place] [address]- 2216 Dec, [facility] [place] [facility] [address] [id number] [place] [address]- 3948 12 Dec, 2013 [facility] [place] [facility] [address] [id number] [place] [address]- 3041 17 Nov, 2013 [facility] [place] [facility] [address] [id number] [place] [address]- 5616 17 Nov, 2013 [facility] [place] [facility] [address] [id number] [place] [address]- 2916 16 Nov, 2013 [facility] [place] [facility] [address] [id number] [place] [address]- 5577 16 Nov, 2013 [facility] [place] [facility] [address] [id number] [place] [address]- 3565 15 Nov, 2013 [facility] [place] [facility] [address] [id number] [place] [address]- 5890 15 Nov, 2013 [facility] [place] [facility] [address] [id number] [place] [address]- 5025 24 Sep, 2013 [facility] [place] [facility] [address] [id number] [place] [address]- 3447 24 Sep, 2013 [facility] [place] [facility] [address] [id number] [place] [address]- 254 24 Sep, 2013 [facility] [place] [facility] [address] [id number] [place] [address]- 2139 24 Sep, 2013 [facility] [place] [facility] [address] [id number] [place] [address]- 5271 19 Sep, 2013 [facility] [place] [facility] [address] [id number] [place] [address]- 2541 19 Sep, 2013 [facility] [place] [facility] [address] [id number] [place] [address]- 2541 19 Sep, 2013 [facility] [place] [facility] [address] [id number] [place] [address]- 2549 19 Sep, 2013 [facility] [place] [facility] [address] [id number] [place] [address]- 8493 18 Oct, 2013 [facility] [place] [facility] [address] [id number] [place] [address]- 3888 18 Oct, 2013 [facility] [place] [facility] [address] [id number] [place] [address]- 4127 17 Oct, 2013 [facility] [place] [facility] [address] [id number] [place] [address]- 1864 17 Oct, 2013 [facility] [place] [facility] [address] [id number] [place] [address]- 5017 16 Oct, 2013 [facility] [place] [facility] [address] [id number] [place] [address]- 0988 16 Oct, 2013 [facility] [place] [facility] [address] [id number] [place] [address]- 3503 Sep, [facility] [place] [facility] [address] [id number] [place] [address]- 7446 Sep, [facility] [place] [facility] [address] [id number] [place] [address]- 8111 Sep, [facility] [place] [facility] [address] [id number] [place] [address]- 9707 Sep, [facility] [place] [facility] [address] [id number] [place] [address]- 1439 Sep, [facility] [place] [facility] [address] [id number] [place] [address]- 6111 Sep, [facility] [place] [facility] [address] [id number], [place] [address]- 0159 Aug, [facility] [place] [facility] [address] [id number] [place] [address]- 4619 Aug, [facility] [place] [facility] [address] [id number] [place] [address]- 2282 Jul, [facility] [place] [facility] [address] [id number] [place] [address]- 8746 Jul, [facility] [place] [facility] [address] [id number] [place] [address]- 3909 Jul, [facility] [address] [id number] [place] [address]- 3022 Jul, [facility] [place] [facility] [address] [id number] [place] [address]- 5159 June, [facility] [place] [facility] [address] [id number] [place] [address]- 6198 June, [facility] [place] [facility] [address] [id number] [place] [address]- 8929 May, [facility] [place] [facility] [address] [id number] [place] [address]- 1228 May, [facility] [place] [facility] [address] [id number] [place] [address]- 1340 Apr, [facility] [place] [facility] [address] [id number] [place] [address]- 3551 Apr, [facility] [place] [facility] [address] [id number] [place] [address]- 7675 Apr, [facility] [place] [facility] [address] [id number] [place] [address]- 7393 Apr, [facility] [place] [facility] [address] [id number] [place] [address]- 8063 Mar, [facility] [place] [facility] [address] [id number] [place] [address]- 5580 Mar, [facility] [place] [facility] [address] [id number] [place] [address]- 6528 Feb, [facility] [place] [facility] [address] [id number] [place] [address]- 9695 Feb, [facility] [place] [facility] [address] [id number] [place] [address]- 1937 Jan, [facility] [place] [facility] [address] [id number] [place] [address]- 5420 Jan, [facility] [place] [facility] [address] [id number] [place] [address]- 6158 Dec, [facility] [address] [id number] [place] [address]- 3921 Dec, [facility] [address] [id number] [place] [address] 2542 Dec, [facility] [place] [facility] [address] [id number] [place] [address]- 9715 Dec, [facility] [address] [id number] [place] [address]- 7541 Dec, [facility] [place] [facility] [address] [id number] [place] [address]- 6956 Nov, [facility] [address] [id number] [place] [address]- 0918 Nov, [facility] [address] [id number] [place] [address]- 0024 Oct, [facility] [address] [id number] [place] [address]- 1641 Sep, [facility] [place] [facility] [address] [id number] [place] [address]- 7314 Sep, [facility] [place] [facility] [address] [id number] [place] [address]- 2546 Sep, [facility] [place] [facility] [address] [id number], [place] [address]- 2546 Aug, [facility] [place] [facility] [address] [id number] [place] [address]- 2545 Jul, [facility] [place] [facility] [address] [id number] [place] [address]- 2546 June, [facility] [place] [facility] [address] [id number] [place] [address]- 2546 June, [facility] [place] [facility] [address] [id number], [place] [address]- 2737 May, [facility] [address] [id number] [place] [address]- 0651 May, [facility] [address] [id number] [place] [address]- 5337 Apr, [facility] [address] [id number] [place] [address]- 8149 Apr, [facility] [address] [id number] [place] [address]- 0341 13 Apr, 2012 [facility] [address] [id number] [place] [address]- 9035 08 Apr, 2012 [facility] [address] [id number] [place] [address]- 1129 08 Apr, 2012 [facility] [address] [id number] [place] [address]- 8930 Apr, [facility] [address] [id number] [place] [address]- 0850 Apr, [facility] [address] [id number] [place] [address]- 3871 Mar, [facility] [place] [facility] [address] [id number] [place] [address]- 5906 Mar, [facility] [address] [id number], [place] [address]- 3941 Mar, [facility] [place] [facility] [address] [id number], [place] [address]- 8156 Feb, [facility] [place] [facility] [address] [id number] [place] [address]- 4247 Feb, [facility] [place] [facility] [address] [id number] [place] [address]- 5197 Jan, [facility] [place] [facility] [address] [id number] [place] [address]- 6451 Jan, [facility] [place] [facility] [address] [id number] [place] [address]- 6623 Jan, [facility] [place] [facility] [address] [id number] [place] [address]- 3118 Dec, [facility] [place] [facility] [address] [id number] [place] [address]- 2546 Dec, [facility] [place] [facility] [address] [id number] [place] [address]- 0470 Nov, [facility] [place] [facility] [address] [id number] [place] [address]- 7645 Oct, [facility] [place] [facility] [address] [id number] [place] [address]- 7833 Aug, [facility] [place] [facility] [address] [id number] [place] [address]- 0607 Jul, [facility] [place] [facility] [address] [id number] [place] [address]- 3221 Jul, [facility] [place] [facility] [address] [id number] [place] [address]- 5402 Jul, [facility] [place] [facility] [address] [id number] [place] [address]- 8107 Jul, [facility] [place] [facility] [address] [id number] [place] [address]- 8241 Jul, [facility] [place] [facility] [address] [id number] [place] [address]- 4809 Jul, [facility] [place] [facility] [address] [id number] [place] [address]- 7930 June, [facility] [place] [facility] [address] [id number] [place] [address]- 7100 June, [facility] [place] [facility] [address] [id number] [place] [address]- 3846 June, [facility] [place] [facility] [address] [id number] [place] [address]- 1017 May, [facility] [address] [facility] [id number], [place] [address]- 6585 May, [facility] [id number] [address]- 0896 May, [facility] [id number], [place] [address]- 2176 Apr, [facility] [address], [place] [address]- 9546 Mar, [facility] [id number] [address] Mar, [facility] [id number] [address] Jan, [facility] [address] [id number], [place] [address] Dec, IMMUNIZATIONS No Known Immunizations SOCIAL HISTORY Never Assessed REASON FOR VISIT Lab (walk-in) EKG PLAN OF CARE VITAL SIGNS MEDICATIONS Unknown Medications RESULTS No Results PROCEDURES Procedure Date Ordered Result Body Site EKG, TRACING (IN-HOUSE) 2016-10-27 N/A ELECTROCARDIOGRAM, TRACING Oct 27, 2016 INSTRUCTIONS MEDICATIONS ADMINISTERED No Known Medications [...]
--- OUTSIDE RECORDS SUMMARY | 2017-12-06 16:36 | XMS REPORT ---
Author Author EDUARDJAVIERA Organization [facility] Address [address] [place] [address] Care Team Providers Care Beam Worker Name Role Phone SHYANNEJAVIER AGUSTINA Unavailable PROBLEMS Type Condition ICD9-CM Code [id number] Code Onset Dates Condition Status SNOMED Code Problem Delusions of parasitosis F22 Active 052750670 Problem Vaginal bleeding N93.9 Active 766450643 Problem Bipolar 1 disorder F31.9 Active 028341695 Problem Bipolar disorder, in partial remission, most recent episode mixed F31.77 Active 32028511 Problem ADD (attention deficit disorder) F90.0 Active [id number] ALLERGIES No Information ENCOUNTERS Encounter Location Date Diagnosis [place] [id number] [place] [address]2885- 1472 May, [place] [address] [place] [id number] [place] [address] 87262- 5647 Apr, Bipolar disorder, in partial remission, most recent episode mixed F31.77 [place] [id number] [place] [address] 29732- 9491 Mar, Bipolar disorder, in partial remission, most recent episode mixed F31.77 [place] [id number] [place] [address] 06643- 7294 Feb, Bipolar disorder, in partial remission, most recent episode mixed F31.77 and ADD (attention deficit disorder) F90.0 [facility] [address] [place] [id number] [place] [address] 04170- 5279 Jan, ADD (attention deficit disorder) F90.0 [place] [id number] [place] [address] 54122- 0711 Nov, Delusions of parasitosis F22 [place] [address] [place] [id number] [address] 2546 Oct, [facility] [address] [address] 2546 Oct, Bipolar disorder, in partial remission, most recent episode mixed F31.77 and ADD (attention deficit disorder) F90.0 [facility] [address] [address] 2546 Oct, [facility] [address] [place] [id number] [address] 2546 Oct, ADD (attention deficit disorder) F90.0 [facility] [address] [address] 2546 Oct, [facility] [address] [address] 2546 Oct, [facility] [address] [place] [id number] [address] 2546 Oct, Skin lesions L98.9 and Hematochezia K92.1 [facility] [address] [address] 2546 Oct, Bipolar disorder, in partial remission, most recent episode mixed F31.77 [facility] [address] [address] 2546 Oct, Bipolar disorder, in partial remission, most recent episode mixed F31.77 and ADD (attention deficit disorder) F90.0 [facility] [address] [place] [id number] [address] 2546 Sep, Bipolar disorder, in partial remission, most recent episode mixed F31.77 [facility] [address] [place] [id number] [address] 2546 Sep, Bipolar disorder, in partial remission, most recent episode mixed F31.77 and ADD (attention deficit disorder) F90.0 [facility] [address] [address]- 9268 Aug, [facility] [address] [place] [id number] [address]- 8018 Aug, Bipolar disorder, in partial remission, most recent episode mixed F31.77 and ADD (attention deficit disorder) F90.0 [facility] [address] [address]- 5466 Aug, ADD (attention deficit disorder) F90.0 [facility] [address] [address]- 6796 Aug, ADD (attention deficit disorder) F90.0 [facility] [address] [address]- 8256 Jul, ADD (attention deficit disorder) F90.0 [facility] [address] [address]- 0176 June, ADD (attention deficit disorder) F90.0 [facility] [address] [address]- 1638 May, ADD (attention deficit disorder) F90.0 and Bipolar disorder , in partial remission, most recent episode mixed F31.77 [facility] [address] [address]- 8962 May, Bipolar disorder, in partial remission, most recent episode mixed F31.77 [facility] [address] [place] [id number] [address]- 5036 Apr, Bipolar disorder, in partial remission, most recent episode mixed F31.77 [facility] [address] [place] [id number] [address]- 4236 Mar, Bipolar disorder, in partial remission, most recent episode mixed F31.77 [facility] [address] [place] [id number] [address]- 0346 Feb, ADD (attention deficit disorder) F90.0 [facility] [address] [place] [id number] [address]- 4380 Feb, [facility] [address] [address]- 5503 Feb, [facility] [address] [place] [id number] [place] [address] 10597- 7516 Feb, Bipolar disorder, in partial remission, most recent episode mixed F31.77 ; ADD (attention deficit disorder) F90.0 and 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 [facility] [address] [place] [id number] [place] [address] 93156- 8411 Feb, [facility] [address] [place] [id number] [place] [address] 74278- 4318 Jan, [facility] [address] [place] [id number] [place] [address] 18081- 3728 Dec, [facility] [address] [place] [id number] [place] [address] 51176- 0143 Nov, Bipolar disorder, in partial remission, most recent episode mixed F31.77 and ADD (attention deficit disorder) F90.0 [facility] [address] [address]- 3190 Nov, [facility] [address] [place] [id number] [address]- 2406 Oct, [facility] [address] [address]- 4466 Sep, [facility] [address] [place] [id number] [address] 2546 Sep, [facility] [address] [place] [id number] [address]- 0166 Aug, [facility] [address] [place] [id number] [address]- 4176 Jul, Bipolar I disorder, most recent episode mixed, in remission F31.70 and ADD (attention deficit disorder) F90.0 [facility] [address] [place] [id number] [place] [address] 56798- 4798 14 Jul, 2015 [facility] [address] [address]- 4004 June, [facility] [address] [address]- 9076 May, Bipolar 1 disorder F31.9 and ADD (attention deficit disorder ) F90.0 [facility] [address] [address]- 1724 May, [facility] [address] [address]- 7765 Apr, [facility] [address] [address]- 2666 Mar, [facility] [address] [address]- 9236 Mar, [facility] [address] [address]- 9071 Mar, [facility] [address] [address]- 0696 Feb, [facility] [address] [address]- 5651 Jan, [facility] [address] [address]- 6137 Jan, Bipolar disorder, in partial remission, most recent episode mixed F31.77 and Attention-deficit hyperactivity disorder, unspecified type F90.9 [facility] [address] [place] [id number] [address]- 8583 Dec, [facility] [address] [place] [id number] [address]- 6586 Nov, [facility] [address] [place] [id number] [address]- 8726 11 Oct, 2014 Bipolar I disorder, most recent episode (or current) mixed, in partial or unspecified remission 296.65 and Attention deficit disorder of childhood without mention of hyperactivity 314.00 [facility] [address] [address]- 0183 Jul, [facility] [address] 9035 Jul, [facility] [address] 8141 Jul, [facility] [id number] [place] [address] 688956- 1728 June, Bipolar I disorder, most recent episode (or current) mixed, in partial or unspecified remission 296.65 and Attention deficit disorder of childhood without mention of hyperactivity 314.00 [facility] [address] 3496 June, [facility] [id number] [place] [address] 555238- 4753 May, [facility] [address] [address]- 6121 May, [facility] [address] [address]- 9492 Apr, [facility] [address] [address]- 6862 Apr, [facility] [address] 9810 Mar, [facility] [address] 1910 Mar, [facility] [address]- 4056 Feb, [facility] [address] 8864 Feb, [facility] [address] 9487 Feb, [facility] [place] [facility] [address] [id number] [place] [address]- 9093 Feb, [facility] [place] [facility] [address] [id number] [place] [address]- 2088 Feb, [facility] [place] [facility] [address] [id number] [place] [address]- 9366 Feb, [facility] [place] [facility] [address] [id number] [place] [address]- 6716 Feb, [facility] [place] [facility] [address] [id number] [place] [address]- 5413 Feb, [facility] [place] [facility] [address] [id number] [place] [address]- 4264 Feb, [facility] [place] [facility] [address] [id number] [place] [address]- 0119 Feb, [facility] [place] [facility] [address] [id number] [place] [address]- 5271 Jan, [facility] [place] [facility] [address] [id number] [place] [address]- 6029 Jan, [facility] [place] [facility] [address] [id number] [place] [address]- 2303 Dec, [facility] [place] [facility] [address] [id number] [place] [address]- 3425 Dec, [facility] [place] [facility] [address] [id number] [address]- 5798 Dec, [facility] [place] [facility] [address] [id number] [place] [address]- 8134 Dec, [facility] [place] [facility] [address] [id number] [place] [address]- 5515 Dec, [facility] [place] [facility] [address] [id number] [place] 4257 Dec, [facility] [place] [facility] [address] [id number] [address]- 4844 17 Nov, 2013 [facility] [place] [facility] [address] [id number] [place] [address]- 5273 17 Nov, 2013 [facility] [place] [facility] [address] [id number] [place] [address]- 4853 16 Nov, 2013 [facility] [place] [facility] [address] [id number] [place] [address]- 8566 16 Nov, 2013 [facility] [place] [facility] [address] [id number] [address]- 2961 15 Nov, 2013 [facility] [place] [facility] [address] [id number] [place] [address]- 2261 15 Nov, 2013 [facility] [place] [facility] [address] [id number] [place] [address]- 2419 24 Sep, 2013 [facility] [place] [facility] [address] [id number] [address]- 5213 24 Sep, 2013 [facility] [place] [facility] [address] [id number] [place] [address]- 1545 24 Oct, 2013 [facility] [place] [facility] [address] [id number] [place] [address]- 2741 24 Oct, 2013 [facility] [place] [facility] [address] [id number] [place] [address]- 8755 19 Oct, 2013 [facility] [place] [facility] [address] [id number] [place] [address]- 1175 19 Sep, 2013 [facility] [place] [facility] [address] [id number] [address]- 2544 19 Sep, 2013 [facility] [place] [facility] [address] [id number] [address]- 2544 19 Sep, 2013 [facility] [place] [facility] [address] [id number] [address]- 1892 18 Sep, 2013 [facility] [place] [facility] [address] [id number] [place] [address]- 2549 18 Sep, 2013 [facility] [place] [facility] [address] [id number] [place] [address]- 6685 17 Oct, 2013 [facility] [place] [facility] [address] [id number] [place] [address]- 4442 17 Oct, 2013 [facility] [place] [facility] [address] [id number] [place] [address]- 5149 16 Oct, 2013 [facility] [place] [facility] [address] [id number] [place] [address]- 3590 16 Oct, 2013 [facility] [place] [facility] [address] [id number] [place] [address]- 8457 Sep, [facility] [place] [facility] [address] [id number] [place] [address]- 4999 Sep, [facility] [place] [facility] [address] [id number] [place] [address]- 3795 Sep, [facility] [place] [facility] [address] [id number] [place] [address]- 3297 Sep, [facility] [place] [facility] [address] [id number] [place] [address]- 7937 Sep, [facility] [place] [facility] [address] [id number] [place] [address]- 5894 Sep, [facility] [place] [facility] [address] [id number] [place] [address]- 9218 Aug, [facility] [place] [facility] [address] [id number] [place] [address]- 1820 Aug, [facility] [place] [facility] [address] [id number] [place] [address]- 0743 Jul, [facility] [place] [facility] [address] [id number] [place] [address]- 2053 Jul, [facility] [place] [facility] [address] [id number] [place] [address]- 5883 Jul, [facility] [place] [facility] [address] [id number] [place] [address]- 6787 Jul, [facility] [address] [id number] [place] [address]- 3900 June, [facility] [place] [facility] [address] [id number] [place] [address]- 7978 June, [facility] [place] [facility] [address] [id number] [place] [address]- 9659 May, [facility] [place] [facility] [address] [id number] [place] [address]- 6082 May, [facility] [place] [facility] [address] [id number] [place] [address]- 3422 Apr, [facility] [place] [facility] [address] [id number] [place] [address]- 4667 Apr, [facility] [place] [facility] [address] [id number] [place] [address]- 4922 Apr, [facility] [place] [facility] [address] [id number] [place] [address]- 3734 Apr, [facility] [place] [facility] [address] [id number] [place] [address]- 3974 Mar, [facility] [place] [facility] [address] [id number] [place] [address]- 5913 Mar, [facility] [place] [facility] [address] [id number] [place] [address]- 3044 Feb, [facility] [place] [facility] [address] [id number] [place] [address]- 5787 Feb, [facility] [place] [facility] [address] [id number] [place] [address]- 8714 Jan, [facility] [place] [facility] [address] [id number] [place] [address]- 4168 Jan, [facility] [place] [facility] [address] [id number] [place] [address]- 0502 Dec, [facility] [place] [facility] [address] [id number] [place] [address]- 8954 26 Dec, 2012 [facility] [address] [id number] [place] [address]- 6179 Dec, [facility] [place] [facility] [address] [id number] [place] [address]- 1568 15 Dec, 2012 [facility] [address] [id number] [place] [address]- 0705 14 Dec, 2012 [facility] [place] [facility] [address] [id number] [place] [address]- 3770 Nov, [facility] [place] [facility] [address] [id number] [place] [address]- 9223 Nov, [facility] [place] [facility] [address] [id number] [place] [address]- 2736 Oct, [facility] [address] [id number] [place] [address]- 7371 Sep, [facility] [place] [facility] [address] [id number] [place] [address]- 5613 Sep, [facility] [place] [facility] [address] [id number] [place] [address]- 3843 Sep, [facility] [place] [facility] [address] [id number] [place] [address]- 3244 Aug, [facility] [place] [facility] [address] [id number] [place] [address]- 3875 Jul, [facility] [place] [facility] [address] [id number] [place] [address]- 254 June, [facility] [place] [facility] [address] [id number] [place] [address]- 1291 June, [facility] [place] [facility] [address] [id number] [place] [address]- 2546 May, [facility] [place] [facility] [address] [id number] [place] [address]- 0458 May, [facility] [place] [facility] [address] [id number] [place] [address]- 8324 Apr, [facility] [address] [id number] [place] [address]- 5496 Apr, [facility] [address] [id number] [place] [address]- 3598 Apr, [facility] [address] [id number] [place] [address]- 7444 08 Apr, 2012 [facility] [address] [id number] [place] [address]- 8964 08 Apr, 2012 [facility] [address] [id number] [place] [address]- 9005 Apr, [facility] [address] [id number] [place] [address]- 0853 Apr, [facility] [address] [id number] [place] [address]- 2880 Mar, [facility] [address] [id number] [place] [address]- 0305 Mar, [facility] [address] [id number] [place] [address]- 2387 Mar, [facility] [address] [id number] [place] [address]- 4211 Feb, [facility] [address] [id number] [address]- 4277 Feb, [facility] [place] [facility] [address] [id number] [place] [address]- 7119 Jan, [facility] [place] [facility] [address] [id number] [place] [address]- 8666 Jan, [facility] [place] [facility] [address] [id number] [place] [address]- 6692 Jan, [facility] [address] [id number] [address]- 9262 Dec, [facility] [place] [facility] [address] [id number] [place] [address]- 7805 Dec, [facility] [place] [facility] [address] [id number] [place] [address]- 6078 Nov, [facility] [place] [facility] [address] [facility] [id number] [place] [address]- 7151 Oct, [facility] [place] [facility] [address] [id number] [place] [address]- 5666 Aug, [facility] [place] [facility] [address] [id number] [place] [address]- 8349 Jul, [facility] [place] [facility] [address] [id number] [place] [address]- 4391 Jul, [facility] [place] [facility] [id number] [address] Jul, [facility] [place] [facility] [address] [facility] [id number] [place] [address] Jul, [facility] [place] [facility] [address] [id number] [place] [address] Jul, [facility] [place] [facility] [address] [facility] [id number] [place] [address] Jul, [facility] [place] [facility] [address] [facility] [id number] [address] June, [facility] [place] [facility] [address] [id number] [address] June, [facility] [place] [facility] [address] [id number] [place] [address] June, [facility] [place] [facility] [address] [facility] [id number] [place] [address] May, [facility] [place] [facility] [address] [facility] [id number] [place] [address] May, [facility] [place] [facility] [address] [facility] [id number] [address] May, [facility] [address] [id number] [address] Apr, [facility] [address] [id number] [address] Mar, [facility] [address] [id number] [address] Mar, [facility] [address] [id number] [address] Jan, [facility] [address] [id number] [id number] Dec, IMMUNIZATIONS No Known Immunizations SOCIAL HISTORY Never Assessed REASON FOR VISIT Refill request PLAN OF CARE VITAL SIGNS MEDICATIONS Unknown [...]
--- OUTSIDE RECORDS SUMMARY | 2017-12-06 16:37 | XMS REPORT ---
Author Author JACOBY CHUCKY [facility] Address [address] [place] [address] Care Team Providers Care Environmental Engineering Aide Name Role Phone JACOBYJOANNA PARSONHANY Unavailable PROBLEMS Type Condition ICD9-CM Code MIG24-MD Code Onset Dates Condition Status SNOMED Code Problem Delusions of parasitosis F22 Active 740485043 Problem Vaginal bleeding N93.9 Active 858313268 Problem Bipolar 1 disorder F31.9 Active 104072058 Problem Bipolar disorder, in partial remission, most recent episode mixed F31.77 Active 00424165 Problem ADD (attention deficit disorder) F90.0 Active [id number] ALLERGIES No Information ENCOUNTERS Encounter Location Date Diagnosis [id number] [place] [address] 99123- 6573 June, [facility] [id number] [place] [address] 71724- 9208 May, Bipolar disorder, in partial remission, most recent episode mixed F31.77 [facility] [id number] [place] [address] 70070- 7270 Apr, Bipolar disorder, in partial remission, most recent episode mixed F31.77 [facility] [id number] [place] [address] 73041- 2907 Mar, Bipolar disorder, in partial remission, most recent episode mixed F31.77 [facility] [id number] [place] [address] 06874- 6623 Feb, Bipolar disorder, in partial remission, most recent episode mixed F31.77 and ADD (attention deficit disorder) F90.0 [facility] [id number] [place] [address] 44081- 5498 Jan, ADD (attention deficit disorder) F90.0 [facility] [address] [address] 2546 Nov, Delusions of parasitosis F22 [facility] [id number] [place] [address] 89134 2546 Oct, [facility] [id number] [place] [address] 56801 2546 Oct, Bipolar disorder, in partial remission, most recent episode mixed F31.77 and ADD (attention deficit disorder) F90.0 [facility] [id number] [place] [address] 86671 2546 Oct, [facility] [id number] [place] [address] 03259 2546 Oct, ADD (attention deficit disorder) F90.0 [facility] [id number] [place] [address] 10929 2546 Oct, [facility] [id number] [place] [address] 99338 2546 Oct, [facility] [id number] [place] [address] 43636 2546 Oct, Skin lesions L98.9 and Hematochezia K92.1 [facility] [address], [place] [address] 2546 Oct, Bipolar disorder, in partial remission, most recent episode mixed F31.77 [facility] [id number] [place] [address] 38511 2546 Oct, Bipolar disorder, in partial remission, most recent episode mixed F31.77 and ADD (attention deficit disorder) F90.0 [facility] [address], [place] [address] 2546 Sep, Bipolar disorder, in partial remission, most recent episode mixed F31.77 [facility] [address] [address] 2546 Sep, Bipolar disorder, in partial remission, most recent episode mixed F31.77 and ADD (attention deficit disorder) F90.0 [facility] [id number] [address]- 6796 Aug, [facility] [id number] [address]- 7216 Aug, Bipolar disorder, in partial remission, most recent episode mixed F31.77 and ADD (attention deficit disorder) F90.0 [facility] [id number] [address]- 9096 Aug, ADD (attention deficit disorder) F90.0 [facility] [id number] [address]- 5616 Aug, ADD (attention deficit disorder) F90.0 [facility] [id number] [address]- 3386 Jul, ADD (attention deficit disorder) F90.0 [facility] [id number] [address]- 4247 June, ADD (attention deficit disorder) F90.0 [facility] [id number] [address]- 3844 May, ADD (attention deficit disorder) F90.0 and Bipolar disorder , in partial remission, most recent episode mixed F31.77 [facility] [id number] [address]- 1486 May, Bipolar disorder, in partial remission, most recent episode mixed F31.77 [facility] [id number] [address]- 7859 Apr, Bipolar disorder, in partial remission, most recent episode mixed F31.77 [facility] [id number] [address]- 2736 Mar, Bipolar disorder, in partial remission, most recent episode mixed F31.77 [facility] [id number] [address]- 4114 Feb, ADD (attention deficit disorder) F90.0 [facility] [id number] [address]- 7136 Feb, [facility] [id number] [address]- 2286 Feb, [facility] [id number] [place] [address] 40722- 6011 Feb, Bipolar disorder, in partial remission, most recent episode mixed F31.77 ; ADD (attention deficit disorder) F90.0 and Other fdc ( current) drug therapy Z79.899 [facility] [id number] [place] [address] 23605- 6076 Feb, [facility] [address], [place] [address]- 4476 Jan, [facility] [id number] [address]- 3006 Dec, [facility] [address], [place] [address]- 2515 Nov, Bipolar disorder, in partial remission, most recent episode mixed F31.77 and ADD (attention deficit disorder) F90.0 [facility] [address], [place] [address]- 9596 Nov, [facility] [id number] [address] 2546 Oct, [facility] [id number] [address] 2546 Sep, [facility] [id number] [address]- 7016 Sep, [facility] [id number] [address]- 2546 Aug, [facility] [id number] [address] 3488 Jul, Bipolar I disorder, most recent episode mixed, in remission F31.70 and ADD (attention deficit disorder) F90.0 [facility] [address] [address]- 8693 14 Jul, 2015 [facility] [id number] [address]- 1067 June, [facility] [id number] [place] [address], [place] [address]- 4662 May, Bipolar 1 disorder F31.9 and ADD (attention deficit disorder ) F90.0 [facility] [id number] [place] [address], [place] [address]- 2261 May, [facility] [id number] [address]- 4777 Apr, [facility] [id number] [place] [address] 41656- 3630 Mar, [facility] [address], [place] [address]- 2826 Mar, [facility] [id number] [place] [address], [place] [address]- 5915 Mar, [facility] [address], [place] [address]- 2745 Feb, [facility] [address], [place] [address]- 8129 Jan, [facility] [address], [place] [address]- 6994 Jan, Bipolar disorder, in partial remission, most recent episode mixed F31.77 and Attention-deficit hyperactivity disorder, unspecified type F90.9 [facility] [id number] [address]- 5841 Dec, [facility] [address], [place] [address]- 8509 Nov, [facility] [address] 8932 Oct, Bipolar I disorder, most recent episode (or current) mixed, in partial or unspecified remission 296.65 and Attention deficit disorder of childhood without mention of hyperactivity 314.00 [facility] [address] 3899 Jul, [facility] [id number] 1208 Jul, [facility] [address] 6608 Jul, [facility] [id number] [place] [address] 53279- 7078 June, Bipolar I disorder, most recent episode (or current) mixed, in partial or unspecified remission 296.65 and Attention deficit disorder of childhood without mention of hyperactivity 314.00 [facility] [address] 6601 June, [facility] [address], [place] [address]- 9822 May, [facility] [address] 7216 May, [facility] [address] 8396 Apr, [facility] [address] 4390 Apr, [facility] [id number] 9204 Mar, [facility] [address], [place] [address]- 1086 Mar, [facility] [address] [address]- 2770 Feb, [facility] [id number] [place] [address] [place] [address]- 4177 Feb, [facility] [place] [facility] [address] [id number] [place] [address]- 2485 Feb, [facility] [place] [facility] [address] [id number] [place] [address]- 2233 Feb, [facility] [place] [facility] [address] [id number] [place] [address]- 9161 Feb, [facility] [place] [facility] [address] [id number] [place] [address]- 8766 Feb, [facility] [place] [facility] [address] [id number] [place] [address]- 5103 Feb, [facility] [place] [facility] [address] [id number] [place] [address]- 7260 Feb, [facility] [place] [facility] [address] [id number] [place] [address]- 7253 Feb, [facility] [place] [facility] [address] [id number] [place] [address]- 2313 Feb, [facility] [place] [facility] [address] [id number] [place] [address]- 3731 Jan, [facility] [place] [facility] [address] [id number] [place] [address]- 3278 Jan, [facility] [place] [facility] [address] [id number] [place] [address]- 1974 Dec, [facility] [place] [facility] [address] [id number] [place] [address]- 8115 Dec, [facility] [place] [facility] [address] [id number] [place] [address]- 0048 Dec, [facility] [place] [facility] [address] [id number] [place] [address]- 5339 Dec, [facility] [place] [facility] [address] [id number] [place] [address]- 0926 Dec, [facility] [place] [facility] [address] [id number] [place] [address]- 8311 12 Dec, 2013 [facility] [place] [facility] [address] [id number] [place] [address]- 2629 17 Nov, 2013 [facility] [place] [facility] [address] [id number] [place] [address]- 6444 17 Nov, 2013 [facility] [place] [facility] [address] [id number] [place] [address]- 9082 16 Nov, 2013 [facility] [place] [facility] [address] [id number] [place] [address]- 3470 16 Nov, 2013 [facility] [place] [facility] [address] [id number] [place] [address]- 0600 15 Nov, 2013 [facility] [place] [facility] [address] [id number] [place] [address]- 5756 15 Nov, 2013 [facility] [place] [facility] [address] [id number] [place] [address]- 3253 24 Oct, 2013 [facility] [place] [facility] [address] [id number] [place] [address]- 2549 24 Sep, 2013 [facility] [place] [facility] [address] [id number] [place] [address]- 2541 24 Sep, 2013 [facility] [place] [facility] [address] [id number] [place] [address]- 2540 24 Sep, 2013 [facility] [place] [facility] [address] [id number] [place] [address]- 2540 19 Sep, 2013 [facility] [place] [facility] [address] [id number] [place] [address] 2540 19 Sep, 2013 [facility] [place] [facility] [address] [id number] [place] [address] 2546 19 Sep, 2013 [facility] [place] [facility] [address] [id number] [place] [address] 2544 19 Sep, 2013 [facility] [place] [facility] [address] [id number] [place] [address]- 0083 18 Oct, 2013 [facility] [place] [facility] [address] [id number] [place] [address]- 7861 18 Oct, 2013 [facility] [place] [facility] [address] [id number] [place] [address]- 0316 17 Oct, 2013 [facility] [place] [facility] [address] [id number] [place] [address]- 1787 17 Oct, 2013 [facility] [place] [facility] [address] [id number] [place] [address]- 9751 16 Oct, 2013 [facility] [place] [facility] [address] [id number] [place] [address]- 8853 16 Oct, 2013 [facility] [place] [facility] [address] [id number] [place] [address]- 8919 Sep, [facility] [place] [facility] [address] [id number] [place] [address]- 1466 Sep, [facility] [place] [facility] [address] [id number] [place] [address]- 8576 Sep, [facility] [place] [facility] [address] [id number] [place] [address]- 2252 Sep, [facility] [place] [facility] [address] [id number] [place] [address]- 0027 Sep, [facility] [place] [facility] [address] [id number], [place] [address]- 6017 Sep, [facility] [place] [facility] [address] [id number], [place] [address]- 9562 Aug, [facility] [place] [facility] [address] [id number] [place] [address]- 4742 Aug, [facility] [place] [facility] [address] [id number] [place] [address]- 5977 Jul, [facility] [place] [facility] [address] [id number] [place] [address]- 7050 Jul, [facility] [place] [facility] [address] [id number] [place] [address]- 7692 Jul, [facility] [address] [id number] [place] [address]- 3359 Jul, [facility] [place] [facility] [address] [id number] [place] [address]- 3402 June, [facility] [place] [facility] [address] [id number] [place] [address]- 7029 June, [facility] [place] [facility] [address] [id number] [place] [address]- 4908 May, [facility] [place] [facility] [address] [id number] [place] [address]- 5370 May, [facility] [place] [facility] [address] [id number] [place] [address]- 6637 Apr, [facility] [place] [facility] [address] [id number] [place] [address]- 8496 Apr, [facility] [place] [facility] [address] [id number] [place] [address]- 0850 Apr, [facility] [place] [facility] [address] [id number] [place] [address]- 3325 Apr, [facility] [place] [facility] [address] [id number] [place] [address]- 8344 Mar, [facility] [place] [facility] [address] [id number] [place] [address]- 7037 Mar, [facility] [place] [facility] [address] [id number] [place] [address]- 3543 Feb, [facility] [place] [facility] [address] [id number] [place] 3093 Feb, [facility] [place] [facility] [address] [id number] [place] [address]- 1155 Jan, [facility] [place] [facility] [address] [id number] [place] 5134 Jan, [facility] [address] [id number] [place] [address]- 1338 Dec, [facility] [place] [facility] [address] [id number] [place] [address]- 4246 Dec, [facility] [place] [facility] [address] [id number] [place] [address]- 9816 Dec, [facility] [place] [facility] [address] [id number] [place] [address]- 4756 Dec, [facility] [place] [facility] [address] [id number] [place] [address]- 3458 Dec, [facility] [place] [facility] [address] [id number] [place] [address]- 9876 Nov, [facility] [place] [facility] [address] [id number] [place] [address]- 0246 Nov, [facility] [place] [facility] [address] [id number] [place] [address]- 0906 Oct, [facility] [place] [facility] [address] [id number] [place] [address]- 6994 Sep, [facility] [place] [facility] [address] [id number], [place] [address]- 8986 Sep, [facility] [place] [facility] [address] [id number], [place] [address]- 9926 Sep, [facility] [place] [facility] [address] [id number], [place] [address]- 3296 Aug, [facility] [place] [facility] [address] [id number] [place] [address]- 9806 Jul, [facility] [place] [facility] [address] [id number], [place] [address]- 2796 June, [facility] [place] [facility] [address] [id number], [place] [address]- 4476 June, [facility] [place] [facility] [address] [id number], [place] [address]- 2907 04 May, 2012 [facility] [address] [id number] [place] [address]- 3078 04 May, 2012 [facility] [address] [id number] [place] [address]- 7561 21 Apr, 2012 [facility] [address] [id number] [place] [address]- 0244 13 Apr, 2012 [facility] [address] [id number] [place] [address]- 1260 13 Apr, 2012 [facility] [address] [id number] [place] [address]- 1957 08 Apr, 2012 [facility] [address] [id number] [place] [address]- 0586 08 Apr, 2012 [facility] [address] [facility] [id number] [place] [address]- 0292 07 Apr, 2012 [facility] [address] [id number] [place] [address]- 9283 06 Apr, 2012 [facility] [address] [id number] [place] [address]- 5053 Mar, [facility] [address] [id number] [place] [address]- 5494 Mar, [facility] [address] [facility] [id number] [place] [address]- 8274 Mar, [facility] [place] [facility] [address] [id number] [place] [address]- 3671 Feb, [facility] [place] [facility] [address] [id number] [place] [address]- 0422 Feb, [facility] [place] [facility] [address] [id number] [place] [address]- 0205 Jan, [facility] [address] [facility] [id number], [place] [address]- 4145 Jan, [facility] [place] [facility] [address] [id number] [place] [address]- 7348 Jan, [facility] [place] [facility] [address] [id number] [place] [address]- 9667 Dec, [facility] [place] [facility] [address] [id number] [place] [address]- 9731 Dec, [facility] [place] [facility] [address] [id number] [place] [address]- 0021 Nov, [facility] [place] [facility] [address] [id number] [place] [address]- 5816 Oct, [facility] [place] [facility] [address] [id number] [place] [address]- 9538 Aug, [facility] [place] [facility] [address] [id number] [place] [address]- 1274 Jul, [facility] [place] [facility] [address] [id number] [place] [address]- 6206 Jul, [facility] [place] [facility] [address] [id number] [place] [address]- 1919 Jul, [facility] [place] [facility] [address] [id number] [place] [address]- 9126 Jul, [facility] [place] [facility] [address] [id number] [place] [address]- 4760 Jul, [facility] [place] [facility] [address] [id number] [place] [address]- 1264 Jul, [facility] [place] [facility] [address] [id number] [place] [address]- 1383 June, [facility] [place] [facility] [address] [id number] [place] [address]- 6815 June, [facility] [place] [facility] [address] [id number] [place] [address]- 2613 June, [facility] [place] [facility] [address] [id number] [place] [address]- 7488 May, [facility] [address] [facility] [id number]- 2497 May, [facility] [id number] 9658 May, [facility] [id number], [place] [address]- 8244 Apr, [facility] [address], [place] [address]- 4422 Mar, [facility] [address] 2432 Mar, [facility] [address], [place] [address]- 5955 Jan, [facility] [id number], [place] [address]- 1656 Dec, IMMUNIZATIONS No Known Immunizations SOCIAL HISTORY Never Assessed REASON FOR VISIT Requesting return call PLAN OF CARE VITAL SIGNS MEDICATIONS Unknown [...]
--- OUTSIDE RECORDS SUMMARY | 2017-12-06 16:38 | XMS REPORT ---
Author Author JACOBY CHUCKY [facility] Address [address] [place] [address] Care Team Providers Care Regional Economist Name Role Phone JACOBYJOANNA PARSONHANY Unavailable PROBLEMS Type Condition ICD9-CM Code RPC08-DD Code Onset Dates Condition Status SNOMED Code Problem Delusions of parasitosis F22 Active 523560184 Problem Vaginal bleeding N93.9 Active 660303729 Problem Bipolar 1 disorder F31.9 Active 188297305 Problem Bipolar disorder, in partial remission, most recent episode mixed F31.77 Active 21030441 Problem ADD (attention deficit disorder) F90.0 Active [id number] ALLERGIES No Information ENCOUNTERS Encounter Location Date Diagnosis [place] [id number] [place] [address] 86328- 0669 June, [place] [id number] [place] [address] 80465- 5386 May, Bipolar disorder, in partial remission, most recent episode mixed F31.77 [facility] [id number] [place] [address] 61653- 2066 Apr, Bipolar disorder, in partial remission, most recent episode mixed F31.77 [place] [id number] [place] [address] 05788- 1969 Mar, Bipolar disorder, in partial remission, most recent episode mixed F31.77 [facility] [id number] [place] [address] 43225- 4879 Feb, Bipolar disorder, in partial remission, most recent episode mixed F31.77 and ADD (attention deficit disorder) F90.0 [facility] [id number] [place] [address] 95394- 1348 Jan, ADD (attention deficit disorder) F90.0 [facility] [address] [address] 2546 Nov, Delusions of parasitosis F22 [facility] [id number] [place] [address] 33941 2546 Oct, [facility] [address] [place] [address] 65718 2546 Oct, Bipolar disorder, in partial remission, most recent episode mixed F31.77 and ADD (attention deficit disorder) F90.0 [facility] [id number] [place] [address] 72212 2546 Oct, [facility] [id number] [place] [address] 25334 2546 Oct, ADD (attention deficit disorder) F90.0 [facility] [id number] [place] [address] 14043 2546 Oct, [facility] [id number] [place] [address] 70340 2546 Oct, [facility] [id number] [place] [address] 68020 2546 Oct, Skin lesions L98.9 and Hematochezia K92.1 [facility] [address], [place] [address] 2546 Oct, Bipolar disorder, in partial remission, most recent episode mixed F31.77 [facility] [address] [place] [address] 87982 2546 Oct, Bipolar disorder, in partial remission, most recent episode mixed F31.77 and ADD (attention deficit disorder) F90.0 [facility] [address], [place] [address] 2546 Sep, Bipolar disorder, in partial remission, most recent episode mixed F31.77 [facility] [address], [place] [address] 2546 Sep, Bipolar disorder, in partial remission, most recent episode mixed F31.77 and ADD (attention deficit disorder) F90.0 [facility] [id number] [place] [address]- 0236 Aug, [facility] [id number] [place] [address]- 6426 Aug, Bipolar disorder, in partial remission, most recent episode mixed F31.77 and ADD (attention deficit disorder) F90.0 [facility] [id number] [place] [address]- 5826 Aug, ADD (attention deficit disorder) F90.0 [facility] [id number] [place] [address]- 4896 Aug, ADD (attention deficit disorder) F90.0 [facility] [id number] [place] [address]- 7586 Jul, ADD (attention deficit disorder) F90.0 [facility] [id number] [place] [address]- 0280 June, ADD (attention deficit disorder) F90.0 [facility] [id number] [place] [address]- 7425 May, ADD (attention deficit disorder) F90.0 and Bipolar disorder , in partial remission, most recent episode mixed F31.77 [facility] [id number], [place] [address]- 0958 May, Bipolar disorder, in partial remission, most recent episode mixed F31.77 [facility] [id number] [place] [address]- 4233 Apr, Bipolar disorder, in partial remission, most recent episode mixed F31.77 [facility] [id number] [place] [address]- 8206 Mar, Bipolar disorder, in partial remission, most recent episode mixed F31.77 [facility] [id number], [place] [address]- 7390 Feb, ADD (attention deficit disorder) F90.0 [facility] [id number], [place] [address]- 6116 Feb, [facility] [id number], [place] [address]- 0736 Feb, [facility] [address] [place] [address] 15444- 3902 Feb, Bipolar disorder, in partial remission, most recent episode mixed F31.77 ; ADD (attention deficit disorder) F90.0 and Other senior care ( current) drug therapy Z79.899 [facility] [id number] [place] [address] 98979- 6326 Feb, [facility] [address], [place] [address]- 4996 Jan, [facility] [id number], [place] [address]- 5196 Dec, [facility] [address], [place] [address]- 0548 Nov, Bipolar disorder, in partial remission, most recent episode mixed F31.77 and ADD (attention deficit disorder) F90.0 [facility] [address], [place] [address]- 0226 Nov, [facility] [id number], [place] [address] 2546 Oct, [facility] [id number], [place] [address] 2546 Sep, [facility] [id number], [place] [address]- 3116 Sep, [facility] [id number] [place] [address]- 2546 Aug, [facility] [id number] [address] 7315 Jul, Bipolar I disorder, most recent episode mixed, in remission F31.70 and ADD (attention deficit disorder) F90.0 [facility] [address] [place] [address]- 9944 14 Jul, 2015 [facility] [id number] [place] [address]- 5718 June, [facility] [id number] [place] [address], [place] [address]- 8672 May, Bipolar 1 disorder F31.9 and ADD (attention deficit disorder ) F90.0 [facility] [id number] [place] [address], [place] [address]- 8821 May, [facility] [id number] [place] [address]- 5898 Apr, [facility] [id number] [place] [address] 28179- 2691 Mar, [facility] [address], [place] [address]- 9627 Mar, [facility] [id number] [place] [address], [place] [address]- 4763 Mar, [facility] [address], [place] [address]- 6351 Feb, [facility] [address], [place] [address]- 8848 Jan, [facility] [address], [place] [address]- 4869 Jan, Bipolar disorder, in partial remission, most recent episode mixed F31.77 and Attention-deficit hyperactivity disorder, unspecified type F90.9 [facility] [id number] [place] [address]- 1128 Dec, [facility] [address], [place] [address]- 1203 Nov, [facility] [address] 4819 Oct, Bipolar I disorder, most recent episode (or current) mixed, in partial or unspecified remission 296.65 and Attention deficit disorder of childhood without mention of hyperactivity 314.00 [facility] [address] 7314 Jul, [facility] [id number] 3416 Jul, [facility] [address] 9816 Jul, [facility] [id number] [place] [address] 03687- 6538 June, Bipolar I disorder, most recent episode (or current) mixed, in partial or unspecified remission 296.65 and Attention deficit disorder of childhood without mention of hyperactivity 314.00 [facility] [address] 4231 June, [facility] [address], [place] [address]- 7577 May, [facility] [address]- 6471 May, [facility] [address]- 0322 Apr, [facility] [address]- 0638 Apr, [facility] [id number] 0237 Mar, [facility] [address], [place] [address]- 4576 Mar, [facility] [address], [place] [address]- 2858 Feb, [facility] [id number] [place] [address] [place] [address]- 6183 Feb, [facility] [place] [facility] [address] [id number] [place] [address]- 7153 Feb, [facility] [place] [facility] [address] [id number] [place] [address]- 0410 Feb, [facility] [place] [facility] [address] [id number] [place] [address]- 4521 Feb, [facility] [place] [facility] [address] [id number] [place] [address]- 4622 Feb, [facility] [place] [facility] [address] [id number] [place] [address]- 0515 Feb, [facility] [place] [facility] [address] [id number] [place] [address]- 4735 Feb, [facility] [place] [facility] [address] [id number] [place] [address]- 9275 Feb, [facility] [place] [facility] [address] [id number] [place] [address]- 6519 Feb, [facility] [place] [facility] [address] [id number] [place] [address]- 4048 Jan, [facility] [place] [facility] [address] [id number] [place] [address]- 4462 Jan, [facility] [place] [facility] [address] [id number] [place] [address]- 1311 Dec, [facility] [place] [facility] [address] [id number] [place] [address]- 0329 Dec, [facility] [place] [facility] [address] [id number] [place] [address]- 2440 Dec, [facility] [place] [facility] [address] [id number] [place] [address]- 3312 Dec, [facility] [place] [facility] [address] [id number] [place] [address]- 5424 Dec, [facility] [place] [facility] [address] [id number] [place] [address]- 1453 12 Dec, 2013 [facility] [place] [facility] [address] [id number] [place] [address]- 3608 17 Nov, 2013 [facility] [place] [facility] [address] [id number] [place] [address]- 7830 17 Nov, 2013 [facility] [place] [facility] [address] [id number] [place] [address]- 1274 16 Nov, 2013 [facility] [place] [facility] [address] [id number] [place] [address]- 2778 16 Nov, 2013 [facility] [place] [facility] [address] [id number] [place] [address]- 0385 15 Nov, 2013 [facility] [place] [facility] [address] [id number] [place] [address]- 6205 15 Nov, 2013 [facility] [place] [facility] [address] [id number] [place] [address]- 6190 24 Oct, 2013 [facility] [place] [facility] [address] [id number] [place] [address]- 2542 24 Sep, 2013 [facility] [place] [facility] [address] [id number] [place] [address]- 2544 24 Sep, 2013 [facility] [place] [facility] [address] [id number] [place] [address]- 2543 24 Sep, 2013 [facility] [place] [facility] [address] [id number] [place] [address]- 2545 19 Sep, 2013 [facility] [place] [facility] [address] [id number] [place] [address] 2541 19 Sep, 2013 [facility] [place] [facility] [address] [id number] [place] [address] 2546 19 Sep, 2013 [facility] [place] [facility] [address] [id number] [place] [address] 2543 19 Sep, 2013 [facility] [place] [facility] [address] [id number] [place] [address]- 0581 18 Oct, 2013 [facility] [place] [facility] [address] [id number] [place] [address]- 3370 18 Oct, 2013 [facility] [place] [facility] [address] [id number] [place] [address]- 8823 17 Oct, 2013 [facility] [place] [facility] [address] [id number] [place] [address]- 2626 17 Oct, 2013 [facility] [place] [facility] [address] [id number] [place] [address]- 2500 16 Oct, 2013 [facility] [place] [facility] [address] [id number] [place] [address]- 5484 16 Oct, 2013 [facility] [place] [facility] [address] [id number] [place] [address]- 7607 Sep, [facility] [place] [facility] [address] [id number] [place] [address]- 6844 Sep, [facility] [place] [facility] [address] [id number] [place] [address]- 1822 Sep, [facility] [place] [facility] [address] [id number] [place] [address]- 1078 Sep, [facility] [place] [facility] [address] [id number] [place] [address]- 3431 Sep, [facility] [place] [facility] [address] [id number], [place] [address]- 2426 Sep, [facility] [place] [facility] [address] [id number], [place] [address]- 2525 Aug, [facility] [place] [facility] [address] [id number] [place] [address]- 9700 Aug, [facility] [place] [facility] [address] [id number] [place] [address]- 8352 Jul, [facility] [place] [facility] [address] [id number] [place] [address]- 6059 Jul, [facility] [place] [facility] [address] [id number] [place] [address]- 6642 Jul, [facility] [address] [id number] [place] [address]- 5862 Jul, [facility] [place] [facility] [address] [id number] [place] [address]- 5403 June, [facility] [place] [facility] [address] [id number] [place] [address]- 8166 June, [facility] [place] [facility] [address] [id number] [place] [address]- 9683 May, [facility] [place] [facility] [address] [id number] [place] [address]- 9622 May, [facility] [place] [facility] [address] [id number] [place] [address]- 0936 Apr, [facility] [place] [facility] [address] [id number] [place] [address]- 2312 Apr, [facility] [place] [facility] [address] [id number] [place] [address]- 0790 Apr, [facility] [place] [facility] [address] [id number] [place] [address]- 0355 Apr, [facility] [place] [facility] [address] [id number] [place] [address]- 4653 Mar, [facility] [place] [facility] [address] [id number] [place] [address]- 4540 Mar, [facility] [place] [facility] [address] [id number] [place] [address]- 5745 Feb, [facility] [place] [facility] [address] [id number] [place] 1460 Feb, [facility] [place] [facility] [address] [id number] [place] [address]- 3313 Jan, [facility] [place] [facility] [address] [id number] [place] 1394 Jan, [facility] [address] [id number] [place] [address]- 3371 Dec, [facility] [place] [facility] [address] [id number] [place] [address]- 6916 Dec, [facility] [place] [facility] [address] [id number] [place] [address]- 6186 Dec, [facility] [place] [facility] [address] [id number] [place] [address]- 9066 Dec, [facility] [place] [facility] [address] [id number] [place] [address]- 8912 Dec, [facility] [place] [facility] [address] [id number] [place] [address]- 0036 Nov, [facility] [place] [facility] [address] [id number] [place] [address]- 3006 Nov, [facility] [place] [facility] [address] [id number] [place] [address]- 0596 Oct, [facility] [place] [facility] [address] [id number] [place] [address]- 6851 Sep, [facility] [place] [facility] [address] [id number], [place] [address]- 1326 Sep, [facility] [place] [facility] [address] [id number], [place] [address]- 0446 Sep, [facility] [place] [facility] [address] [id number], [place] [address]- 9426 Aug, [facility] [place] [facility] [address] [id number] [place] [address]- 5736 Jul, [facility] [place] [facility] [address] [id number], [place] [address]- 0776 June, [facility] [place] [facility] [address] [id number], [place] [address]- 6916 June, [facility] [place] [facility] [address] [id number], [place] [address]- 8355 04 May, 2012 [facility] [address] [id number] [place] [address]- 6364 04 May, 2012 [facility] [address] [id number] [place] [address]- 3666 21 Apr, 2012 [facility] [address] [id number] [place] [address]- 5174 13 Apr, 2012 [facility] [address] [id number] [place] [address]- 3265 13 Apr, 2012 [facility] [address] [id number] [place] [address]- 0358 08 Apr, 2012 [facility] [address] [id number] [place] [address]- 3468 08 Apr, 2012 [facility] [address] [facility] [id number] [place] [address]- 4293 07 Apr, 2012 [facility] [address] [id number] [place] [address]- 5212 06 Apr, 2012 [facility] [address] [id number] [place] [address]- 2730 Mar, [facility] [address] [id number] [place] [address]- 7141 Mar, [facility] [address] [facility] [id number] [place] [address]- 4951 Mar, [facility] [place] [facility] [address] [id number] [place] [address]- 2704 Feb, [facility] [place] [facility] [address] [id number] [place] [address]- 1936 Feb, [facility] [place] [facility] [address] [id number] [place] [address]- 4894 Jan, [facility] [address] [facility] [id number], [place] [address]- 4150 Jan, [facility] [place] [facility] [address] [id number] [place] [address]- 2501 Jan, [facility] [place] [facility] [address] [id number] [place] [address]- 7936 Dec, [facility] [place] [facility] [address] [id number] [place] [address]- 1665 Dec, [facility] [place] [facility] [address] [id number] [place] [address]- 4980 Nov, [facility] [place] [facility] [address] [id number] [place] [address]- 8136 Oct, [facility] [place] [facility] [address] [id number] [place] [address]- 2623 Aug, [facility] [place] [facility] [address] [id number] [place] [address]- 8801 Jul, [facility] [place] [facility] [address] [id number] [place] [address]- 9054 Jul, [facility] [place] [facility] [address] [id number] [place] [address]- 2591 Jul, [facility] [place] [facility] [address] [id number] [place] [address]- 5067 Jul, [facility] [place] [facility] [address] [id number] [place] [address]- 2026 Jul, [facility] [place] [facility] [address] [id number] [place] [address]- 3044 Jul, [facility] [place] [facility] [address] [id number] [place] [address]- 9144 June, [facility] [place] [facility] [address] [id number] [place] [address]- 5652 June, [facility] [place] [facility] [address] [id number] [place] [address]- 1958 June, [facility] [place] [facility] [address] [id number] [place] [address]- 3008 May, [facility] [id number], [place] [address]- 1273 May, [facility] [id number] [address] May, [facility] [address] [id number], [place] [address] Apr, [facility] [id number], [place] [address] Mar, [facility] [id number], [place] [address] Mar, [facility] [id number], [place] [address] Jan, [facility] [id number], [place] [address] Dec, IMMUNIZATIONS No Known Immunizations SOCIAL HISTORY Never Assessed REASON FOR VISIT PLAN OF CARE VITAL SIGNS MEDICATIONS Unknown [...]
--- OUTSIDE RECORDS SUMMARY | 2017-12-06 16:39 | XMS REPORT ---
Author Author [facility] Address [address] [place] [address] Care Team Providers Care Mosquito Sprayer Name Role Phone HCUCKY DOZIER Unavailable PROBLEMS Type Condition ICD9-CM Code [id number] Code Onset Dates Condition Status SNOMED Code Problem Delusions of parasitosis F22 Active 333329204 Problem Vaginal bleeding N93.9 Active 287574937 Problem Bipolar 1 disorder F31.9 Active 162334139 Problem Bipolar disorder, in partial remission, most recent episode mixed F31.77 Active 15878415 Problem ADD (attention deficit disorder) F90.0 Active 302799265 ALLERGIES Substance Reaction Event Type Date Status Demerol hypotension Drug Allergy Oct, Active ENCOUNTERS Encounter Location Date Diagnosis [place] [id number] [place] [address] 71271- 1258 June, [place] [facility] [address] [address]44 May, Bipolar disorder, in partial remission, most recent episode mixed F31.77 [place] [facility] [id number] [place] [address] 29130- 1097 Apr, Bipolar disorder, in partial remission, most recent episode mixed F31.77 [place] [id number] [place] [address] 33963- 6613 Mar, Bipolar disorder, in partial remission, most recent episode mixed F31.77 [facility] [address] [address]69- 5732 Feb, Bipolar disorder, in partial remission, most recent episode mixed F31.77 and ADD (attention deficit disorder) F90.0 [facility] [id number] [place] [address] 92340- 9357 Jan, ADD (attention deficit disorder) F90.0 [facility] [address] [address] 9307 Nov, Delusions of parasitosis F22 [facility] [address], [place] [address] 5541 Oct, [facility] [id number] [place] [address] 45822- 3099 Oct, Bipolar disorder, in partial remission, most recent episode mixed F31.77 and ADD (attention deficit disorder) F90.0 [facility] [id number] [place] [address] 49063- 3236 Oct, [facility] [id number] [place] [address] 42826- 3565 Oct, ADD (attention deficit disorder) F90.0 [facility] [id number] [place] [address] 13874- 2074 Oct, [facility] [id number] [place] [address] 43656- 6600 Oct, [facility] [id number] [place] [address] 38900- 9592 Oct, Skin lesions L98.9 and Hematochezia K92.1 [facility] [id number] [place] [address] 38318- 5702 Oct, Bipolar disorder, in partial remission, most recent episode mixed F31.77 [facility] [address] [address]- 4192 Oct, Bipolar disorder, in partial remission, most recent episode mixed F31.77 and ADD (attention deficit disorder) F90.0 [facility] [id number], [place] [address]- 6982 Sep, Bipolar disorder, in partial remission, most recent episode mixed F31.77 [facility] [id number] [place] [address] 83777- 5310 Sep, Bipolar disorder, in partial remission, most recent episode mixed F31.77 and ADD (attention deficit disorder) F90.0 [facility] [id number] [address] 7696 Aug, [facility] [id number] [address]- 7386 Aug, Bipolar disorder, in partial remission, most recent episode mixed F31.77 and ADD (attention deficit disorder) F90.0 [facility] [id number] [address]- 6501 Aug, ADD (attention deficit disorder) F90.0 [facility] [id number] [place] [address] 24155- 5076 Aug, ADD (attention deficit disorder) F90.0 [facility] [id number] [place] [address] 32298- 4446 Jul, ADD (attention deficit disorder) F90.0 [facility] [id number], [place] [address]- 7841 June, ADD (attention deficit disorder) F90.0 [facility] [id number] [address]- 4355 May, ADD (attention deficit disorder) F90.0 and Bipolar disorder , in partial remission, most recent episode mixed F31.77 [facility] [address], [place] [address]- 3007 May, Bipolar disorder, in partial remission, most recent episode mixed F31.77 [facility] [id number] [address]- 6976 Apr, Bipolar disorder, in partial remission, most recent episode mixed F31.77 [facility] [id number], [place] [address]- 7546 17 Mar, 2016 Bipolar disorder, in partial remission, most recent episode mixed F31.77 [facility] [id number], [place] [address]- 7965 Feb, ADD (attention deficit disorder) F90.0 [facility] [id number] [address]- 7386 Feb, [facility] [id number] [place] [address]- 5612 Feb, [facility] [id number] [place] [address] 93767- 1703 Feb, Bipolar disorder, in partial remission, most recent episode mixed F31.77 ; ADD (attention deficit disorder) F90.0 and Other alf ( current) drug therapy Z79.899 [facility] [address], [place] [address]- 1521 Feb, [facility] [address], [place] [address]- 2639 Jan, [facility] [id number] [address]- 4417 Dec, [facility] [address], [place] [address]- 8073 Nov, Bipolar disorder, in partial remission, most recent episode mixed F31.77 and ADD (attention deficit disorder) F90.0 [facility] [address], [place] [address]- 7786 Nov, [facility] [id number] [address]- 2546 Oct, [facility] [id number] [place] [address]- 9616 Sep, [facility] [id number] 4446 Sep, [facility] [id number] [place] [address]- 5406 Aug, [facility] [address] [address]- 8513 30 Jul, 2015 Bipolar I disorder, most recent episode mixed, in remission F31.70 and ADD (attention deficit disorder) F90.0 [facility] [address], [place] [address]- 2908 14 Jul, 2015 [facility] [id number] [address]- 0050 June, [facility] [id number] [place] [address] 38612- 9863 May, Bipolar 1 disorder F31.9 and ADD (attention deficit disorder ) F90.0 [facility] [id number] [place] [address] 55266- 7715 May, [facility] [address], [place] [address]- 7582 Apr, [facility] [id number] [place] [address] 30927- 8837 Mar, [facility] [address], [place] [address]- 9780 Mar, [facility] [id number] [place] [address] 25986- 2202 Mar, [facility] [address], [place] [address]- 8246 Feb, [facility] [id number], [place] [address]- 2141 Jan, [facility] [address], [place] [address]- 1525 Jan, Bipolar disorder, in partial remission, most recent episode mixed F31.77 and Attention-deficit hyperactivity disorder, unspecified type F90.9 [facility] [address], [place] [address]- 6790 16 Dec, 2014 [facility] [id number] [place] [address] 50363- 2546 Nov, [facility] [address], [place] [address]- 9356 Oct, Bipolar I disorder, most recent episode (or current) mixed, in partial or unspecified remission 296.65 and Attention deficit disorder of childhood without mention of hyperactivity 314.00 [facility] [address], [place] [address]- 4326 Jul, [facility] [address] [place] [address] 12185- 1681 Jul, [facility] [address] [place] [address] 48714- 9427 Jul, [facility] [id number] [place] [address] 64773- 8186 June, Bipolar I disorder, most recent episode (or current) mixed, in partial or unspecified remission 296.65 and Attention deficit disorder of childhood without mention of hyperactivity 314.00 [facility] [address], [place] [address]- 5329 June, [facility] [address] 8249 May, [facility] [address], [place] [address]- 6089 May, [facility] [address] [address]- 5826 Apr, [facility] [address], [place] [address]- 1388 Apr, [facility] [address], [place] [address]- 2916 Mar, [facility] [address], [place] [address]- 5956 Mar, [facility] [address], [place] [address]- 4077 Feb, [facility] [address] [id number] [place] [address]- 2531 Feb, [facility] [place] [facility] [address] [id number] [place] [address]- 1538 Feb, [facility] [place] [facility] [address] [id number] [place] [address]- 5644 Feb, [facility] [place] [facility] [address] [id number] [place] [address]- 4275 Feb, [facility] [place] [facility] [address] [id number] [place] [address]- 7439 Feb, [facility] [place] [facility] [address] [id number] [place] [address]- 4598 Feb, [facility] [place] [facility] [address] [id number] [place] [address]- 0727 Feb, [facility] [place] [facility] [address] [id number] [place] [address]- 7453 Feb, [facility] [place] [facility] [address] [id number] [place] [address]- 7326 Feb, [facility] [place] [facility] [address] [id number] [place] [address]- 2578 Jan, [facility] [place] [facility] [address] [id number] [place] [address]- 1167 Jan, [facility] [place] [facility] [address] [id number] [place] [address]- 1594 Dec, [facility] [place] [facility] [address] [id number] [place] [address]- 7918 Dec, [facility] [place] [facility] [address] [id number] [place] [address]- 0166 Dec, [facility] [place] [facility] [address] [id number] [place] [address]- 3220 Dec, [facility] [place] [facility] [address] [id number] [place] [address]- 5682 Dec, [facility] [place] [facility] [address] [id number] [place] [address]- 7079 Dec, [facility] [place] [facility] [address] [id number] [place] [address]- 9079 17 Nov, 2013 [facility] [place] [facility] [address] [id number] [place] [address]- 9585 17 Nov, 2013 [facility] [place] [facility] [address] [id number] [place] [address]- 1247 16 Nov, 2013 [facility] [place] [facility] [address] [id number] [place] [address]- 0740 16 Nov, 2013 [facility] [place] [facility] [address] [id number] [place] [address]- 8619 15 Nov, 2013 [facility] [place] [facility] [address] [id number] [place] [address]- 3482 15 Nov, 2013 [facility] [place] [facility] [address] [id number] [place] [address]- 1869 24 Oct, 2013 [facility] [place] [facility] [address] [id number] [place] [address] 2549 24 Oct, 2013 [facility] [place] [facility] [address] [id number] [place] [address]- 0484 24 Oct, 2013 [facility] [place] [facility] [address] [id number] [place] [address]- 4792 24 Oct, 2013 [facility] [place] [facility] [address] [id number] [place] [address]- 9859 19 Oct, 2013 [facility] [place] [facility] [address] [id number] [place] [address] 2549 19 Oct, 2013 [facility] [place] [facility] [address] [id number] [place] [address]- 2544 19 Oct, 2013 [facility] [place] [facility] [address] [id number] [place] [address]- 2543 19 Oct, 2013 [facility] [place] [facility] [address] [id number] [place] [address]- 8754 18 Oct, 2013 [facility] [place] [facility] [address] [id number] [place] [address]- 5920 18 Oct, 2013 [facility] [place] [facility] [address] [id number] [place] [address]- 9267 17 Oct, 2013 [facility] [place] [facility] [address] [id number] [place] [address]- 0474 17 Oct, 2013 [facility] [place] [facility] [address] [id number] [place] [address]- 6635 16 Oct, 2013 [facility] [place] [facility] [address] [id number] [place] [address]- 0105 16 Oct, 2013 [facility] [place] [facility] [address] [id number] [place] [address]- 7825 Sep, [facility] [place] [facility] [address] [id number] [place] [address]- 7422 Sep, [facility] [place] [facility] [address] [id number] [place] [address]- 3501 Sep, [facility] [place] [facility] [address] [id number] [place] [address]- 5017 Sep, [facility] [place] [facility] [address] [id number] [place] [address]- 4553 Sep, [facility] [place] [facility] [address] [id number] [place] [address]- 3661 Sep, [facility] [place] [facility] [address] [id number] [place] [address]- 8155 Aug, [facility] [place] [facility] [address] [id number] [place] [address]- 9971 Aug, [facility] [place] [facility] [address] [id number] [place] [address]- 1650 Jul, [facility] [place] [facility] [address] [id number] [place] [address]- 2664 Jul, [facility] [address] [id number] [place] [address]- 8716 Jul, [facility] [place] [facility] [address] [id number] [place] [address]- 8410 Jul, [facility] [place] [facility] [address] [id number] [place] [address]- 0349 June, [facility] [place] [facility] [address] [id number] [place] [address]- 3108 June, [facility] [place] [facility] [address] [id number] [place] [address]- 2545 May, [facility] [place] [facility] [address] [id number] [place] [address]- 9558 May, [facility] [place] [facility] [address] [id number] [place] [address]- 1271 Apr, [facility] [place] [facility] [address] [id number] [place] [address]- 0132 Apr, [facility] [place] [facility] [address] [id number] [place] [address]- 2736 Apr, [facility] [place] [facility] [address] [id number] [place] [address]- 3380 Apr, [facility] [place] [facility] [address] [id number] [place] [address]- 8555 Mar, [facility] [place] [facility] [address] [id number] [place] [address]- 2526 Mar, [facility] [place] [facility] [address] [id number] [place] [address]- 6815 Feb, [facility] [place] [facility] [address] [id number] [place] [address]- 7591 Feb, [facility] [place] [facility] [address] [id number] [place] [address]- 2767 Jan, [facility] [place] [facility] [address] [id number] [place] [address]- 9547 Jan, [facility] [address] [id number] [place] [address]- 0991 Dec, [facility] [place] [facility] [address] [id number] [place] [address]- 5848 Dec, [facility] [place] [facility] [address] [id number] [place] [address]- 6803 Dec, [facility] [place] [facility] [address] [id number] [place] [address]- 4126 15 Dec, 2012 [facility] [place] [facility] [address] [id number] [place] [address]- 2629 14 Dec, 2012 [facility] [place] [facility] [address] [id number] [place] [address]- 2305 Nov, [facility] [place] [facility] [address] [id number] [place] [address]- 9114 Nov, [facility] [place] [facility] [address] [id number] [place] [address]- 9827 Oct, [facility] [place] [facility] [address] [id number] [place] [address]- 2859 Sep, [facility] [place] [facility] [address] [id number] [place] [address]- 6772 Sep, [facility] [place] [facility] [address] [id number] [place] [address]- 0918 Sep, [facility] [place] [facility] [address] [id number] [place] [address] 2542 Aug, [facility] [place] [facility] [address] [id number] [place] [address]- 6314 Jul, [facility] [place] [facility] [address] [id number] [place] [address] 2546 June, [facility] [place] [facility] [address] [facility] [id number] [place] [address]- 9846 June, [facility] [place] [facility] [address] [id number] [place] [address]- 0851 May, [facility] [address] [id number] [place] [address]- 1787 May, [facility] [place] [facility] [address] [id number] [place] [address]- 9362 Apr, [facility] [place] [facility] [address] [id number] [place] [address]- 6630 Apr, [facility] [address] [id number] [place] [address]- 5409 13 Apr, 2012 [facility] [address] [id number] [place] [address]- 2466 08 Apr, 2012 [facility] [address] [id number] [place] [address]- 4028 08 Apr, 2012 [facility] [address] [id number] [place] [address]- 8268 Apr, [facility] [address] [id number] [place] [address]- 5454 Apr, [facility] [address] [id number] [place] [address]- 8669 Mar, [facility] [address] [id number] [place] [address]- 2143 Mar, [facility] [place] [facility] [address] [id number] [place] [address]- 8999 Mar, [facility] [place] [facility] [address] [id number] [place] [address]- 0752 Feb, [facility] [place] [facility] [address] [id number] [place] [address]- 1386 Feb, [facility] [place] [facility] [address] [id number] [place] [address]- 2388 Jan, [facility] [place] [facility] [address] [id number] [address]- 8735 Jan, [facility] [place] [facility] [address] [id number] [place] [address]- 4830 Jan, [facility] [place] [facility] [address] [id number] [place] [address]- 0198 Dec, [facility] [place] [facility] [address] [id number] [place] [address]- 6122 Dec, [facility] [place] [facility] [address] [id number] [place] [address]- 1196 Nov, [facility] [place] [facility] [address] [id number] [place] [address]- 4294 Oct, [facility] [place] [facility] [address] [id number] [place] [address]- 7721 Aug, [facility] [place] [facility] [address] [id number] [place] [address]- 9020 Jul, [facility] [place] [facility] [address] [id number] [place] [address]- 1930 Jul, [facility] [place] [facility] [address] [id number] [place] [address]- 9516 Jul, [facility] [place] [facility] [address] [id number] [place] [address]- 0270 Jul, [facility] [place] [facility] [address] [id number], [place] [address]- 0284 Jul, [facility] [place] [facility] [address] [id number], [place] [address] Jul, [facility] [place] [facility] [address] [id number] [place] [address] June, [facility] [place] [facility] [address] [id number] [place] [address] June, [facility] [place] [facility] [address] [id number] [place] June, [facility] [place] [facility] [address] [id number] [address] May, [facility] [id number], [place] [address] May, [facility] [id number], [place] [address] May, [facility] [id number] [address] Apr, [facility] [id number], [place] [address] Mar, [facility] [id number] [address] Mar, [facility] [id number], [place] [address] Jan, [facility] [id number], [place] [address] Dec, IMMUNIZATIONS No Known Immunizations SOCIAL HISTORY Never Assessed REASON FOR VISIT rash on body since august --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 PLAN OF CARE Activity Details Follow Up prn Reason: VITAL SIGNS Height 65.5 in 2016-10-28 Weight 144.7 lbs 2016-10-28 Temperature 97.2 degrees Fahrenheit 2016-10-28 Heart Rate 72 bpm 2016-10-28 Respiratory Rate 18 2016-10-28 BMI 23.71 kg/m2 2016-10-28 Blood pressure systolic 118 mmHg 2016-10-28 Blood pressure diastolic 76 mmHg 2016-10-28 MEDICATIONS Medication Instructions Dosage Frequency Start Date End Date Duration Status Vitamin B 12 100 MCG Active Calcium 600 MG Orally Twice a day 1 tablet with meals 12h Active Co Q-10 100 MG Orally Once a day 1 capsule with a meal 24h Active Methylphenidate HCl ER 27 MG Orally Once a day 1 tablet in the morning 24h 28 days Active Melatonin 3 MG Orally Once a day 1 tablet at bedtime as needed with food 24h Active B Complex + C TR - Active Fish Oil 1200 MG Orally Once a day 1 capsule 24h Active Vitamin D 1000 UNIT Orally Once a day 1 tablet 24h Active Vitamin D-3 1000 UNIT Orally Once a day 1 capsule 24h Active Depakote ER 500 MG Orally at bedtime 2 tablets 30 days Active BuPROPion HCl ER (XL) 300 MG Orally Once a day 1 tablet in the morning 24h 30 days Active RESULTS Name Result Date Reference Range PATHOLOGY REPORT 2016-10-28 . . . . Comment: . . . . PDF Report 2016-10-28 PDF Report1 LCLS PROCEDURES No Known procedures INSTRUCTIONS MEDICATIONS ADMINISTERED [...]
--- OUTSIDE RECORDS SUMMARY | 2017-12-06 16:40 | XMS REPORT ---
Author Author JOSSUE MANZO [facility] Address [address] [place] [address] Care Team Providers Care Cook Helper Vegetable Name Role Phone JUANY MANZOLUIS A Unavailable PROBLEMS Type Condition ICD9-CM Code PKE13-CU Code Onset Dates Condition Status SNOMED Code Problem Delusions of parasitosis F22 Active 986058642 Problem Vaginal bleeding N93.9 Active 150622535 Problem Bipolar 1 disorder F31.9 Active 522463065 Problem Bipolar disorder, in partial remission, most recent episode mixed F31.77 Active 47515373 Problem ADD (attention deficit disorder) F90.0 Active [id number] ALLERGIES No Information ENCOUNTERS Encounter Location Date Diagnosis [place] [address] [address] June, [place] [address] [address]68- [address] May, Bipolar disorder, in partial remission, most recent episode mixed F31.77 [place] [address] [place] [id number] [place] [address] 45322- 3383 Apr, Bipolar disorder, in partial remission, most recent episode mixed F31.77 [place] [address] [place] [id number] [place] [address] 90234- 2893 Mar, Bipolar disorder, in partial remission, most recent episode mixed F31.77 [place] [address] [address]- 0396 Feb, Bipolar disorder, in partial remission, most recent episode mixed F31.77 and ADD (attention deficit disorder) F90.0 [place] [address] [place] [id number] [place] [address] 19516- 3355 Jan, ADD (attention deficit disorder) F90.0 [place] [address], [place] [address] 8076 Nov, Delusions of parasitosis F22 [facility] [address] [place] [id number] [place] [address] 99120 2546 Oct, [facility] [id number] [place] [address] 95629 2546 Oct, Bipolar disorder, in partial remission, most recent episode mixed F31.77 and ADD (attention deficit disorder) F90.0 [facility] [id number] [place] [address] 32089 2546 Oct, [facility] [address] [place] [id number] [place] [address] 79206- 4376 Oct, ADD (attention deficit disorder) F90.0 [facility] [id number] [place] [address] 58433- 3256 Oct, [facility] [address] [place] [id number] [place] [address] 12445- 6296 Oct, [facility] [address] [place] [address] [id number] [place] [address] 21420- 0406 13 Oct, 2016 Skin lesions L98.9 and Hematochezia K92.1 [facility] [address], [place] [address] 2546 Oct, Bipolar disorder, in partial remission, most recent episode mixed F31.77 [facility] [id number] [place] [address] 57883- 2546 Oct, Bipolar disorder, in partial remission, most recent episode mixed F31.77 and ADD (attention deficit disorder) F90.0 [facility] [address] [place] [id number] [place] [address] 90496- 9206 Sep, Bipolar disorder, in partial remission, most recent episode mixed F31.77 [facility] [address], [place] [address] 4096 Sep, Bipolar disorder, in partial remission, most recent episode mixed F31.77 and ADD (attention deficit disorder) F90.0 [facility] [address], [place] [address]- 1246 Aug, [facility] [address] [place] [address] [id number] [address] [address]36 Aug, Bipolar disorder, in partial remission, most recent episode mixed F31.77 and ADD (attention deficit disorder) F90.0 [facility] [address], [place] [address]- 1076 Aug, ADD (attention deficit disorder) F90.0 [facility] [address], [place] [address]- 0076 Aug, ADD (attention deficit disorder) F90.0 [facility] [address], [place] [address]- 6626 Jul, ADD (attention deficit disorder) F90.0 [facility] [address], [place] [address]- 2446 June, ADD (attention deficit disorder) F90.0 [facility] [address], [place] [address]- 4022 May, ADD (attention deficit disorder) F90.0 and Bipolar disorder , in partial remission, most recent episode mixed F31.77 [facility] [address], [place] [address]- 1576 May, Bipolar disorder, in partial remission, most recent episode mixed F31.77 [facility] [address] [id number], [place] [address]- 0616 Apr, Bipolar disorder, in partial remission, most recent episode mixed F31.77 [facility] [address] [id number] [address] 5316 Mar, Bipolar disorder, in partial remission, most recent episode mixed F31.77 [facility] [address] [place] [address] [id number], [place] [address]- 5879 Feb, ADD (attention deficit disorder) F90.0 [facility] [address] [place] [id number], [place] [address]- 4946 Feb, [facility] [address] [place] [address] [id number] [place] [address] 50820- 9876 Feb, [facility] [address] [place] [address] [id number] [place] [address] 42161- 7950 Feb, Bipolar disorder, in partial remission, most recent episode mixed F31.77 ; ADD (attention deficit disorder) F90.0 and 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 [facility] [address] [place] [address] [id number] [place] [address] 59492- 3053 Feb, [facility] [address] [place] [id number] [place] [address] 25629- 2456 Jan, [facility] [address] [place] [id number] [place] [address] 38412- 4336 Dec, [facility] [address] [place] [id number] [place] [address] 96793- 5902 Nov, Bipolar disorder, in partial remission, most recent episode mixed F31.77 and ADD (attention deficit disorder) F90.0 [facility] [address] [place] [id number] [address]- 0356 Nov, [facility] [address] [place] [id number] [address] 2546 Oct, [facility] [address] [place] [id number], [place] [address] 2546 Sep, [facility] [address] [place] [id number] [place] [address], [place] [address]- 0616 Sep, [facility] [address] [place] [address] [id number] [place] [address]- 2546 Aug, [facility] [address] [place] [address] [id number] [place] [address] 08114- 7273 Jul, Bipolar I disorder, most recent episode mixed, in remission F31.70 and ADD (attention deficit disorder) F90.0 [facility] [id number] [address]- 4530 14 Jul, 2015 [facility] [id number] [address]- 7306 June, [facility] [address] [place] [address] [id number] [place] [address], [place] [address]- 3849 May, Bipolar 1 disorder F31.9 and ADD (attention deficit disorder ) F90.0 [facility] [address] [place] [address] [id number] [place] [address], [place] [address]- 1152 May, [facility] [address] [place] [id number] [place] [address], [place] [address]- 1034 Apr, [facility] [address] [place] [address] [id number] [place] [address] 15586- 1324 Mar, [facility] [address] [place] [id number] [address]- 1698 Mar, [facility] [address] [place] [id number] [place] [address], [place] [address]- 7698 Mar, [facility] [address], [place] [address]- 6941 Feb, [facility] [address] [place] [address] [id number] [address]- 6457 Jan, [facility] [address], [place] [address]- 8903 Jan, Bipolar disorder, in partial remission, most recent episode mixed F31.77 and Attention-deficit hyperactivity disorder, unspecified type F90.9 [facility] [address] [place] [address]- 6665 Dec, [facility] [address] [place] [address]- 0151 Nov, [facility] [address] [address] Oct, Bipolar I disorder, most recent episode (or current) mixed, in partial or unspecified remission 296.65 and Attention deficit disorder of childhood without mention of hyperactivity 314.00 [facility] [address] 9133 Jul, [facility] [address] [place] [id number] [place] [address] 224289- 1719 Jul, [facility] [address] 3241 Jul, [facility] [address] [place] [id number] [place] [address] 317884- 3503 June, Bipolar I disorder, most recent episode (or current) mixed, in partial or unspecified remission 296.65 and Attention deficit disorder of childhood without mention of hyperactivity 314.00 [facility] [address] [place] [address] 14901670- 3615 June, [facility] [address], [place] [address]- 5337 May, [facility] [id number] [place] [address] 37302- 6742 May, [facility] [address], [place] [address]- 8475 Apr, [facility] [address] 5321 Apr, [facility] [address] 6396 Mar, [facility] [address] 4766 Mar, [facility] [address] 1720 Feb, [facility] [address] [place] [address] [id number] [place] [address] 49065- 9747 Feb, [facility] [place] [facility] [address] [id number] [place] [address]- 3020 Feb, [facility] [place] [facility] [address] [id number] [place] [address]- 3438 Feb, [facility] [place] [facility] [address] [id number] [place] [address]- 1669 Feb, [facility] [place] [facility] [address] [id number] [place] [address]- 9388 Feb, [facility] [place] [facility] [address] [id number] [place] [address]- 4456 Feb, [facility] [place] [facility] [address] [id number] [place] [address]- 2323 Feb, [facility] [place] [facility] [address] [id number] [place] [address]- 3880 Feb, [facility] [place] [facility] [address] [id number] [place] [address]- 9262 Feb, [facility] [place] [facility] [address] [id number] [place] [address]- 2829 Jan, [facility] [place] [facility] [address] [id number] [place] [address]- 6416 Jan, [facility] [place] [facility] [address] [id number] [place] [address]- 8934 Dec, [facility] [place] [facility] [address] [id number] [place] [address]- 1147 Dec, [facility] [place] [facility] [address] [id number] [place] [address]- 5387 Dec, [facility] [place] [facility] [address] [id number] [place] [address]- 0048 Dec, [facility] [place] [facility] [address] [id number] [place] [address]- 6780 Dec, [facility] [place] [facility] [address] [id number] [place] [address]- 0725 12 Dec, 2013 [facility] [place] [facility] [address] [id number] [place] [address]- 5380 17 Nov, 2013 [facility] [place] [facility] [address] [id number] [place] [address]- 4726 17 Nov, 2013 [facility] [place] [facility] [address] [id number] [place] [address]- 3287 16 Nov, 2013 [facility] [place] [facility] [address] [id number] [place] [address]- 8028 16 Nov, 2013 [facility] [place] [facility] [address] [id number] [place] [address]- 8699 15 Nov, 2013 [facility] [place] [facility] [address] [id number] [place] [address]- 8021 15 Nov, 2013 [facility] [place] [facility] [address] [id number] [place] [address]- 6395 24 Sep, 2013 [facility] [place] [facility] [address] [id number] [place] [address]- 6953 24 Sep, 2013 [facility] [place] [facility] [address] [id number] [place] [address]- 2548 24 Sep, 2013 [facility] [place] [facility] [address] [id number] [place] [address]- 0472 24 Sep, 2013 [facility] [place] [facility] [address] [id number] [place] [address]- 1656 19 Sep, 2013 [facility] [place] [facility] [address] [id number] [place] [address]- 2541 19 Sep, 2013 [facility] [place] [facility] [address] [id number] [place] [address]- 2543 19 Sep, 2013 [facility] [place] [facility] [address] [id number] [place] [address]- 2543 19 Sep, 2013 [facility] [place] [facility] [address] [id number] [place] [address]- 9390 18 Oct, 2013 [facility] [place] [facility] [address] [id number] [place] [address]- 9978 18 Oct, 2013 [facility] [place] [facility] [address] [id number] [place] [address]- 5275 17 Oct, 2013 [facility] [place] [facility] [address] [id number] [place] [address]- 5557 17 Oct, 2013 [facility] [place] [facility] [address] [id number] [place] [address]- 1238 16 Oct, 2013 [facility] [place] [facility] [address] [id number] [place] [address]- 2412 16 Oct, 2013 [facility] [place] [facility] [address] [id number] [place] [address]- 2238 Sep, [facility] [place] [facility] [address] [id number] [place] [address]- 7781 Sep, [facility] [place] [facility] [address] [id number] [place] [address]- 5756 Sep, [facility] [place] [facility] [address] [id number] [place] [address]- 5936 Sep, [facility] [place] [facility] [address] [id number] [place] [address]- 0712 Sep, [facility] [place] [facility] [address] [id number] [place] [address]- 1817 Sep, [facility] [place] [facility] [address] [id number], [place] [address]- 6045 Aug, [facility] [place] [facility] [address] [id number] [place] [address]- 7088 Aug, [facility] [place] [facility] [address] [id number] [place] [address]- 0475 Jul, [facility] [place] [facility] [address] [id number] [place] [address]- 8718 Jul, [facility] [place] [facility] [address] [id number] [place] [address]- 4786 Jul, [facility] [address] [id number] [place] [address]- 6943 Jul, [facility] [place] [facility] [address] [id number] [place] [address]- 0819 June, [facility] [place] [facility] [address] [id number] [place] [address]- 3735 June, [facility] [place] [facility] [address] [id number] [place] [address]- 8612 May, [facility] [place] [facility] [address] [id number] [place] [address]- 4302 May, [facility] [place] [facility] [address] [id number] [place] [address]- 4982 Apr, [facility] [place] [facility] [address] [id number] [place] [address]- 5788 Apr, [facility] [place] [facility] [address] [id number] [place] [address]- 5532 Apr, [facility] [place] [facility] [address] [id number] [place] [address]- 5085 Apr, [facility] [place] [facility] [address] [id number] [place] [address]- 7059 Mar, [facility] [place] [facility] [address] [id number] [place] [address]- 4572 Mar, [facility] [place] [facility] [address] [id number] [place] [address]- 4459 Feb, [facility] [place] [facility] [address] [id number] [place] [address]- 3846 Feb, [facility] [place] [facility] [address] [id number] [place] [address]- 2233 Jan, [facility] [place] [facility] [address] [id number] [place] [address]- 7269 Jan, [facility] [place] [facility] [address] [id number] [place] [address]- 0924 Dec, [facility] [address] [id number] [place] [address]- 9978 Dec, [facility] [address] [id number] [place] [address] 2548 Dec, [facility] [place] [facility] [address] [id number] [place] [address]- 1944 Dec, [facility] [address] [id number] [place] [address]- 2429 Dec, [facility] [place] [facility] [address] [id number] [place] [address]- 9866 Nov, [facility] [address] [id number] [place] [address]- 1745 Nov, [facility] [address] [id number] [place] [address]- 1830 Oct, [facility] [address] [id number] [place] [address]- 1326 Sep, [facility] [place] [facility] [address] [id number] [place] [address]- 8184 Sep, [facility] [place] [facility] [address] [id number] [place] [address]- 2546 Sep, [facility] [place] [facility] [address] [id number], [place] [address]- 2546 Aug, [facility] [place] [facility] [address] [id number] [place] [address]- 2540 Jul, [facility] [place] [facility] [address] [id number] [place] [address]- 2546 June, [facility] [place] [facility] [address] [id number] [place] [address]- 2546 June, [facility] [place] [facility] [address] [id number], [place] [address]- 5936 May, [facility] [address] [id number] [place] [address]- 8971 May, [facility] [address] [id number] [place] [address]- 9239 Apr, [facility] [address] [id number] [place] [address]- 2224 Apr, [facility] [address] [id number] [place] [address]- 4431 13 Apr, 2012 [facility] [address] [id number] [place] [address]- 6596 08 Apr, 2012 [facility] [address] [id number] [place] [address]- 8017 08 Apr, 2012 [facility] [address] [id number] [place] [address]- 3608 Apr, [facility] [address] [id number] [place] [address]- 8577 Apr, [facility] [address] [id number] [place] [address]- 9928 Mar, [facility] [address] [id number] [place] [address]- 2321 Mar, [facility] [address] [id number], [place] [address]- 7388 Mar, [facility] [place] [facility] [address] [id number], [place] [address]- 2090 Feb, [facility] [place] [facility] [address] [id number] [place] [address]- 7994 Feb, [facility] [place] [facility] [address] [id number] [place] [address]- 0915 Jan, [facility] [place] [facility] [address] [id number] [place] [address]- 4920 Jan, [facility] [place] [facility] [address] [id number] [place] [address]- 5694 Jan, [facility] [place] [facility] [address] [id number] [place] [address]- 0897 Dec, [facility] [place] [facility] [address] [id number] [place] [address]- 2546 Dec, [facility] [place] [facility] [address] [id number] [place] [address]- 6042 Nov, [facility] [place] [facility] [address] [id number] [place] [address]- 5546 Oct, [facility] [place] [facility] [address] [id number] [place] [address]- 5325 Aug, [facility] [place] [facility] [address] [id number] [place] [address]- 3660 Jul, [facility] [place] [facility] [address] [id number] [place] [address]- 0893 Jul, [facility] [place] [facility] [address] [id number] [place] [address]- 7022 Jul, [facility] [place] [facility] [address] [id number] [place] [address]- 0974 Jul, [facility] [place] [facility] [address] [id number] [place] [address]- 4445 Jul, [facility] [place] [facility] [address] [id number] [place] [address]- 2001 Jul, [facility] [place] [facility] [address] [id number] [place] [address]- 8394 June, [facility] [place] [facility] [address] [id number] [place] [address]- 5371 June, [facility] [place] [facility] [address] [id number] [place] [address]- 5136 June, [facility] [place] [facility] [address] [id number] [id number] [address] May, [facility] [address] [facility] [id number] 6480 May, [facility] [address], [place] [address]- 5868 May, [facility] [address], [place] [address]- 6676 Apr, [facility] [address]- 9024 Mar, [facility] [address], [place] [address]- 1611 Mar, [facility] [address], [place] [address]- 4167 Jan, [facility] [address], [place] [address]- 8551 Dec, IMMUNIZATIONS No Known Immunizations SOCIAL HISTORY Never Assessed REASON FOR VISIT f/cecilia Singh MA PLAN OF CARE Activity Details Follow Up 4 Weeks Reason: VITAL SIGNS Height 65.5 in 2016-10-16 Weight 149.3 lbs 2016-10-16 Heart Rate 74 bpm 2016-10-16 Respiratory Rate 22 2016-10-16 BMI 24.46 kg/m2 2016-10-16 Blood pressure systolic 126 mmHg 2016-10-16 Blood pressure diastolic 78 mmHg 2016-10-16 MEDICATIONS Medication Instructions Dosage Frequency Start Date End Date Duration Status Melatonin 3 MG Orally Once a day 1 tablet at bedtime as needed with food 24h Active B Complex + C TR - Active Vitamin D-3 1000 UNIT Orally Once a day 1 capsule 24h Active Vitamin B 12 100 MCG Active BuPROPion HCl ER (XL) 300 MG Orally Once a day 1 tablet in the morning 24h 30 days Active Methylphenidate HCl ER 27 MG Orally Once a day 1 tablet in the morning 24h 28 days Active Calcium 600 MG Orally Twice a day 1 tablet with meals 12h Active Co Q-10 100 MG Orally Once a day 1 capsule with a meal 24h Active Depakote ER 500 MG Orally at bedtime 2 tablets 30 days Active Vitamin D 1000 UNIT Orally Once a day 1 tablet 24h Active Fish Oil 1200 MG Orally [...]
--- OUTSIDE RECORDS SUMMARY | 2017-12-06 16:41 | XMS REPORT | Continuity of Care Document ---
Author Author [facility] Address Unknown Phone Unavailable Allergies Active Description Code Type Severity Reaction Onset Reported/Identified Relationship to Patient Clinical Status Yes sensitivity to Demerol OA 07/24/2009 Yes sensitivity to Demerol OA N/ A N/A 07/24/2009 Yes meperidine [id number] Drug Allergy Unknown DECREASES BP 05/13/2016 Yes Sulfa (Sulfonamide Antibiotics) [id number] Drug Allergy Unknown N/A 2016 Medications There is no data. Problems Date Dx Coded Attending Type Code Diagnosis Diagnosed By 07/23/2009 Ot 845.10 SPRAIN OF FOOT NOS 07/23/2009 Ot 959.7 LOWER LEG INJURY NOS 07/23/2009 Ot E000.8 OTHER EXTERNAL CAUSE STATUS 07/23/2009 Ot E030 UNSPECIFIED ACTIVITY 07/23/2009 Ot E849.0 ACCIDENT IN HOME 07/23/2009 Ot E927.8 OTH OVEREXERTION STRENUOUS REPETITIV 07/24/2009 LUCIA GOTTLIEB DO 845.10 SPRAIN/STRAIN FOOT [...] HUGHES APRN 845.10 SPRAIN/STRAIN FOOT 07/24/2009 AVERY FRAUD MANAGER, ALLY 845.10 SPRAIN/STRAIN FOOT 07/24/2009 AVERY FRAUD MANAGER, ALLY 845.10 SPRAIN/STRAIN FOOT 07/24/2009 AVERY FRAUD MANAGER, ALLY 845.10 SPRAIN/STRAIN FOOT 07/24/2009 AVERY FRAUD MANAGER, ALLY 845.10 SPRAIN/STRAIN FOOT 07/24/2009 MANJIT PAL, DANIEL E 845.10 SPRAIN/STRAIN FOOT 07/24/2009 MANJIT PAL, DANIEL E 845.10 SPRAIN/STRAIN FOOT 07/24/2009 MANJIT PAL, DANIEL E 845.10 SPRAIN/STRAIN FOOT 07/24/2009 AVERY FRAUD MANAGER, ALLY 845.10 SPRAIN/STRAIN FOOT 07/24/2009 AVERY FRAUD MANAGER, ALLY 845.10 SPRAIN/STRAIN FOOT 07/24/2009 AVERY FRAUD MANAGER, ALLY 845.10 SPRAIN/STRAIN FOOT 07/24/2009 AVERY FRAUD MANAGER, ALLY 845.10 SPRAIN/STRAIN FOOT 01/06/2011 LUCIA GOTTLIEB DO 296.89 MO BIPOLAR II 01/06/2011 LUCIA GOTTLIEB DO V58.69 MEDICATION HIGH RISK 01/06/2011 LUCIA GOTTLIEB DO 296.89 MO BIPOLAR [...] APRN V58.69 MEDICATION HIGH RISK 01/06/2011 AVERY FRAUD MANAGER, ALLY 296.89 MO BIPOLAR II 01/06/2011 AVERY FRAUD MANAGER, ALLY V58.69 MEDICATION HIGH RISK 01/06/2011 AVERY FRAUD MANAGER, ALLY 296.89 MO BIPOLAR II 01/06/2011 AVERY FRAUD MANAGER, ALLY V58.69 MEDICATION HIGH RISK 01/06/2011 AVERY FRAUD MANAGER, ALLY 296.89 MO BIPOLAR II 01/06/2011 AVERY FRAUD MANAGER, ALLY V58.69 MEDICATION HIGH RISK 01/06/2011 AVERY FRAUD MANAGER, ALLY 296.89 MO BIPOLAR II 01/06/2011 AVERY FRAUD MANAGER, ALLY V58.69 MEDICATION HIGH RISK 01/06/2011 MANJIT PAL, DANIEL E 296.89 MO BIPOLAR II 01/06/2011 DANIEL SARAVIA RN E V58.69 MEDICATION HIGH RISK 01/06/2011 MANJIT RN, DANIEL E 296.89 MO BIPOLAR II 01/06/2011 MANJIT RN, DANIEL E V58.69 MEDICATION HIGH RISK 01/06/2011 MANJIT RN, DANIEL E 296.89 MO BIPOLAR II 01/06/2011 MANJIT RN, DANIEL E V58.69 MEDICATION HIGH RISK 01/06/2011 AVERY FRAUD MANAGER, ALLY 296.89 MO BIPOLAR II 01/06/2011 AVERY FRAUD MANAGER, ALLY V58.69 MEDICATION HIGH RISK 01/06/2011 AVERY FRAUD MANAGER, ALLY 296.89 MO BIPOLAR II 01/06/2011 AVERY FRAUD MANAGER, ALLY V58.69 MEDICATION HIGH RISK 01/06/2011 AVERY FRAUD MANAGER, ALLY 296.89 MO BIPOLAR II 01/06/2011 AVERY FRAUD MANAGER, ALLY V58.69 MEDICATION HIGH RISK 01/06/2011 AVERY FRAUD MANAGER, LALY 296.89 MO BIPOLAR II 01/06/2011 AVERY FRAUD MANAGER, ALLY V58.69 MEDICATION HIGH RISK 02/04/2011 LUCIA GOTTLIEB DO 296.62 MO BIPOLAR I MIXED MODERATE 02/04/2011 LUCIA GOTTLIEB DO 296.62 MO BIPOLAR I MIXED MODERATE 02/04/2011 [...] MO BIPOLAR I MIXED MODERATE 02/04/2011 AVERY FRAUD MANAGER, ALLY 296.62 MO BIPOLAR I MIXED MODERATE 02/04/2011 AVERY FRAUD MANAGER, ALLY 296.62 MO BIPOLAR I MIXED MODERATE 02/04/2011 AVERY FRAUD MANAGER, ALLY 296.62 MO BIPOLAR I MIXED MODERATE 02/04/2011 AVERY FRAUD MANAGER, ALLY 296.62 MO BIPOLAR I MIXED MODERATE 02/04/2011 MANJIT PAL, DANIEL E 296.62 MO BIPOLAR I MIXED MODERATE 02/04/2011 MANJIT PAL, DANIEL E 296.62 MO BIPOLAR I MIXED MODERATE 02/04/2011 MANJIT PAL, DANIEL E 296.62 MO BIPOLAR I MIXED MODERATE 02/04/2011 AVERY FRAUD MANAGER, ALLY 296.62 MO BIPOLAR I MIXED MODERATE 02/04/2011 AVERY FRAUD MANAGER, ALLY 296.62 MO BIPOLAR I MIXED MODERATE 02/04/2011 AVERY FRAUD MANAGER, ALLY 296.62 MO BIPOLAR I MIXED MODERATE 02/04/2011 AVERY FRAUD MANAGER, ALLY 296.62 MO BIPOLAR I MIXED MODERATE 03/25/2011 LUCIA GOTTLIEB DO F 611.71 BREAST PAIN 03/25/2011 LUCIA GOTTLIEB DO F 783.1 WEIGHT GAIN ABNORMAL 03/25/2011 LUKEHUGGINS LUCIA F V18.0 FAM HX DIABETES MELLITUS 03/25/2011 LUKEHUGGINS LUCIA F 611.71 BREAST PAIN 03/25/2011 CHERY HENDERSON LUCIA F 783.1 WEIGHT GAIN ABNORMAL 03/25/2011 CHERY HENDERSON LUCIA F V18.0 FAM HX DIABETES MELLITUS [...] V18.0 FAM HX DIABETES MELLITUS 03/25/2011 AVERY FRAUD MANAGER, ALLY 611.71 BREAST PAIN 03/25/2011 AVERY FRAUD MANAGER, ALLY 783.1 WEIGHT GAIN ABNORMAL 03/25/2011 AVERY FRAUD MANAGER, ALLY V18.0 FAM HX DIABETES MELLITUS 03/25/2011 AVERY FRAUD MANAGER, ALLY 611.71 BREAST PAIN 03/25/2011 AVERY FRAUD MANAGER, ALLY 783.1 WEIGHT GAIN ABNORMAL 03/25/2011 AVERY FRAUD MANAGER, ALLY V18.0 FAM HX DIABETES MELLITUS 03/25/2011 AVERY FRAUD MANAGER, ALLY 611.71 BREAST PAIN 03/25/2011 AVERY FRAUD MANAGER, ALLY 783.1 WEIGHT GAIN ABNORMAL 03/25/2011AVERY FRAUD MANAGER, ALLY V18.0 FAM HX DIABETES MELLITUS 03/25/2011 AVERY FRAUD MANAGER, ALLY 611.71 BREAST PAIN 03/25/2011 AVERY FRAUD MANAGER, ALLY 783.1 WEIGHT GAIN ABNORMAL 03/25/2011 AVERY FRAUD MANAGER, ALLY V18.0 FAM HX DIABETES MELLITUS [...] V18.0 FAM HX DIABETES MELLITUS 03/25/2011 AVERY FRAUD MANAGER, ALLY 611.71 BREAST PAIN 03/25/2011 AVERY FRAUD MANAGER, ALLY 783.1 WEIGHT GAIN ABNORMAL 03/25/2011 AVERY FRAUD MANAGER, ALLY V18.0 FAM HX DIABETES MELLITUS 03/25/2011 AVERY FRAUD MANAGER, ALLY 611.71 BREAST PAIN 03/25/2011 AVERY FRAUD MANAGER, ALLY 783.1 WEIGHT GAIN ABNORMAL 03/25/2011 AVERY FRAUD MANAGER, ALLY V18.0 FAM HX DIABETES MELLITUS 03/25/2011 AVERY FRAUD MANAGER, ALLY 611.71 BREAST PAIN 03/25/2011 AVERY FRAUD MANAGER, ALLY 783.1 WEIGHT GAIN ABNORMAL 03/25/2011 AVERY FRAUD MANAGER, ALLY V18.0 FAM HX DIABETES MELLITUS 03/25/2011 AVERY FRAUD MANAGER, ALLY 611.71 BREAST PAIN 03/25/2011 AVERY FRAUD MANAGER, ALLY 783.1 WEIGHT GAIN ABNORMAL 03/25/2011 AVERY FRAUD MANAGER, ALLY V18.0 FAM HX DIABETES MELLITUS 06/17/2011 Ot [...] DEBRA HUGHES APRN 314.01 ADHD COMBINED 06/23/2011 AVERYPAUL MATTHEW ALLY 314.01 ADHD COMBINED 06/23/2011 ALLY VARELA APRN 314.01 ADHD COMBINED 06/23/2011 AVERY FRAUD MANAGER, ALLY 314.01 ADHD COMBINED 06/23/2011 AVERY FRAUD MANAGER, ALLY 314.01 ADHD COMBINED 06/23/2011 MANJIT RN, DANIEL E 314.01 ADHD COMBINED 06/23/2011 MANJIT RN, DANIEL E 314.01 ADHD COMBINED 06/23/2011 MANJIT RN, DANIEL E 314.01 ADHD COMBINED 06/23/2011 AVERY FRAUD MANAGER, ALLY 314.01 ADHD COMBINED 06/23/2011 AVERY FRAUD MANAGER, ALLY 314.01 ADHD COMBINED 06/23/2011 AVERY FRAUD MANAGER, ALLY 314.01 ADHD COMBINED 06/23/2011 AVERY FRAUD MANAGER, ALLY 314.01 ADHD COMBINED 08/20/2011 LUCIA [...] MO BIPOLAR I MIXED UNSPECIFIED 04/21/2012 AVERY FRAUD MANAGER, ALLY 296.60 MO BIPOLAR I MIXED UNSPECIFIED 04/21/2012 AVERY FRAUD MANAGER, ALLY 296.60 MO BIPOLAR I MIXED UNSPECIFIED 04/21/2012 AVERY FRAUD MANAGER, ALLY 296.60 MO BIPOLAR I MIXED UNSPECIFIED 04/21/2012 AVERY FRAUD MANAGER, ALLY 296.60 MO BIPOLAR I MIXED UNSPECIFIED 04/21/2012 MANJIT PAL, DANIEL E 296.60 MO BIPOLAR I MIXED UNSPECIFIED 04/21/2012 MANJIT PAL, DANIEL E 296.60 MO BIPOLAR I MIXED UNSPECIFIED 04/21/2012 SARAVIA RN, DANIEL E 296.60 MO BIPOLAR I MIXED UNSPECIFIED 04/21/2012 AVERY FRAUD MANAGER, ALLY 296.60 MO BIPOLAR I MIXED UNSPECIFIED 04/21/2012 AVERY FRAUD MANAGER, ALLY 296.60 MO BIPOLAR I MIXED UNSPECIFIED 04/21/2012 AVERY FRAUD MANAGER, ALLY 296.60 MO BIPOLAR I MIXED UNSPECIFIED 04/21/2012 AVERY FRAUD MANAGER, ALLY 296.60 MO BIPOLAR I MIXED UNSPECIFIED 03/02/2014 AVERY FRAUD MANAGER, ALLY 314.00 ADHD INATTENTIVE 03/02/2014 AVERY FRAUD MANAGER, ALLY 314.00 ADHD INATTENTIVE 05/14/2016 CLIF DO BLAYNE Ot E83.51 HYPOCALCEMIA 05/14/2016 CLIF DO, BLAYNE Ot E86.0 DEHYDRATION 05/14/2016 CLIF DO BLAYNE Ot F17.210 NICOTINE DEPENDENCE, CIGARETTES, UNCOMPL 05/14/2016 CLIF HENDERSON BLAYNE Ot K52.9 NONINFECTIVE GASTROENTERITIS AND COLITIS 05/14/2016 CLIF HENDERSON BLAYNE Ot K85.90 ACUTE PANCREATITIS WITHOUT NECROSIS OR I 05/16/2016 CLIF DO BLAYNE Ot E83.51 HYPOCALCEMIA 05/16/2016 MENEZES DO, BLAYNE Ot E86.0 DEHYDRATION 05/16/2016 CLIF DO BLAYNE Ot F17.210 NICOTINE DEPENDENCE, CIGARETTES, UNCOMPL 05/16/2016 CLIF DO BLAYNE Ot K52.9 NONINFECTIVE GASTROENTERITIS AND COLITIS 05/16/2016 CLIF DO BLAYNE Ot K85.90 ACUTE PANCREATITIS WITHOUT NECROSIS OR I 08/29/2016 TAMMIE LANGLEY Ot B86 SCABIES 08/29/2016 TAMMIE LANGLEY Ot F17.210 NICOTINE DEPENDENCE, CIGARETTES, UNCOMPL 08/29/2016 SHIVAM, TAMMIE DIRECTOR FRANCHISE SALES Ot F31.9 BIPOLAR DISORDER, UNSPECIFIED 08/29/2016 SHIVAM, TAMMIE DIRECTOR FRANCHISE SALES Ot F32.9 MAJOR DEPRESSIVE DISORDER, SINGLE EPISOD 08/29/2016 SHIVAM, TAMMIE DIRECTOR FRANCHISE SALES Ot L29.9 PRURITUS, UNSPECIFIED 08/29/2016 SHIVAM, TAMMIE DIRECTOR FRANCHISE SALES Ot Z90.49 ACQUIRED ABSENCE OF OTHER SPECIFIED PART 08/29/2016 SHIVAM, TAMMIE DIRECTOR FRANCHISE SALES Ot Z90.710 ACQUIRED ABSENCE OF BOTH CERVIX AND UTER 08/31/2016 SHIVAM, TAMMIE DIRECTOR FRANCHISE SALES Ot B86 SCABIES 08/31/2016 SHIVAM, TAMMIE DIRECTOR FRANCHISE SALES Ot F17.210 NICOTINE DEPENDENCE, CIGARETTES, UNCOMPL 08/31/2016 SHIVAM, TAMMIE DIRECTOR FRANCHISE SALES Ot F31.9 BIPOLAR DISORDER, UNSPECIFIED 08/31/2016 SHIVAM, TAMMIE DIRECTOR FRANCHISE SALES Ot F32.9 MAJOR DEPRESSIVE DISORDER, SINGLE EPISOD 08/31/2016 SHIVAM, TAMMIE DIRECTOR FRANCHISE SALES Ot L29.9 PRURITUS, UNSPECIFIED 08/31/2016 SHIVAM, TAMMIE DIRECTOR FRANCHISE SALES Ot Z90.49 ACQUIRED ABSENCE OF OTHER SPECIFIED PART 08/31/2016 SHIVAM, TAMMIE DIRECTOR FRANCHISE SALES Ot Z90.710 ACQUIRED ABSENCE OF BOTH CERVIX AND UTER 05/23/2017 MINE TONY DO Ot G89.29 OTHER CHRONIC PAIN 05/23/2017 MINE TONY DO Ot M53.3 SACROCOCCYGEAL DISORDERS, NOT ELSEWHERE 05/23/2017 MINE TONY DO Ot M54.5 LOW BACK PAIN 05/23/2017 MINE TONY DO Ot Z87.19 PERSONAL HISTORY OF OTHER DISEASES OF TH 05/23/2017 MINE TONY DO Ot Z87.59 PERSONAL HISTORY OF COMP OF PREG, CHLDBR 05/23/2017 MINE TONY DO Ot Z87.891 PERSONAL HISTORY OF NICOTINE DEPENDENCE 05/23/2017 MINE TONY DO Ot Z88.2 ALLERGY STATUS TO SULFONAMIDES STATUS 05/23/2017 MINE TONY DO Ot Z88.6 ALLERGY STATUS TO ANALGESIC AGENT STATUS 05/23/2017 MINE TONY DO Ot Z90.49 ACQUIRED ABSENCE OF OTHER SPECIFIED PART 05/23/2017 MINE TONY DO Ot Z90.710 ACQUIRED ABSENCE OF BOTH CERVIX AND UTER 05/24/2017 MINE TONY DO Ot G89.29 OTHER CHRONIC PAIN 05/24/2017 MINE TONY DO Ot M53.3 SACROCOCCYGEAL DISORDERS, NOT ELSEWHERE 05/24/2017 MINE TONY DO Ot M54.5 LOW BACK PAIN 05/24/2017 MINE TONY DO Ot Z87.19 PERSONAL HISTORY OF OTHER DISEASES OF TH 05/24/2017 MINE TONY DO Ot Z87.59 PERSONAL HISTORY OF COMP OF PREG, CHLDBR 05/24/2017 MINE TONY DO Ot Z87.891 PERSONAL HISTORY OF NICOTINE DEPENDENCE 05/24/2017 MINE TONY DO Ot Z88.2 ALLERGY STATUS TO SULFONAMIDES STATUS 05/24/2017 MINE TONY DO Ot Z88.6 ALLERGY STATUS TO ANALGESIC AGENT STATUS 05/24/2017 MINE TONY DO Ot Z90.49 ACQUIRED ABSENCE OF OTHER SPECIFIED PART 05/24/2017 MINE TONY DO Ot Z90.710 ACQUIRED ABSENCE OF BOTH CERVIX AND UTER Procedures Code [place] [address] ROUTINE VENIPUNCTURE 04/22/2012 88468 URINE DRUG SCREEN (IN-HOUSE ) 04/22/2012 25262 CBC 04/22/2012 26156 CMP 04/22/2012 8309021 GFR CALC (RESULT ONLY) 04/22/2012 53380 VALPROIC ACID / DEPAKOTE 04/22/2012 13929 TSH 04/22/2012 97588 ROUTINE VENIPUNCTURE 05/05/2012 01705 URINE DRUG SCREEN (IN-HOUSE ) 05/05/2012 06658 VALPROIC ACID / DEPAKOTE 05/05/2012 60928 URINE METHYLPHENIDATE GC/ MS 08/02/2012 S0280 HEALTH [...] NRG Blood erythrocyte morphology finding identification NORMAL [facility] Comprehensive metabolic panel - 05/13/16 18:20 Serum [...] for toxigenic C diff by DNA amplification [facility] [id number] - 05/13/16 19:43 RESULTS INDETERMINANT; MOLECULAR TEST [...] Automated blood platelet mean volume measurement 10.8 [[facility]] 7.4-10.4 Automated blood neutrophils/100 leukocytes 65 % [...] CULTURE RESULTS 20,000-50,000 Streptococcus agalactiae (Group B Strep).[id number] Further Work -up. MEDIA PLATED Setup at [...] Status Pt. Type Provider Facility Loc./Unit Complaint [id number] 03/02/2014 09:51:00 03/02/2014 23:59:59 ALLY Nice APRN [id number] 03/02/2014 09:51:00 03/02/2014 23:59:59 PACO Outpatient ALLY VARELA APRN [id number] 12/01/2013 15:52:00 12/01/2013 23:59:59 PACO Outpatient ALLY VARELA APRN [id number] 12/01/2013 15:52:00 12/01/2013 23:59:59 CLS Outpatient ALLY VARELA APRN [id number] 11/29/2013 13:30:00 11/29/2013 23:59:59 CLS Outpatient DANIEL SARAVIA RN [id number] 11/08/2013 00:00:00 11/08/2013 23:59:59 CLS Outpatient DANIEL SARAVIA RN [id number] 11/02/2013 00:00:00 11/02/2013 23:59:59 CLS Outpatient DANIEL SARAVIA RN [id number] 10/31/2013 14:58:00 10/31/2013 23:59:59 CLS Outpatient ALLY VARELA APRN [id number] 10/31/2013 14:58:00 10/31/2013 23:59:59 PACO Outpatient ALLY VARELA APRN [id number] 08/01/2013 12:54:00 08/01/2013 23:59:59 CLS Outpatient ALLY VARELA APRN [id number] 08/01/2013 12:54:00 08/01/2013 23:59:59 PACO Outpatient ALLY VARELA APRN [id number] 04/28/2013 15:36:00 04/28/2013 23:59:59 CLS Outpatient SANDRA HUGHES APRNFELIPA Coon [id number] 04/28/2013 15:36:00 04/28/2013 23:59:59 CLS Outpatient SANDRA HUGHES APRNFELIPA Coon [id number] 01/10/2013 07:56:00 01/10/2013 23:59:59 CLS Outpatient SANDRA HUGHES APRNFELIPA Coon [id number] 01/10/2013 07:56:00 01/10/2013 23:59:59 CLS Outpatient SANDRA HUGHES APRNFELIPA Coon [id number] 10/13/2012 08:20:00 10/13/2012 23:59:59 CLS Outpatient SANDRA HUGHES APRNFELIPA Coon [id number] 05/05/2012 15:16:00 05/05/2012 23:59:59 CLS Outpatient [id number] 04/22/2012 15:38:00 04/22/2012 23:59:59 CLS Outpatient SANDRA HUGHES APRNFELIPA Coon [id number] 04/21/2012 12:01:00 04/21/2012 23:59:59 CLS Outpatient DEBRA HUGHES APRN Jaymie [id number] 04/21/2012 12:01:00 04/21/2012 23:59:59 CLS Outpatient LUCIA GOTTLIEB DO [id number] 11/20/2011 08:23:00 11/20/2011 23:59:59 CLS Outpatient CHERY DO LUCIA F [id number] 11/20/2011 08:23:00 11/20/2011 23:59:59 CLS Outpatient [id number] 10/13/2012 08:20:00 Document Registration [id number] 07/21/2012 09:06:00 Document Registration [id number] 07/21/2012 09:06:00 Document Registration [id number] 05/05/2012 15:16:00 Document Registration [id number] 10/06/2016 09:09:00 Document Registration [id number] 06/11/2017 07:15:00 06/11/2017 23:59:59 CLS Preadmit EDIE HANCOCK DO [facility] RAD RT SI PAIN [id number] 06/01/2017 10:09:00 06/01/2017 23:59:59 CLS Outpatient EDIE HANCOCK DO [facility] OCC TWISTED LIFTING A PATIENT [id number] 05/22/2017 23:14:00 05/23/2017 00:55:00 DIS Emergency MINE TONY DO [facility] ER BACK PAIN [id number] 08/29/2016 16:03:00 08/29/2016 16:52:00 DIS Emergency TAMMIE LANGLEYP [facility] ER BUG BITES [id number] 05/13/2016 21:30:00 05/16/2016 15:45:00 DIS Inpatient BLAYNE MENEZES DO [facility] 4TH PANCREATITIS,ELEVATED LIVER ENZYMES,DEHYDRATION W/ [id number] 10/04/2015 14:22:00 10/04/2015 23:59:59 CLS Outpatient COLEDIE HYDE DO [facility] QUICK [id number] 06/17/2011 01:44:00 Document Registration [id number] 07/23/2009 21:27:00 Document Registration [id number] 05/22/2016 13:57:00 05/22/2016 23:59:00 DIS Outpatient LUCIA MORRIS [id number] 04/24/2016 10:01:00 04/24/2016 10:01:00 CAN Outpatient ALEX CLARKE [id number] 09/22/2017 10:00:00 09/22/2017 23:59:59 CLS Outpatient [facility] [id number] 10/28/2016 13:40:00 Document Registration
--- NOTE | 2017-12-06 16:44 | ED Abdominal Pain ---
General Stated Complaint: STOMACH PAIN/VOMITING Source of Information: Patient Exam Limitations: No Limitations History of Present Illness Date Seen by Provider: Dec 06, 2017 Time Seen by Provider: 16:42 Initial Comments To ER per private vehicle with reports of epigastric abdominal pain with nausea. No vomiting. Began about 36 hours ago. She denies any diarrhea or constipation. She had a similar episode years ago when she was diagnosed with pancreatitis and was told it was from a virus. She states she only drinks alcohol about once every 6 months. She states this pain feels similar to that. Timing/Duration: 1-2 Days Severity/Quality: Moderate Location: Epigastric Radiation: No Radiation Activities at Onset: None Associated Symptoms: No Fever/Chills; Nausea/Vomiting Allergies and Home Medications Allergies Coded Allergies: Sulfa (Sulfonamide Antibiotics) (Verified Allergy, Unknown, 05/13/16) codeine (Verified Adverse Reaction, Unknown, 12/06/17) meperidine (Unverified Adverse Reaction, Unknown, DECREASES BP, 05/13/16) morphine (Verified Adverse Reaction, Unknown, YADAV HER VEINS, 12/06/17) Home Medications Bupropion HCl 150 Mg Tab.er.24h, 300 MG PO HS, (Reported) TAKES 2 (150MG) TABLETS Hydrocodone/Acetaminophen 1 Each Tablet, 1 EACH PO Q4-6HR PRN for PAIN-MODERATE, (Reported) Methylphenidate HCl 27 Mg Tab.er.24, 27 MG PO DAILY, (Reported) Ondansetron 8 Mg Tab.rapdis, 8 MG PO Q6H PRN for NAUSEA/VOMITING-1ST LINE Prescribed by: CHRISTIANO CASTANON on 12/06/17 4874 Patient Home Medication List Home Medication List Reviewed: Yes Review of Systems Review of Systems Constitutional: see HPI; No chills, No fever EENTM: No Symptoms Reported Respiratory: No Symptoms Reported Gastrointestinal: See HPI, Abdominal Pain; Denies Constipated, Denies Diarrhea ; Nausea; Denies Vomiting Genitourinary: No Symptoms Reported Musculoskeletal: no symptoms reported Skin: no symptoms reported Psychiatric/Neurological: No Symptoms Reported Past Vzghdod-Redczl-Hkziso Hx Patient Social History Type Used: Cigarettes Former Smoker, Quit: May 11, 2016 2nd Hand Smoke Exposure: Yes Recent Foreign Travel: No Contact w/Someone Who Travel: No Recent Hopitalizations: No Immunizations Up To Date PED Vaccines UTD: Yes Date of Influenza Vaccine: Nov 16, 2015 Seasonal Allergies Seasonal Allergies: No Past Medical History Surgeries: Yes (CERVICAL AND LUMBAR FUSIONS; X 1 ; HYST/BSO; EGD) Appendectomy, Section, Gallbladder, Hysterectomy, Orthopedic Respiratory: No Currently Using CPAP: No Currently Using BIPAP: No Cardiac: No Neurological: No 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 Disorders: No Female 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 Disorders: 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, 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 Sexually Transmitted Disease: No HIV/AIDS: No Genitourinary: No Gastrointestinal: Yes Ulcer, Gall Bladder Disease Musculoskeletal: Yes (CHRONIC NECK AND BACK PAIN) Chronic Back Pain Endocrine: No HEENT: No Cancer: No Psychosocial: Yes Bipolar, Depression Integumentary: No Blood Disorders: No Adverse Reaction/Blood Tranf: No Family Medical History FH: non-Hodgkin's lymphoma SON Hypertension 19 MOTHER CAD Over 55 Years Old, Hypertension Physical Exam Vital Signs Vital Signs - First Documented 12/06/17 17:15 Temp 96.5 Pulse 61 Resp 16 B/P (MAP) 134/94 (107) O2 Delivery Room Air Capillary Refill : Height/Weight/BMI Height: 5'5.00" Weight: 145lbs. 0oz. 65.268930pn; 23.5 BMI Method:Stated General Appearance: WD/WN, no apparent distress HEENT: PERRL/EOMI, normal ENT inspection Neck: non-tender, full range of motion Respiratory: normal breath sounds, no respiratory distress, no accessory muscle use Cardiovascular: regular rate, rhythm, no murmur Gastrointestinal: normal bowel sounds, soft, tenderness (epigastric) Extremities: normal range of motion, non-tender Neurologic/Psychiatric: alert, normal mood/affect, oriented x 3 Skin: normal color, warm/dry Progress/Results/Core Measures Results/Orders Lab Results Laboratory Tests Test 12/06/17 16:32 Range/Units White Blood Count 7.8 4.3-11.0 10^3/uL Red Blood Count 4.58 4.35-5.85 10^6/uL Hemoglobin 14.3 11.5-16.0 G/DL Hematocrit 42 35-52 % Mean Corpuscular Volume 93 80-99 FL Mean Corpuscular Hemoglobin 31 25-34 PG Mean Corpuscular Hemoglobin Concent 34 32-36 G/DL Red Cell Distribution Width 13.7 10.0-14.5 % Platelet Count 375 130-400 10^3/uL Mean Platelet Volume 10.0 7.4-10.4 FL Neutrophils (%) (Auto) 52 42-75 % Lymphocytes (%) (Auto) 34 12-44 % Monocytes (%) (Auto) 9 0-12 % Eosinophils (%) (Auto) 4 0-10 % Basophils (%) (Auto) 1 0-10 % Neutrophils # (Auto) 4.1 1.8-7.8 X 10^3 Lymphocytes # (Auto) 2.7 1.0-4.0 X 10^3 Monocytes # (Auto) 0.7 0.0-1.0 X 10^3 Eosinophils # (Auto) 0.3 0.0-0.3 10^3/uL Basophils # (Auto) 0.0 0.0-0.1 10^3/uL Urine Color YELLOW Urine Clarity CLEAR Urine pH 6.5 5-9 Urine Specific [place] 1.010 L 1.016-1.022 Urine Protein NEGATIVE NEGATIVE Urine Glucose (UA) NEGATIVE NEGATIVE Urine Ketones NEGATIVE NEGATIVE Urine Nitrite NEGATIVE NEGATIVE Urine Bilirubin NEGATIVE NEGATIVE Urine Urobilinogen NORMAL NORMAL MG/DL Urine Leukocyte Esterase NEGATIVE NEGATIVE Urine RBC (Auto) NEGATIVE NEGATIVE Urine RBC NONE /HPF Urine WBC NONE /HPF Urine Squamous Epithelial Cells RARE /HPF Urine Crystals NONE /LPF Urine Bacteria NEGATIVE /HPF Urine Casts NONE /LPF Urine Mucus NEGATIVE /LPF Urine Culture Indicated NO Sodium Level 141 135-145 MMOL/L Potassium Level 4.1 3.6-5.0 MMOL/L Chloride Level 104 98-107 MMOL/L Carbon Dioxide Level 24 21-32 MMOL/L Anion Gap 13 5-14 MMOL/L Blood Urea Nitrogen 10 7-18 MG/DL Creatinine 0.83 0.60-1.30 MG/DL Estimat Glomerular Filtration Rate > 60 BUN/Creatinine Ratio 12 Glucose Level 85 70-105 MG/DL Calcium Level 9.3 8.5-10.1 MG/DL Corrected Calcium 9.1 8.5-10.1 MG/DL Total Bilirubin 0.4 0.1-1.0 MG/DL Aspartate Amino Transf (AST/SGOT) 495 H 5-34 U/L Alanine Aminotransferase (ALT/SGPT) 847 H 0-55 U/L Alkaline Phosphatase 199 H 40-136 U/L Total Protein 6.9 6.4-8.2 GM/DL Albumin 4.2 3.2-4.5 GM/DL Amylase Level 179 H 25-125 U/L Lipase 134 H 8-78 U/L My Orders Orders - CHRISTIANO CASTANON APRN Cbc With Automated Diff (12/06/17 16:26) Comprehensive Metabolic Panel (12/06/17 16:26) Lipase (12/06/17 16:26) Ua Culture If Indicated (12/06/17 16:26) Iv Heplock-Insert (Order) (12/06/17 16:26) Amylase (12/06/17 16:40) Fentanyl Injection (Sublimaze Injection (12/06/17 16:45) Ondansetron Injection (Zofran Injectio (12/06/17 16:45) Ns Iv 1000 Ml (Sodium Chloride 0.9%) (12/06/17 16:45) Ct Abdomen/Pelvis W (12/06/17 17:12) Iohexol Injection (Omnipaque 350 Mg/Ml 1 (12/06/17 17:15) Ns (Ivpb) (Sodium Chloride 0.9%) (12/06/17 17:15) Medications Given in ED Current Medications Medications Dose Ordered Sig/Dimitry Route Start Time Stop Time Status Last Admin Dose Admin Fentanyl Citrate 50 mcg ONCE ONCE IVP 12/06/17 16:45 12/06/17 16:46 DC 12/06/17 17:07 50 MCG Iohexol 100 ml ONCE ONCE IV 12/06/17 17:15 12/06/17 17:21 DC 12/06/17 17:28 100 ML Ondansetron HCl 8 mg ONCE ONCE IVP 12/06/17 16:45 12/06/17 16:46 DC 12/06/17 17:04 8 MG Sodium Chloride 250 ml ONCE ONCE IV 12/06/17 17:15 12/06/17 17:21 DC 12/06/17 17:29 80 ML Vital Signs/I&O 12/06/17 17:15 Temp 96.5 Pulse 61 Resp 16 B/P (MAP) 134/94 (107) O2 Delivery Room Air Diagnostic Imaging Diagonstic Imaging: CT Comments NAME: NICKOLAS [facility] REC#: [id number] PT STATUS: REG ER : 1960 PHYSICIAN: CHRISTIANO CASTANON APRN ADMIT DATE: 12/06/17/ER Draft Date of Exam:12/06/17 CT ABDOMEN/PELVIS W PROCEDURE: CT abdomen and pelvis with contrast. TECHNIQUE: Multiple contiguous axial images were obtained through the abdomen and pelvis after administration of intravenous contrast. INDICATION: Right upper quadrant pain x4 days. FINDINGS: Lung bases are clear. Liver appears normal. Gallbladder is surgically absent. The common duct is dilated which may be compensatory. Pancreas appears normal. Spleen is not enlarged. Adrenals are normal. Kidneys appear normal. There is calcific atherosclerosis of the aorta but no aneurysm. Small bowel is not dilated. Colon is unremarkable. Uterus is surgically absent. There is no intraperitoneal free air or free fluid. IMPRESSION: Postsurgical changes in the abdomen. No acute abnormality seen. Common duct is dilated. This may be compensatory but clinical correlation recommended. Patient has had a lumbar fusion with discectomy at L4-L5. Dictated on workstation # [id number] Dict: 12/06/17 1746 Trans: 12/06/17 1757 [id number] Interpreted by: ANGELINA ARMSTRONG MD Electronically signed by: Departure Communication (Admissions) Patient had elevated liver enzymes during an admission last year for pancreatitis. AST peaked at 1000. Today 465. Her hepatitis panel was negative. She had an MRCP during that admission as she is post cholecystectomy and biliary tree ductal dilatation of the MRCP was unremarkable. 1801- spoke with Dr. David Vee at this time. Would like to have the patient discharged to call his office tomorrow to make an appointment for follow-up, advance diet as tolerated. I would agree with this plan since her nausea was controlled with 8 mg of Zofran and she has hydrocodone at home already. I relayed this plan to the patient, she is agreeable with this and states that she would like to go home. I'll give her Zofran for nausea and a prescription for Phenergan. However she states that cost will be initiated she is currently on FMLA for work-related injury. Impression Primary Impression: Pancreatitis Additional Impression: Elevated liver function tests Disposition: ADMITTED INPATIENT Condition: Stable Admissions Decision to Admit Reason: Admit from ER (General) Decision to Admit/Date: Dec 06, 2017 Time/Decision to Admit Time: 17:12 Departure-Patient Inst. Decision time for Depature: 18:02 Referrals: [facility] (PCP/Family) Primary Care Physician DAVID VEE MD Patient Instructions: Pancreatitis (DC) Add. Discharge Instructions: 1. Nothing to eat or drink for the next 4-6 hours. After that you may do clear liquids only. If you do okay with clear liquids (Jell-O chicken broth Gatorade) you may advance to a bland low fat diet. Call Dr. Vee's office tomorrow to make an appointment to be seen. Return to ER for high fever, uncontrollable nausea vomiting or intolerable pain. Scripts Ondansetron (Zofran Odt) 8 Mg Tab.rapdis 8 MG PO Q6H PRN for NAUSEA/VOMITING-1ST LINE, #10 TAB Prov: CHRISTIANO CASTANON APRN 12/06/17 Work/School Note: Work Release Form Date Seen in the Emergency Department: Dec 06, 2017 Return to Work: Dec 09, 2017 Copy Copies To 1: DAVID VEE MD, PETER J APRN Dec 06, 2017 16:44
[2017-12-06] MEDS ORDERED: ONDANSETRON 4 MG/2 ML (SDV) Z0FRAN IVP ONE (16:45)
[2017-12-06] MEDS ORDERED: fentaNYL INJECTION 100 MCG/2 ML AMP IVP ONE (16:45)
[2017-12-06] MEDS ORDERED: NS IV 1000 ML 1,000 ML IV SCH ×2 (16:45→18:15)
[2017-12-06 16:47] LABS: BASOPHILS % (AUTO) 1 % (0-10); EOSINOPHILS # (AUTO) 0.3 10^3/uL (0.0-0.3); EOSINOPHILS % (AUTO) 4 % (0-10); HEMATOCRIT 42 % (35-52); HEMOGLOBIN 14.3 G/DL (11.5-16.0); LYMPHOCYTES # (AUTO) 2.7 X 10^3 (1.0-4.0); LYMPHOCYTES % (AUTO) 34 % (12-44); MEAN CORPUSCULAR HEMOGLOBIN 31 PG (25-34); MEAN CORPUSCULAR HGB CONC 34 G/DL (32-36); MEAN CORPUSCULAR VOLUME 93 FL (80-99); MONOCYTES # (AUTO) 0.7 X 10^3 (0.0-1.0); MONOCYTES % (AUTO) 9 % (0-12); NEUTROPHILS # (AUTO) 4.1 X 10^3 (1.8-7.8); NEUTROPHILS % (AUTO) 52 % (42-75); PLATELET COUNT 375 10^3/uL (130-400); RED BLOOD COUNT 4.58 10^6/uL (4.35-5.85); RED CELL DISTRIBUTION WIDTH 13.7 % (10.0-14.5); WHITE BLOOD COUNT 7.8 10^3/uL (4.3-11.0)
[2017-12-06 16:48] LABS: BILIRUBIN,URINE NEGATIVE (NEGATIVE); CLARITY,URINE CLEAR; COLOR,URINE YELLOW; GLUCOSE, URINE (UA) NEGATIVE (NEGATIVE); KETONES,URINE NEGATIVE (NEGATIVE); LEUKOCYTE ESTERASE ,URINE NEGATIVE (NEGATIVE); NITRITE,URINE NEGATIVE (NEGATIVE); PH,URINE 6.5 (5-9); PROTEIN,URINE NEGATIVE (NEGATIVE); UROBILINOGEN,URINE NORMAL (NORMAL)
[2017-12-06 16:54] LABS: BACTERIA,URINE NEGATIVE /HPF; SQUAMOUS EPITHELIAL CELL,UR RARE /HPF
[2017-12-06 17:04] LABS: ALANINE AMINOTRANSFERASE 847 U/L (0-55); ALBUMIN 4.2 GM/DL (3.2-4.5); ALKALINE PHOSPHATASE 199 U/L (40-136); AMYLASE 179 U/L (25-125); BILIRUBIN,TOTAL 0.4 MG/DL (0.1-1.0); BUN/CREATININE RATIO 12; CALCIUM 9.3 MG/DL (8.5-10.1); CARBON DIOXIDE 24 MMOL/L (21-32); CHLORIDE 104 MMOL/L (98-107); CREATININE SERUM 0.83 MG/DL (0.60-1.30); GFR ESTIMATED > 60; GLUCOSE 85 MG/DL (70-105); LIPASE 134 U/L (8-78); POTASSIUM 4.1 MMOL/L (3.6-5.0); SODIUM 141 MMOL/L (135-145); TOTAL PROTEIN 6.9 GM/DL (6.4-8.2)
[2017-12-06] MEDS ORDERED: IOHEXOL 350 MG/ML 100 ML (OMNIPAQUE 350) VIAL IV ONE (17:15)
[2017-12-06] MEDS ORDERED: NS 250 ML (IVPB) BAG IV ONE (17:15)
[2017-12-06] MEDS ORDERED: HYDR-3812 PO (17:26)
[2017-12-06] MEDS ORDERED: METH27TA4 PO (17:28)
--- NOTE | 2017-12-06 17:57 | Diagnostic Imaging Report ---
PROCEDURE: CT abdomen and pelvis with contrast. TECHNIQUE: Multiple contiguous axial images were obtained through the abdomen and pelvis after administration of intravenous contrast. INDICATION: Right upper quadrant pain x4 days. FINDINGS: Lung bases are clear. Liver appears normal. Gallbladder is surgically absent. The common duct is dilated which may be compensatory. Pancreas appears normal. Spleen is not enlarged. Adrenals are normal. Kidneys appear normal. There is calcific atherosclerosis of the aorta but no aneurysm. Small bowel is not dilated. Colon is unremarkable. Uterus is surgically absent. There is no intraperitoneal free air or free fluid. IMPRESSION: Postsurgical changes in the abdomen. No acute abnormality seen. Common duct is dilated. This may be compensatory but clinical correlation recommended. Patient has had a lumbar fusion with discectomy at L4-L5. Dictated by: Dictated on workstation # [id number]
[2017-12-06] MEDS ORDERED: ONDA8TAB9 PO (18:04)
[2017-12-06] MEDS ORDERED: PROM25TA14 PO (18:12)
[2017-12-06] MEDS ORDERED: RX-PHENERGAN 25 MG SUPP PPK#3 PR STA (18:12)
[2017-12-06 18:53] VITALS: BP 118/68
== END 2017-12-06 18:55 | disposition other institution (70) ==
LOC: EDUNIT# 16:24 → ER 16:25
DX: K85.90 Acute pancreatitis without necrosis or infection, unspecified (principal); R94.5 Abnormal results of liver function studies; F31.9 Bipolar disorder, unspecified; Z82.49 Family history of ischemic heart disease and other diseases of the circulatory system; Z80.7 Family history of other malignant neoplasms of lymphoid, hematopoietic and related tissues; Z88.2 Allergy status to sulfonamides; Z88.5 Allergy status to narcotic agent; Z88.8 Allergy status to other drugs, medicaments and biological substances; Z87.19 Personal history of other diseases of the digestive system; Z87.891 Personal history of nicotine dependence; Z98.1 Arthrodesis status; Z98.890 Other specified postprocedural states; Z90.710 Acquired absence of both cervix and uterus; Z90.89 Acquired absence of other organs; Z87.448 Personal history of other diseases of urinary system
CPT/HCPCS: 36415; 74177; 80053; 81000; 82150; 83690; 85025